=== PATIENT | female | born 1960 | race Caucasian/White ===

== ENCOUNTER → 2019-03-16 09:41 | Outpatient (CLI) | payer MEDICARE, MEDICAID, SELFPAY ==
--- NOTE | 2019-03-16 09:48 | XR_ITS ---
PROCEDURE: XR CHEST 2V Patient Age:58Y CLINICAL HISTORY: PNEUMONIA , COPD WITH EXACERBATION Smoker cough COMPARISON: CXR CHEST(2 VIEWS-NOT PORTABLE) from 04/27/2014 FINDINGS: today's chest film shows no significant change Since the previous April 2014 CXR. Prominent hyperexpansion with increased AP diameter of reflects extensive COPD and emphysematous changes as previously seen. Bleb formation at the apices again noted Linear scarring towards the left upper lung with slight incremental increased size of the bleb just above this at left apex. There is also some linear scarring at the right apex with bleb formation less evident here. Coarsened markings throughout mid and lower lung rivers bilaterally reflecting chronic interstitial changes. I see no definitive acute focal pneumonia. No definitive focal infiltrate or consolidation. No Mass or new nodules of significance. Stable calcified granuloma at the right upper lung 7 mm size again seen. Heart normal size The left brian slightly more generous than the right but I believe stable AP window upper normal prominence due to the left brian is well of these can be followed but if there should be any persistent or progressive respiratory symptoms low threshold for CT in this patient would be warranted. Also screening CT may be of benefit moving forward IMPRESSION: No acute findings. No focal pneumonia Prominent COPD and chronic changes/emphysematous changes again evident. No significant new findings. Bleb formation at both apices again noted, with slight increased size of the bleb/bulla at the left apex since previous 2013 CXR Dictated by: Irineo Fontanez MD 03/17/2019 16:50 Electronically signed by Irineo Fontanez MD in [place] 03/17/2019 16:50
== END ==
PROVIDERS: PCP Family Medicine; Visit Provider Nurse Practitioner
DX: J44.1 Chronic obstructive pulmonary disease with (acute) exacerbation; J18.9 Pneumonia, unspecified organism
CPT/HCPCS: 71046

== ENCOUNTER 2020-10-25 16:10 | Emergency (ER) | payer MEDICARE, OTHER, SELFPAY ==
[2020-10-25 16:30] VITALS: BP 131/84; PULSE 74; RESP 17; TEMP 37; O2SAT 92; BMI 16.6
--- NOTE | 2020-10-25 16:50 | HMH.EDUTC ---
[facility] [place] Clinical Impression: Bronchitis Sinusitis Qualifiers: Sinusitis location: unspecified location Chronicity: unspecified Qualified Code(s): J32.9 - Chronic sinusitis, unspecified Disposition: Home, Self-Care Condition on Discharge: Good Instructions: Sinusitis, Acute Bronchitis, DI for Sinusitis, Prednisone, Levofloxacin Additional Instructions: ? Start antibiotic today. Be sure to complete entire prescription even if feeling better ? Monitor temp. Tylenol every 4 hours as needed and / or ibuprofen every 6 hours as needed ( As long as your primary care physician has told you that it ok to take both. For fever/aches/pains ER if no less than 101 despite Tylenol or Motrin ? Humidifier/vaporizer or hot steamy shower ? Inhaler every 4-6 hours as needed like we discussed. If unsure how to use it, ask pharmacist to demonstrate how. Should help open airways and improve cough, wheezing, and shortness of breath ? Mucinex during the day for your cough and cough suppressant only at night. Be sure to drink lots of water. Insurance may not cover a prescriptions for mucinex. Might be cheaper to get 400mg tablets and take 2 tablet in the morning, mid-day and evening with lots of water. *Start steroid today. Helps with inflammation therefore, cough and wheezing. Follow directions on the package. Reviewed side effects. Patient reports taking them before. Follow up IMMEDIATELY for new or worsening of symptoms OR no noticeable improvement over the next 48-72 hours. 911 immediately for any life threatening symptoms such as chest pain or difficulty breathing Prescriptions: predniSONE [Deltasone 10mg tablet] 10 mg PO BID 5 Days #10 tab Transmission Status: Pending to [facility] levoFLOXacin [Levaquin 500mg tab] 500 mg PO DAILY 10 Days #10 tab Transmission Status: Pending to [facility] Referrals: Martine Bernal APRN [Primary Care Provider] - As needed Time of Disposition: 17:07 Medical Decision Making - Jose Alfredo Inquiry Pt receiving controlled substance: No Jose Alfredo was queried for this patient: No Vital Signs: 10/25/20 16:30 Temperature 98.6 F Temperature Source Oral Pulse Rate [Right Brachial] 74 Respiratory Rate 17 Blood Pressure [Right Arm] 131/84 Blood Pressure Mean [Right Arm] 99 Blood Pressure Source [Right Arm] Automatic Cuff Blood Pressure Position [Right Arm] Sitting 02 Sat by Pulse Oximetry 92 L Oxygen Delivery Method Room Air Medical Decision Narrative: Discussed chest xray and lab work and patient declined Patient denies any renal issues and has taken Levaquin and Prednisone multiple times in the past without complication or reactions [facility] [place] - General Stated complaint: cough,diff breathing Time Seen by Provider: 10/25/20 16:50 Mode of Arrival: Ambulatory Source of Information: Patient Limitations: No Limitations Description of Symptoms (Recalled from Triage Doc. by RN): PATIENT C/O COUGH, DRAINAGE, PAIN IN RIGHT UPPER BACK WITH BREATHING OR COUGHING X 1 WEEK HEENT Symptoms (Recalled from RN notes): No Resp Symptoms (Recalled from RN notes): Yes Skin Symptoms (Recalled from RN notes): No MS Symptoms (Recalled from RN notes): No Functional Status (Recalled from RN notes): WNL - History of Present Illness Provider Complaint: Patient states that she has been having sinus pain and pressure along with drainage for over a week States that she feels like it is trying to move into her chest States that she has pain at times in her right upper lung area with cough or deep breath like she has had with pleurisy States that she was worried and wanted to come in and get treated before it turned into pneumonia States that she is on O2 at home but didnt have portable tank and her mask makes her have anxiety States that - Related Data Previous Rx's Medication Instructions Recorded levoFLOXacin [Levaquin 500mg 500 mg PO DAILY 10 Days #10 tab 10/25/20 tab] predniSONE [Deltasone 10
[2020-10-25 17:00] VITALS: O2SAT 96
[2020-10-25 17:12] VITALS: BP 131/84; PULSE 74; RESP 17; TEMP 37; O2SAT 96
== END 2020-10-25 17:21 | disposition home or self-care (01) ==
PROVIDERS: Emergency Provider Nurse Practitioner; PCP Nurse Practitioner
DX: J20.9 Acute bronchitis, unspecified (principal); J32.9 Chronic sinusitis, unspecified; F17.210 Nicotine dependence, cigarettes, uncomplicated
CPT/HCPCS: G0463; 99202

== ENCOUNTER 2021-12-14 17:20 | Inpatient (IN) | payer MEDICARE, OTHER, SELFPAY ==
[2021-12-14] VITALS (7 sets, daily range): BP systolic 91–120; BP diastolic 48–67; PULSE 91–117; RESP 20–24; TEMP 36.5–38; O2SAT 92–94; BMI 16.0; BMI 14.3
--- NOTE | 2021-12-14 17:30 | PC.NURSE ---
PT SENT FROM [facility], O2 SAT 74% ON ROOM AIR. PT WEARS HOME O2 at 2 L/NC. PLACED ON 5L/NC. SATS INCREASING TO 88%
--- NOTE | 2021-12-14 17:31 | HMH.EDSOB ---
ED Disposition Clinical Impression: COPD exacerbation Pneumonia Qualifiers: Pneumonia type: due to unspecified organism Laterality: bilateral Lung location: lower lobe of lung Qualified Code(s): J18.9 - Pneumonia, unspecified organism Sepsis Qualifiers: Sepsis type: sepsis due to unspecified organism Sepsis acute organ dysfunction status: with acute organ dysfunction Severe sepsis acute organ dysfunction type: acute respiratory failure Acute respiratory failure type: with hypoxia Severe sepsis shock status: without septic shock Qualified Code(s): A41.9 - Sepsis, unspecified organism Disposition: Admitted As Inpatient Condition on Discharge: Serious - Critical Care Critical Care Time: No Attestation: On 12/14/21, the high probability of a clinically significant, sudden or life threatening deterioration of the following system(s) required my full and direct attention, intervention and personal management. The time I documented below is in addition to time spent performing reported procedures but includes the following listed in this critical care notation. Medical Decision Making - Jose Alfredo Inquiry Pt receiving controlled substance: No Vital Signs: 12/14/21 17:35 12/14/21 18:00 12/14/21 18:30 Temperature 100.4 F H Temperature Source Oral Pulse Rate 110 H 105 H Pulse Rate [Brachial] 117 H Respiratory Rate 24 24 24 Blood Pressure 110/63 117/59 L Blood Pressure [Left Arm] 120/58 L Blood Pressure Mean 78 78 Blood Pressure Mean [Left Arm] 78 Blood Pressure Source [Left Arm] Automatic Cuff Blood Pressure Position [Left Arm] Sitting 02 Sat by Pulse Oximetry 94 L 94 L 93 L Oxygen Delivery Method Nasal Cannula Oxygen Flow Rate (LPM) 5 - Lab Data Lab results reviewed: Yes: I reviewed the patient's lab results. Lab Results 12/14/21 17:35: WBC 36.4 H*, RBC 4.76, Hgb 13.9, Hct 45.3, MCV 95.3, MCH 29.1, MCHC 30.6 L, RDW 14.6, Plt Count 364, MPV 9.2, Neut % (Auto) 90.6 H, Lymph % (Auto) 3.8 L, [place] % (Auto) 3.7, Eos % (Auto) 0.3, Baso % (Auto) 1.6, Neut # (Auto) 32.9 H, Lymph # (Auto) 1.4, [place] # (Auto) 1.3 H, Eos # (Auto) 0.1, Baso # (Auto) 0.6 H 12/14/21 17:35: Sodium 133 L, Potassium 3.3 L, Chloride 95 L, Carbon Dioxide 33 H, Anion Gap 8.3, BUN 8, Creatinine 0.50 L, Estimated Creat Clear 76, Estimated GFR 126, Est GFR ( Amer) 153, Glucose 79, Calcium 8.7, Total Bilirubin 0.4, AST 23, ALT 19, Alkaline Phosphatase 119, NT-Pro-B Natriuret Pep 166 H, Total Protein 6.5, Albumin 3.5, Globulin 3.0, Albumin/Globulin Ratio 1.2 12/14/21 17:35: SARS-CoV-2 (PCR) Not detected, Influenza A Untype (PCR) Not detected, Influenza Type B (PCR) Not detected 12/14/21 17:35: Lactate 2.2 H Result diagrams: 12/14/21 17:35 12/14/21 17:35 Orders (Tests/Meds): ED MEDICATIONS Generic Name Dose Route Start Last Admin Trade Name Freq PRN Reason Stop Dose Admin Albuterol Sulfate puff 12/14/21 18:37 Albuterol-Hfa 90mcg/Puff Inhaler 8gm 01/13/22 18:36 NEEDED PRN Dyspnea Albuterol/Ipratropium 3 ml 12/14/21 18:45 Ipratropium/Albuterol 3 Ml Neb 01/13/22 18:44 DIRECTED ZAINA Fluticasone/Umeclidinium/Vilanterol 1 puff 12/14/21 18:45 Fluticasone/Umeclidin/Vilanter 100/62.5/25mcg Inhaler 01/13/22 18:44 DIRECTED ZAINA Ceftriaxone Sodium 1 gm/ 50 mls @ 100 mls/hr 12/14/21 18:15 12/14/21 18:13 Sodium Chloride IV 12/28/21 18:14 100 mls/hr Q24H ZAINA Administration Azithromycin 500 mg/ Sodium 250 mls @ 250 mls/hr 12/14/21 18:15 12/14/21 18:29 Chloride IV 12/28/21 18:14 250 mls/hr Q24H ZAINA Administration Non-Formulary Medication 40 mg 12/15/21 09:00 Omeprazole [Omeprazole 40mg Capsule] PO 01/14/22 08:59 DAILY ZAINA Sodium Chloride 10 ml 12/14/21 17:49 Sodium Chloride 0.9% 10ml Flush Syringe IV 01/13/22 17:48 NEEDED PRN Maintain IV Site Discontinued Medications Generic Name Dose Route Start Last Admin Trade Na
--- NOTE | 2021-12-14 17:39 | PC.NURSE ---
ED MD AT BEDSIDE
--- NOTE | 2021-12-14 17:40 | PC.NURSE ---
O2 SAT 93% ON 5L/NC
--- NOTE | 2021-12-14 17:41 | ECG_ITS ---
APPROVED REPORT Exam: Resting ECG HR:114 bpm ECG Measurements Heart Rate 114 AXES NH 114 P 78 QRSd 70 QRS 76 QT 319 T 8 QTc 387 Conclusion SINUS TACHYCARDIA WITH SHORT NH INTERVAL ST DEVIATION AND MODERATE T-WAVE ABNORMALITY, CONSIDER ANTEROLATERAL ISCHEMIA [-0.1+ mV T-WAVE IN V3-V6] ABNORMAL ECG UNCONFIRMED REPORT Electronically signed by : William Murphy MD 12/16/2021 17:45:14
--- NOTE | 2021-12-14 17:43 | XR_ITS ---
PROCEDURE INFORMATION: Exam: XR Chest Exam date and time: 12/14/21 05:47 PM Age: 61 years old Clinical indication: Dyspnea; Patient HX: PT states that she has copd, and that she has been SOB with congestion and a cough. PT states the symptoms have worsened since yesterday. TECHNIQUE: Imaging protocol: Radiologic exam of the chest. Views: 1 view. COMPARISON: CR XR CHEST 2V 03/16/19 09:50 AM FINDINGS: Lungs: Bilateral lower lobe interstitial infiltrates right greater than left are new since comparison 03/16/2019. Apical bullous change and scarring. Bilateral hilar retraction. Pleural spaces: Unremarkable. No pleural effusion. No pneumothorax. Heart/Mediastinum: Unremarkable. No cardiomegaly. Bones/joints: Unremarkable. IMPRESSION: 1. Bilateral lower lobe interstitial infiltrates right greater than left are new since comparison 03/16/2019. 2. Apical bullous change and scarring. Bilateral hilar retraction.
--- NOTE | 2021-12-14 17:47 | PC.NURSE ---
XR AT BEDSIDE
[2021-12-14 17:51] LABS: Coronavirus 19, PCR Not Detected (NotDetected); Influenza A, PCR Not Detected (NotDetected); Influenza B, PCR Not Detected (NotDetected)
[2021-12-14 17:54] LABS: Basophils # 0.6 K/mm3 (0-0.2); Basophils % 1.6 % (0.1-2.0); Eosinophils # 0.1 K/mm3 (0.0-0.4); Eosinophils % 0.3 % (0.1-12.0); Hematocrit 45.3 % (37.0-47.0); Hemoglobin 13.9 g/dL (12.2-16.2); Lymphocytes # 1.4 K/mm3 (0.7-4.5); Lymphocytes % 3.8 % (10-50); Mean Corpuscular HGB Conc 30.6 g/dL (31.8-35.4); Mean Corpuscular Hemoglobin 29.1 pg (27.0-31.2); Mean Corpuscular Volume 95.3 fl (81-99); Mean Platelet Volume 9.2 fl (7.4-10.4); Monocytes # 1.3 K/mm3 (0.1-1.0); Monocytes % 3.7 % (1.7-9.3); Neutrophils # 32.9 K/mm3 (1.8-7.8); Neutrophils % 90.6 % (37.0-80.0); Platelet Count 364 K/mm3 (142-424); Red Blood Count 4.76 M/mm3 (4.20-5.40); Red Cell Distribution Width 14.6 % (11.5-17.5); White Blood Count 36.4 K/mm3 (4.8-10.8)
[2021-12-14 18:01] LABS: Alanine Aminotransferase 19 U/L (12-78); Albumin Level 3.5 g/dl (3.5-5.0); Albumin/Globulin Ratio 1.2 (1.1-1.8); Alkaline Phosphatase 119 U/L (38-126); Anion Gap 8.3 mEq/L (5-15); Aspartate Amino Transferase 23 U/L (14-36); Bilirubin,Total 0.4 mg/dl (0.2-1.3); Blood Urea Nitrogen 8 mg/dl (7-17); Calcium 8.7 mg/dl (8.4-10.2); Carbon Dioxide 33 mmol/L (22.0-30.0); Chloride 95 mmol/L (98-107); Creatinine Clearance Estimated 76 mL/min (50-200); Estimated Glomerular Filt Rate 126 ml/min (>60); GFR (African American) 153 ML/MIN (>60); Glucose 79 mg/dl (74-100); Potassium 3.3 mmoL/L (3.5-5.1); Sodium 133 mmol/L (136-145); Total Protein,Serum 6.5 g/dl (6.3-8.2)
[2021-12-14 18:07] LABS: MANUAL DIFFERENTIAL MANUAL DIFFERENTIAL (MANUAL DIFF)
[2021-12-14 18:10] LABS: NT Pro Brain Natriuretic Pep. 166 pg/mL (0-125)
[2021-12-14 18:17] LABS: Lactic Acid 2.2 mmol/L (0.7-2.1)
--- NOTE | 2021-12-14 18:24 | PC.NURSE ---
PT OFFERED BLANKET, PT DECLINED
--- NOTE | 2021-12-14 18:27 | PC.NURSE ---
Addendum entered by Kaylee Pineda 12/14/21 18:29: for request to admit Original Note: Paged DR gama, on for DR rodriguez
--- NOTE | 2021-12-14 18:41 | PC.NURSE ---
PT ACCEPTED BY DR. WAGNER FOR ADMISSION
--- NOTE | 2021-12-14 18:41 | PC.NURSE ---
PARTS IDENTIFICATION TECHNICIAN NOTIFIED OF ADMISSION
--- NOTE | 2021-12-14 19:10 | PC.NURSE ---
Notified Dr. Wesley that pt meets criteria for severe sepsis with organ dysfunction. BP is currently 102/62. Asked MD if he would like to add fluid bolus or start IVF, he stated he'd like 500ml NS over an hr. Pt & her daughter updated on POC and admission.
--- NOTE | 2021-12-14 19:14 | PC.NURSE ---
Attempted to call report to 2nd wi, after transfer to nurse, no answer 2x.
--- NOTE | 2021-12-14 19:54 | PC.NURSE ---
pt states that she has numbness in the 1st 3 finger tips on the left hand. pt was repositioned and the feeling has started to return.
--- NOTE | 2021-12-14 20:09 | PC.NURSE ---
patient up to floor via wheelchair @ this time.
[2021-12-14 20:33] LABS: ABG Base Excess 1.6 mmol/L (-2.4-2.3); ABG HCO3 25.6 mmhg (22.0-26.0); ABG Oxygen Saturation 98 % (90-100); ABG PCO2 37.9 mmhg (35.0-45.0); ABG PH 7.45 mmol/L (7.35-7.45); ABG PO2 92.3 mmhg (80-100); ABG TCO2 26.8 mmhg (23-27); Allen's Test Y; Oxygen 4 %; Source Right Radial
[2021-12-14 21:38] LABS: Eosinophils % 2 % (0-3); Lymphocytes % 10 % (10-50); Monocytes % 5 % (2-9); Neutrophils % 83 % (42-76); Platelet Estimate Normal; Total Cells Counted 100
[2021-12-14 22:01] LABS: Reflex Lactic Add Lactic Reflex
[2021-12-14 22:44] LABS: Lactic Acid Follow Up (RFLX 1) 1.1 mmol/L (0.7-2.1)
[2021-12-15] VITALS (9 sets, daily range): BP systolic 94–135; BP diastolic 50–68; PULSE 85–105; RESP 17–19; TEMP 36.8–37.3; O2SAT 92–95
[2021-12-15 06:43] LABS: Basophils # 0.1 K/mm3 (0-0.2); Basophils % 0.4 % (0.1-2.0); Eosinophils # 0.2 K/mm3 (0.0-0.4); Eosinophils % 0.7 % (0.1-12.0); Hematocrit 34.6 % (37.0-47.0); Lactic Acid 1.2 mmol/L (0.7-2.1); Lymphocytes # 1.6 K/mm3 (0.7-4.5); Lymphocytes % 6.9 % (10-50); Mean Corpuscular HGB Conc 31.3 g/dL (31.8-35.4); Mean Corpuscular Hemoglobin 29.2 pg (27.0-31.2); Mean Corpuscular Volume 93.4 fl (81-99); Mean Platelet Volume 9.6 fl (7.4-10.4); Monocytes # 1.2 K/mm3 (0.1-1.0); Neutrophils # 20.5 K/mm3 (1.8-7.8); Neutrophils % 87.1 % (37.0-80.0); Platelet Count 296 K/mm3 (142-424); Red Blood Count 3.71 M/mm3 (4.20-5.40); White Blood Count 23.6 K/mm3 (4.8-10.8)
[2021-12-15 06:45] LABS: Anion Gap 4.3 mEq/L (5-15); Blood Urea Nitrogen 6 mg/dl (7-17); Calcium 7.5 mg/dl (8.4-10.2); Carbon Dioxide 30 mmol/L (22.0-30.0); Chloride 104 mmol/L (98-107); Creatinine Clearance Estimated 85 mL/min (50-200); Estimated Glomerular Filt Rate 163 ml/min (>60); GFR (African American) 198 ML/MIN (>60); Glucose 81 mg/dl (74-100); Potassium 3.3 mmoL/L (3.5-5.1); Sodium 135 mmol/L (136-145)
[2021-12-15 07:01] LABS: MANUAL DIFFERENTIAL MANUAL DIFFERENTIAL (MANUAL DIFF)
[2021-12-15 07:02] LABS: Hemoglobin 10.8 g/dL (12.2-16.2)
--- NOTE | 2021-12-15 07:06 | HMH.PHAVTE ---
[facility] Pharmacy VTE Monitoring - Patient Demographics Admission date: 12/14/21 Report Date: 12/15/21 Time: 07:06 Allergies/Adverse Reactions: Patient Allergies No Known Drug Allergies [NKDA] Allergy (Unknown, Verified 10/25/20 16:50) Height: 1.57 m Weight: 35.426 kg Patient Problems: Current Active Problems Pneumonia (Acute) Sepsis (Acute) COPD exacerbation (Acute) - VTE Risk Labs: VTE Related Lab Results Hgb 10.8 g/dL (12.2-16.2) L D 12/15/21 06:14 Hct 34.6 % (37.0-47.0) L 12/15/21 06:14 Plt Count 296 K/mm3 (142-424) 12/15/21 06:14 BUN 6 mg/dl (7-17) L 12/15/21 06:14 Creatinine 0.40 mg/dl (0.52-1.04) L 12/15/21 06:14 Estimated Creat Clear 85 mL/min (50-200) 12/15/21 06:14 VTE Score: 3 VTE Risk Level: Low Risk - Prophylaxis VTE Prophylaxis Ordered?: Yes Types of VTE Prophylaxis: TEDS Knee High Location of Applied Device: Bilateral Lower Extremeties
--- NOTE | 2021-12-15 07:08 | HMH.PHAINT ---
MEDICATION RECONCILIATION COMPLETED ON PATIENT USING EXTERNAL FILL HISTORY FROM PHARMACY. -KEI HOWARD, BIENVENIDOD
--- NOTE | 2021-12-15 07:26 | PC.NURSE ---
Pt a + o x4. Tolerating 4 l nc well with sats >90%. No complaints voiced to staff. Call light within reach.
[2021-12-15 07:39] LABS: Lymphocytes % 7 % (10-50); Monocytes % 2 % (2-9); Neutrophils % 91 % (42-76); Platelet Estimate Normal; RBC Morphology Normal; Total Cells Counted 100
--- NOTE | 2021-12-15 08:34 | HMH.HP ---
*Admission Date: 12/14/21 <Una Dhaliwal - 12/15/21 08:59> *Chief complaint: Vomiting and diarrhea <Una Dhaliwal - 12/15/21 08:59> *History of present illness: Ms. Vásquez is a 61-year-old female with a history of previous pneumonia, ulcers, COPD, GERD, depression with anxiety, restless leg syndrome who is followed in the office of [facility] in [place]. She presented to [facility] emergency room after experiencing nausea and vomiting and dry heaving for the previous 2 days. She states she was unable to eat anything although she retain some fluids. She states she finally took an Imodium yesterday after which she has had no further stools. She denies hematemesis, melena, and bloody stools. She has had some shortness of breath and wears oxygen at home as needed. She has had her usual cough which is sometimes productive. She denies having any fever. He does continue to smoke although she says not very much. Her kidneys continue to function. With evaluation in the emergency room CBC showed a white blood cell count of 36,400. Hemoglobin was 13.9 hematocrit 45.3. This morning white blood cell count has decreased to 23,600. ABGs showed a pH of 7.45 PCO2 37.9 PO2 of 92.3 and a bicarb of 25.6. Blood chemistry showed low potassium at 3.3 with a BUN of 8 creatinine 0.5. Lactate was elevated at 2.2 and with repeats after fluids is 1.2 now. Liver functions studies were not elevated. BNP was 166. COVID was not detected chest x-ray revealed Bilateral lower lobe interstitial infiltrates right greater than the left.On arrival to the ER temperature was 100.4. She received a DuoNeb treatment and was started on Rocephin and Zithromax. She also received omeprazole.O2 sats were found to be in the upper 70s in the emergency room and increased to 80s on 2 L. This a.m. patient feels like she is somewhat better. She had no further diarrhea and did not vomit during the night. She was able to eat a little breakfast and thus far has retained. He is walked to the bathroom with help without difficulty. She has been voiding QS. She states her breathing is fine and she denies chest pain. She has had minimal cough. She was able to sleep last night. <Una Dhaliwal 12/15/21 08:59> [facility] History Medical History: Reports:: Chronic Obstructive Pulmonary Disease (COPD), Depression, Gastroesophageal Reflux Disease(GERD), Ulcer Denies:: Diabetes Mellitus Type 1, Diabetes Mellitus Type 2 <DhaliwalUna 12/15/21 08:59> *Have you ever received a pneumonia vaccine?: Yes <MadhuriUna 12/15/21 08:59> *Have you received a flu vaccine this season?: No <Dhaliwal,Una 12/15/21 08:59> Other Surgeries: Yes: EGD, Tubal Ligation <MadhuriUna 12/15/21 08:59> Amputation: No <MadhuriUna 12/15/21 08:59> Fractures: No <Dhaliwal,Una 12/15/21 08:59> - *Social History Smoking Status: Current every day smoker <MadhuriUna 12/15/21 08:59> Tobacco Type: cigarettes <DhaliwalUna 12/15/21 08:59> # Packs/Day (cigarettes): 1 <DhaliwalUna 12/15/21 08:59> Alcohol Intake: current <Dhaliwal,Una 12/15/21 08:59> Alcohol Intake Frequency:: holidays/special occasions only <Dhaliwal,Una 12/15/21 08:59> *Occupational Status:: unemployed <MadhuriUna 12/15/21 08:59> Housing: house <Una Dhaliwal 12/15/21 08:59> *Travel in the last 8 weeks: None <MadhuriUna 12/15/21 08:59> Family Hx:: Cancer, Diabetes <MadhuriUna 12/15/21 08:59> Review of Systems - Constitutional Reports lack of energy, Denies fever(s) <Una Dhaliwal 12/15/21 08:59> - Eyes Denies change in vision <Una Dhaliwal 12/15/21 08:59> - ENT Denies ear pain, Denies sore throat <Una Dhaliwal 12/15/21 08:59> - *Cardiovascular Reports shortness of breath, Denies chest pain, Denies generalized swelling, Denies irregular heart rhythm, Denies leg swelling, Denies fast heart rate <Una Dhaliwal - 12/15/21 08:59> - *Respirator
--- NOTE | 2021-12-15 13:24 | PC.NURSE ---
STOOL SAMPLE SENT TO LAB
[2021-12-15 13:27] LABS: Adenovirus F 40/41, stool Not Detected (NotDetected); Astrovirus Not Detected (NotDetected); Campylobacter Not Detected (NotDetected); Clostridium Difficile A/B, PCR Not Detected (NotDetected); Cryptosporidium Not Detected (NotDetected); Cyclospora Cayetanesis Not Detected (NotDetected); Entamoeba histolytica Not Detected (NotDetected); Enteroaggregative E coli Not Detected (NotDetected); Enteropathogenic E coli Not Detected (NotDetected); Enterotoxigenic E coli Not Detected (NotDetected); Giardia lamblia Not Detected (NotDetected); Norovirus Not Detected (NotDetected); Plesimonas Shigalloides, PCR Not Detected (NotDetected); Rotavirus A Not Detected (NotDetected); Salmonella, PCR Not Detected (NotDetected); Sapovirus Not Detected (NotDetected); Shiga-like toxin E coli Not Detected (NotDetected); Shigella Enterovasive E coli Not Detected (NotDetected); Vibrio Cholerae Not Detected (NotDetected); Vibrio, PCR Not Detected (NotDetected); Yersinia Entercolitica, PCR Not Detected (NotDetected)
--- NOTE | 2021-12-15 16:05 | PC.NURSE ---
PT IS AOX4, ABLE TO MAKE NEEDS KNOWN TO STAFF, HAS AMBULATED TO RESTROOM INDEPENDENTLY THIS SHIFT. C/O HEADACHE THIS AM AND WAS TREATED WITH PRN TYLENOL WITH GOOD EFFECTIVENESS. NO OTHER COMPLAINTS.
[2021-12-16] VITALS (7 sets, daily range): BP systolic 100–108; BP diastolic 47–56; PULSE 91–105; RESP 16–19; TEMP 36.6–37; O2SAT 86–94; BMI 15.0
--- NOTE | 2021-12-16 04:00 | PC.NURSE ---
pt somewhat restless through the night related to cough; pt with intermittent cough and has requested prn inhalation this shift, lung sounds with inspiratory and expiratory wheezes throughout, humidification added to 02 at 4L pnc for complaints of dryness and irritation in nares and throat; 02 sats 91-92%; no edema, a+o x4; diarrhea panel negative; VSS; no acute distress noted this shift.
[2021-12-16 07:26] LABS: Basophils % 0.2 % (0.1-2.0); Eosinophils # 0.1 K/mm3 (0.0-0.4); Eosinophils % 0.7 % (0.1-12.0); Hematocrit 31.7 % (37.0-47.0); Hemoglobin 10.6 g/dL (12.2-16.2); Lymphocytes # 2.3 K/mm3 (0.7-4.5); Lymphocytes % 12.5 % (10-50); Mean Corpuscular HGB Conc 33.4 g/dL (31.8-35.4); Mean Corpuscular Hemoglobin 29.8 pg (27.0-31.2); Mean Corpuscular Volume 89.3 fl (81-99); Mean Platelet Volume 8.9 fl (7.4-10.4); Monocytes # 1.1 K/mm3 (0.1-1.0); Monocytes % 6.1 % (1.7-9.3); Neutrophils # 14.5 K/mm3 (1.8-7.8); Neutrophils % 80.5 % (37.0-80.0); Platelet Count 256 K/mm3 (142-424); Red Blood Count 3.55 M/mm3 (4.20-5.40); Red Cell Distribution Width 14.5 % (11.5-17.5)
[2021-12-16 07:28] LABS: MANUAL DIFFERENTIAL MANUAL DIFFERENTIAL (MANUAL DIFF)
[2021-12-16 07:46] LABS: Anion Gap 6.8 mEq/L (5-15); Blood Urea Nitrogen 3 mg/dl (7-17); Calcium 7.4 mg/dl (8.4-10.2); Carbon Dioxide 28 mmol/L (22.0-30.0); Chloride 102 mmol/L (98-107); Creatinine Clearance Estimated 88 mL/min (50-200); Estimated Glomerular Filt Rate 163 ml/min (>60); GFR (African American) 198 ML/MIN (>60); Sodium 134 mmol/L (136-145)
[2021-12-16 07:55] LABS: Lymphocytes % 14 % (10-50); Monocytes % 2 % (2-9); Neutrophils % 84 % (42-76); Total Cells Counted 100
[2021-12-16 07:56] LABS: Hypochromasia 1+; Platelet Estimate Normal
[2021-12-16 08:01] LABS: Potassium 2.8 mmoL/L (3.5-5.1)
[2021-12-16 08:02] LABS: Glucose 47 mg/dl (74-100)
--- NOTE | 2021-12-16 08:22 | PC.NURSE ---
0820-CRITICAL LAB VALUES REPORTED TO THIS RN K+ 2.8/GLUCOSE 47. NAME AND VERIFIED. DR WAGNER MADE AWARE DURING ROUNDS THIS MORNING.
--- NOTE | 2021-12-16 08:30 | HMH.ACPN2 ---
Internal Medicine - PN: Subj *Date: 12/16/21 *Time: 08:30 Interval history: Patient with no new complaints today, feels a little better, anxious to go home. Exam Vital signs and Labs for Last 24 Hours: Temp Pulse Resp BP Pulse Ox 98.2 F 96 H 16 108/56 L 93 L 12/16/21 04:00 12/16/21 06:20 12/16/21 04:00 12/16/21 04:00 12/16/21 06:20 Laboratory Results - last 24 hr 12/15/21 13:16: Stl Aeromonas (PCR) Not detected, Stl C. cayetanensis PCR Not detected, Stool Rotavirus (PCR) Not detected, Stl Adenov F 40/41 PCR Not detected, Stool Astrovirus (PCR) Not detected, Stool Campylobacter PCR Not detected, Stl C.difficile Tox PCR Not detected, Stool Cryptosporidium PCR Not detected, Stl E.coli Shiga Tox PCR Not detected, Stool E coli O157 PCR Not detected, Stl Enterotoxigenic E PCR Not detected, Stool EPEC (PCR) Not detected, Stool EAEC (PCR) Not detected, Stl E. histolytica PCR Not detected, Stool Giardia Lamblia PCR Not detected, Stool Salmonella PCR Not detected, Stool Sapovirus (PCR) Not detected, Stl P. shigelloides PCR Not detected, Stl Shigella/EIEC PCR Not detected, St Y.enterocolitica PCR Not detected, Stool Vibrio (PCR) Not detected, Stl Vibrio cholerae PCR Not detected, Stl Norovirus GI/GII PCR Not detected 12/16/21 07:04: WBC 18.0 H, RBC 3.55 L, Hgb 10.6 L, Hct 31.7 L, MCV 89.3, MCH 29.8, MCHC 33.4, RDW 14.5, Plt Count 256, MPV 8.9, Neut % (Auto) 80.5 H, Lymph % (Auto) 12.5, [place] % (Auto) 6.1, Eos % (Auto) 0.7, Baso % (Auto) 0.2, Neut # (Auto) 14.5 H, Lymph # (Auto) 2.3, [place] # (Auto) 1.1 H, Eos # (Auto) 0.1, Baso # (Auto) 0.0, Total Counted 100, Neutrophils % (Manual) 84 H, Lymphocytes % (Manual) 14, Monocytes % (Manual) 2, Platelet Estimate Normal, Hypochromasia 1+ 12/16/21 07:04: Sodium 134 L, Potassium 2.8 L*, Chloride 102, Carbon Dioxide 28, Anion Gap 6.8, BUN 3 L D, Creatinine 0.40 L, Estimated Creat Clear 88, Estimated GFR 163, Est GFR ( Amer) 198, Glucose 47 L, Calcium 7.4 L Vital Signs - 24 hr 12/15/21 11:50 12/15/21 12:00 12/15/21 15:56 Temperature 98.4 F 98.7 F Pulse Rate 88 Pulse Rate [Apical] Pulse Rate [Brachial] 86 94 H Respiratory Rate 17 18 Blood Pressure [Left Arm] 97/57 L 108/56 L 02 Sat by Pulse Oximetry 92 L 92 L 93 L 12/15/21 18:57 12/15/21 20:00 12/16/21 00:00 Temperature 98.8 F 98.2 F Pulse Rate 85 Pulse Rate [Apical] 105 H Pulse Rate [Brachial] 105 H 102 H Respiratory Rate 18 18 Blood Pressure [Left Arm] 135/68 106/49 L 02 Sat by Pulse Oximetry 93 L 95 92 L 12/16/21 04:00 12/16/21 06:20 Temperature 98.2 F Pulse Rate 96 H Pulse Rate [Apical] Pulse Rate [Brachial] 100 H Respiratory Rate 16 Blood Pressure [Left Arm] 108/56 L 02 Sat by Pulse Oximetry 91 L 93 L I & O for Last 24 hours: Intake & Output 12/13/21 12/14/21 12/15/21 12/16/21 23:59 23:59 23:59 23:59 Intake Total 2687 / 2687 650 / 650 Output Total 0 / 0 0 / 0 Balance 2687 / 2687 650 / 650 Weight 78 lb 1.6 oz 81 lb 9 oz Microbiology Reports for the Last 24 Hours: Microbiology 12/15/21 06:15 Sputum - Expectorated Sputum Gram Stain - Final - Constitutional no acute distress - *Routine HEENT Exam Head: Present: normocephalic Eye: Present: EOMI, PERRL ENT: Present: mucous membranes moist - *Routine Neck Exam Present: supple. Absent: lymphadenopathy - *Routine Respiratory Exam Present: crackles (few) - *Routine Cardiovascular Exam Present: RRR - *Routine Abdominal Exam Present: soft, normoactive bowel sounds. Absent: tenderness - *Routine Extremities Exam Absent: cyanosis, clubbing, edema - *Routine Skin Exam Present: warm. Absent: rash - *Routine Neurological Exam Present: alert, oriented X3 Assessment and Plan (1) COPD exacerbation Status: Acute Category: Medical Code(s): J44.1 - Chronic obstructive pulmonary disease with (acute) exacerbation (2) Sepsis Status: Acute Qualifiers: Sepsis type: sepsis due to unspec
--- NOTE | 2021-12-16 14:14 | PC.NURSE ---
pt is 86% on room air and may require portable oxygen upon d/c.
--- NOTE | 2021-12-16 14:22 | SW/DCPLANNER ---
Patient information/order has been faxed to [facility] for portable O2 tank.
--- NOTE | 2021-12-17 14:05 | CARE MANAGER ---
Left message for post-discharge phone interview. Awaiting return call.
--- NOTE | 2021-12-19 23:25 | HMH.DCSUM ---
General - General Admission date:: 12/14/21 Discharge date: 12/16/21 HPI HPI: Ms. Vásquez is a 61-year-old female with a history of previous pneumonia, ulcers, COPD, GERD, depression with anxiety, restless leg syndrome who is followed in the office of [facility] in [place]. She presented to [facility] emergency room after experiencing nausea and vomiting and dry heaving for the previous 2 days. She states she was unable to eat anything although she retain some fluids. She states she finally took an Imodium yesterday after which she has had no further stools. She denies hematemesis, melena, and bloody stools. She has had some shortness of breath and wears oxygen at home as needed. She has had her usual cough which is sometimes productive. She denies having any fever. He does continue to smoke although she says not very much. Her kidneys continue to function. With evaluation in the emergency room CBC showed a white blood cell count of 36,400. Hemoglobin was 13.9 hematocrit 45.3. This morning white blood cell count has decreased to 23,600. ABGs showed a pH of 7.45 PCO2 37.9 PO2 of 92.3 and a bicarb of 25.6. Blood chemistry showed low potassium at 3.3 with a BUN of 8 creatinine 0.5. Lactate was elevated at 2.2 and with repeats after fluids is 1.2 now. Liver functions studies were not elevated. BNP was 166. COVID was not detected chest x-ray revealed Bilateral lower lobe interstitial infiltrates right greater than the left.On arrival to the ER temperature was 100.4. She received a DuoNeb treatment and was started on Rocephin and Zithromax. She also received omeprazole.O2 sats were found to be in the upper 70s in the emergency room and increased to 80s on 2 L. This a.m. patient feels like she is somewhat better. She had no further diarrhea and did not vomit during the night. She was able to eat a little breakfast and thus far has retained. He is walked to the bathroom with help without difficulty. She has been voiding QS. She states her breathing is fine and she denies chest pain. She has had minimal cough. She was able to sleep last night. Hospital Course Hospital Course: The patient was started on pulmonary care along with Rocephin and Zithromax IV. She was also started on duo nebs. Her white blood cell count improved with antibiotics. She was started on p.o. potassium for hypokalemia. By 12-16-2021, she was feeling better and wanted to go home. Her glucose was low, therefore glucose was added to the IV fluids. Respiratory try to wean the patient's oxygen but her sats decreased. She was stable to be discharged home with continuous oxygen at 4 L/min. She will follow-up at [facility] primary care. Objective Vital signs: Temp Pulse Resp BP Pulse Ox 97.9 F 105 H 18 100/47 L 86 L 12/16/21 12:00 12/16/21 12:00 12/16/21 12:00 12/16/21 12:00 12/16/21 14:15 Narrative: - Constitutional no acute distress, thin <Una Dhaliwal 12/15/21 08:59> Comments: Sitting up after eating breakfast. <Una Dhaliwal 12/15/21 08:59> - *Routine HEENT Exam Head: Present: normocephalic, atraumatic <MadhuriUna 12/15/21 08:59> Eye: Present: PERRL. Absent: conjunctival icterus, scleral injection [facility] 12/15/21 08:59> ENT: Present: mucous membranes moist <Una Dhaliwal 12/15/21 08:59> - *Routine Neck Exam Present: supple. Absent: carotid bruit, lymphadenopathy, thyromegaly <Una Dhaliwal 12/15/21 08:59> - *Routine Respiratory Exam Present: diminished air movement (Posteriorly with scattered crackles) <[facility] 12/15/21 08:59> - *Routine Cardiovascular Exam Present: RRR <Tammy Dhaliwalhy 12/15/21 08:59> - *Routine Abdominal Exam Present: soft. Absent: normoactive bowel sounds (Hyperactive), tenderness, distended <Una Dhaliwal 12/15/21 08:59> - *Routine Rectal Exam Rectal:: deferred <Una Dhaliwal 12/15/21 0
== END 2021-12-16 15:29 | disposition home or self-care (01) | DRG 871 ==
LOC: UTC 17:27 → ER 17:28 → 2ND 18:54
PROVIDERS: Admitting Provider Family Medicine; Emergency Provider Emergency Medicine; PCP Family Medicine; Visit Provider Family Medicine
DX: A41.9 Sepsis, unspecified organism (principal); J18.9 Pneumonia, unspecified organism; J96.01 Acute respiratory failure with hypoxia; J44.1 Chronic obstructive pulmonary disease with (acute) exacerbation; Z99.81 Dependence on supplemental oxygen; E87.6 Hypokalemia; D64.9 Anemia, unspecified; K21.9 Gastro-esophageal reflux disease without esophagitis; F17.200 Nicotine dependence, unspecified, uncomplicated; F32.A Depression, unspecified; F41.9 Anxiety disorder, unspecified; E16.2 Hypoglycemia, unspecified; R65.20 Severe sepsis without septic shock
CPT/HCPCS: 36415; 71045; 80048; 80053; 82803; 83605; 83880; 85007; 85025; 87040; 87070; 87077; 87186; 87205; 87506; 93005; 94640; 94761; 99285; C9803; J0456; J0696; U0003; U0005

== ENCOUNTER → 2021-12-21 06:57 | Outpatient (CLI) | payer MEDICARE, OTHER, SELFPAY ==
[2021-12-20 18:13] LABS: Basophils # 0.1 K/mm3 (0-0.2); Basophils % 0.7 % (0.1-2.0); Eosinophils # 0.2 K/mm3 (0.0-0.4); Eosinophils % 1.4 % (0.1-12.0); Hematocrit 35.6 % (37.0-47.0); Hemoglobin 11.5 g/dL (12.2-16.2); Lymphocytes # 2.8 K/mm3 (0.7-4.5); Lymphocytes % 18.1 % (10-50); Mean Corpuscular HGB Conc 32.2 g/dL (31.8-35.4); Mean Corpuscular Hemoglobin 29.9 pg (27.0-31.2); Mean Corpuscular Volume 92.7 fl (81-99); Mean Platelet Volume 8.8 fl (7.4-10.4); Monocytes % 6.5 % (1.7-9.3); Neutrophils # 11.4 K/mm3 (1.8-7.8); Neutrophils % 73.3 % (37.0-80.0); Platelet Count 591 K/mm3 (142-424); Red Blood Count 3.84 M/mm3 (4.20-5.40); Red Cell Distribution Width 14.4 % (11.5-17.5); White Blood Count 15.5 K/mm3 (4.8-10.8)
[2021-12-20 18:15] LABS: MANUAL DIFFERENTIAL MANUAL DIFFERENTIAL (MANUAL DIFF)
[2021-12-20 18:24] LABS: Alanine Aminotransferase 12 U/L (12-78); Albumin Level 2.7 g/dl (3.5-5.0); Alkaline Phosphatase 111 U/L (38-126); Anion Gap 8.3 mEq/L (5-15); Aspartate Amino Transferase 21 U/L (14-36); Calcium 8.2 mg/dl (8.4-10.2); Carbon Dioxide 37 mmol/L (22.0-30.0); Chloride 94 mmol/L (98-107); Estimated Glomerular Filt Rate 228 ml/min (>60); GFR (African American) 276 ML/MIN (>60); Globulin 2.6 g/dL (1.3-3.2); Glucose 80 mg/dl (74-100); Potassium 3.3 mmoL/L (3.5-5.1); Sodium 136 mmol/L (136-145); Total Protein,Serum 5.3 g/dl (6.3-8.2)
[2021-12-20 18:37] LABS: Bilirubin,Total < 0.1 mg/dl (0.2-1.3); Blood Urea Nitrogen < 2 mg/dl (7-17)
[2021-12-20 19:36] LABS: Eosinophils % 2 % (0-3); Lymphocytes % 20 % (10-50); Monocytes % 10 % (2-9); Neutrophils % 68 % (42-76); Total Cells Counted 100
[2021-12-20 19:37] LABS: Platelet Estimate Moderate Increase; RBC Morphology Normal
== END ==
PROVIDERS: PCP Nurse Practitioner; Visit Provider Nurse Practitioner
DX: J32.9 Chronic sinusitis, unspecified (principal); J18.9 Pneumonia, unspecified organism
CPT/HCPCS: 80053; 85007; 85025

== ENCOUNTER → 2021-12-28 07:05 | Outpatient (CLI) | payer MEDICARE, OTHER, SELFPAY ==
[2021-12-27 18:38] LABS: Basophils # 0.1 K/mm3 (0-0.2); Basophils % 0.9 % (0.1-2.0); Eosinophils # 0.2 K/mm3 (0.0-0.4); Eosinophils % 1.8 % (0.1-12.0); Hematocrit 41.1 % (37.0-47.0); Lymphocytes # 1.8 K/mm3 (0.7-4.5); Lymphocytes % 20.7 % (10-50); Mean Corpuscular HGB Conc 31.6 g/dL (31.8-35.4); Mean Corpuscular Hemoglobin 29.8 pg (27.0-31.2); Mean Corpuscular Volume 94.4 fl (81-99); Monocytes # 0.8 K/mm3 (0.1-1.0); Monocytes % 8.6 % (1.7-9.3); Platelet Count 638 K/mm3 (142-424); Red Blood Count 4.35 M/mm3 (4.20-5.40); Red Cell Distribution Width 14.5 % (11.5-17.5); White Blood Count 8.8 K/mm3 (4.8-10.8)
[2021-12-27 19:00] LABS: Anion Gap 8.5 mEq/L (5-15); Blood Urea Nitrogen 6 mg/dl (7-17); Calcium 9.1 mg/dl (8.4-10.2); Carbon Dioxide 34 mmol/L (22.0-30.0); Chloride 97 mmol/L (98-107); Estimated Glomerular Filt Rate 163 ml/min (>60); GFR (African American) 198 ML/MIN (>60); Glucose 90 mg/dl (74-100); Potassium 4.5 mmoL/L (3.5-5.1); Sodium 135 mmol/L (136-145)
== END ==
PROVIDERS: PCP Nurse Practitioner; Visit Provider Nurse Practitioner
DX: E87.6 Hypokalemia (principal); J18.9 Pneumonia, unspecified organism
CPT/HCPCS: 80048; 85025

== ENCOUNTER → 2022-01-11 06:10 | Outpatient (CLI) | payer MEDICARE, OTHER, SELFPAY ==
[2022-01-10 19:05] LABS: Anion Gap 10.9 mEq/L (5-15); Blood Urea Nitrogen 4 mg/dl (7-17); Calcium 9.4 mg/dl (8.4-10.2); Carbon Dioxide 32 mmol/L (22.0-30.0); Chloride 100 mmol/L (98-107); Estimated Glomerular Filt Rate 163 ml/min (>60); GFR (African American) 198 ML/MIN (>60); Glucose 87 mg/dl (74-100); Potassium 4.9 mmoL/L (3.5-5.1); Sodium 138 mmol/L (136-145)
== END ==
PROVIDERS: PCP Nurse Practitioner; Visit Provider Nurse Practitioner
DX: E87.6 Hypokalemia (principal)
CPT/HCPCS: 80048

== ENCOUNTER → 2022-02-08 07:12 | Outpatient (CLI) | payer MEDICARE, OTHER, SELFPAY ==
[2022-02-08 18:44] LABS: Adenovirus,PCR Not Detected (NotDetected); Bordetella Pertussis Not Detected (NotDetected); Chlamydophila Pneumoniae, PCR Not Detected (NotDetected); Coronavirus 19, PCR Not Detected (NotDetected); Coronavirus 229E Not Detected (NotDetected); Coronavirus NL63 Not Detected (NotDetected); Coronavirus OC43 Not Detected (NotDetected); Coronovirus HKU1,PCR Not Detected (NotDetected); Human Metapneumovirus Not Detected (NotDetected); Influenza A, PCR Not Detected (NotDetected); Influenza AH1, 2009 Not Detected (NotDetected); Influenza AH1, PCR Not Detected (NotDetected); Influenza AH3,PCR Not Detected (NotDetected); Influenza B, PCR Not Detected (NotDetected); Mycoplasma Pneumoniae, PCR Not Detected (NotDetected); Parainfluenza 1, PCR Not Detected (NotDetected); Parainfluenza 2, PCR Not Detected (NotDetected); Parainfluenza 3, PCR Not Detected (NotDetected); Parainfluenza 4, PCR Not Detected (NotDetected); Respiratory Syncytial Virus Not Detected (NotDetected); Rhinovirus/Enterovirus Not Detected (NotDetected)
[2022-02-08 19:53] LABS: Basophils % 0.3 % (0.1-2.0); Eosinophils # 0.1 K/mm3 (0.0-0.4); Eosinophils % 0.6 % (0.1-12.0); Hematocrit 41.5 % (37.0-47.0); Hemoglobin 12.6 g/dL (12.2-16.2); Lymphocytes # 1.7 K/mm3 (0.7-4.5); Lymphocytes % 13.9 % (10-50); Mean Corpuscular HGB Conc 30.2 g/dL (31.8-35.4); Mean Corpuscular Hemoglobin 29.6 pg (27.0-31.2); Mean Platelet Volume 11.1 fl (7.4-10.4); Monocytes # 1.2 K/mm3 (0.1-1.0); Monocytes % 9.3 % (1.7-9.3); Neutrophils # 9.5 K/mm3 (1.8-7.8); Platelet Count 401 K/mm3 (142-424); Red Blood Count 4.24 M/mm3 (4.20-5.40); Red Cell Distribution Width 13.8 % (11.5-17.5); White Blood Count 12.5 K/mm3 (4.8-10.8)
== END ==
PROVIDERS: PCP Nurse Practitioner; Visit Provider Nurse Practitioner
DX: J06.9 Acute upper respiratory infection, unspecified; J44.1 Chronic obstructive pulmonary disease with (acute) exacerbation; Z20.822 Contact with and (suspected) exposure to COVID-19; R05.9 Cough, unspecified; R09.89 Other specified symptoms and signs involving the circulatory and respiratory systems
CPT/HCPCS: 85025; 87581; 87632; 87798; C9803; U0003; U0005

== ENCOUNTER → 2022-03-30 09:15 | Outpatient (CLI) | payer MEDICARE, OTHER, SELFPAY ==
[2022-03-30 20:34] LABS: Alanine Aminotransferase 13 U/L (12-78); Albumin Level 3.5 g/dl (3.5-5.0); Albumin/Globulin Ratio 1.4 (1.1-1.8); Alkaline Phosphatase 106 U/L (38-126); Anion Gap 13.4 mEq/L (5-15); Aspartate Amino Transferase 25 U/L (14-36); Blood Urea Nitrogen 7 mg/dl (7-17); Calcium 8.7 mg/dl (8.4-10.2); Carbon Dioxide 31 mmol/L (22.0-30.0); Chloride 100 mmol/L (98-107); Estimated Glomerular Filt Rate 163 ml/min (>60); GFR (African American) 198 ML/MIN (>60); Globulin 2.5 g/dL (1.3-3.2); Glucose 93 mg/dl (74-100); Potassium 4.4 mmoL/L (3.5-5.1); Sodium 140 mmol/L (136-145)
[2022-03-30 20:35] LABS: Bilirubin,Total 0.1 mg/dl (0.2-1.3)
[2022-03-30 20:40] LABS: Basophils # 0.1 K/mm3 (0-0.2); Basophils % 1.4 % (0.1-2.0); Eosinophils # 0.2 K/mm3 (0.0-0.4); Eosinophils % 2.7 % (0.1-12.0); Hemoglobin 13.9 g/dL (12.2-16.2); Lymphocytes # 2.6 K/mm3 (0.7-4.5); Lymphocytes % 39.7 % (10-50); Mean Corpuscular HGB Conc 31.5 g/dL (31.8-35.4); Mean Corpuscular Hemoglobin 29.9 pg (27.0-31.2); Mean Corpuscular Volume 95.1 fl (81-99); Mean Platelet Volume 11.9 fl (7.4-10.4); Monocytes # 0.6 K/mm3 (0.1-1.0); Monocytes % 8.6 % (1.7-9.3); Neutrophils # 3.1 K/mm3 (1.8-7.8); Neutrophils % 47.6 % (37.0-80.0); Platelet Count 272 K/mm3 (142-424); Red Blood Count 4.63 M/mm3 (4.20-5.40); Red Cell Distribution Width 15.6 % (11.5-17.5); White Blood Count 6.5 K/mm3 (4.8-10.8)
[2022-03-30 21:00] LABS: Thyroid Stimulating Hormone 2.42 uIU/mL (0.465-4.68)
== END ==
PROVIDERS: PCP Nurse Practitioner; Visit Provider Nurse Practitioner
DX: J01.00 Acute maxillary sinusitis, unspecified (principal); J44.1 Chronic obstructive pulmonary disease with (acute) exacerbation; J44.9 Chronic obstructive pulmonary disease, unspecified; K21.9 Gastro-esophageal reflux disease without esophagitis; D64.9 Anemia, unspecified
CPT/HCPCS: 80053; 84443; 85025

== ENCOUNTER → 2022-04-21 14:12 | Outpatient (CLI) | payer MEDICARE, OTHER, SELFPAY ==
--- NOTE | 2022-04-21 14:12 | US_ITS ---
FINAL REPORT TECHNIQUE: Sonographic images of the thyroid were obtained. CLINICAL HISTORY: thyroid nodule FINDINGS: THYROID ULTRASOUND The right thyroid gland measures 3.2 x 1.5 x 1.0 cm. The parenchyma shows normal echogenicity. No dominant mass is seen. Diffuse hypervascularity is noted. The left thyroid gland measures 3.0 x 1.4 x 1.0 cm. The parenchyma shows normal echogenicity. No dominant mass is seen. Diffuse hypervascularity is noted. IMPRESSION: No dominant thyroid mass identified. Diffuse hypervascularity. Reviewed, Interpreted and Dictated by Art Scott MD Transcribed by Rosa Dugan Authenticated and . [facility]
== END ==
PROVIDERS: PCP Nurse Practitioner; Visit Provider Nurse Practitioner
DX: E04.1 Nontoxic single thyroid nodule (principal)
CPT/HCPCS: 76536

== ENCOUNTER → 2022-05-31 13:45 | Outpatient (CLI) | payer MEDICARE, OTHER, SELFPAY ==
[2022-05-31 18:43] LABS: Adenovirus,PCR Not Detected (NotDetected); Bordetella Pertussis Not Detected (NotDetected); Chlamydophila Pneumoniae, PCR Not Detected (NotDetected); Coronavirus 19, PCR Not Detected (NotDetected); Coronavirus 229E Not Detected (NotDetected); Coronavirus NL63 Not Detected (NotDetected); Coronavirus OC43 Not Detected (NotDetected); Coronovirus HKU1,PCR Not Detected (NotDetected); Human Metapneumovirus Not Detected (NotDetected); Influenza A, PCR Not Detected (NotDetected); Influenza AH1, 2009 Not Detected (NotDetected); Influenza AH1, PCR Not Detected (NotDetected); Influenza AH3,PCR Not Detected (NotDetected); Influenza B, PCR Not Detected (NotDetected); Mycoplasma Pneumoniae, PCR Not Detected (NotDetected); Parainfluenza 1, PCR Not Detected (NotDetected); Parainfluenza 2, PCR Not Detected (NotDetected); Parainfluenza 3, PCR Not Detected (NotDetected); Parainfluenza 4, PCR Not Detected (NotDetected); Respiratory Syncytial Virus Not Detected (NotDetected); Rhinovirus/Enterovirus Not Detected (NotDetected)
[2022-05-31 19:25] LABS: Basophils # 0.1 K/mm3 (0-0.2); Basophils % 0.7 % (0.1-2.0); Eosinophils # 0.2 K/mm3 (0.0-0.4); Eosinophils % 1.9 % (0.1-12.0); Hemoglobin 14.7 g/dL (12.2-16.2); Lymphocytes # 2.7 K/mm3 (0.7-4.5); Lymphocytes % 27.5 % (10-50); Mean Corpuscular HGB Conc 30.6 g/dL (31.8-35.4); Mean Corpuscular Hemoglobin 29.4 pg (27.0-31.2); Mean Corpuscular Volume 95.9 fl (81-99); Monocytes # 0.6 K/mm3 (0.1-1.0); Monocytes % 6.5 % (1.7-9.3); Neutrophils # 6.1 K/mm3 (1.8-7.8); Neutrophils % 63.4 % (37.0-80.0); Platelet Count 336 K/mm3 (142-424); Red Cell Distribution Width 16.1 % (11.5-17.5); White Blood Count 9.7 K/mm3 (4.8-10.8)
== END ==
PROVIDERS: PCP Nurse Practitioner; Visit Provider Nurse Practitioner
DX: J06.9 Acute upper respiratory infection, unspecified (principal); J44.1 Chronic obstructive pulmonary disease with (acute) exacerbation; R05.9 Cough, unspecified
CPT/HCPCS: 85025; 87581; 87632; 87798; C9803; U0003; U0005

== ENCOUNTER → 2022-09-28 23:11 | Outpatient (CLI) | payer MEDICARE, SELFPAY ==
[2022-09-28 18:52] LABS: Basophils # 0.1 K/mm3 (0-0.2); Basophils % 0.7 % (0.1-2.0); Eosinophils # 0.5 K/mm3 (0.0-0.4); Eosinophils % 4.4 % (0.1-12.0); Hematocrit 47.5 % (37.0-47.0); Lymphocytes # 2.9 K/mm3 (0.7-4.5); Lymphocytes % 28.4 % (10-50); Mean Corpuscular HGB Conc 31.6 g/dL (31.8-35.4); Mean Corpuscular Hemoglobin 29.4 pg (27.0-31.2); Mean Corpuscular Volume 92.9 fl (81-99); Mean Platelet Volume 10.3 fl (7.4-10.4); Monocytes # 0.8 K/mm3 (0.1-1.0); Monocytes % 7.4 % (1.7-9.3); Neutrophils % 59.1 % (37.0-80.0); Platelet Count 299 K/mm3 (142-424); Red Blood Count 5.11 M/mm3 (4.20-5.40); Red Cell Distribution Width 13.5 % (11.5-17.5); White Blood Count 10.2 K/mm3 (4.8-10.8)
[2022-09-28 19:00] LABS: Alanine Aminotransferase 15 U/L (12-78); Albumin Level 4.1 g/dl (3.5-5.0); Albumin/Globulin Ratio 1.7 (1.1-1.8); Alkaline Phosphatase 98 U/L (38-126); Anion Gap 9.4 mEq/L (5-15); Aspartate Amino Transferase 25 U/L (14-36); Bilirubin,Total 0.5 mg/dl (0.2-1.3); Blood Urea Nitrogen 8 mg/dl (7-17); Calcium 8.8 mg/dl (8.4-10.2); Carbon Dioxide 34 mmol/L (22.0-30.0); Chloride 98 mmol/L (98-107); Estimated Glomerular Filt Rate 163 ml/min (>60); GFR (African American) 197 ML/MIN (>60); Globulin 2.4 g/dL (1.3-3.2); Glucose 67 mg/dl (74-100); Potassium 4.4 mmoL/L (3.5-5.1); Sodium 137 mmol/L (136-145); Total Protein,Serum 6.5 g/dl (6.3-8.2)
[2022-09-28 19:16] LABS: Free Thyroxine Index 3.4 ug/dL (5.93-13.13); T4 (Thyroxine) 9.4 ug/dl (5.53-11.0); Triiodothryronine (T3) Uptake 36 % (23.5-40.5)
[2022-09-28 19:32] LABS: Thyroid Stimulating Hormone 2.51 uIU/mL (0.465-4.68)
== END ==
PROVIDERS: PCP Nurse Practitioner; Visit Provider Nurse Practitioner
DX: E78.5 Hyperlipidemia, unspecified (principal); J44.9 Chronic obstructive pulmonary disease, unspecified; K21.9 Gastro-esophageal reflux disease without esophagitis; E04.1 Nontoxic single thyroid nodule; F41.8 Other specified anxiety disorders; G25.81 Restless legs syndrome
CPT/HCPCS: 80053; 84436; 84443; 84479; 85025

== ENCOUNTER → 2022-10-17 14:45 | Outpatient (CLI) | payer MEDICARE, OTHER, SELFPAY ==
--- NOTE | 2022-10-17 14:45 | US_ITS ---
FINAL REPORT CLINICAL HISTORY: thyroid nodule FINDINGS: THYROID ULTRASOUND Thyroid gland is normal size. The parenchyma shows normal echogenicity. No dominant mass is seen. IMPRESSION: Unremarkable thyroid evaluation Reviewed, Interpreted and Dictated by Opal Sanchez MD Transcribed by Daniel Muhammad Authenticated and [facility]
== END ==
PROVIDERS: PCP Nurse Practitioner; Visit Provider Nurse Practitioner
DX: E04.1 Nontoxic single thyroid nodule (principal)
CPT/HCPCS: 76536

== ENCOUNTER → 2022-10-20 23:10 | Outpatient (CLI) | payer MEDICARE, OTHER, SELFPAY | PROVIDERS: PCP Nurse Practitioner; Visit Provider Nurse Practitioner | DX: J06.9 Acute upper respiratory infection, unspecified (principal) | CPT/HCPCS: C9803; U0003; U0005 ==

== ENCOUNTER → 2022-12-05 23:23 | Outpatient (CLI) | payer MEDICARE, OTHER, SELFPAY | PROVIDERS: PCP Nurse Practitioner; Visit Provider Nurse Practitioner | DX: J06.9 Acute upper respiratory infection, unspecified (principal); R30.0 Dysuria; B95.2 Enterococcus as the cause of diseases classified elsewhere | CPT/HCPCS: 87086; 87088; 87186; 87635; C9803; U0003; U0005 ==

== ENCOUNTER → 2022-12-14 13:29 | Outpatient (CLI) | payer MEDICARE, OTHER, SELFPAY ==
[2022-12-14 19:15] LABS: Basophils % 0.4 % (0.1-2.0); Eosinophils # 0.4 K/mm3 (0.0-0.4); Eosinophils % 4.1 % (0.1-12.0); Lymphocytes # 2.8 K/mm3 (0.7-4.5); Mean Corpuscular HGB Conc 31.8 g/dL (31.8-35.4); Mean Corpuscular Hemoglobin 28.9 pg (27.0-31.2); Monocytes # 0.9 K/mm3 (0.1-1.0); Monocytes % 8.4 % (1.7-9.3); Neutrophils # 6.5 K/mm3 (1.8-7.8); Neutrophils % 61.1 % (37.0-80.0); Platelet Count 492 K/mm3 (142-424); Red Blood Count 4.84 M/mm3 (4.20-5.40); Red Cell Distribution Width 14.4 % (11.5-17.5); White Blood Count 10.7 K/mm3 (4.8-10.8)
== END ==
PROVIDERS: PCP Nurse Practitioner; Visit Provider Nurse Practitioner
DX: J32.9 Chronic sinusitis, unspecified (principal)
CPT/HCPCS: 85025

== ENCOUNTER → 2023-02-16 23:38 | Outpatient (CLI) | payer MEDICARE, OTHER, SELFPAY | PROVIDERS: PCP Nurse Practitioner; Visit Provider Nurse Practitioner | DX: J06.9 Acute upper respiratory infection, unspecified (principal) | CPT/HCPCS: 87635 ==

== ENCOUNTER → 2023-04-03 11:52 | Outpatient (CLI) | payer MEDICARE, OTHER, SELFPAY ==
[2023-04-03 18:36] LABS: Influenza A, PCR Not Detected (NotDetected); Influenza B, PCR Not Detected (NotDetected)
[2023-04-03 19:22] LABS: Coronavirus 19, PCR Detected (NotDetected)
== END ==
PROVIDERS: PCP Nurse Practitioner; Visit Provider Nurse Practitioner
DX: U07.1 COVID-19; R09.89 Other specified symptoms and signs involving the circulatory and respiratory systems; R05.1 Acute cough
CPT/HCPCS: 87636

== ENCOUNTER 2023-05-16 11:36 | Emergency (ER) | payer MEDICARE, OTHER, SELFPAY ==
[2023-05-16 11:38] VITALS: BP 164/93; PULSE 108; RESP 20; TEMP 36.6; O2SAT 94; BMI 16.0
--- NOTE | 2023-05-16 11:45 | PC.NURSE ---
pt resting in bed no needs at this time sister at bs
--- NOTE | 2023-05-16 11:47 | ECG_ITS ---
APPROVED REPORT Exam: Resting ECG HR:93 bpm ECG Measurements Heart Rate 93 AXES WI 143 P 83 QRSd 148 QRS 93 QT 325 T 99 QTc 376 Conclusion SINUS RHYTHM INTRAVENTRICULAR CONDUCTION DELAY [130+ ms QRS DURATION] Marked artifact significantly limits interpretation Electronically signed by : William Murphy MD 05/17/2023 13:23:49
--- NOTE | 2023-05-16 11:58 | XR_ITS ---
FINAL REPORT CLINICAL HISTORY: cough, SOA COMPARISON: 12/14/2021 FINDINGS: SINGLE-VIEW CHEST The heart size is normal. The mediastinum is normal. The lungs are hyperinflated consistent with COPD. There are bilateral opacities, likely representing scar. There is improved aeration in the right lung base. There is no pneumothorax. IMPRESSION: Improved aeration in the right lung base. Reviewed, Interpreted and Dictated by Markell Cates III, MD Transcribed by Una Castle Authenticated and [facility] [place]
[2023-05-16 12:00] VITALS: BP 154/84; PULSE 95; O2SAT 97
[2023-05-16 12:14] LABS: Coronavirus 19, PCR Not Detected (NotDetected); Influenza A, PCR Not Detected (NotDetected); Influenza B, PCR Not Detected (NotDetected)
[2023-05-16 12:23] LABS: Basophils % 0.3 % (0.1-2.0); Eosinophils % 0.1 % (0.1-12.0); Hematocrit 42.6 % (37.0-47.0); Hemoglobin 13.9 g/dL (12.2-16.2); Lymphocytes # 0.9 K/mm3 (0.7-4.5); Lymphocytes % 8.2 % (10-50); Mean Corpuscular HGB Conc 32.7 g/dL (31.8-35.4); Mean Corpuscular Hemoglobin 30.3 pg (27.0-31.2); Mean Corpuscular Volume 92.8 fl (81-99); Mean Platelet Volume 8.2 fl (7.4-10.4); Monocytes # 0.4 K/mm3 (0.1-1.0); Monocytes % 3.1 % (1.7-9.3); Neutrophils % 88.3 % (37.0-80.0); Platelet Count 430 K/mm3 (142-424); Red Blood Count 4.59 M/mm3 (4.20-5.40); Red Cell Distribution Width 13.9 % (11.5-17.5); White Blood Count 11.3 K/mm3 (4.8-10.8)
[2023-05-16 12:28] LABS: MANUAL DIFFERENTIAL MANUAL DIFFERENTIAL (MANUAL DIFF)
[2023-05-16 12:28] LABS: VBG Base Excess 0.1 mmol/L (-2.4-2.3); VBG HCO3 26.1 mmol/L (23-30); VBG Oxygen Saturation 54.2 % (50-70); VBG PH 7.32 mmol/L (7.31-7.41); VBG PO2 26.6 mmol/L (28-40); VBG Total CO2 27.7 mmol/L (23-27)
[2023-05-16 12:30] VITALS: BP 125/77; PULSE 83; O2SAT 100
[2023-05-16 12:31] LABS: VBG PCO2 51.8 mmol/L (35-51)
[2023-05-16 12:50] LABS: Alanine Aminotransferase 26 U/L (12-78); Alkaline Phosphatase 89 U/L (38-126); Aspartate Amino Transferase 32 U/L (14-36); Bilirubin,Total 0.2 mg/dl (0.2-1.3); Blood Urea Nitrogen 3 mg/dl (7-17); Calcium 8.7 mg/dl (8.4-10.2); Carbon Dioxide 32 mmol/L (22.0-30.0); Chloride 100 mmol/L (98-107); Creatinine Clearance Estimated 91 mL/min (50-200); Estimated Glomerular Filt Rate 163 ml/min (>60); GFR (African American) 197 ML/MIN (>60); Glucose 97 mg/dl (74-100)
[2023-05-16 12:51] LABS: Total Protein,Serum 7.3 g/dl (6.3-8.2)
[2023-05-16 13:00] VITALS: BP 122/66; PULSE 88; O2SAT 94
[2023-05-16 13:02] LABS: Eosinophils % 1 % (0-3); Lymphocytes % 2 % (10-50); Monocytes % 4 % (2-9); Neutrophils % 93 % (42-76); Platelet Estimate Normal; RBC Morphology Normal; Total Cells Counted 100
[2023-05-16 13:04] LABS: Albumin/Globulin Ratio 1.2 (1.1-1.8); Anion Gap 9.2 mEq/L (5-15); Globulin 3.3 g/dL (1.3-3.2); Potassium 4.2 mmoL/L (3.5-5.1); Sodium 137 mmol/L (136-145)
--- NOTE | 2023-05-16 13:15 | PC.NURSE ---
Pt ambulatory to bathroom. No other needs voiced. Call light within reach.
--- NOTE | 2023-05-16 13:26 | HMH.EDGENADL ---
Discharge Plan Disposition Patient Disposition: Home, Self-Care Condition: Good Prescriptions Prescriptions: New doxycycline hyclate 100 mg capsule 100 mg PO BID 10 Days Qty: 20 0RF prednisone 50 mg tablet 50 mg PO DAILY 5 Days Qty: 5 0RF No Action albuterol sulfate [ProAir HFA] 90 mcg/actuation HFA aerosol inhaler 2 inh inhalation QID PRN (Reason: shortness of breath or wheezing) Qty: 8.5 11RF fluticasone propionate 50 mcg/actuation spray,suspension 1 spray intranasal DAILY Qty: 16 11RF Rx Instructions: administer into each nostril Trelegy Ellipta 100-62.5-25 mcg blister with device 1 inh inhalation DAILY Qty: 1 5RF ipratropium-albuterol 0.5 mg-3 mg(2.5 mg base)/3 mL solution for nebulization 3 ml IH QIDP PRN (Reason: Shortness Of Breath) Qty: 180 5RF pantoprazole 40 mg tablet,delayed release (DR/EC) 40 mg PO DAILY Qty: 30 5RF pramipexole 0.25 mg tablet 0.25 mg PO HS Qty: 30 5RF quetiapine 50 mg tablet 50 mg PO HS PRN (Reason: sleep) Qty: 30 5RF Referrals Follow up/Referrals: Martine Bernal APRN [Primary Care Provider] - See instructions Activity Restrictions/Add. Instructions Additional Instructions/Restrictions: You were evaluated in the ED today. You were diagnosed with a COPD exacerbation. 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 Follow-up with your primary care provider over the next 3 days. Return to the emergency department for new or worsening symptoms. Clinical Impressions Clinical Impression: Acute exacerbation of chronic obstructive pulmonary disease Instructions Patient Instructions: DI for Chronic Obstructive Pulmonary Disease Discharge ED Provider: Rissa Palma General Adult HPI General Chief complaint: Shortness of Breath/Dyspnea Stated complaint: soa Time Seen by Provider: 05/16/23 11:43 Mode of Arrival: Wheelchair Source of Information: Patient Limitations: No Limitations Description of Symptoms (Recalled from ER Triage Doc. by RN): 62 yo F presents to ED with worsening shortness of air. pt does have hx of COPD. pt wears O2 at night, 2L. pt has increased her O2 delivery to 3L and is wearing it at all times. symptoms have been off and on for the past few days. History of Present Illness HPI narrative: This patient is a 62-year-old female with a history of COPD intermittently on 2 L nasal cannula at home, hypertension, hyperlipidemia, and chronic tobacco use presenting to the emergency department for evaluation with concern for wheezing and shortness of breath. She states that she feels like she has trouble breathing when she gets up and gets moving around, which tends her into a panic attack. She also has a worsening cough. She denies any fevers, chills, chest pain, abdominal pain, vomiting, changes in bowel movements, rashes, swelling, or other concerns. Related Data Previous Rx's Medication Instructions Recorded albuterol sulfate 90 mcg/actuation 2 inh inhalation QID PRN shortness 04/03/23 aerosol inhaler (ProAir HFA) of breath or wheezing #8.5 grams fluticasone fur. 100 mcg-umeclid 1 inh inhalation DAILY #1 ea 04/03/23 62.5 mcg-vilant 25 mcg inhalat.powder (Trelegy Ellipta) fluticasone propionate 50 1 spray intranasal DAILY #16 grams 04/03/23 mcg/actuation nasal spray,suspension ipratropium 0.5 mg-albuterol 3 mg 3 ml inhalation QIDP PRN Shortness 04/03/23 (2.5 mg base)/3 mL nebulization Of Breath #180 mL soln pantoprazole 40 mg tablet,delayed 40 mg PO DAILY #30 tabs 04/03/23 release pramipexole 0.25 mg tablet 0.25 mg PO HS #30 tabs 04/03/23 quetiapine 50 mg tablet 50 mg PO HS PRN sleep #30 tabs 04/03/23 doxycycline hyclate 100 mg capsule 100 mg PO BID 10 days #20 caps 05/16/23 prednisone 50 mg tablet 50 mg PO DAILY 5 days #5 tabs 05/16/23 Allergies Allergy/AdvReac Type Severity Reaction Status Date / Time No Known Drug Allergies Allergy Unknown Verified 04/17/23 14:35 [NKDA] [facility]
[2023-05-16 13:30] VITALS: BP 137/69; PULSE 89; O2SAT 94
--- NOTE | 2023-05-16 13:48 | PC.NURSE ---
Radha Arevalo rounded on pt. No needs voiced. Call light within reach.
--- NOTE | 2023-05-16 14:06 | PC.NURSE ---
Dr. Palma at BS to re-evaluate pt and update on POC
--- NOTE | 2023-05-16 14:23 | PC.NURSE ---
Dr. Palma at BS
[2023-05-16 14:29] VITALS: BP 136/71; PULSE 88; RESP 19; TEMP 36.7
== END 2023-05-16 14:29 | disposition home or self-care (01) ==
PROVIDERS: Emergency Provider Emergency Medicine; PCP Nurse Practitioner
DX: J44.1 Chronic obstructive pulmonary disease with (acute) exacerbation (principal); I10 Essential (primary) hypertension; E78.5 Hyperlipidemia, unspecified; F17.210 Nicotine dependence, cigarettes, uncomplicated
CPT/HCPCS: 71045; 80053; 82803; 85007; 85025; 87636; 93005; 96374; 99285

== ENCOUNTER 2023-05-28 10:27 | Emergency (ER) | payer MEDICARE, OTHER, SELFPAY ==
[2023-05-28] VITALS (7 sets, daily range): BP systolic 131–153; BP diastolic 61–88; PULSE 67–92; RESP 20–22; TEMP 36.6; O2SAT 90–98; BMI 19.1; BMI 16.8
--- NOTE | 2023-05-28 10:38 | XR_ITS ---
PROCEDURE INFORMATION: Exam: XR Chest Exam date and time: 05/28/2023 10:58 AM Age: 63 years old Clinical indication: Shortness of breath; Additional info: SOA, difficulty breathing TECHNIQUE: Imaging protocol: Radiologic exam of the chest. Views: 2 views. COMPARISON: CR XR CHEST PORTABLE 05/16/2023 12:01 PM FINDINGS: Lungs: Marked COPD with upper lobe emphysematous changes and left upper lobe scarring relatively stable. There is an irregular shaped nodular density right upper lobe more pronounced when compared to 2019 and inconclusive for scar. Faint focal opacities right mid lung zone developed from previous exam that probably infectious in nature. Stable granulomatous changes right upper lobe. Pleural spaces: Unremarkable. No pleural effusion. No pneumothorax. Heart/Mediastinum: Unremarkable. No cardiomegaly. Bones/joints: Unremarkable for age. IMPRESSION: 1. Pronounced COPD with upper lobe emphysematous changes and left upper lobe scarring, stable. 2. Nonspecific irregular right upper lobe nodular opacity progressed from 2019, nonspecific. Recommend a follow-up nonemergent CT chest for further assessment. 3. Interval development of patchy right mid lung ground-glass infiltrate likely infectious in nature.
--- NOTE | 2023-05-28 11:12 | PC.NURSE ---
Pt returned from RAD
--- NOTE | 2023-05-28 11:55 | ECG_ITS ---
APPROVED REPORT Exam: Resting ECG HR:73 bpm ECG Measurements Heart Rate 73 AXES AR 132 P 82 QRSd 82 QRS 83 QT 401 T 67 QTc 426 Conclusion SINUS RHYTHM NORMAL ECG UNCONFIRMED REPORT Electronically signed by : William Murphy MD 05/29/2023 14:45:47
[2023-05-28 11:56] LABS: Basophils # 0.1 K/mm3 (0-0.2); Basophils % 0.3 % (0.1-2.0); Eosinophils # 0.1 K/mm3 (0.0-0.4); Eosinophils % 0.3 % (0.1-12.0); Hematocrit 42.9 % (37.0-47.0); Hemoglobin 13.7 g/dL (12.2-16.2); Lymphocytes # 1.4 K/mm3 (0.7-4.5); Lymphocytes % 6.2 % (10-50); Mean Corpuscular HGB Conc 31.9 g/dL (31.8-35.4); Mean Corpuscular Hemoglobin 29.8 pg (27.0-31.2); Mean Corpuscular Volume 93.4 fl (81-99); Mean Platelet Volume 8.3 fl (7.4-10.4); Monocytes # 0.7 K/mm3 (0.1-1.0); Neutrophils # 21.2 K/mm3 (1.8-7.8); Neutrophils % 90.3 % (37.0-80.0); Platelet Count 396 K/mm3 (142-424); Red Blood Count 4.59 M/mm3 (4.20-5.40); Red Cell Distribution Width 14.1 % (11.5-17.5); White Blood Count 23.4 K/mm3 (4.8-10.8)
[2023-05-28 11:58] LABS: VBG Base Excess 8.2 mmol/L (-2.4-2.3); VBG HCO3 34.2 mmol/L (23-30); VBG Oxygen Saturation 42.7 % (50-70); VBG PH 7.32 mmol/L (7.31-7.41); VBG PO2 23.5 mmol/L (28-40); VBG Total CO2 36.3 mmol/L (23-27)
[2023-05-28 12:06] LABS: Alanine Aminotransferase 24 U/L (12-78); Albumin Level 3.9 g/dl (3.5-5.0); Albumin/Globulin Ratio 1.4 (1.1-1.8); Alkaline Phosphatase 60 U/L (38-126); Anion Gap 5.8 mEq/L (5-15); Aspartate Amino Transferase 26 U/L (14-36); Bilirubin,Total 0.3 mg/dl (0.2-1.3); Blood Urea Nitrogen 12 mg/dl (7-17); Calcium 8.7 mg/dl (8.4-10.2); Carbon Dioxide 36 mmol/L (22.0-30.0); Chloride 102 mmol/L (98-107); Creatinine Clearance Estimated 38 mL/min (50-200); Estimated Glomerular Filt Rate 162 ml/min (>60); GFR (African American) 196 ML/MIN (>60); Globulin 2.8 g/dL (1.3-3.2); Glucose 96 mg/dl (74-100); Potassium 3.8 mmoL/L (3.5-5.1); Sodium 140 mmol/L (136-145); Total Protein,Serum 6.7 g/dl (6.3-8.2)
--- NOTE | 2023-05-28 12:07 | HMH.EDGENADL ---
Discharge Plan Disposition Patient Disposition: Home, Self-Care Prescriptions Prescriptions: New prednisone 10 mg tablet 10 mg PO DIRECTED Qty: 17 0RF Rx Instructions: see taper instructions Take 20 mg (2 tablets) daily for 5 days THEN take 10 mg (1 tablet) daily for 5 days THEN take 10 mg (1 tablet) every other day for 2 doses. amoxicillin-pot clavulanate 875-125 mg tablet 1 tab PO BID Qty: 20 0RF azithromycin [Zithromax Z-Fransisco] 250 mg tablet See Rx Instructions .ROUTE .COMPLEX Qty: 6 0RF Rx Instructions: For 500 mg dose pack: take 500 mg once daily for 3 days No Action albuterol sulfate [ProAir HFA] 90 mcg/actuation HFA aerosol inhaler 2 inh inhalation QID PRN (Reason: shortness of breath or wheezing) Qty: 8.5 11RF fluticasone propionate 50 mcg/actuation spray,suspension 1 spray intranasal DAILY Qty: 16 11RF Rx Instructions: administer into each nostril Trelegy Ellipta 100-62.5-25 mcg blister with device 1 inh inhalation DAILY Qty: 1 5RF ipratropium-albuterol 0.5 mg-3 mg(2.5 mg base)/3 mL solution for nebulization 3 ml IH QIDP PRN (Reason: Shortness Of Breath) Qty: 180 5RF pantoprazole 40 mg tablet,delayed release (DR/EC) 40 mg PO DAILY Qty: 30 5RF pramipexole 0.25 mg tablet 0.25 mg PO HS Qty: 30 5RF quetiapine 50 mg tablet 50 mg PO HS PRN (Reason: sleep) Qty: 30 5RF prednisone 20 mg tablet 20 mg PO .COMPLEX Qty: 15 0RF Rx Instructions: 20 mg orally BID x 5 days then daily x 5 days hydroxyzine pamoate 25 mg capsule 25 - 50 mg PO TID PRN (Reason: anxiety or sleep) Qty: 60 0RF doxycycline hyclate 100 mg capsule 100 mg PO BID 10 Days Qty: 20 0RF Referrals Follow up/Referrals: Martine Bernal APRN [Primary Care Provider] - See instructions Activity Restrictions/Add. Instructions Additional Instructions/Restrictions: You were evaluated in the emergency department today and diagnosed with pneumonia. Complete the steroids that your primary care provider gave you. We are providing you with an extended taper. Please follow-up closely with them, as they may need to extend your taper based on your symptoms. 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 Return to the emergency department for new or worsening symptoms. Clinical Impressions Clinical Impression: COPD (chronic obstructive pulmonary disease), Pneumonia, Anxiety Instructions Patient Instructions: DI for Chronic Obstructive Pulmonary Disease Discharge ED Provider: Rissa Palma General Adult HPI General Chief complaint: Shortness of Breath/Dyspnea Stated complaint: difficulty breathing Time Seen by Provider: 05/28/23 11:12 Mode of Arrival: Wheelchair Source of Information: Patient Limitations: No Limitations Description of Symptoms (Recalled from ER Triage Doc. by RN): Patient reports incresed shortness of breath over the past two weeks. States that she has been having to wear her oxygen continuously instead of just at night. Patient reports seeing her PCP about this who told her that she had COPD exacerbation and put her on an antibiotic and steroids. States she completed that course and followed up with her PCP this past Monday and was prescribed steroids again. History of Present Illness HPI narrative: This patient is a 63-year-old female with a history of COPD with chronic respiratory failure on 2 L nasal cannula, depression and anxiety, hypertension, and hyperlipidemia presented to the emergency department for evaluation with concern for intermittent episodes where she feels a burning sensation across her chest as well as worsened cough and shortness of breath since 3 AM. She states that it sends her into panic attacks when this happens. On medical record review, I saw her 05/16/2023 and prescribed her with a course of prednisone as well as doxycycline for exacerbation of COPD. She sta
[2023-05-28 12:10] LABS: MANUAL DIFFERENTIAL MANUAL DIFFERENTIAL (MANUAL DIFF)
--- NOTE | 2023-05-28 12:11 | PC.NURSE ---
Pt covid/flu swab sent to lab
[2023-05-28 12:14] LABS: Coronavirus 19, PCR Not Detected (NotDetected); Influenza A, PCR Not Detected (NotDetected); Influenza B, PCR Not Detected (NotDetected)
[2023-05-28 12:18] LABS: NT Pro Brain Natriuretic Pep. 466 pg/mL (0-125)
[2023-05-28 12:19] LABS: Troponin I < 0.01 ng/ml (0.00-0.034)
--- NOTE | 2023-05-28 12:26 | PC.NURSE ---
LAB CALLED TO DRAW A 2 HR TROP
[2023-05-28 13:04] LABS: Eosinophils % 1 % (0-3); Lymphocytes % 8 % (10-50); Monocytes % 2 % (2-9); Neutrophils % 89 % (42-76); Platelet Estimate Normal; RBC Morphology Normal; Total Cells Counted 100
[2023-05-28 13:13] LABS: Troponin I < 0.01 ng/ml (0.00-0.034)
== END 2023-05-28 13:49 | disposition home or self-care (01) ==
LOC: UTC 10:33 → ER 10:55
PROVIDERS: Emergency Provider Emergency Medicine; PCP Nurse Practitioner
DX: J44.9 Chronic obstructive pulmonary disease, unspecified (principal); J18.9 Pneumonia, unspecified organism; J96.10 Chronic respiratory failure, unspecified whether with hypoxia or hypercapnia; E78.5 Hyperlipidemia, unspecified; F17.210 Nicotine dependence, cigarettes, uncomplicated
CPT/HCPCS: 36415; 71046; 80053; 82803; 83880; 84484; 85007; 85025; 87636; 93005; 99285

== ENCOUNTER 2023-06-19 23:23 | Outpatient (CLI) | payer MEDICARE, OTHER, SELFPAY ==
[2023-06-19 18:36] LABS: Basophils # 0.1 K/mm3 (0-0.2); Basophils % 0.8 % (0.1-2.0); Eosinophils # 0.3 K/mm3 (0.0-0.4); Eosinophils % 2.2 % (0.1-12.0); Hemoglobin 15.1 g/dL (12.2-16.2); Lymphocytes # 3.7 K/mm3 (0.7-4.5); Lymphocytes % 23.9 % (10-50); Mean Corpuscular Hemoglobin 29.8 pg (27.0-31.2); Mean Corpuscular Volume 93.2 fl (81-99); Mean Platelet Volume 9.1 fl (7.4-10.4); Monocytes # 1.1 K/mm3 (0.1-1.0); Monocytes % 7.2 % (1.7-9.3); Neutrophils # 10.2 K/mm3 (1.8-7.8); Platelet Count 373 K/mm3 (142-424); Red Blood Count 5.05 M/mm3 (4.20-5.40); Red Cell Distribution Width 13.9 % (11.5-17.5); White Blood Count 15.5 K/mm3 (4.8-10.8)
[2023-06-19 18:40] LABS: MANUAL DIFFERENTIAL MANUAL DIFFERENTIAL (MANUAL DIFF)
[2023-06-19 20:40] LABS: Eosinophils % 2 % (0-3); Lymphocytes % 30 % (10-50); Monocytes % 5 % (2-9); Neutrophils % 63 % (42-76); Platelet Estimate Normal; RBC Morphology Normal; Total Cells Counted 100
== END 2023-06-19 23:59 ==
PROVIDERS: PCP Nurse Practitioner; Visit Provider Nurse Practitioner
DX: J18.9 Pneumonia, unspecified organism (principal)
CPT/HCPCS: 85007; 85025

== ENCOUNTER 2023-06-26 18:58 | Outpatient (CLI) | payer MEDICARE, OTHER, SELFPAY ==
[2023-06-26 18:27] LABS: Basophils # 0.1 K/mm3 (0-0.2); Basophils % 0.6 % (0.1-2.0); Eosinophils # 0.2 K/mm3 (0.0-0.4); Eosinophils % 1.1 % (0.1-12.0); Hematocrit 43.6 % (37.0-47.0); Hemoglobin 14.3 g/dL (12.2-16.2); Lymphocytes # 2.5 K/mm3 (0.7-4.5); Lymphocytes % 14.4 % (10-50); Mean Corpuscular HGB Conc 32.8 g/dL (31.8-35.4); Mean Corpuscular Volume 94.5 fl (81-99); Mean Platelet Volume 9.3 fl (7.4-10.4); Monocytes # 1.2 K/mm3 (0.1-1.0); Monocytes % 6.8 % (1.7-9.3); Neutrophils # 13.5 K/mm3 (1.8-7.8); Platelet Count 375 K/mm3 (142-424); Red Blood Count 4.61 M/mm3 (4.20-5.40); Red Cell Distribution Width 13.6 % (11.5-17.5); White Blood Count 17.5 K/mm3 (4.8-10.8)
[2023-06-26 18:48] LABS: MANUAL DIFFERENTIAL MANUAL DIFFERENTIAL (MANUAL DIFF)
[2023-06-26 18:51] LABS: Anion Gap 9.8 mEq/L (5-15); Blood Urea Nitrogen 5 mg/dl (7-17); Carbon Dioxide 34 mmol/L (22.0-30.0); Chloride 96 mmol/L (98-107); Estimated Glomerular Filt Rate 125 ml/min (>60); GFR (African American) 152 ML/MIN (>60); Glucose 103 mg/dl (74-100); Potassium 3.8 mmoL/L (3.5-5.1); Sodium 136 mmol/L (136-145)
[2023-06-26 19:05] LABS: Eosinophils % 2 % (0-3); Lymphocytes % 22 % (10-50); Monocytes % 5 % (2-9); Neutrophils % 68 % (42-76); Platelet Estimate Normal; RBC Morphology Normal; Total Cells Counted 100
== END 2023-06-26 23:59 ==
PROVIDERS: PCP Nurse Practitioner; Visit Provider Nurse Practitioner
DX: J06.9 Acute upper respiratory infection, unspecified (principal); J18.9 Pneumonia, unspecified organism; J44.1 Chronic obstructive pulmonary disease with (acute) exacerbation
CPT/HCPCS: 80048; 85007; 85025

== ENCOUNTER 2023-06-29 12:58 | Observation (INO) | payer MEDICARE, OTHER, SELFPAY ==
[2023-06-29] VITALS (14 sets, daily range): BP systolic 121–149; BP diastolic 54–72; PULSE 63–96; RESP 20–22; TEMP 36.6–36.7; O2SAT 91–100; BMI 16.0
--- NOTE | 2023-06-29 12:48 | ECG_ITS ---
APPROVED REPORT Exam: Resting ECG HR:91 bpm ECG Measurements Heart Rate 91 AXES [place] 108 P 87 QRSd 78 QRS 89 QT 334 T 86 QTc 382 Conclusion SINUS RHYTHM WITH SHORT [place] INTERVAL BORDERLINE ECG UNCONFIRMED REPORT Electronically signed by : William Murphy MD 06/29/2023 21:23:33
--- NOTE | 2023-06-29 12:59 | HMH.EDGENADL ---
Discharge Plan Disposition Patient Disposition: Admitted Clinical Impressions Clinical Impression: COPD exacerbation Discharge ED Provider: Michele Shoemaker General Adult HPI General Chief complaint: Shortness of Breath/Dyspnea Stated complaint: COPD Time Seen by Provider: 06/29/23 12:59 Mode of Arrival: EMS Source of Information: Patient and EMS Limitations: No Limitations Description of Symptoms (Recalled from ER Triage Doc. by RN): Patient is brought to ED from [facility]. Patient reports SOA, increased O2 use from 2L to 3L. History of Present Illness HPI narrative: Patient describes approximately 1 week of dyspnea, cough productive of yellow sputum, in the setting of COPD. She was evaluated earlier this week on outpatient basis and prescribed course of steroids and antibiotics. Course of antibiotics has been completed. She is unsure which antibiotic it was. She presents today with worsening shortness of breath that started this morning. She denies any chest pain or pain elsewhere at this time. She denies any nausea or vomiting. Denies any fevers. Denies any sick contacts. States that she used breathing treatment earlier this morning. Has been compliant with other medications. Related Data Home Medications Medication Instructions Recorded Confirmed albuterol sulfate 90 mcg/actuation 2 inh inhalation QIDP PRN 06/29/23 06/29/23 aerosol inhaler (ProAir HFA) shortness of breath or wheezing escitalopram oxalate 5 mg tablet 5 mg PO DAILY Mood 06/29/23 06/29/23 fluticasone fur. 100 mcg-umeclid 1 inh inhalation DAILY Breathing 06/29/23 06/29/23 62.5 mcg-vilant 25 mcg Problems inhalat.powder (Trelegy Ellipta) fluticasone propionate 50 1 spray intranasal DAILY Allergy 06/29/23 06/29/23 mcg/actuation nasal Symptoms spray,suspension hydroxyzine pamoate 25 mg capsule 25 - 50 mg PO TIDP PRN anxiety or 06/29/23 06/29/23 sleep pantoprazole 40 mg tablet,delayed 40 mg PO DAILY Acid Reflux 06/29/23 06/29/23 release prednisone 20 mg tablet 20 mg PO DIRECTED 06/29/23 06/29/23 quetiapine 50 mg tablet 50 mg PO HSP PRN sleep 06/29/23 06/29/23 Previous Rx's Medication Instructions Recorded ipratropium 0.5 mg-albuterol 3 mg 3 ml inhalation QIDP PRN Shortness 04/03/23 (2.5 mg base)/3 mL nebulization Of Breath #180 mL soln pramipexole 0.25 mg tablet 0.25 mg PO HS #30 tabs 04/03/23 Allergies Allergy/AdvReac Type Severity Reaction Status Date / Time No Known Drug Allergies Allergy Unknown Verified 06/26/23 10:27 [NKDA] [facility] Disclaimer: The information contained in this section may have been updated after the patient was seen, as this information can be updated by other users. Medical History Acute URI Anxiety with depression Chronic obstructive pulmonary disease COPD (chronic obstructive pulmonary disease) Dependence on nocturnal oxygen therapy Gastroesophageal reflux disease GERD (gastroesophageal reflux disease) Hyperlipidemia Insomnia Pulmonary nodule Restless legs syndrome (RLS) Thyroid nodule Surgical History History of tubal ligation Family History Other Cancer Diabetes Social History Smoking Status: Current every day smoker tobacco type: cigarettes packs per day: 1 alcohol intake: current substance use type: denies use current occupational status: unemployed Travel in the last 8 weeks: None housing: house ROS Obtained: Yes Systems reviewed as appropriate & no additional complaints except as documented As per HPI Physical Exam General General appearance: alert and in no apparent distress Head Head exam: atraumatic and normocephalic Eye Eye exam: Present normal appearance Neck Neck exam: Present normal inspection Chest Chest inspection: Present normal inspection and symmetric chest wall rise Respiratory Respiratory exam: Present normal lung sounds bilaterally, wheezes, accessory muscle use and prolonged expiratory phase; Absent respiratory distress Cardiovascular Cardiovascular exam: Present regular rate and normal rhythm Abdominal Exam Abdominal exam: Present soft Neurological Exam Neurological exam: Present alert and oriented X3 Psychiatric Psychiatric exam: Present normal affect and normal mood Skin Skin exam: Present warm and dry Medical Decision Making Medical Records Medical records reviewed: Yes I reviewed the patient's medical records. Jose Alfredo Inquiry Pt receiving controlled substance: No Vital Signs: 06/29/23 12:50 06/29/23 13:00 06/29/23 13:31 Temperature 98.1 F Temperature Source Oral Pulse Rate 92 H 92 H Pulse Rate [Right Brachial] 63 Respiratory Rate 20 22 20 Blood Pressure 131/65 141/60 H Blood Pressure [Right Arm] 145/72 H Blood Pressure Mean 97 87 Blood Pressure Mean [Right Arm] 96 Blood Pressure Source Blood Pressure Source [Right Arm] Automatic Cuff Blood Pressure Position Blood Pressure Position [Right Arm] Supine 02 Sat by Pulse Oximetry 95 100 97 Oxygen Delivery Method Nasal Cannula Nasal Cannula Oxygen Flow Rate (LPM) 3 3 06/29/23 14:01 06/29/23 14:30 06/29/23 15:00 Temperature Temperature Source Pulse Rate 90 87 92 H Pulse Rate [Right Brachial] Respiratory Rate 20 20 20 Blood Pressure 126/54 L 135/63 126/61 Blood Pressure [Right Arm] Blood Pressure Mean 78 87 90 Blood Pressure Mean [Right Arm] Blood Pressure Source Blood Pressure Source [Right Arm] Blood Pressure Position Blood Pressure Position [Right Arm] 02 Sat by Pulse Oximetry 95 95 96 Oxygen Delivery Method Oxygen Flow Rate (LPM) 06/29/23 15:30 06/29/23 16:26 06/29/23 16:30 Temperature Temperature Source Pulse Rate 96 H 90 Pulse Rate [Right Brachial] Respiratory Rate Blood Pressure 121/60 123/57 L 134/67 Blood Pressure [Right Arm] Blood Pressure Mean 82 79 82 Blood Pressure Mean [Right Arm] Blood Pressure Source Blood Pressure Source [Right Arm] Blood Pressure Position Blood Pressure Position [Right Arm] 02 Sat by Pulse Oximetry 94 L 91 L Oxygen Delivery Method Oxygen Flow Rate (LPM) 06/29/23 17:00 Temperature 97.9 F Temperature Source Oral Pulse Rate 90 Pulse Rate [Right Brachial] Respiratory Rate 20 Blood Pressure 134/67 Blood Pressure [Right Arm] Blood Pressure Mean Blood Pressure Mean [Right Arm] Blood Pressure Source Automatic Cuff Blood Pressure Source [Right Arm] Blood Pressure Position Sitting Blood Pressure Position [Right Arm] 02 Sat by Pulse Oximetry Oxygen Delivery Method Nasal Cannula Oxygen Flow Rate (LPM) Lab Data Lab Results 06/29/23 12:45: WBC 20.2 H*, RBC 4.76, Hgb 14.3, Hct 44.0, MCV 92.5, MCH 30.1, MCHC 32.5, RDW 13.7, Plt Count 398, MPV 8.4, Neut % (Auto) 90.3 H, Lymph % (Auto) 7.0 L, [place] % (Auto) 2.3, Eos % (Auto) 0.1, Baso % (Auto) 0.4, Neut # (Auto) 18.3 H, Lymph # (Auto) 1.4, [place] # (Auto) 0.5, Eos # (Auto) 0.0, Baso # (Auto) 0.1, Total Counted 100, Neutrophils % (Manual) 87 H, Lymphocytes % (Manual) 13, Platelet Estimate Normal, RBC Morphology Normal, Sodium 135 L, Potassium 4.1, Chloride 97 L, Carbon Dioxide 32 H, Anion Gap 10.1, BUN 7, Creatinine 0.50 L, Estimated Creat Clear 36, Estimated GFR 125, Est GFR ( Amer) 152, Glucose 122 H, Calcium 8.5, Total Bilirubin 0.5, AST 28, ALT 24, Alkaline Phosphatase 80, Total Protein 7.0, Albumin 4.2, Globulin 2.8, Albumin/Globulin Ratio 1.5 06/29/23 13:26: SARS-CoV-2 (PCR) Not detected, Influenza A Untype (PCR) Not detected, Influenza Type B (PCR) Not detected 06/29/23 15:19: VBG pH 7.23 L, VBG pCO2 69.9 H, VBG pO2 39.2, VBG HCO3 28.8, VBG Total CO2 31.0 H, VBG O2 Saturation 69.8, VBG Base Excess 1.3 06/29/23 12:45 06/29/23 12:45 Orders (Tests/Meds): ED MEDICATIONS Generic Name Dose Route Start Last Admin Trade Name Freq PRN Reason Stop Dose Admin Ceftriaxone Sodium 1 gm/ 50 mls @ 100 mls/hr 06/29/23 16:00 06/29/23 15:57 Sodium Chloride IV 07/09/23 15:59 100 mls/hr Q24H ZAINA Administration Azithromycin 500 mg/ Sodium 250 mls @ 250 mls/hr 06/29/23 16:00 06/29/23 16:20 Chloride IV 07/09/23 15:59 250 mls/hr Q24H ZAINA Administration Discontinued Medications Generic Name Dose Route Start Last Admin Trade Name Freq PRN Reason Stop Dose Admin Albuterol/Ipratropium 3 ml 06/29/23 13:07 06/29/23 13:17 Ipratropium/Albuterol 3 Ml Neb 06/29/23 13:08 3 ml ONCE ONE Administration Albuterol/Ipratropium 3 ml 06/29/23 15:19 06/29/23 15:29 Ipratropium/Albuterol 3 Ml Neb 06/29/23 15:20 3 ml ONCE ONE Administration Magnesium Sulfate 2 gm in 50 mls @ 50 mls/hr 06/29/23 13:07 06/29/23 13:17 Magnesium Sulfate 2gm/50ml Premix IV 06/29/23 14:06 50 mls/hr ONCE ONE Administration Methylprednisolone Sodium Succinate 40 mg 06/29/23 13:07 06/29/23 13:17 Methylprednisolone Sod Succ 40mg Vial IV 06/29/23 13:08 40 mg ONCE ONE Administration ORDERS Category Date Time Status XR chest 2V Stat Exams 06/29/23 13:08 Completed CBC w/Auto Diff [Complete Blood Count Auto Diff] Stat Lab 06/29/23 12:45 Completed CMP [Comprehensive Metabolic Panel] Stat Lab 06/29/23 12:45 Completed Rapid PCR Covid and Flu A/B Stat Lab 06/29/23 13:26 Completed VBG [Venous Blood Gas] Stat RT 06/29/23 15:19 Completed Medical Decision Narrative: Patient with history and exam per above presenting for evaluation of shortness of breath in the setting of history of COPD Diagnoses considered include COPD exacerbation, pleural effusion, noncardiogenic edema, , pneumonia, CHF exacerbation, ACS, ED workup and treatment included: ED MEDICATIONS Generic Name Dose Route Start Last Admin Trade Name Freq PRN Reason Stop Dose Admin Ceftriaxone Sodium 1 gm/ 50 mls @ 100 mls/hr 06/29/23 16:00 06/29/23 15:57 Sodium Chloride IV 07/09/23 15:59 100 mls/hr Q24H ZAINA Administration Azithromycin 500 mg/ Sodium 250 mls @ 250 mls/hr 06/29/23 16:00 06/29/23 16:20 Chloride IV 07/09/23 15:59 250 mls/hr Q24H ZAINA Administration Discontinued Medications Generic Name Dose Route Start Last Admin Trade Name Freq PRN Reason Stop Dose Admin Albuterol/Ipratropium 3 ml 06/29/23 13:07 06/29/23 13:17 Ipratropium/Albuterol 3 Ml [facility] 06/29/23 13:08 3 ml ONCE ONE Administration Albuterol/Ipratropium 3 ml 06/29/23 15:19 06/29/23 15:29 Ipratropium/Albuterol 3 Ml [facility] 06/29/23 15:20 3 ml ONCE ONE Administration Magnesium Sulfate 2 gm in 50 mls @ 50 mls/hr 06/29/23 13:07 06/29/23 13:17 Magnesium Sulfate 2gm/50ml Premix IV 06/29/23 14:06 50 mls/hr ONCE ONE Administration Methylprednisolone Sodium Succinate 40 mg 06/29/23 13:07 06/29/23 13:17 Methylprednisolone Sod Succ 40mg Vial IV 06/29/23 13:08 40 mg ONCE ONE Administration ORDERS Category Date Time Status XR chest 2V Stat Exams 06/29/23 13:08 Completed CBC w/Auto Diff [Complete Blood Count Auto Diff] Stat Lab 06/29/23 12:45 Completed CMP [Comprehensive Metabolic Panel] Stat Lab 06/29/23 12:45 Completed Rapid PCR Covid and Flu A/B Stat Lab 06/29/23 13:26 Completed VBG [Venous Blood Gas] Stat RT 06/29/23 15:19 Completed Labs were independently interpreted by me, significant for leukocytosis, COVID not detected, respiratory acidosis Patient's EKG was independently visualized and interpreted by me significant for sinus rhythm, normal axis, no acute ST changes Imaging was independently visualized and interpreted by me, significant for right lower lobe opacity My clinical impression at this time is most consistent with COPD exacerbation Critical Care Critical Care Time Critical Care Time: No
--- NOTE | 2023-06-29 13:08 | XR_ITS ---
FINAL REPORT CLINICAL HISTORY: Shortness of breath, hx copd, concern for PNA COMPARISON: 05/28/2023 FINDINGS: Two views of the chest were obtained. The heart size and pulmonary vascularity are within normal limits. The mediastinum is normal. The lungs are hyperinflated consistent with COPD. There are areas of bilateral scarring. There is focal nodular opacity in the right lung base similar to the prior study which likely represents localized infiltrate versus soft tissue nodule. There is no pneumothorax. The bony thorax is intact. IMPRESSION: Focal nodular opacity right lung base, localized infiltrate versus soft tissue nodule. Recommend follow-up radiograph or chest CT. Reviewed, Interpreted and Dictated by Markell Cates III, MD Transcribed by Shanique Jaramillo Authenticated and . [facility]
[2023-06-29 13:17] LABS: Basophils # 0.1 K/mm3 (0-0.2); Basophils % 0.4 % (0.1-2.0); Eosinophils % 0.1 % (0.1-12.0); Hemoglobin 14.3 g/dL (12.2-16.2); Lymphocytes # 1.4 K/mm3 (0.7-4.5); Mean Corpuscular HGB Conc 32.5 g/dL (31.8-35.4); Mean Corpuscular Hemoglobin 30.1 pg (27.0-31.2); Mean Corpuscular Volume 92.5 fl (81-99); Mean Platelet Volume 8.4 fl (7.4-10.4); Monocytes # 0.5 K/mm3 (0.1-1.0); Monocytes % 2.3 % (1.7-9.3); Neutrophils # 18.3 K/mm3 (1.8-7.8); Neutrophils % 90.3 % (37.0-80.0); Platelet Count 398 K/mm3 (142-424); Red Blood Count 4.76 M/mm3 (4.20-5.40); Red Cell Distribution Width 13.7 % (11.5-17.5); White Blood Count 20.2 K/mm3 (4.8-10.8)
[2023-06-29] MEDS: MAGNESIUM SULFATE IN WATER 2 GM/50 ML PIGGYBACK IV (13:17)
[2023-06-29] MEDS: METHYLPREDNISOLONE SOD SUCC 40MG VIAL 40 MG IV ×2 (13:17→18:50)
[2023-06-29] MEDS: IPRATROPIUM/ALBUTEROL 3 ML NEB IH ×4 (13:17→21:35)
[2023-06-29 13:30] LABS: Coronavirus 19, PCR Not Detected (NotDetected); Influenza A, PCR Not Detected (NotDetected); Influenza B, PCR Not Detected (NotDetected)
[2023-06-29 13:31] LABS: Chloride 97 mmol/L (98-107); Potassium 4.1 mmoL/L (3.5-5.1); Sodium 135 mmol/L (136-145)
[2023-06-29 13:34] LABS: Alanine Aminotransferase 24 U/L (12-78); Albumin Level 4.2 g/dl (3.5-5.0); Albumin/Globulin Ratio 1.5 (1.1-1.8); Alkaline Phosphatase 80 U/L (38-126); Anion Gap 10.1 mEq/L (5-15); Aspartate Amino Transferase 28 U/L (14-36); Bilirubin,Total 0.5 mg/dl (0.2-1.3); Blood Urea Nitrogen 7 mg/dl (7-17); Carbon Dioxide 32 mmol/L (22.0-30.0); Creatinine Clearance Estimated 36 mL/min (50-200); Estimated Glomerular Filt Rate 125 ml/min (>60); GFR (African American) 152 ML/MIN (>60); Globulin 2.8 g/dL (1.3-3.2); MANUAL DIFFERENTIAL MANUAL DIFFERENTIAL (MANUAL DIFF)
[2023-06-29 13:35] LABS: Calcium 8.5 mg/dl (8.4-10.2); Glucose 122 mg/dl (74-100)
[2023-06-29 14:50] LABS: Lymphocytes % 13 % (10-50); Neutrophils % 87 % (42-76); Platelet Estimate Normal; RBC Morphology Normal; Total Cells Counted 100
--- NOTE | 2023-06-29 15:16 | PC.NURSE ---
DR PARMAR AT BEDSIDE TO UPDATE PT
[2023-06-29 15:27] LABS: VBG Base Excess 1.3 mmol/L (-2.4-2.3); VBG HCO3 28.8 mmol/L (23-30); VBG Oxygen Saturation 69.8 % (50-70); VBG PH 7.23 mmol/L (7.31-7.41); VBG PO2 39.2 mmol/L (28-40)
--- NOTE | 2023-06-29 15:28 | PC.NURSE ---
VBG RESULTS RECEIVED FROM LAURY IN LAB, REPORTED TO TO DR PARMAR. NO NEW ORDERS
[2023-06-29 15:29] LABS: VBG PCO2 69.9 mmol/L (35-51)
[2023-06-29] MEDS: CEFTRIAXONE 1 GM 1 GM in 0.9 % SODIUM CHLORIDE 50 ML IV (15:57)
--- NOTE | 2023-06-29 16:02 | PC.NURSE ---
GEAR TECHNICIAN NOTIFIED OF ADMISSION
--- NOTE | 2023-06-29 16:08 | PC.NURSE ---
CLARIFIED WITH DR WAGNER, PT IS TO BE ADMITTED TO [facility]
--- NOTE | 2023-06-29 16:18 | HMH.PHAINT1 ---
Pharmacy Intervention Comments: MEDICATION RECONCILIATION COMPLETED ON PATIENT USING EXTERNAL FILL HISTORY FROM PHARMACY. -KEI HOWARD, BIENVENIDOD
[2023-06-29] MEDS: AZITHROMYCIN 500 MG in 0.9 % SODIUM CHLORIDE 250 ML 250 MG IV (16:20)
--- NOTE | 2023-06-29 16:36 | PC.NURSE ---
per no blood cultures was needed during triage or time spent in ED.
--- NOTE | 2023-06-29 16:38 | PC.NURSE ---
Report given to WES Santacruz on second floor.
[2023-06-29] MEDS: HEPARIN SODIUM 5,000 UNIT/ML VIAL 5000 UNIT SQ (17:41)
--- NOTE | 2023-06-29 18:03 | EXP.HP ---
History of Present Illness *Admission Date: 06/29/23 *Reason for visit:: SOB *History of present illness: Patient is a 63-year-old female with past medical history of COPD who presents to the hospital due to shortness of breath. According to the patient she has been feeling short of breath, having cough productive of phlegm, yellowish color. Patient also had wheezing at home,. She denies sick contacts at home. She used her home breathing treatments without much improvement so she decided to come to the hospital, denied chest pain nausea vomiting diarrhea constipation dysuria fevers chills. [facility] Disclaimer: The information contained in this section may have been updated after the patient was seen, as this information can be updated by other users. Medical History Acute URI Anxiety with depression Chronic obstructive pulmonary disease COPD (chronic obstructive pulmonary disease) Dependence on nocturnal oxygen therapy Gastroesophageal reflux disease GERD (gastroesophageal reflux disease) Hyperlipidemia Insomnia Pulmonary nodule Restless legs syndrome (RLS) Thyroid nodule Surgical History History of tubal ligation Family History Other Cancer Diabetes Social History (Updated 06/29/23 @ 17:29 by Kayley Carl RN) Smoking Status: Current every day smoker tobacco type: cigarettes packs per day: 1 alcohol intake: current substance use type: denies use current occupational status: unemployed Travel in the last 8 weeks: None housing: house Review of Systems Review of Systems Review of systems (narrative): as per HPI Meds Home Medications and Allergies Home Medications Medication Instructions Recorded Confirmed Type ipratropium 0.5 mg-albuterol 3 mg 3 ml inhalation QIDP PRN Shortness 04/03/23 06/29/23 Rx (2.5 mg base)/3 mL nebulization Of Breath #180 mL soln pramipexole 0.25 mg tablet 0.25 mg PO HS #30 tabs 04/03/23 06/29/23 Rx albuterol sulfate 90 mcg/actuation 2 inh inhalation QIDP PRN 06/29/23 06/29/23 History aerosol inhaler (ProAir HFA) shortness of breath or wheezing escitalopram oxalate 5 mg tablet 5 mg PO DAILY Mood 06/29/23 06/29/23 History fluticasone fur. 100 mcg-umeclid 1 inh inhalation DAILY Breathing 06/29/23 06/29/23 History 62.5 mcg-vilant 25 mcg Problems inhalat.powder (Trelegy Ellipta) fluticasone propionate 50 1 spray intranasal DAILY Allergy 06/29/23 06/29/23 History mcg/actuation nasal Symptoms spray,suspension hydroxyzine pamoate 25 mg capsule 25 - 50 mg PO TIDP PRN anxiety or 06/29/23 06/29/23 History sleep pantoprazole 40 mg tablet,delayed 40 mg PO DAILY Acid Reflux 06/29/23 06/29/23 History release prednisone 20 mg tablet 20 mg PO DIRECTED 06/29/23 06/29/23 History quetiapine 50 mg tablet 50 mg PO HSP PRN sleep 06/29/23 06/29/23 History New Prescriptions to Start Prescriptions: Allergies Allergy/AdvReac Type Severity Reaction Status Date / Time No Known Drug Allergies Allergy Unknown Verified 06/26/23 10:27 [NKDA] Exam Data for Last 24 hours Vital signs and Labs for Last 24 Hours: Temp Pulse Resp BP Pulse Ox O2 Del Method O2 Flow Rate 97.9 F 90 20 134/67 91 L Nasal Cannula 3 06/29/23 17:00 06/29/23 17:00 06/29/23 17:00 06/29/23 17:00 06/29/23 16:30 06/29/23 17:00 06/29/23 13:00 Laboratory Results - last 24 hr 06/29/23 12:45: WBC 20.2 H*, RBC 4.76, Hgb 14.3, Hct 44.0, MCV 92.5, MCH 30.1, MCHC 32.5, RDW 13.7, Plt Count 398, MPV 8.4, Neut % (Auto) 90.3 H, Lymph % (Auto) 7.0 L, [place] % (Auto) 2.3, Eos % (Auto) 0.1, Baso % (Auto) 0.4, Neut # (Auto) 18.3 H, Lymph # (Auto) 1.4, [place] # (Auto) 0.5, Eos # (Auto) 0.0, Baso # (Auto) 0.1, Total Counted 100, Neutrophils % (Manual) 87 H, Lymphocytes % (Manual) 13, Platelet Estimate Normal, RBC Morphology Normal, Sodium 135 L, Potassium 4.1, Chloride 97 L, Carbon Dioxide 32 H, Anion Gap 10.1, BUN 7, Creatinine 0.50 L, Estimated Creat Clear 36, Estimated GFR 125, Est GFR ( Amer) 152, Glucose 122 H, Calcium 8.5, Total Bilirubin 0.5, AST 28, ALT 24, Alkaline Phosphatase 80, Total Protein 7.0, Albumin 4.2, Globulin 2.8, Albumin/Globulin Ratio 1.5 06/29/23 13:26: SARS-CoV-2 (PCR) Not detected, Influenza A Untype (PCR) Not detected, Influenza Type B (PCR) Not detected 06/29/23 15:19: VBG pH 7.23 L, VBG pCO2 69.9 H, VBG pO2 39.2, VBG HCO3 28.8, VBG Total CO2 31.0 H, VBG O2 Saturation 69.8, VBG Base Excess 1.3 I & O for Last 24 hours: Intake & Output 06/26/23 06/27/23 06/28/23 06/29/23 23:59 23:59 23:59 23:59 Weight 38.555 kg Constitutional Constitutional: no acute distress *Routine HEENT Exam Head: Present normocephalic Eye: Present EOMI and PERRL ENT: Present mucous membranes moist *Routine Neck Exam Neck: Present supple; Absent lymphadenopathy *Routine Respiratory Exam Respiratory: Present distant breath sounds and diminished air movement *Routine Cardiovascular Exam Cardiovascular: Present RRR *Routine Abdominal Exam Abdominal: Present soft and normoactive bowel sounds; Absent tenderness *Routine Rectal Exam Rectal:: deferred *Routine Genitalia Exam Genitalia:: deferred *Routine Extremities Exam Extremities: Absent cyanosis, clubbing or edema *Routine Skin Exam Skin: Present warm; Absent rash *Routine Neurological Exam Neurological: Present alert and oriented X3 Assessment and Plan *Assessment and plan (1) COPD exacerbation: Status: Acute Category: Medical Code(s): J44.1 - Chronic obstructive pulmonary disease with (acute) exacerbation (2) Pulmonary nodule: Status: Acute Category: Medical Code(s): R91.1 - Solitary pulmonary nodule (3) Pneumonia: Status: Acute Category: Medical Code(s): J18.9 - Pneumonia, unspecified organism (4) Anxiety: Status: Acute Category: Medical Code(s): F41.9 - Anxiety disorder, unspecified (5) Acute exacerbation of chronic obstructive pulmonary disease: Status: Acute Category: Medical Code(s): J44.1 - Chronic obstructive pulmonary disease with (acute) exacerbation Plan Patient is a 63-year-old female with past medical history of COPD who presents to the hospital due to shortness of breath. According to the patient she has been feeling short of breath, having cough productive of phlegm, yellowish color. Patient also had wheezing at home,. She denies sick contacts at home. She used her home breathing treatments without much improvement so she decided to come to the hospital, denied chest pain nausea vomiting diarrhea constipation dysuria fevers chills. Assessment Acute hypoxic respiratory failure satting less than 90% on room air likely secondary to COPD exacerbation Respiratory acidosis HTN HLD Plan Start DuoNebs every 4 hours scheduled IV Solu-Medrol IV Levaquin Resume home Protonix Consult pulmonary pulmonary nodule discussed with pt, alirio OP f/u
[2023-06-29] MEDS: LEVOFLOXACIN/D5W 500 MG/100 ML PIGGYBACK 100 MG IV (18:50)
[2023-06-29] MEDS: FLUTICASONE PROP 50MCG NASAL SPRAY 16GM 1 SPRAY NS (18:50)
[2023-06-29] MEDS: CITALOPRAM 10MG TABLET 10 MG PO (18:50)
[2023-06-30] VITALS (9 sets, daily range): BP systolic 124–150; BP diastolic 60–74; PULSE 78–98; RESP 18–22; TEMP 36.6–36.9; O2SAT 90–98; BMI 16.5
[2023-06-30] MEDS: HEPARIN SODIUM 5,000 UNIT/ML VIAL 5000 UNIT SQ ×3 (01:43→18:24)
[2023-06-30] MEDS: METHYLPREDNISOLONE SOD SUCC 40MG VIAL 40 MG IV ×3 (01:43→18:24)
[2023-06-30] MEDS: IPRATROPIUM/ALBUTEROL 3 ML NEB IH ×4 (01:47→17:34)
--- NOTE | 2023-06-30 04:55 | PC.NURSE ---
Patient has had a great shift. Has been able to rest through the shift off an on. Patient did state that she felt a lot better than she did yesterday. She remains on 4LNC, patient becomes SOB with activity. has been up to the bedside multiple times. Patient has not complained of anything all shift
[2023-06-30 07:40] LABS: Anion Gap 9.7 mEq/L (5-15); Basophils % 0.3 % (0.1-2.0); Blood Urea Nitrogen 8 mg/dl (7-17); Calcium 9.2 mg/dl (8.4-10.2); Carbon Dioxide 33 mmol/L (22.0-30.0); Chloride 98 mmol/L (98-107); Creatinine Clearance Estimated 37 mL/min (50-200); Estimated Glomerular Filt Rate 102 ml/min (>60); GFR (African American) 123 ML/MIN (>60); Glucose 106 mg/dl (74-100); Hematocrit 42.8 % (37.0-47.0); Hemoglobin 13.9 g/dL (12.2-16.2); Lymphocytes # 1.8 K/mm3 (0.7-4.5); Lymphocytes % 11.1 % (10-50); Mean Corpuscular HGB Conc 32.4 g/dL (31.8-35.4); Mean Corpuscular Hemoglobin 30.2 pg (27.0-31.2); Mean Corpuscular Volume 93.2 fl (81-99); Mean Platelet Volume 8.2 fl (7.4-10.4); Monocytes # 0.7 K/mm3 (0.1-1.0); Monocytes % 4.2 % (1.7-9.3); Neutrophils # 13.4 K/mm3 (1.8-7.8); Neutrophils % 84.5 % (37.0-80.0); Platelet Count 373 K/mm3 (142-424); Potassium 4.7 mmoL/L (3.5-5.1); Red Blood Count 4.59 M/mm3 (4.20-5.40); Red Cell Distribution Width 13.6 % (11.5-17.5); Sodium 136 mmol/L (136-145); White Blood Count 15.9 K/mm3 (4.8-10.8)
[2023-06-30 07:47] LABS: MANUAL DIFFERENTIAL MANUAL DIFFERENTIAL (MANUAL DIFF)
[2023-06-30 08:37] LABS: Lymphocytes % 11 % (10-50); Monocytes % 3 % (2-9); Neutrophils % 86 % (42-76); Platelet Estimate Normal; RBC Morphology Normal; Total Cells Counted 100
[2023-06-30] MEDS: CITALOPRAM 10MG TABLET 10 MG PO (10:36)
[2023-06-30] MEDS: PANTOPRAZOLE 40MG TABLET 40 MG PO (10:36)
[2023-06-30] MEDS: FLUTICASONE PROP 50MCG NASAL SPRAY 16GM 1 SPRAY NS (10:37)
--- NOTE | 2023-06-30 13:13 | EXP.PN ---
Subjective *Date: 06/30/23 *Time: 13:13 Interval history: patient was seen and evaluated at the bedside. No reported acute events overnight, denies chest pain, nausea, vomiting, abdominal pain. SOB is still there but got better, wheezing also improving Exam Data for Last 24 hours Vital signs and Labs for Last 24 Hours: Temp Pulse Resp BP Pulse Ox O2 Del Method O2 Flow Rate 98.5 F 89 22 140/68 90 L Nasal Cannula 2 06/30/23 08:00 06/30/23 10:26 06/30/23 08:00 06/30/23 08:00 06/30/23 08:00 06/30/23 11:00 06/30/23 11:00 Laboratory Results - last 24 hr 06/29/23 12:45: WBC 20.2 H*, RBC 4.76, Hgb 14.3, Hct 44.0, MCV 92.5, MCH 30.1, MCHC 32.5, RDW 13.7, Plt Count 398, MPV 8.4, Neut % (Auto) 90.3 H, Lymph % (Auto) 7.0 L, [place] % (Auto) 2.3, Eos % (Auto) 0.1, Baso % (Auto) 0.4, Neut # (Auto) 18.3 H, Lymph # (Auto) 1.4, [place] # (Auto) 0.5, Eos # (Auto) 0.0, Baso # (Auto) 0.1, Total Counted 100, Neutrophils % (Manual) 87 H, Lymphocytes % (Manual) 13, Platelet Estimate Normal, RBC Morphology Normal, Sodium 135 L, Potassium 4.1, Chloride 97 L, Carbon Dioxide 32 H, Anion Gap 10.1, BUN 7, Creatinine 0.50 L, Estimated Creat Clear 36, Estimated GFR 125, Est GFR ( Amer) 152, Glucose 122 H, Calcium 8.5, Total Bilirubin 0.5, AST 28, ALT 24, Alkaline Phosphatase 80, Total Protein 7.0, Albumin 4.2, Globulin 2.8, Albumin/Globulin Ratio 1.5 06/29/23 13:26: SARS-CoV-2 (PCR) Not detected, Influenza A Untype (PCR) Not detected, Influenza Type B (PCR) Not detected 06/29/23 15:19: VBG pH 7.23 L, VBG pCO2 69.9 H, VBG pO2 39.2, VBG HCO3 28.8, VBG Total CO2 31.0 H, VBG O2 Saturation 69.8, VBG Base Excess 1.3 06/30/23 06:47: WBC 15.9 H, RBC 4.59, Hgb 13.9, Hct 42.8, MCV 93.2, MCH 30.2, MCHC 32.4, RDW 13.6, Plt Count 373, MPV 8.2, Neut % (Auto) 84.5 H, Lymph % (Auto) 11.1, [place] % (Auto) 4.2, Eos % (Auto) 0.0 L, Baso % (Auto) 0.3, Neut # (Auto) 13.4 H, Lymph # (Auto) 1.8, [place] # (Auto) 0.7, Eos # (Auto) 0.0, Baso # (Auto) 0.0, Total Counted 100, Neutrophils % (Manual) 86 H, Lymphocytes % (Manual) 11, Monocytes % (Manual) 3, Platelet Estimate Normal, RBC Morphology Normal, Sodium 136, Potassium 4.7, Chloride 98, Carbon Dioxide 33 H, Anion Gap 9.7, BUN 8, Creatinine 0.60, Estimated Creat Clear 37, Estimated GFR 102, Est GFR ( Amer) 123, Glucose 106 H, Calcium 9.2 I & O for Last 24 hours: Intake & Output 06/27/23 06/28/23 06/29/23 06/30/23 23:59 23:59 23:59 23:59 Intake Total 120 / 220 270 / 270 Output Total 0 / 0 0 / 0 Balance 120 / 220 270 / 270 Weight 38.555 kg 39.689 kg Constitutional Constitutional: no acute distress *Routine HEENT Exam Head: Present normocephalic Eye: Present EOMI and PERRL ENT: Present mucous membranes moist *Routine Neck Exam Neck: Present supple; Absent lymphadenopathy *Routine Respiratory Exam Respiratory: Present wheezes and distant breath sounds *Routine Cardiovascular Exam Cardiovascular: Present RRR *Routine Abdominal Exam Abdominal: Present soft and normoactive bowel sounds; Absent tenderness *Routine Extremities Exam Extremities: Absent cyanosis, clubbing or edema *Routine Skin Exam Skin: Present warm; Absent rash *Routine Neurological Exam Neurological: Present alert and oriented X3 Assessment and Plan *Assessment and plan (1) COPD exacerbation: Status: Acute Category: Medical Code(s): J44.1 - Chronic obstructive pulmonary disease with (acute) exacerbation (2) Pulmonary nodule: Status: Acute Category: Medical Code(s): R91.1 - Solitary pulmonary nodule (3) Pneumonia: Status: Acute Category: Medical Code(s): J18.9 - Pneumonia, unspecified organism (4) Anxiety: Status: Acute Category: Medical Code(s): F41.9 - Anxiety disorder, unspecified (5) Acute exacerbation of chronic obstructive pulmonary disease: Status: Acute Category: Medical Code(s): J44.1 - Chronic obstructive pulmonary disease with (acute) exacerbation Plan Patient is a 63-year-old female with past medical history of COPD who presents to the hospital due to shortness of breath. According to the patient she has been feeling short of breath, having cough productive of phlegm, yellowish color. Patient also had wheezing at home,. She denies sick contacts at home. She used her home breathing treatments without much improvement so she decided to come to the hospital, denied chest pain nausea vomiting diarrhea constipation dysuria fevers chills. Assessment Acute hypoxic respiratory failure satting less than 90% on room air likely secondary to COPD exacerbation Respiratory acidosis HTN HLD Plan contiinue DuoNebs every 4 hours scheduled continue IV Solu-Medrol IV Levaquin Resume home Protonix Consult pulmonary pulmonary nodule discussed with pt, alirio OP f/u dc 1-2 days
[2023-06-30] MEDS: ACETAMINOPHEN 325MG TAB 650 MG PO (14:44)
--- NOTE | 2023-06-30 17:07 | PC.NURSE ---
pt has been AxO x4 all shift. she transitioned from 4LNC to 2LNC. pt has been satting in low 90s all shift. pt c/o sob with moderate activity. pt has been up to bedside multiple times throughout shift. pt c/o of a headache previously in shift and was given tylenol per AUG. pt has had no other complaints this shift.
[2023-06-30] MEDS: LEVOFLOXACIN/D5W 500 MG/100 ML PIGGYBACK 100 MG IV (21:03)
[2023-06-30] MEDS: PRAMIPEXOLE 0.25MG TAB 0.25 MG PO (21:03)
[2023-06-30] MEDS: QUETIAPINE 100MG TABLET 50 MG PO (21:05)
[2023-07-01] MEDS: IPRATROPIUM/ALBUTEROL 3 ML NEB IH ×3 (01:40→10:15)
[2023-07-01 01:47] VITALS: PULSE 83; PULSE 90
[2023-07-01] MEDS: METHYLPREDNISOLONE SOD SUCC 40MG VIAL 40 MG IV ×2 (02:14→09:10)
[2023-07-01] MEDS: HEPARIN SODIUM 5,000 UNIT/ML VIAL 5000 UNIT SQ ×2 (02:14→09:10)
[2023-07-01 02:15] LABS: Appearance,Urine CLEAR (Clear); Bilirubin,Urine Negative (Negative); Blood, Urine 1+ (Negative); Color,Urine YELLOW (Yellow); Glucose,Urine (UA) Negative (Negative); Ketones,Urine Negative (Negative); Leukocyte Esterase,Urine Negative (Negative); Microscopic, Urine URINE MICROSCOPIC (MICROSCOPIC); Nitrate,Urine Negative (Negative); Protein,Urine Negative (Negative); Specific Gravity, Urine 1.025 (1.005-1.030); Urobilinogen,Urine 0.2 EU/dl (0.2)
[2023-07-01 02:34] LABS: Bacteria,Urine Trace /lpf; Mucus,Urine Trace /lpf
[2023-07-01 04:00] VITALS: BP 115/62; PULSE 84; RESP 20; TEMP 36.6; O2SAT 93; BMI 17.1
[2023-07-01 06:00] VITALS: PULSE 81; PULSE 89; O2SAT 90
[2023-07-01 07:06] LABS: Basophils % 0.1 % (0.1-2.0); Hemoglobin 13.7 g/dL (12.2-16.2); Lymphocytes # 1.4 K/mm3 (0.7-4.5); Lymphocytes % 5.9 % (10-50); Mean Corpuscular HGB Conc 32.6 g/dL (31.8-35.4); Monocytes # 0.8 K/mm3 (0.1-1.0); Monocytes % 3.4 % (1.7-9.3); Neutrophils # 21.6 K/mm3 (1.8-7.8); Neutrophils % 90.5 % (37.0-80.0); Platelet Count 336 K/mm3 (142-424); Red Blood Count 4.57 M/mm3 (4.20-5.40); Red Cell Distribution Width 13.6 % (11.5-17.5); White Blood Count 23.8 K/mm3 (4.8-10.8)
[2023-07-01 07:12] LABS: Anion Gap 10.8 mEq/L (5-15); Blood Urea Nitrogen 12 mg/dl (7-17); Calcium 9.1 mg/dl (8.4-10.2); Carbon Dioxide 33 mmol/L (22.0-30.0); Chloride 96 mmol/L (98-107); Creatinine Clearance Estimated 38 mL/min (50-200); Estimated Glomerular Filt Rate 85 ml/min (>60); GFR (African American) 103 ML/MIN (>60); Glucose 107 mg/dl (74-100); Potassium 4.8 mmoL/L (3.5-5.1); Sodium 135 mmol/L (136-145)
[2023-07-01 07:16] LABS: MANUAL DIFFERENTIAL MANUAL DIFFERENTIAL (MANUAL DIFF)
[2023-07-01 07:21] VITALS: BP 127/61; PULSE 83; RESP 19; TEMP 36.8; O2SAT 94
[2023-07-01 07:46] LABS: Lymphocytes % 3 % (10-50); Monocytes % 1 % (2-9); Neutrophils % 96 % (42-76); Platelet Estimate Normal; RBC Morphology Normal; Total Cells Counted 100
[2023-07-01] MEDS: FLUTICASONE PROP 50MCG NASAL SPRAY 16GM 1 SPRAY NS (08:17)
[2023-07-01] MEDS: PANTOPRAZOLE 40MG TABLET 40 MG PO (08:17)
[2023-07-01] MEDS: CITALOPRAM 10MG TABLET 10 MG PO (08:17)
--- NOTE | 2023-07-01 10:07 | EXP.DC.SUM ---
General Admission date:: 06/29/23 Discharge date: 07/01/23 HPI HPI HPI: Patient is a 63-year-old female with past medical history of COPD who presents to the hospital due to shortness of breath. According to the patient she has been feeling short of breath, having cough productive of phlegm, yellowish color. Patient also had wheezing at home,. She denies sick contacts at home. She used her home breathing treatments without much improvement so she decided to come to the hospital, denied chest pain nausea vomiting diarrhea constipation dysuria fevers chills. Hospital Course Hospital Course Hospital Course: Patient is a 63-year-old female with past medical history of COPD who presents to the hospital due to shortness of breath. According to the patient she has been feeling short of breath, having cough productive of phlegm, yellowish color. Patient also had wheezing at home,. She denies sick contacts at home. She used her home breathing treatments without much improvement so she decided to come to the hospital, denied chest pain nausea vomiting diarrhea constipation dysuria fevers chills. Assessment Acute hypoxic respiratory failure satting less than 90% on room air likely secondary to COPD exacerbation Respiratory acidosis HTN HLD DC on PO levaquin and PO prednisone, patient has home nebulizer and will f/u with PCP as well Exam Data for Last 24 hours Vital signs and Labs for Last 24 Hours: Temp Pulse Resp BP Pulse Ox O2 Del Method O2 Flow Rate 98.3 F 83 19 127/61 94 L Nasal Cannula 2 07/01/23 07:21 07/01/23 07:21 07/01/23 07:21 07/01/23 07:21 07/01/23 07:21 07/01/23 08:24 07/01/23 08:00 Laboratory Results - last 24 hr 06/30/23 21:19: Urine Color Yellow, Urine Appearance Clear, Urine pH 7.0, Ur Specific [place] 1.025, Urine Protein Negative, Urine Glucose (UA) Negative, Urine Ketones Negative, Urine Blood 1+, Urine Nitrate Negative, Urine Bilirubin Negative, Urine Urobilinogen 0.2, Ur Leukocyte Esterase Negative, Urine RBC 5-10, Urine WBC None, Ur Squamous Epith Cells 3-5, Urine Bacteria Trace, Urine Mucus Trace 07/01/23 06:36: WBC 23.8 H* D, RBC 4.57, Hgb 13.7, Hct 42.0, MCV 92.0, MCH 30.0, MCHC 32.6, RDW 13.6, Plt Count 336, MPV 8.0, Neut % (Auto) 90.5 H, Lymph % (Auto) 5.9 L, [place] % (Auto) 3.4, Eos % (Auto) 0.0 L, Baso % (Auto) 0.1, Neut # (Auto) 21.6 H, Lymph # (Auto) 1.4, [place] # (Auto) 0.8, Eos # (Auto) 0.0, Baso # (Auto) 0.0, Total Counted 100, Neutrophils % (Manual) 96 H, Lymphocytes % (Manual) 3 L, Monocytes % (Manual) 1 L, Platelet Estimate Normal, RBC Morphology Normal, Sodium 135 L, Potassium 4.8, Chloride 96 L, Carbon Dioxide 33 H, Anion Gap 10.8, BUN 12 D, Creatinine 0.70, Estimated Creat Clear 38, Estimated GFR 85, Est GFR ( Amer) 103, Glucose 107 H, Calcium 9.1 I & O for Last 24 hours: Intake & Output 06/28/23 06/29/23 06/30/23 07/01/23 23:59 23:59 23:59 23:59 Intake Total 120 / 220 900 / 1000 340 / 340 Output Total 0 / 0 125 / 125 0 / 0 Balance 120 / 220 775 / 875 340 / 340 Weight 38.555 kg 39.6 kg 41.186 kg Constitutional Constitutional: no acute distress *Routine HEENT Exam Head: Present normocephalic Eye: Present EOMI and PERRL ENT: Present mucous membranes moist *Routine Neck Exam Neck: Present supple; Absent lymphadenopathy *Routine Respiratory Exam Respiratory: Present CTA bilaterally *Routine Cardiovascular Exam Cardiovascular: Present RRR *Routine Abdominal Exam Abdominal: Present soft and normoactive bowel sounds; Absent tenderness *Routine Extremities Exam Extremities: Absent cyanosis, clubbing or edema *Routine Skin Exam Skin: Present warm; Absent rash *Routine Neurological Exam Neurological: Present alert and oriented X3 Results Data Completed and Pending Labs on day of discharge: Labs from last 24 hours 07/01/23 06/30/23 06:36 21:19 WBC 23.8 H* D RBC 4.57 Hgb 13.7 Hct 42.0 MCV 92.0 MCH 30.0 MCHC 32.6 RDW 13.6 Plt Count 336 MPV 8.0 Neut % (Auto) 90.5 H Lymph % (Auto) 5.9 L [place] % (Auto) 3.4 Eos % (Auto) 0.0 L Baso % (Auto) 0.1 Neut # (Auto) 21.6 H Lymph # (Auto) 1.4 [place] # (Auto) 0.8 Eos # (Auto) 0.0 Baso # (Auto) 0.0 Total Counted 100 Neutrophils % (Manual) 96 H Lymphocytes % (Manual) 3 L Monocytes % (Manual) 1 L Platelet Estimate Normal RBC Morphology Normal Sodium 135 L Potassium 4.8 Chloride 96 L Carbon Dioxide 33 H Anion Gap 10.8 BUN 12 D Creatinine 0.70 Estimated Creat Clear 38 Estimated GFR 85 Est GFR ( Amer) 103 Glucose 107 H Calcium 9.1 Urine Color Yellow Urine Appearance Clear Urine pH 7.0 Ur Specific [place] 1.025 Urine Protein Negative Urine Glucose (UA) Negative Urine Ketones Negative Urine Blood 1+ Urine Nitrate Negative Urine Bilirubin Negative Urine Urobilinogen 0.2 Ur Leukocyte Esterase Negative Urine RBC 5-10 Urine WBC None Ur Squamous Epith Cells 3-5 Urine Bacteria Trace Urine Mucus Trace DS: Diagnosis Discharge Diagnosis (1) COPD exacerbation: Status: Acute Code(s): J44.1 - Chronic obstructive pulmonary disease with (acute) exacerbation (2) Pulmonary nodule: Status: Acute Code(s): R91.1 - Solitary pulmonary nodule (3) Pneumonia: Status: Acute Code(s): J18.9 - Pneumonia, unspecified organism (4) Anxiety: Status: Acute Code(s): F41.9 - Anxiety disorder, unspecified Meds Home Medications and Allergies Home Medications Medication Instructions Recorded Confirmed Type ipratropium 0.5 mg-albuterol 3 mg 3 ml inhalation QIDP PRN Shortness 04/03/23 06/29/23 Rx (2.5 mg base)/3 mL nebulization Of Breath #180 mL soln pramipexole 0.25 mg tablet 0.25 mg PO HS #30 tabs 04/03/23 06/29/23 Rx albuterol sulfate 90 mcg/actuation 2 inh inhalation QIDP PRN 06/29/23 06/29/23 History aerosol inhaler (ProAir HFA) shortness of breath or wheezing escitalopram oxalate 5 mg tablet 5 mg PO DAILY Mood 06/29/23 06/29/23 History fluticasone fur. 100 mcg-umeclid 1 inh inhalation DAILY Breathing 06/29/23 06/29/23 History 62.5 mcg-vilant 25 mcg Problems inhalat.powder (Trelegy Ellipta) fluticasone propionate 50 1 spray intranasal DAILY Allergy 06/29/23 06/29/23 History mcg/actuation nasal Symptoms spray,suspension hydroxyzine pamoate 25 mg capsule 25 - 50 mg PO TIDP PRN anxiety or 06/29/23 06/29/23 History sleep pantoprazole 40 mg tablet,delayed 40 mg PO DAILY Acid Reflux 06/29/23 06/29/23 History release prednisone 20 mg tablet 20 mg PO DIRECTED 06/29/23 06/29/23 History quetiapine 50 mg tablet 50 mg PO HSP PRN sleep 06/29/23 06/29/23 History levofloxacin 250 mg tablet 250 mg PO Q24H 7 days #7 tabs 07/01/23 Rx prednisone 50 mg tablet 50 mg PO DAILY 5 days #5 tabs 07/01/23 Rx New Prescriptions to Start Prescriptions: levofloxacin Ian,Irfan prednisone Ian,Irfan Allergies Allergy/AdvReac Type Severity Reaction Status Date / Time No Known Drug Allergies Allergy Unknown Verified 06/26/23 10:27 [NKDA] Discharge Plan Disposition Patient Disposition: Home, Self-Care Condition: Good Follow up Plan Follow up with: Martine Bernal APRN [Primary Care Provider] - 07/06/23 9:00 am Prescriptions/Medication Reconciliation: New levofloxacin 250 mg tablet 250 mg PO Q24H 7 Days Qty: 7 0RF prednisone 50 mg tablet 50 mg PO DAILY 5 Days Qty: 5 0RF Continued ipratropium-albuterol 0.5 mg-3 mg(2.5 mg base)/3 mL solution for nebulization 3 ml IH QIDP PRN (Reason: Shortness Of Breath) Qty: 180 5RF pramipexole 0.25 mg tablet 0.25 mg PO HS Qty: 30 5RF prednisone 20 mg tablet 20 mg PO DIRECTED Rx Instructions: 20 mg orally BID x 5 days then daily x 5 days pantoprazole 40 mg tablet,delayed release (DR/EC) 40 mg PO DAILY albuterol sulfate [ProAir HFA] 90 mcg/actuation HFA aerosol inhaler 2 inh inhalation QIDP PRN (Reason: shortness of breath or wheezing) fluticasone propionate 50 mcg/actuation spray,suspension 1 spray intranasal DAILY Rx Instructions: administer into each nostril hydroxyzine pamoate 25 mg capsule 25 - 50 mg PO TIDP PRN (Reason: anxiety or sleep) escitalopram oxalate 5 mg tablet 5 mg PO DAILY quetiapine 50 mg tablet 50 mg PO HSP PRN (Reason: sleep) Trelegy Ellipta 100-62.5-25 mcg blister with device 1 inh inhalation DAILY Problem Reconciliation Problems Reviewed?: Yes Patient Discharge Instructions ACTIVITY: Ambulate as tolerated DIET: advance to your usual diet Patient Instructions: DI for Chronic Obstructive Pulmonary Disease Providers Primary Care Provider: Martine Bernal Admaureliano Provider: Zheng Sosa Attending Provider: Zheng Sosa
[2023-07-01 10:16] VITALS: PULSE 83; PULSE 89; O2SAT 93
--- NOTE | 2023-07-03 15:04 | CARE MANAGER ---
Called and spoke with patient regarding recent discharge. Patient states that she has started new medication prescribed at discharge and is aware of scheduled f/u appt. Patient voiced no concerns at time of call.
== END 2023-07-01 10:51 | disposition home or self-care (01) ==
LOC: ER 13:20 → 2ND 16:14
PROVIDERS: Emergency Medicine; Nurse Practitioner Family; Admitting Provider Internal Medicine; Emergency Provider Emergency Medicine; PCP Nurse Practitioner; Visit Provider Internal Medicine
DX: J44.1 Chronic obstructive pulmonary disease with (acute) exacerbation (principal); R91.1 Solitary pulmonary nodule; J18.9 Pneumonia, unspecified organism; F41.9 Anxiety disorder, unspecified; E78.5 Hyperlipidemia, unspecified; F41.8 Other specified anxiety disorders; I10 Essential (primary) hypertension; E87.29 Other acidosis; J44.0 Chronic obstructive pulmonary disease with (acute) lower respiratory infection
CPT/HCPCS: 36415; 71046; 80048; 80053; 81001; 82803; 85007; 85025; 87636; 93005; 94640; 94760; 99285; G0378; J0456; J0696; J1956; J3475

== ENCOUNTER 2023-07-17 21:53 | Outpatient (CLI) | payer MEDICARE, SELFPAY ==
[2023-07-17 19:44] LABS: Basophils # 0.1 K/mm3 (0-0.2); Basophils % 0.6 % (0.1-2.0); Eosinophils # 0.2 K/mm3 (0.0-0.4); Eosinophils % 1.3 % (0.1-12.0); Hematocrit 41.7 % (37.0-47.0); Hemoglobin 13.2 g/dL (12.2-16.2); Lymphocytes # 2.3 K/mm3 (0.7-4.5); Lymphocytes % 19.6 % (10-50); Mean Corpuscular HGB Conc 31.6 g/dL (31.8-35.4); Mean Corpuscular Hemoglobin 29.7 pg (27.0-31.2); Mean Corpuscular Volume 94.1 fl (81-99); Mean Platelet Volume 9.5 fl (7.4-10.4); Monocytes # 0.8 K/mm3 (0.1-1.0); Monocytes % 6.6 % (1.7-9.3); Neutrophils # 8.4 K/mm3 (1.8-7.8); Neutrophils % 71.9 % (37.0-80.0); Platelet Count 307 K/mm3 (142-424); Red Blood Count 4.43 M/mm3 (4.20-5.40); Red Cell Distribution Width 13.2 % (11.5-17.5); White Blood Count 11.7 K/mm3 (4.8-10.8)
[2023-07-17 19:57] LABS: Chloride 98 mmol/L (98-107); Sodium 136 mmol/L (136-145)
[2023-07-17 19:59] LABS: Alanine Aminotransferase 14 U/L (12-78); Aspartate Amino Transferase 19 U/L (14-36); Blood Urea Nitrogen 7 mg/dl (7-17); Estimated Glomerular Filt Rate 162 ml/min (>60); GFR (African American) 196 ML/MIN (>60)
[2023-07-17 20:00] LABS: Albumin Level 3.5 g/dl (3.5-5.0); Albumin/Globulin Ratio 1.5 (1.1-1.8); Alkaline Phosphatase 87 U/L (38-126); Bilirubin,Total 0.6 mg/dl (0.2-1.3); Calcium 8.6 mg/dl (8.4-10.2); Carbon Dioxide 36 mmol/L (22.0-30.0); Globulin 2.3 g/dL (1.3-3.2); Glucose 103 mg/dl (74-100); Total Protein,Serum 5.8 g/dl (6.3-8.2)
== END 2023-07-17 23:59 ==
LOC: LAB.DROPOF 21:54
PROVIDERS: PCP Nurse Practitioner; Visit Provider Nurse Practitioner
DX: J18.9 Pneumonia, unspecified organism (principal); E83.42 Hypomagnesemia
CPT/HCPCS: 80053; 83735; 85025

== ENCOUNTER 2023-07-23 11:26 | Inpatient (IN) | payer MEDICARE, OTHER, SELFPAY ==
[2023-07-23] VITALS (15 sets, daily range): BP systolic 105–131; BP diastolic 59–73; PULSE 86–97; RESP 18–27; TEMP 36.4–37; O2SAT 87–98; BMI 16.0; BMI 16.5
--- NOTE | 2023-07-23 11:38 | PC.NURSE ---
DR COHEN AT BEDSIDE
--- NOTE | 2023-07-23 11:57 | ECG_ITS ---
APPROVED REPORT Exam: Resting ECG HR:86 bpm ECG Measurements Heart Rate 86 AXES KS 118 P 15 QRSd 68 QRS 78 QT 284 T 61 QTc 328 Conclusion SINUS RHYTHM WITH SHORT KS INTERVAL SEPTAL MYOCARDIAL INFARCTION , PROBABLY OLD [40+ ms Q WAVE IN V1/V2] ABNORMAL ECG UNCONFIRMED REPORT Electronically signed by : William Murphy MD 07/24/2023 17:58:16
--- NOTE | 2023-07-23 12:05 | XR_ITS ---
PROCEDURE INFORMATION: Exam: XR Chest Exam date and time: 07/23/2023 12:10 PM Age: 63 years old Clinical indication: Dyspnea TECHNIQUE: Imaging protocol: Radiologic exam of the chest. Views: 1 view. COMPARISON: CR XR CHEST 2V 06/29/2023 1:54 PM FINDINGS: Lungs: Severely emphysematous lungs, with areas of scarring in the upper lung rivers. No consolidation. Pleural spaces: Unremarkable. No pleural effusion. No pneumothorax. Heart/Mediastinum: Unremarkable. No cardiomegaly. Vasculature: Atherosclerosis. Bones/joints: Unremarkable. IMPRESSION: 1. Severely emphysematous lungs, with areas of scarring in the upper lung rivers. 2. Atherosclerosis.
--- NOTE | 2023-07-23 12:07 | ED_ITS ---
Discharge Plan Disposition Patient Disposition: Admitted Prescriptions Prescriptions: No Action ipratropium-albuterol 0.5 mg-3 mg(2.5 mg base)/3 mL solution for nebulization 3 ml IH QIDP PRN (Reason: Shortness Of Breath) Qty: 180 5RF pramipexole 0.25 mg tablet 0.25 mg PO HS Qty: 30 5RF buspirone 10 mg tablet 10 mg PO BID Qty: 60 2RF sulfamethoxazole-trimethoprim [Bactrim DS] 800-160 mg tablet 1 tab PO BID Qty: 20 0RF pantoprazole 40 mg tablet,delayed release (DR/EC) 40 mg PO DAILY albuterol sulfate [ProAir HFA] 90 mcg/actuation HFA aerosol inhaler 2 inh inhalation QIDP PRN (Reason: shortness of breath or wheezing) fluticasone propionate 50 mcg/actuation spray,suspension 1 spray intranasal DAILY Rx Instructions: administer into each nostril hydroxyzine pamoate 25 mg capsule 25 - 50 mg PO TIDP PRN (Reason: anxiety or sleep) escitalopram oxalate 5 mg tablet 5 mg PO DAILY quetiapine 50 mg tablet 50 mg PO HSP PRN (Reason: sleep) Trelegy Ellipta 100-62.5-25 mcg blister with device 1 inh inhalation DAILY Referrals Follow up/Referrals: Martine Bernal APRN [Primary Care Provider] - See instructions Clinical Impressions Clinical Impression: Acute exacerbation of chronic obstructive pulmonary disease, Acute hypercapnic respiratory failure, Hypoxia Discharge ED Provider: Hetal Baker General Adult HPI General Chief complaint: Weakness Stated complaint: SOA, Problems with COPD Time Seen by Provider: 07/23/23 11:37 Mode of Arrival: Wheelchair Source of Information: Patient and Relative Limitations: No Limitations Description of Symptoms (Recalled from ER Triage Doc. by RN): PT C/O WEAKNESS, INCREASED SHORTNESS OF BREATH. REPORTS NO BM X 3 DAYS. REPORTS N/V. PT WEARS 2L/NC. PT REPORTS FEELING ANXIOUS History of Present Illness HPI narrative: Patient is a 63-year-old female with a history of COPD who presents today with worsening symptoms. She has been chronically ill since she got COVID at the end of last year has had admissions with antibiotics and no significant improvement most recently was in the hospital recently here just a few weeks ago. States she has had worsening shortness of breath increased utilization of her breathing treatments at home family who is with her states that she had increased work of breathing. She also states she has had some anxiety associated with difficulty breathing. No fevers or chills. She continues to smoke. Related Data Home Medications Medication Instructions Recorded Confirmed albuterol sulfate 90 mcg/actuation 2 inh inhalation QIDP PRN 06/29/23 07/17/23 aerosol inhaler (ProAir HFA) shortness of breath or wheezing escitalopram oxalate 5 mg tablet 5 mg PO DAILY Mood 06/29/23 07/17/23 fluticasone fur. 100 mcg-umeclid 1 inh inhalation DAILY Breathing 06/29/23 07/17/23 62.5 mcg-vilant 25 mcg Problems inhalat.powder (Trelegy Ellipta) fluticasone propionate 50 1 spray intranasal DAILY Allergy 06/29/23 07/17/23 mcg/actuation nasal Symptoms spray,suspension hydroxyzine pamoate 25 mg capsule 25 - 50 mg PO TIDP PRN anxiety or 06/29/23 07/17/23 sleep pantoprazole 40 mg tablet,delayed 40 mg PO DAILY Acid Reflux 06/29/23 07/17/23 release quetiapine 50 mg tablet 50 mg PO HSP PRN sleep 06/29/23 07/17/23 Previous Rx's Medication Instructions Recorded ipratropium 0.5 mg-albuterol 3 mg 3 ml inhalation QIDP PRN Shortness 04/03/23 (2.5 mg base)/3 mL nebulization Of Breath #180 mL soln pramipexole 0.25 mg tablet 0.25 mg PO HS #30 tabs 04/03/23 buspirone 10 mg tablet 10 mg PO BID #60 tabs 07/10/23 sulfamethoxazole 800 1 tab PO BID #20 tabs 07/18/23 mg-trimethoprim 160 mg tablet (Bactrim DS) Allergies Allergy/AdvReac Type Severity Reaction Status Date / Time No Known Drug Allergies Allergy Unknown Verified 07/17/23 08:19 [NKDA] [facility] Disclaimer: The information contained in this section may have been updated after the patient was seen, as this information can be updated by other users. Medical History (Updated 07/23/23 @ 13:02 by Hetal Baker MD) Acute exacerbation of chronic obstructive pulmonary disease Acute URI Anxiety Anxiety with depression Chronic obstructive pulmonary disease Contact dermatitis COPD (chronic obstructive pulmonary disease) COPD exacerbation COPD exacerbation Dependence on nocturnal oxygen therapy Gastroesophageal reflux disease GERD (gastroesophageal reflux disease) History of peptic ulcer Hyperlipidemia Hypomagnesemia Insomnia Pneumonia Pulmonary nodule Restless legs syndrome (RLS) Thyroid nodule Tobacco use disorder Surgical History History of tubal ligation Family History Other Cancer Diabetes Social History Smoking Status: Current every day smoker tobacco type: cigarettes packs per day: 1 alcohol intake: current substance use type: denies use current occupational status: unemployed Travel in the last 8 weeks: None housing: house ROS Obtained: Yes All systems reviewed & no additional complaints except as documented Physical Exam General General appearance: cachectic Respiratory Respiratory exam: Present other (Hyperexpanded lungs, diffuse expiratory wheezing speaking in fragmented sentences oxygen saturations in the mid 90s on 4 L mild accessory muscle use mild distress) Cardiovascular Cardiovascular exam: Present regular rate Neurological Exam Neurological exam: Present alert Medical Decision Making Jose Alfredo Inquiry Pt receiving controlled substance: No Vital Signs: 07/23/23 11:27 Temperature 98.6 F Temperature Source Oral Pulse Rate [Radial] 87 Respiratory Rate 22 Blood Pressure [Left Arm] 127/68 Blood Pressure Mean [Left Arm] 87 Blood Pressure Source [Left Arm] Automatic Cuff Blood Pressure Position [Left Arm] Sitting 02 Sat by Pulse Oximetry 87 L Oxygen Delivery Method Nasal Cannula Oxygen Flow Rate (LPM) 4 Lab Data Lab results reviewed: Yes I reviewed the patient's lab results. Lab Results 07/23/23 11:37: WBC 11.2 H, RBC 4.24, Hgb 13.3, Hct 37.6, MCV 88.8, MCH 31.4 H, MCHC 35.4, RDW 13.3, Plt Count 388, MPV 8.4, Neut % (Auto) 74.7, Lymph % (Auto) 18.0, [place] % (Auto) 6.1, Eos % (Auto) 1.0, Baso % (Auto) 0.4, Neut # (Auto) 8.4 H, Lymph # (Auto) 2.0, [place] # (Auto) 0.7, Eos # (Auto) 0.1, Baso # (Auto) 0.0, Sodium 134 L, Potassium 4.4, Chloride 98, Carbon Dioxide 33 H, Anion Gap 7.4, BUN 8, Creatinine 0.80, Estimated Creat Clear 36, Estimated GFR 73, Est GFR ( Amer) 88, Glucose 83, Calcium 8.9, Total Bilirubin 0.3, AST 30, ALT 21, Alkaline Phosphatase 121, Troponin I < 0.01, NT-Pro-B Natriuret Pep 161 H, Total Protein 7.1, Albumin 4.1, Globulin 3.0, Albumin/Globulin Ratio 1.4 07/23/23 12:06: VBG pH 7.24 L, VBG pCO2 60.4 H, VBG pO2 26.6 L, VBG HCO3 25.5, VBG Total CO2 27.3 H, VBG O2 Saturation 45.1 L, VBG Base Excess -1.9 07/23/23 11:37 07/23/23 11:37 Orders (Tests/Meds): ED MEDICATIONS Generic Name Dose Route Start Last Admin Trade Name Freq PRN Reason Stop Dose Admin Magnesium Sulfate 2 gm in 50 mls @ 50 mls/hr 07/23/23 12:05 07/23/23 12:13 Magnesium Sulfate 2gm/50ml Premix IV 07/23/23 13:04 50 mls/hr ONCE ONE Administration Discontinued Medications Generic Name Dose Route Start Last Admin Trade Name Freq PRN Reason Stop Dose Admin Albuterol/Ipratropium 3 ml 07/23/23 12:05 07/23/23 12:14 Ipratropium/Albuterol 3 Ml Neb IH 07/23/23 12:06 3 ml ONCE ONE Administration Methylprednisolone Sodium Succinate 125 mg 07/23/23 12:05 07/23/23 12:14 Methylprednisolone Sod Succ 125mg Vial IV 07/23/23 12:06 125 mg ONCE ONE Administration ORDERS Category Date Time Status CXR --portable [XR chest portable] Stat Exams 07/23/23 12:05 Completed BNP [Brain Natriuretic Peptide] Stat Lab 07/23/23 11:37 Completed CBC w/Auto Diff [Complete Blood Count Auto Diff] Stat Lab 07/23/23 11:37 Completed CMP [Comprehensive Metabolic Panel] Stat Lab 07/23/23 11:37 Completed Rapid PCR Covid and Flu A/B Stat Lab 07/23/23 12:20 Received Trop I [Troponin I] Stat Lab 07/23/23 11:37 Completed Troponin I Q3H Lab 07/23/23 15:15 Ordered Troponin I Q3H Lab 07/23/23 18:15 Ordered Blood Culture Stat Micro 07/23/23 12:35 Received ABG [Arterial Blood Gas] Stat RT 07/23/23 12:57 Ordered Venous Blood Gas Stat RT 07/23/23 12:06 Completed ECG Data Tracing #1: I reviewed this ECG and interpreted as documented below: Rate of 86 there is what appears to be normal sinus rhythm but the baseline is poor there is normal axis no ST elevations or depressions no obvious conduction abnormalities Medical Decision Narrative: 63-year-old female present today with mild to moderate respiratory distress and what appears to be a COPD exacerbation that is worsened again. She appears to be end-stage with her cachexia and her hyperexpanded lungs. I have advised her again to stop smoking. Will treat her symptomatically with nebs steroids magnesium. Will hold off on further antibiotics as she has been on multiple antibiotic regimens recently and this is unlikely to be bacterial at the moment. However chest x-ray will be performed to rule out any type of consolidation or decompensated heart failure etc. Will reassess after her initial workup is complete. I anticipate that she will likely need to be admitted given her presentation. Chest x-ray performed which I first interpreted shows hyperexpanded lungs severe emphysematous changes but no acute cardiopulmonary emergency specifically no evidence of any focal consolidation. Blood gas shows acute hypercapnic respiratory failure. Patient initiated on BiPAP. I discussed the case with Dr. Coyne who recommended that we get an ABG to titrate her Pa CO2. ABG was placed patient was admitted for further evaluation and treatment. She is feeling somewhat better but still mild respiratory distress. Critical Care Critical Care Time Critical Care Time: Yes Attestation: On 07/23/23, the high probability of a clinically significant, sudden or life threatening deterioration of the following system(s) required my full and direct attention, intervention and personal management. The time I documented below is in addition to time spent performing reported procedures but includes the following listed in this critical care notation. Total Time Total Critical Care Time: 35
[2023-07-23] MEDS: MAGNESIUM SULFATE IN WATER 2 GM/50 ML PIGGYBACK IV (12:13)
[2023-07-23] MEDS: IPRATROPIUM/ALBUTEROL 3 ML NEB IH ×4 (12:14→21:51)
[2023-07-23] MEDS: METHYLPREDNISOLONE SOD SUCC 125MG VIAL 125 MG IV (12:14)
[2023-07-23 12:16] LABS: Basophils % 0.4 % (0.1-2.0); Chloride 98 mmol/L (98-107); Eosinophils # 0.1 K/mm3 (0.0-0.4); Hematocrit 37.6 % (37.0-47.0); Hemoglobin 13.3 g/dL (12.2-16.2); Mean Corpuscular HGB Conc 35.4 g/dL (31.8-35.4); Mean Corpuscular Hemoglobin 31.4 pg (27.0-31.2); Mean Corpuscular Volume 88.8 fl (81-99); Mean Platelet Volume 8.4 fl (7.4-10.4); Monocytes # 0.7 K/mm3 (0.1-1.0); Monocytes % 6.1 % (1.7-9.3); Neutrophils # 8.4 K/mm3 (1.8-7.8); Neutrophils % 74.7 % (37.0-80.0); Platelet Count 388 K/mm3 (142-424); Red Blood Count 4.24 M/mm3 (4.20-5.40); Red Cell Distribution Width 13.3 % (11.5-17.5); White Blood Count 11.2 K/mm3 (4.8-10.8)
[2023-07-23 12:17] LABS: Potassium 4.4 mmoL/L (3.5-5.1); Sodium 134 mmol/L (136-145)
[2023-07-23 12:19] LABS: Alanine Aminotransferase 21 U/L (12-78); Aspartate Amino Transferase 30 U/L (14-36); Blood Urea Nitrogen 8 mg/dl (7-17); Creatinine Clearance Estimated 36 mL/min (50-200); Estimated Glomerular Filt Rate 73 ml/min (>60); GFR (African American) 88 ML/MIN (>60)
[2023-07-23 12:20] LABS: Albumin Level 4.1 g/dl (3.5-5.0); Albumin/Globulin Ratio 1.4 (1.1-1.8); Alkaline Phosphatase 121 U/L (38-126); Anion Gap 7.4 mEq/L (5-15); Bilirubin,Total 0.3 mg/dl (0.2-1.3); Calcium 8.9 mg/dl (8.4-10.2); Carbon Dioxide 33 mmol/L (22.0-30.0); Glucose 83 mg/dl (74-100); Total Protein,Serum 7.1 g/dl (6.3-8.2)
[2023-07-23 12:24] LABS: Coronavirus 19, PCR Not Detected (NotDetected); Influenza A, PCR Not Detected (NotDetected); Influenza B, PCR Not Detected (NotDetected)
[2023-07-23 12:30] LABS: NT Pro Brain Natriuretic Pep. 161 pg/mL (0-125)
[2023-07-23 12:33] LABS: Troponin I < 0.01 ng/ml (0.00-0.034)
[2023-07-23 12:48] LABS: VBG Base Excess -1.9 mmol/L (-2.4-2.3); VBG HCO3 25.5 mmol/L (23-30); VBG Oxygen Saturation 45.1 % (50-70); VBG PH 7.24 mmol/L (7.31-7.41); VBG PO2 26.6 mmol/L (28-40); VBG Total CO2 27.3 mmol/L (23-27)
[2023-07-23 12:51] LABS: VBG PCO2 60.4 mmol/L (35-51)
--- NOTE | 2023-07-23 13:05 | PC.NURSE ---
DR COHEN SPEAKING WITH DR HAWKINS FOR ADMISSION
--- NOTE | 2023-07-23 13:07 | P.HP_ITS ---
History of Present Illness *Admission Date: 07/23/23 *Reason for visit:: dyspnea *History of present illness: 63-year-old female with severe COPD. Presented to the ER because of complaint weakness, increased shortness of breath, and fatigue over the past 2 to 3 days. Normally wears 2 L nasal cannula but has been feeling more anxious and short of breath. On arrival to the ER, found to be hypoxemic necessitating higher level of oxygen than baseline. Reports worsening respiratory status and shortness of breath since having COVID at the end of last year. Workup in the ER found COPD exacerbation and hypoxia. Marginal elevation white cell count. Given respiratory distress, medicine consulted for admission and further management. On evaluation, patient denies any fever, chills. Reports cough spends productive. Continues to smoke at least half pack a day. Has been using her breathing treatments more frequently over the past few days. Was recently admitted last month for exacerbation with antibiotics. Denies chest pain. Family at bedside. [facility] Disclaimer: The information contained in this section may have been updated after the patient was seen, as this information can be updated by other users. Medical History Acute exacerbation of chronic obstructive pulmonary disease Acute URI Anxiety Anxiety with depression Chronic obstructive pulmonary disease Contact dermatitis COPD (chronic obstructive pulmonary disease) COPD exacerbation COPD exacerbation Dependence on nocturnal oxygen therapy Gastroesophageal reflux disease GERD (gastroesophageal reflux disease) History of peptic ulcer Hyperlipidemia Hypomagnesemia Insomnia Pneumonia Pulmonary nodule Restless legs syndrome (RLS) Thyroid nodule Tobacco use disorder Surgical History History of tubal ligation Family History Diabetes Cancer Social History Smoking Status: Current every day smoker tobacco type: cigarettes packs per day: 1 alcohol intake: current substance use type: denies use current occupational status: unemployed Travel in the last 8 weeks: None housing: house Review of Systems Review of Systems Review of systems (narrative): 14 point review of systems performed, pertinent positives and negatives as per [facility] Meds Home Medications and Allergies Home Medications Medication Instructions Recorded Confirmed Type ipratropium 0.5 mg-albuterol 3 mg 3 ml inhalation QIDP PRN Shortness 04/03/23 07/23/23 Rx (2.5 mg base)/3 mL nebulization Of Breath #180 mL soln pramipexole 0.25 mg tablet 0.25 mg PO HS #30 tabs 04/03/23 07/23/23 Rx albuterol sulfate 90 mcg/actuation 2 inh inhalation QIDP PRN 06/29/23 07/23/23 History aerosol inhaler (ProAir HFA) shortness of breath or wheezing escitalopram oxalate 5 mg tablet 5 mg PO DAILY Mood 06/29/23 07/23/23 History fluticasone fur. 100 mcg-umeclid 1 inh inhalation DAILY Breathing 06/29/23 07/23/23 History 62.5 mcg-vilant 25 mcg Problems inhalat.powder (Trelegy Ellipta) fluticasone propionate 50 1 spray intranasal DAILY Allergy 06/29/23 07/23/23 History mcg/actuation nasal Symptoms spray,suspension hydroxyzine pamoate 25 mg capsule 25 - 50 mg PO TIDP PRN anxiety or 06/29/23 07/23/23 History sleep pantoprazole 40 mg tablet,delayed 40 mg PO DAILY Acid Reflux 06/29/23 07/23/23 History release quetiapine 50 mg tablet 50 mg PO HSP PRN sleep 06/29/23 07/23/23 History buspirone 10 mg tablet 10 mg PO BID #60 tabs 07/10/23 07/23/23 Rx New Prescriptions to Start Prescriptions: Allergies Allergy/AdvReac Type Severity Reaction Status Date / Time No Known Drug Allergies Allergy Unknown Verified 07/17/23 08:19 [NKDA] Exam Data for Last 24 hours Vital signs and Labs for Last 24 Hours: Temp Pulse Resp BP Pulse Ox O2 Del Method O2 Flow Rate 98.6 F 87 22 127/68 87 L Nasal Cannula 4 07/23/23 11:27 07/23/23 11:27 07/23/23 11:27 07/23/23 11:27 07/23/23 11:27 07/23/23 11:27 07/23/23 11:27 Laboratory Results - last 24 hr 07/23/23 11:37: WBC 11.2 H, RBC 4.24, Hgb 13.3, Hct 37.6, MCV 88.8, MCH 31.4 H, MCHC 35.4, RDW 13.3, Plt Count 388, MPV 8.4, Neut % (Auto) 74.7, Lymph % (Auto) 18.0, [place] % (Auto) 6.1, Eos % (Auto) 1.0, Baso % (Auto) 0.4, Neut # (Auto) 8.4 H, Lymph # (Auto) 2.0, [place] # (Auto) 0.7, Eos # (Auto) 0.1, Baso # (Auto) 0.0, Sodium 134 L, Potassium 4.4, Chloride 98, Carbon Dioxide 33 H, Anion Gap 7.4, BUN 8, Creatinine 0.80, Estimated Creat Clear 36, Estimated GFR 73, Est GFR ( Amer) 88, Glucose 83, Calcium 8.9, Total Bilirubin 0.3, AST 30, ALT 21, Alkaline Phosphatase 121, Troponin I < 0.01, NT-Pro-B Natriuret Pep 161 H, Total Protein 7.1, Albumin 4.1, Globulin 3.0, Albumin/Globulin Ratio 1.4 07/23/23 12:06: VBG pH 7.24 L, VBG pCO2 60.4 H, VBG pO2 26.6 L, VBG HCO3 25.5, VBG Total CO2 27.3 H, VBG O2 Saturation 45.1 L, VBG Base Excess -1.9 I & O for Last 24 hours: Intake & Output 07/20/23 07/21/23 07/22/23 07/23/23 23:59 23:59 23:59 23:59 Weight 38.555 kg Constitutional Constitutional: mild distress, cachectic and chronically ill appearing *Routine HEENT Exam Head: Present normocephalic Eye: Present EOMI and PERRL ENT: Present mucous membranes moist *Routine Neck Exam Neck: Present supple; Absent lymphadenopathy Routine Chest/Breast/Axilla Exam Comments: Barrel chested *Routine Respiratory Exam Respiratory: Present accessory muscle use, rhonchi, wheezes, distant breath sounds and diminished air movement; Absent crackles *Routine Cardiovascular Exam Cardiovascular: Present tachycardia *Routine Abdominal Exam Abdominal: Present soft and normoactive bowel sounds; Absent tenderness *Routine Rectal Exam Rectal:: deferred *Routine Genitalia Exam Genitalia:: deferred *Routine Extremities Exam Extremities: Absent cyanosis, clubbing or edema *Routine Skin Exam Skin: Present warm; Absent rash *Routine Neurological Exam Neurological: Present alert, oriented X3 and moving all extremities; Absent altered mental status Routine Psychiatric Exam Psychiatric: Present normal affect Assessment and Plan *Assessment and plan (1) Acute on chronic hypoxic respiratory failure: Status: Acute Category: Medical Code(s): J96.21 - Acute and chronic respiratory failure with hypoxia (2) Acute exacerbation of chronic obstructive pulmonary disease: Status: Acute Category: Medical Code(s): J44.1 - Chronic obstructive pulmonary disease with (acute) exacerbation (3) Pulmonary nodule: Status: Inactive Category: Medical Code(s): R91.1 - Solitary pulmonary nodule (4) Anxiety: Status: Inactive Category: Medical Code(s): F41.9 - Anxiety disorder, unspecified (5) Cachexia: Status: Acute Category: Medical Code(s): R64 - Cachexia Plan Patient is a 63-year-old female with past medical history of COPD who presents to the hospital due to shortness of breath. According to the patient she has been feeling short of breath for 3 days with increased productive cough. Not responding to inhalers. Workup in the ER concerning for COPD exacerbation. Discussed case with ER physician, request admission for further management. Problems addressed as follows: - Acute hypoxic respiratory failure with COPD exacerbation Continue supplemental oxygen, goal sats greater than 90%. Currently on 4 L nasal cannula oxygen. Pulmonology consulted, appreciate their recommendations. They will see patient tomorrow morning. Initiate DuoNebs every 4 hours scheduled, budesonide twice daily. IV methylprednisolone 60 mg twice daily Azithromycin 500 mg daily x 5 days Continue Trelegy inhaler daily Tobacco use disorder: Nicotine 21 mg daily patch. Counseled on benefits of cessation. Anxiety: Continue Seroquel 50 mg nightly, Lexapro 5 mg daily, BuSpar 10 mg twice daily. Full Code Heparin 5000 units every 8hrs Regular diet
--- NOTE | 2023-07-23 13:10 | PC.NURSE ---
[facility]ARN[facility] UNIT OPERATOR NOTIFIED OF ADMISSION
[2023-07-23 13:22] LABS: ABG Base Excess 4.6 mmol/L (-2.4-2.3); ABG HCO3 29.8 mmhg (22.0-26.0); ABG Oxygen Saturation 91 % (90-100); ABG PH 7.37 mmol/L (7.35-7.45); ABG PO2 58.7 mmhg (80-100); ABG TCO2 31.4 mmhg (23-27)
[2023-07-23 13:23] LABS: Allen's Test Acceptable; Oxygen 3 LNC %; Source Right Radial
[2023-07-23 13:25] LABS: ABG PCO2 52.2 mmhg (35.0-45.0)
--- NOTE | 2023-07-23 13:32 | PC.NURSE ---
RESPIRATORY AT BEDSIDE WITH BI-PAP
[2023-07-23] MEDS: METHYLPREDNISOLONE SOD SUCC 125MG VIAL 60 MG IV (13:37)
[2023-07-23] MEDS: HEPARIN SODIUM 5,000 UNIT/ML VIAL 5000 UNIT SQ ×2 (13:37→20:03)
--- NOTE | 2023-07-23 14:05 | PC.NURSE ---
PT RESTING, FAMILY AT BEDSIDE. NO NEEDS VOICED. CALL LIGHT WITHIN REACH
[2023-07-23] MEDS: LORazepam 2MG/ML VIAL 0.5 MG IV (14:31)
--- NOTE | 2023-07-23 15:00 | PC.NURSE ---
Rounded on patient no needs at this time.
--- NOTE | 2023-07-23 15:53 | PC.NURSE ---
FAMILY AT BEDSIDE, PT AND FAMILY UPDATED ON POC
--- NOTE | 2023-07-23 16:04 | PC.NURSE ---
PT TOLERATING BI-PAP. FAMILY AT BEDSIDE. NO NEEDS AT THIS TIME. CALL LIGHT WITHIN REACH
--- NOTE | 2023-07-23 16:19 | PC.NURSE ---
report called to [facility]
--- NOTE | 2023-07-23 16:29 | PC.NURSE ---
Dr. Coyne at BS
--- NOTE | 2023-07-23 16:37 | PC.NURSE ---
arrived by stretcher from ED
[2023-07-23 16:40] LABS: Troponin I < 0.01 ng/ml (0.00-0.034)
[2023-07-23] MEDS: BUDESONIDE 0.5MG/2ML NEB 0.5 MG IH (18:15)
[2023-07-23] MEDS: AZITHROMYCIN 500 MG in 0.9 % SODIUM CHLORIDE 250 ML 250 MG IV (19:36)
[2023-07-23 19:45] LABS: Troponin I < 0.01 ng/ml (0.00-0.034)
[2023-07-23] MEDS: ACETAMINOPHEN 325MG TAB 650 MG PO (20:03)
[2023-07-23] MEDS: BUSPIRONE HCL 10 MG TABLET PO (20:03)
[2023-07-24] VITALS (15 sets, daily range): BP systolic 101–133; BP diastolic 57–75; PULSE 65–98; RESP 18–24; TEMP 36.3–37; O2SAT 89–99; BMI 16.5
[2023-07-24] MEDS: METHYLPREDNISOLONE SOD SUCC 125MG VIAL 60 MG IV ×2 (00:56→12:38)
[2023-07-24] MEDS: IPRATROPIUM/ALBUTEROL 3 ML NEB IH ×6 (02:06→21:07)
[2023-07-24] MEDS: HEPARIN SODIUM 5,000 UNIT/ML VIAL 5000 UNIT SQ ×3 (05:08→21:44)
[2023-07-24] MEDS: BUDESONIDE 0.5MG/2ML NEB 0.5 MG IH ×2 (06:11→18:11)
[2023-07-24 07:15] LABS: Hematocrit 35.7 % (37.0-47.0); Lymphocytes # 0.9 K/mm3 (0.7-4.5); Lymphocytes % 15.9 % (10-50); Mean Corpuscular HGB Conc 33.2 g/dL (31.8-35.4); Mean Corpuscular Hemoglobin 29.2 pg (27.0-31.2); Mean Corpuscular Volume 87.7 fl (81-99); Mean Platelet Volume 8.1 fl (7.4-10.4); Monocytes # 0.2 K/mm3 (0.1-1.0); Monocytes % 2.9 % (1.7-9.3); Neutrophils # 4.4 K/mm3 (1.8-7.8); Neutrophils % 81.2 % (37.0-80.0); Platelet Count 395 K/mm3 (142-424); Red Blood Count 4.07 M/mm3 (4.20-5.40); Red Cell Distribution Width 13.3 % (11.5-17.5); White Blood Count 5.4 K/mm3 (4.8-10.8)
--- NOTE | 2023-07-24 07:50 | HMH.PHAINT1 ---
Pharmacy Intervention Comments: Reviewed all medications using external fill history.
[2023-07-24 08:28] LABS: Chloride 99 mmol/L (98-107); Sodium 132 mmol/L (136-145)
[2023-07-24 08:29] LABS: Potassium 4.7 mmoL/L (3.5-5.1)
[2023-07-24 08:31] LABS: Alanine Aminotransferase 21 U/L (12-78); Albumin Level 3.4 g/dl (3.5-5.0); Albumin/Globulin Ratio 1.2 (1.1-1.8); Alkaline Phosphatase 99 U/L (38-126); Anion Gap 6.7 mEq/L (5-15); Aspartate Amino Transferase 28 U/L (14-36); Blood Urea Nitrogen 7 mg/dl (7-17); Calcium 8.5 mg/dl (8.4-10.2); Carbon Dioxide 31 mmol/L (22.0-30.0); Creatinine Clearance Estimated 37 mL/min (50-200); Estimated Glomerular Filt Rate 102 ml/min (>60); GFR (African American) 123 ML/MIN (>60); Globulin 2.8 g/dL (1.3-3.2); Glucose 128 mg/dl (74-100); Total Protein,Serum 6.2 g/dl (6.3-8.2)
[2023-07-24 08:32] LABS: Bilirubin,Total 0.1 mg/dl (0.2-1.3); Magnesium 2.3 mg/dl (1.6-2.3)
[2023-07-24] MEDS: CITALOPRAM 10MG TABLET 10 MG PO (08:53)
[2023-07-24] MEDS: FLUTICASONE/UMECLIDIN/VILANTER 100/62.5/25MCG INHALER 1 PUFF IH (08:53)
[2023-07-24] MEDS: BUSPIRONE HCL 10 MG TABLET PO ×2 (08:53→21:43)
[2023-07-24] MEDS: PANTOPRAZOLE 40MG TABLET 40 MG PO (08:53)
--- NOTE | 2023-07-24 10:01 | P.CONS_ITS ---
History of Present Illness History of present illness: Ms. Vásquez is a 63-year-old female greater than 30 PPD, carries a diagnosis COPD, chronic hypoxic respiratory failure on 2 L oxygen supplementation using Trelegy along with DuoNebs on as-needed basis, pecduncan oakley presented to the hospital with worsening respiratory's distress along with cough and worsening productive phlegm and increasing oxygen requirements PFSH [facility] Disclaimer: The information contained in this section may have been updated after the patient was seen, as this information can be updated by other users. Medical History Acute exacerbation of chronic obstructive pulmonary disease Acute URI Anxiety Anxiety with depression Chronic obstructive pulmonary disease Contact dermatitis COPD (chronic obstructive pulmonary disease) COPD exacerbation COPD exacerbation Dependence on nocturnal oxygen therapy Gastroesophageal reflux disease GERD (gastroesophageal reflux disease) History of peptic ulcer Hyperlipidemia Hypomagnesemia Insomnia Pneumonia Pulmonary nodule Restless legs syndrome (RLS) Thyroid nodule Tobacco use disorder Surgical History History of tubal ligation Family History Diabetes Cancer Social History Smoking Status: Current every day smoker tobacco type: cigarettes packs per day: 1 alcohol intake: current substance use type: denies use current occupational status: unemployed Travel in the last 8 weeks: None housing: house Review of Systems Constitutional Constitutional: Reports fatigue Eyes Eyes: Denies eye discharge, Denies dry eyes, Denies irritation and Denies itchy eyes ENT Ears, Nose, Mouth, and Throat: Denies epistaxis, Denies facial pain, Denies lip swelling and Denies throat swelling *Cardiovascular Cardiovascular: Reports dyspnea and Reports dyspnea on exertion *Respiratory Respiratory: Reports chest congestion, Reports cough, Reports dyspnea, Reports dyspnea on exertion, Reports excessive phlegm production and Reports wheezing *Gastrointestinal Gastrointestinal: Denies abdominal pain, Denies belching and Denies cramping *Musculoskeletal Musculoskeletal: Reports back pain, Reports myalgias and Reports other (No small joint swelling or Pain) Psychiatric Psychiatric: Denies homicidal ideation and Denies suicidal ideation Endocrine Endocrine: Reports fatigue and Denies heat intolerance Hematologic/Lymphatic Hematologic/Lymphatic: Denies easy bleeding and Denies lymphadenopathy Allergic/Immunologic Allergic/Immunologic: Denies itchy eyes, Denies lip swelling, Denies throat swelling and Reports wheezing Pulmonology Exam Inpatient Vital signs and Labs for Last 24 Hours: Temp Pulse Resp BP Pulse Ox O2 Del Method O2 Flow Rate 97.4 F L 89 24 132/71 91 L Nasal Cannula 6 07/24/23 08:00 07/24/23 09:17 07/24/23 08:00 07/24/23 08:00 07/24/23 08:00 07/24/23 09:10 07/24/23 09:10 FiO2 50 07/23/23 17:12 Laboratory Results - last 24 hr 07/23/23 11:37: WBC 11.2 H, RBC 4.24, Hgb 13.3, Hct 37.6, MCV 88.8, MCH 31.4 H, MCHC 35.4, RDW 13.3, Plt Count 388, MPV 8.4, Neut % (Auto) 74.7, Lymph % (Auto) 18.0, [place] % (Auto) 6.1, Eos % (Auto) 1.0, Baso % (Auto) 0.4, Neut # (Auto) 8.4 H, Lymph # (Auto) 2.0, [place] # (Auto) 0.7, Eos # (Auto) 0.1, Baso # (Auto) 0.0, Sodium 134 L, Potassium 4.4, Chloride 98, Carbon Dioxide 33 H, Anion Gap 7.4, BUN 8, Creatinine 0.80, Estimated Creat Clear 36, Estimated GFR 73, Est GFR ( Amer) 88, Glucose 83, Calcium 8.9, Total Bilirubin 0.3, AST 30, ALT 21, Alkaline Phosphatase 121, Troponin I < 0.01, NT-Pro-B Natriuret Pep 161 H, Total Protein 7.1, Albumin 4.1, Globulin 3.0, Albumin/Globulin Ratio 1.4 07/23/23 12:06: VBG pH 7.24 L, VBG pCO2 60.4 H, VBG pO2 26.6 L, VBG HCO3 25.5, VBG Total CO2 27.3 H, VBG O2 Saturation 45.1 L, VBG Base Excess -1.9 07/23/23 12:20: SARS-CoV-2 (PCR) Not detected, Influenza A Untype (PCR) Not d etected, Influenza Type B (PCR) Not detected 07/23/23 12:57: Specimen Source Right radial, O2 % 3 lnc, ABG pH 7.37, ABG pCO2 52.2 H, ABG pO2 58.7 L, ABG HCO3 29.8 H, ABG Total CO2 31.4 H, ABG O2 Saturation 91, ABG Base Excess 4.6 H, Pipe Test Acceptable 07/23/23 15:55: Troponin I < 0.01 07/23/23 18:57: Troponin I < 0.01 07/24/23 06:38: WBC 5.4 D, RBC 4.07 L, Hgb 12.0 L, Hct 35.7 L, MCV 87.7, MCH 29.2, MCHC 33.2, RDW 13.3, Plt Count 395, MPV 8.1, Neut % (Auto) 81.2 H, Lymph % (Auto) 15.9, [place] % (Auto) 2.9, Eos % (Auto) 0.0 L, Baso % (Auto) 0.0 L, Neut # (Auto) 4.4, Lymph # (Auto) 0.9, [place] # (Auto) 0.2, Eos # (Auto) 0.0, Baso # (Auto) 0.0, Sodium 132 L, Potassium 4.7, Chloride 99, Carbon Dioxide 31 H, Anion Gap 6.7, BUN 7, Creatinine 0.60 D, Estimated Creat Clear 37, Estimated GFR 102, Est GFR ( Amer) 123 D, Glucose 128 H D, Calcium 8.5, Magnesium 2.3, Total Bilirubin 0.1 L, AST 28, ALT 21, Alkaline Phosphatase 99, Total Protein 6.2 L, Albumin 3.4 L D, Globulin 2.8, Albumin/Globulin Ratio 1.2 I & O for Labs for Last 24 Hours: Intake & Output 07/21/23 07/22/23 07/23/23 07/24/23 23:59 23:59 23:59 23:59 Intake Total 405 / 405 Output Total 0 / 0 Balance 405 / 405 Weight 87 lb 4 oz 87 lb 4.002 oz Constitutional: Present moderate distress Head: Present normocephalic and atraumatic ENT: Present normal exam, normal oropharynx and mucous membranes moist Neck: Present normal inspection and full ROM Respiratory: Present respiratory distress, wheezes, diminished air movement and able to speak in complete sentences Comment:: Pectus carinatum noted Cardiac: Present S1/S2, Tachycardia and radial pulses present GI: Present soft and distention; Absent tenderness or guarding Rectal (female): Present deferred (female): Present deferred Skin: Present intact; Absent cyanosis or jaundice Neuro: Present alert, awake and oriented x 3 Extremities: Present normal inspection; Absent clubbing or cyanosis Psychiatric: Present normal affect and cooperative Meds Home Medications and Allergies Home Medications Medication Instructions Recorded Confirmed Type ipratropium 0.5 mg-albuterol 3 mg 3 ml inhalation QIDP PRN Shortness 04/03/23 07/23/23 Rx (2.5 mg base)/3 mL nebulization Of Breath #180 mL soln pramipexole 0.25 mg tablet 0.25 mg PO HS #30 tabs 04/03/23 07/23/23 Rx albuterol sulfate 90 mcg/actuation 2 inh inhalation QIDP PRN 06/29/23 07/23/23 History aerosol inhaler (ProAir HFA) shortness of breath or wheezing escitalopram oxalate 5 mg tablet 5 mg PO DAILY Mood 06/29/23 07/23/23 History fluticasone fur. 100 mcg-umeclid 1 inh inhalation DAILY Breathing 06/29/23 07/23/23 History 62.5 mcg-vilant 25 mcg Problems inhalat.powder (Trelegy Ellipta) fluticasone propionate 50 1 spray intranasal DAILY Allergy 06/29/23 07/23/23 History mcg/actuation nasal Symptoms spray,suspension hydroxyzine pamoate 25 mg capsule 25 - 50 mg PO TIDP PRN anxiety or 06/29/23 07/23/23 History sleep pantoprazole 40 mg tablet,delayed 40 mg PO DAILY Acid Reflux 06/29/23 07/23/23 History release quetiapine 50 mg tablet 50 mg PO HSP PRN sleep 06/29/23 07/23/23 History buspirone 10 mg tablet 10 mg PO BID #60 tabs 07/10/23 07/23/23 Rx New Prescriptions to Start Prescriptions: Allergies Allergy/AdvReac Type Severity Reaction Status Date / Time No Known Drug Allergies Allergy Unknown Verified 07/17/23 08:19 [NKDA] Results Laboratory Findings 07/24/23 06:38 07/24/23 06:38 ABG ABG pH 7.37 mmol/L (7.35-7.45) 07/23/23 12:57 ABG pCO2 52.2 mmhg (35.0-45.0) H 07/23/23 12:57 ABG pO2 58.7 mmhg (80-100) L 07/23/23 12:57 ABG O2 Saturation 91 % (90-100) 07/23/23 12:57 Abnormal lab findings: Abnormal Labs 07/23/23 07/23/23 07/23/23 11:37 12:06 12:57 WBC 11.2 H RBC Hgb Hct MCH 31.4 H Neut % (Auto) Eos % (Auto) Baso % (Auto) Neut # (Auto) 8.4 H ABG pCO2 52.2 H ABG pO2 58.7 L ABG HCO3 29.8 H ABG Total CO2 31.4 H ABG Base Excess 4.6 H VBG pH 7.24 L VBG pCO2 60.4 H VBG pO2 26.6 L VBG Total CO2 27.3 H VBG O2 Saturation 45.1 L Sodium 134 L Carbon Dioxide 33 H Glucose Total Bilirubin NT-Pro-B Natriuret Pep 161 H Total Protein Albumin 07/24/23 06:38 WBC RBC 4.07 L Hgb 12.0 L Hct 35.7 L MCH Neut % (Auto) 81.2 H Eos % (Auto) 0.0 L Baso % (Auto) 0.0 L Neut # (Auto) ABG pCO2 ABG pO2 ABG HCO3 ABG Total CO2 ABG Base Excess VBG pH VBG pCO2 VBG pO2 VBG Total CO2 VBG O2 Saturation Sodium 132 L Carbon Dioxide 31 H Glucose 128 H D Total Bilirubin 0.1 L NT-Pro-B Natriuret Pep Total Protein 6.2 L Albumin 3.4 L D Assessment and Plan *Assessment and plan (1) Acute on chronic hypoxic respiratory failure: Status: Acute Category: Medical Code(s): J96.21 - Acute and chronic respiratory failure with hypoxia (2) Acute exacerbation of chronic obstructive pulmonary disease: Status: Acute Category: Medical Code(s): J44.1 - Chronic obstructive pulmonary disease with (acute) exacerbation Plan Ms. Vásquez is a 63-year-old female greater than 30 PPD, carries a diagnosis COPD, chronic hypoxic respiratory failure on 2 L oxygen supplementation using Tr elegy along with DuoNebs on as-needed basis, pectus carinatuum presented to the hospital with worsening respiratory's distress along with cough and worsening productive phlegm and increasing oxygen requirements Leukocytosis upon admission, improving. ABG upon admission showed mild hypercarbia with normal pH. Renal function within normal limits. Noted to have hypoxia. Patient was recently seen in the hospital on 06/29/2023 for COPD exacerbation,, discharged home on levofloxacin 250mg daily along with prednisone 50 mg daily x 5 days. Chest x-ray upon admission bilateral hyperinflated lungs. No dense consolidation or airspace disease noted. Right upper lobe likely calcified nodule along with biapical scarring noted. Patient for this admission was initiate methylprednisolone 60 every 12 along with Azithromycin. Also Received DuoNebs Every 4 Hours Scheduled. On examination mild expiratory wheezing noted. Saturating 94% on 4 L nasal cannula, weaned to 3 L. Plan: Change antibiotics to levofloxacin to complete a total of 5-day course. Follow- up with sputum culture results DuoNebs every 4 hours along with Pulmicort every 12 scheduled Continue oxygen supplementation to maintain O2 saturation goal of 90 to 95% Given involving pulmonary in this patient care. Will continue to follow.
[2023-07-24] MEDS: LEVOFLOXACIN/D5W 750 MG/150 ML 750 MG/150 ML PIGGYBACK 100 MG IV (12:39)
--- NOTE | 2023-07-24 14:50 | P.PN_ITS ---
Subjective *Date: 07/24/23 *Time: 14:50 Interval history: Patient appears more comfortable this morning but has higher oxygen requirement. On 6 L when I evaluated her this morning. Tolerating p.o. intake. Afebrile. No nausea or vomiting. Still feels tightness when she breathes but generally feeling better. Medical Exam Vital signs and Labs for Last 24 Hours: Vital Signs Temp Pulse Pulse Resp BP BP Pulse Ox 07/24/23 13:15 07/24/23 12:00 98.6 F 93 H 19 133/67 93 L 07/24/23 11:00 07/24/23 08:00 97.4 F L 80 24 132/71 91 L 07/24/23 07:45 07/24/23 09:10 07/24/23 09:17 89 07/24/23 09:17 92 H 07/24/23 08:00 97.4 F L 80 24 132/71 91 L 07/24/23 06:12 83 07/24/23 06:12 86 07/24/23 06:12 93 L 07/24/23 04:00 98.4 F 90 18 101/57 L 99 07/24/23 01:00 80 07/24/23 02:08 90 07/24/23 00:00 97.7 F 88 20 121/64 96 07/23/23 23:13 91 L 07/23/23 23:00 07/23/23 20:00 98.5 F 97 H 18 119/60 91 L 07/23/23 21:51 92 H 07/24/23 06:27 07/24/23 05:00 07/24/23 02:58 07/24/23 01:00 07/23/23 21:00 07/23/23 19:50 07/23/23 19:50 95 H 07/23/23 16:00 97.6 F 96 H 25 H 115/73 96 07/23/23 19:42 07/23/23 17:12 07/23/23 17:00 07/23/23 16:35 98.6 F 95 H 24 115/73 07/23/23 15:00 90 20 108/61 L 95 O2 Del Method O2 Flow Rate FiO2 07/24/23 13:15 Nasal Cannula 3 07/24/23 12:00 Nasal Cannula 3 07/24/23 11:00 Nasal Cannula 3 07/24/23 08:00 Nasal Cannula 6 07/24/23 07:45 Nasal Cannula 5 07/24/23 09:10 Nasal Cannula 6 07/24/23 09:17 07/24/23 09:17 07/24/23 08:00 Nasal Cannula 6 07/24/23 06:12 07/24/23 06:12 07/24/23 06:12 Nasal Cannula 6 07/24/23 04:00 Nasal Cannula 6 07/24/23 01:00 07/24/23 02:08 07/24/23 00:00 Nasal Cannula 6 07/23/23 23:13 Nasal Cannula 6 07/23/23 23:00 Nasal Cannula 6 07/23/23 20:00 Nasal Cannula 6 07/23/23 21:51 07/24/23 06:27 Nasal Cannula 6 07/24/23 05:00 Nasal Cannula 6 07/24/23 02:58 Nasal Cannula 6 07/24/23 01:00 Room Air 07/23/23 21:00 Nasal Cannula 6 07/23/23 19:50 Nasal Cannula 6 07/23/23 19:50 07/23/23 16:00 Nasal Cannula 07/23/23 19:42 Nasal Cannula 6 07/23/23 17:12 Venturi Mask 15 50 07/23/23 17:00 Venturi Mask 07/23/23 16:35 BiPAP 07/23/23 15:00 BiPAP Intake and Output 07/23/23 07/24/23 07/24/23 23:59 07:59 15:59 Intake Total 405 / 405 540 / 540 Output Total 0 / 0 0 / 0 Balance 405 / 405 540 / 540 Intake: Intake, Oral Amount 120 / 120 540 / 540 Intake, Other Amount 35 / 35 Intake, Total IV Amount 250 / 250 Azithromycin 500 mg In 0.9 % 250 / 250 Sodium Chloride 250 ml @ 250 mls/hr IV Q24H [facility] Rx#:[id number] Output: Output, Urine Amount 0 / 0 0 / 0 Other: Number of Voids 0 Number of Unmeasured Voids 1 Number of Bowel Movements 1 Weight 39.576 kg 39.576 kg Patient Weight 07/24/23 23:59 Weight 39.576 kg Laboratory Results - last 24 hr 07/23/23 15:55: Troponin I < 0.01 07/23/23 18:57: Troponin I < 0.01 07/24/23 06:38: WBC 5.4 D, RBC 4.07 L, Hgb 12.0 L, Hct 35.7 L, MCV 87.7, MCH 29.2, MCHC 33.2, RDW 13.3, Plt Count 395, MPV 8.1, Neut % (Auto) 81.2 H, Lymph % (Auto) 15.9, [place] % (Auto) 2.9, Eos % (Auto) 0.0 L, Baso % (Auto) 0.0 L, Neut # (Auto) 4.4, Lymph # (Auto) 0.9, [place] # (Auto) 0.2, Eos # (Auto) 0.0, Baso # (Auto) 0.0, Sodium 132 L, Potassium 4.7, Chloride 99, Carbon Dioxide 31 H, Anion Gap 6.7, BUN 7, Creatinine 0.60 D, Estimated Creat Clear 37, Estimated GFR 102, Est GFR ( Amer) 123 D, Glucose 128 H D, Calcium 8.5, Magnesium 2.3, Total Bilirubin 0.1 L, AST 28, ALT 21, Alkaline Phosphatase 99, Total Protein 6.2 L, Albumin 3.4 L D, Globulin 2.8, Albumin/Globulin Ratio 1.2 I & O for Labs for Last 24 Hours: Intake & Output 07/21/23 07/22/23 07/23/23 07/24/23 23:59 23:59 23:59 23:59 Intake Total 405 / 405 540 / 540 Output Total 0 / 0 0 / 0 Balance 405 / 405 540 / 540 Weight 39.576 kg 39.576 kg Constitutional: Present no acute distress, cachectic, chronically ill appearing and cooperative Head: Present atraumatic and normocephalic ENT: Present normal exam Neck: Present normal inspection Respiratory: Present prolonged expiratory phase, wheezes and diminished air movement; Absent rhonchi or crackles Comment:: Barrel chested Cardiac: Present Reg Rate and Rhythm GI: Present soft and normal bowel sounds; Absent distention or tenderness Extremities: Present normal inspection and full ROM Skin: Present intact; Absent erythema Neuro: Present Grossly Intact, alert, awake, oriented x 3 and moves all extremities Assessment and Plan *Assessment and plan (1) Acute on chronic hypoxic respiratory failure: Status: Acute Category: Medical Code(s): J96.21 - Acute and chronic respiratory failure with hypoxia (2) Acute exacerbation of chronic obstructive pulmonary disease: Status: Acute Category: Medical Code(s): J44.1 - Chronic obstructive pulmonary disease with (acute) exacerbation (3) Pulmonary nodule: Status: Inactive Category: Medical Code(s): R91.1 - Solitary pulmonary nodule (4) Anxiety: Status: Inactive Category: Medical Code(s): F41.9 - Anxiety disorder, unspecified (5) Cachexia: Status: Acute Category: Medical Code(s): R64 - Cachexia Plan Patient is a 63-year-old female with past medical history of COPD who presents to the hospital due to shortness of breath. According to the patient she has been feeling short of breath for 3 days with increased productive cough. Not responding to inhalers. Workup in the ER concerning for COPD exacerbation. Discussed case with ER physician, request admission for further management. Clinically looking somewhat better this morning but still having increased oxygen requirement. Continues to require inpatient management. Problems addressed as follows: - Acute hypoxic respiratory failure with COPD exacerbation Continue supplemental oxygen, goal sats greater than 90%. On 6 L during rounds when I saw her this morning, when pulmonology saw her, she was on 4 and weaned to 3 with sats above goal. Awaiting sputum cultures. DuoNebs every 4 hours scheduled, budesonide twice daily. IV methylprednisolone 60 mg twice daily Discussed case with pulmonology, recommend transitioning to levofloxacin for 5 days. Continues to require inpatient management. Consistent with severe COPD exacerbation Continue Trelegy inhaler daily Tobacco use disorder: Nicotine 21 mg daily patch. Counseled on benefits of cessation. Anxiety: Continue Seroquel 50 mg nightly, Lexapro 5 mg daily, BuSpar 10 mg twice daily. Full Code Heparin 5000 units every 8hrs Regular diet
[2023-07-24] MEDS: hydrOXYzine pamoate 25MG CAPSULE 50 MG PO (15:06)
[2023-07-24] MEDS: NICOTINE 21MG/24HR PATCH 21 MG TD (17:14)
--- NOTE | 2023-07-24 17:33 | PC.NURSE ---
A&OX4. PT HAS TOLERATED 3L NC WELL THUS FAR. RESPIRATIONS REGULAR AND UNLABORED. LUNG SOUNDS DIMINISHED THROUGHOUT. OCCASIONAL PRODUCTIVE COUGH NOTED. SPUTUM SENT TO LAB. NO EDEMA NOTED. +1 PULSES NOTED THROUGHOUT. HAND IAP DISPLAYS ANALYST EQUAL. PT HAS REMAINED ON TELE THROUGHOUT SHIFT. PT HAS DENIED ANY PAIN THUS FAR. PT DID REPORT ANXIETY ONCE THIS SHIFT AND MEDS WERE GIVEN PER AUG. ON REASSESSMENT, PT WAS BETTER. PT REQUESTED NICOTINE PATCH THIS AFTERNOON. STATES SHE HAS BEEN TRYING TO QUIT AND WAS GETTING A LITTLE JITTERY. ACTIVE BOWEL SOUNDS HEARD IN ALL 4 QUADRANTS. SOFT AND NONTENDER. NO BM THUS FAR. BED IN LOWEST POSITION. CALL LIGHT WITHIN REACH. VSS. PT HAS HAD FAMILY MEMBERS VISIT EARLIER IN THE SHIFT. PT DID RECEIVE A BATH TODAY. PT ALSO RECEIVED LEVOFLOXACIN ONCE THIS SHIFT AND TOLERATED WELL.
[2023-07-24] MEDS: PROMETHAZINE HCL 25MG/ML 1ML VIAL 12.5 MG IV (19:45)
[2023-07-24] MEDS: SODIUM CHLORIDE 0.9% 25ML BAG 25 ML IV (19:45)
[2023-07-24] MEDS: QUETIAPINE 100MG TABLET 50 MG PO (21:43)
[2023-07-24] MEDS: PRAMIPEXOLE 0.25MG TAB 0.25 MG PO (21:44)
[2023-07-25] VITALS (8 sets, daily range): BP systolic 101–120; BP diastolic 57–60; PULSE 77–98; RESP 16–22; TEMP 36.6–36.8; O2SAT 3–95; BMI 16.0
[2023-07-25] MEDS: IPRATROPIUM/ALBUTEROL 3 ML NEB IH ×3 (01:52→09:58)
[2023-07-25] MEDS: METHYLPREDNISOLONE SOD SUCC 125MG VIAL 60 MG IV (02:01)
--- NOTE | 2023-07-25 05:02 | PC.NURSE ---
Patient VS WNL using 3L NC O2. Pt has wheezing throughout lung bases which improves with treatments, continues on 3L NC & has a non-productive this shift. No s/s of acute distress noted. Patient had 1 dose of Promethazine for c/o nausea; medications effective. Patient currently resting in bed with eyes closed.
--- NOTE | 2023-07-25 05:10 | PC.NURSE ---
Patient VS WNL curently on 3L NS; Has had periods of wheezing through out lung rivers; continues with non-productive. FSBS 153 covered with 2 units of Humalog; Patient shows not s/s of acute distress this shift, resting with eyes closed.
[2023-07-25] MEDS: HEPARIN SODIUM 5,000 UNIT/ML VIAL 5000 UNIT SQ (05:28)
[2023-07-25] MEDS: BUDESONIDE 0.5MG/2ML NEB 0.5 MG IH (06:18)
[2023-07-25 06:49] LABS: Basophils % 0.1 % (0.1-2.0); Eosinophils % 0.1 % (0.1-12.0); Hematocrit 32.5 % (37.0-47.0); Lymphocytes # 0.9 K/mm3 (0.7-4.5); Lymphocytes % 8.7 % (10-50); Mean Corpuscular Hemoglobin 29.4 pg (27.0-31.2); Mean Corpuscular Volume 86.5 fl (81-99); Mean Platelet Volume 8.4 fl (7.4-10.4); Monocytes # 0.4 K/mm3 (0.1-1.0); Monocytes % 3.9 % (1.7-9.3); Neutrophils # 8.9 K/mm3 (1.8-7.8); Neutrophils % 87.2 % (37.0-80.0); Platelet Count 381 K/mm3 (142-424); Red Blood Count 3.76 M/mm3 (4.20-5.40); Red Cell Distribution Width 13.3 % (11.5-17.5); White Blood Count 10.3 K/mm3 (4.8-10.8)
[2023-07-25 06:52] LABS: Chloride 96 mmol/L (98-107); Sodium 127 mmol/L (136-145)
[2023-07-25 06:53] LABS: Potassium 4.5 mmoL/L (3.5-5.1)
[2023-07-25 06:55] LABS: Anion Gap 4.5 mEq/L (5-15); Blood Urea Nitrogen 6 mg/dl (7-17); Calcium 8.4 mg/dl (8.4-10.2); Carbon Dioxide 31 mmol/L (22.0-30.0); Creatinine Clearance Estimated 36 mL/min (50-200); Estimated Glomerular Filt Rate 85 ml/min (>60); GFR (African American) 103 ML/MIN (>60); Glucose 90 mg/dl (74-100); MANUAL DIFFERENTIAL MANUAL DIFFERENTIAL (MANUAL DIFF)
[2023-07-25 06:56] LABS: Magnesium 1.9 mg/dl (1.6-2.3)
[2023-07-25] MEDS: PANTOPRAZOLE 40MG TABLET 40 MG PO (08:08)
[2023-07-25] MEDS: hydrOXYzine pamoate 25MG CAPSULE 50 MG PO (08:08)
[2023-07-25] MEDS: CITALOPRAM 10MG TABLET 10 MG PO (08:08)
[2023-07-25] MEDS: BUSPIRONE HCL 10 MG TABLET PO (08:08)
[2023-07-25 09:35] LABS: Lymphocytes % 2 % (10-50); Monocytes % 2 % (2-9); Neutrophils % 96 % (42-76); Total Cells Counted 100
[2023-07-25 09:36] LABS: Platelet Estimate Normal; RBC Morphology Normal
--- NOTE | 2023-07-25 09:56 | P.PN_ITS ---
Subjective *Date: 07/25/23 *Time: 11:23 Interval history: No acute respiratory events overnight. Patient denies any new respiratory complaints. Pulmonology Exam Inpatient Vital signs and Labs for Last 24 Hours: Temp Pulse Resp BP Pulse Ox O2 Del Method O2 Flow Rate 97.9 F 98 H 16 114/60 3 L Nasal Cannula 3 07/25/23 08:00 07/25/23 08:00 07/25/23 08:00 07/25/23 08:00 07/25/23 09:11 07/25/23 09:12 07/25/23 09:12 FiO2 50 07/23/23 17:12 Laboratory Results - last 24 hr 07/25/23 06:09: WBC 10.3 D, RBC 3.76 L, Hgb 11.0 L, Hct 32.5 L, MCV 86.5, MCH 29.4, MCHC 34.0, RDW 13.3, Plt Count 381, MPV 8.4, Neut % (Auto) 87.2 H, Lymph % (Auto) 8.7 L, [place] % (Auto) 3.9, Eos % (Auto) 0.1, Baso % (Auto) 0.1, Neut # (Auto) 8.9 H, Lymph # (Auto) 0.9, [place] # (Auto) 0.4, Eos # (Auto) 0.0, Baso # (Auto) 0.0, Total Counted 100, Neutrophils % (Manual) 96 H, Lymphocytes % (Manual) 2 L, Monocytes % (Manual) 2, Platelet Estimate Normal, RBC Morphology Normal, Sodium 127 L, Potassium 4.5, Chloride 96 L, Carbon Dioxide 31 H, Anion Gap 4.5 L, BUN 6 L, Creatinine 0.70, Estimated Creat Clear 36, Estimated GFR 85, Est GFR ( Amer) 103, Glucose 90 D, Calcium 8.4, Magnesium 1.9 D I & O for Labs for Last 24 Hours: Intake & Output 07/22/23 07/23/23 07/24/23 07/25/23 23:59 23:59 23:59 23:59 Intake Total 405 / 405 1000 / 1000 600 / 600 Output Total 0 / 0 450 / 450 150 / 150 Balance 405 / 405 550 / 550 450 / 450 Weight 87 lb 4 oz 87 lb 4.002 oz 85 lb 3.2 oz Constitutional: Present moderate distress Head: Present normocephalic and atraumatic ENT: Present normal exam, normal oropharynx and mucous membranes moist Neck: Present normal inspection and full ROM Respiratory: Present respiratory distress and able to speak in complete sentenc es; Absent wheezes Comment:: Pectus carinatum noted Cardiac: Present S1/S2, Tachycardia and radial pulses present GI: Present soft and distention; Absent tenderness or guarding Rectal (female): Present deferred (female): Present deferred Skin: Present intact; Absent cyanosis or jaundice Neuro: Present alert, awake and oriented x 3 Extremities: Present normal inspection; Absent clubbing or cyanosis Psychiatric: Present normal affect and cooperative Assessment and Plan *Assessment and plan (1) Acute on chronic hypoxic respiratory failure: Status: Acute Category: Medical Code(s): J96.21 - Acute and chronic respiratory failure with hypoxia (2) Acute exacerbation of chronic obstructive pulmonary disease: Status: Acute Category: Medical Code(s): J44.1 - Chronic obstructive pulmonary disease with (acute) exacerbation Plan Ms. Vásquez is a 63-year-old female greater than 30 PPD, carries a diagnosis COPD, chronic hypoxic respiratory failure on 2 L oxygen supplementation using Trelegy along with DuoNebs on as-needed basis, pectus carinatuum presented to the hospital with worsening respiratory's distress along with cough and worsening productive phlegm and increasing oxygen requirements Leukocytosis upon admission, improving. ABG upon admission showed mild hypercarbia with normal pH. Renal function within normal limits. Noted to have hypoxia. Patient was recently seen in the hospital on 06/29/2023 for COPD exacerbation,, discharged home on levofloxacin 250mg daily along with prednisone 50 mg daily x 5 days. Chest x-ray upon admission bilateral hyperinflated lungs. No dense consolidation or airspace disease noted. Right upper lobe likely calcified nodule along with biapical scarring noted. Patient for this admission was initiate methylprednisolone 60 every 12 along with Azithromycin. Also Received DuoNebs Every 4 Hours Scheduled. On initial examination mild expiratory wheezing noted. Saturating 94% on 4 L nasal cannula, weaned to 3 L. Interval update: No acute respiratory events overnight. Continue to receive levofloxacin and methylprednisolone 60 every 12 hours. No significant wheezing appreciated on auscultation Plan: -Continue oxygen supplementation to maintain O2 saturation goal of 90 to 95%. 3 L saturating 93%. Home baseline 2 L nasal cannula oxygen supplementation. Change antibiotics to levofloxacin to complete a total of 5-day course. Follow- up with sputum culture results Patient can be discharged on home inhaler which includes daily along with DuoNebs every 6 hours on as-needed basis Wean steroids to prednisone 40 mg daily to complete total of 5-day course from initiation. Given involving pulmonary in this patient care. Will follow the patient in pulmonary manage previous schedule on August 02, 2023
--- NOTE | 2023-07-25 11:37 | EXP.DC.SUM ---
General Admission date:: 07/23/23 Discharge date: 07/25/23 HPI HPI HPI: 63-year-old female with severe COPD. Presented to the ER because of complaint weakness, increased shortness of breath, and fatigue over the past 2 to 3 days. Normally wears 2 L nasal cannula but has been feeling more anxious and short of breath. On arrival to the ER, found to be hypoxemic necessitating higher level of oxygen than baseline. Reports worsening respiratory status and shortness of breath since having COVID at the end of last year. Workup in the ER found COPD exacerbation and hypoxia. Marginal elevation white cell count. Given respiratory distress, medicine consulted for admission and further management. On evaluation, patient denies any fever, chills. Reports cough spends productive. Continues to smoke at least half pack a day. Has been using her breathing treatments more frequently over the past few days. Was recently admitted last month for exacerbation with antibiotics. Denies chest pain. Family at bedside. Hospital Course Hospital Course Hospital Course: Patient is a 63-year-old female with past medical history of COPD who presents to the hospital due to shortness of breath. According to the patient she has been feeling short of breath for 3 days with increased productive cough. Not responding to inhalers. Workup in the ER concerning for COPD exacerbation. Discussed case with ER physician, request admission for further management. Showed good improvement during admission and response to treatment. Clinically improved and stable for discharge home. Pulmonology assisted with care. Problems addressed as follows: - Acute hypoxic respiratory failure with COPD exacerbation Pulmonology consulted, appreciate their recommendations. Patient initiated on supplemental oxygen. Initially on 6 L for goal sats greater 90%, weaned to 3 L by morning of discharge. Pulmonology recommends continuing steroids and Levaquin for 5 days total. Treated with DuoNebs, budesonide, Methylpred during admission. Will have close follow-up with pulmonology in the coming weeks for further evaluation and management. Continue Trelegy inhaler. Has oxygen at home. Stable for discharge. Tobacco use disorder: Nicotine 21 mg daily patch. Counseled on benefits of cessation. Anxiety: Continue Seroquel 50 mg nightly, Lexapro 5 mg daily, BuSpar 10 mg twice daily. Exam Data for Last 24 hours Vital signs and Labs for Last 24 Hours: Temp Pulse Resp BP Pulse Ox O2 Del Method O2 Flow Rate 98.3 F 78 17 120/60 92 L Nasal Cannula 3 07/25/23 11:14 07/25/23 11:14 07/25/23 11:14 07/25/23 11:14 07/25/23 11:14 07/25/23 11:14 07/25/23 11:14 FiO2 50 07/23/23 17:12 Laboratory Results - last 24 hr 07/25/23 06:09: WBC 10.3 D, RBC 3.76 L, Hgb 11.0 L, Hct 32.5 L, MCV 86.5, MCH 29.4, MCHC 34.0, RDW 13.3, Plt Count 381, MPV 8.4, Neut % (Auto) 87.2 H, Lymph % (Auto) 8.7 L, [place] % (Auto) 3.9, Eos % (Auto) 0.1, Baso % (Auto) 0.1, Neut # (Auto) 8.9 H, Lymph # (Auto) 0.9, [place] # (Auto) 0.4, Eos # (Auto) 0.0, Baso # (Auto) 0.0, Total Counted 100, Neutrophils % (Manual) 96 H, Lymphocytes % (Manual) 2 L, Monocytes % (Manual) 2, Platelet Estimate Normal, RBC Morphology Normal, Sodium 127 L, Potassium 4.5, Chloride 96 L, Carbon Dioxide 31 H, Anion Gap 4.5 L, BUN 6 L, Creatinine 0.70, Estimated Creat Clear 36, Estimated GFR 85, Est GFR ( Amer) 103, Glucose 90 D, Calcium 8.4, Magnesium 1.9 D I & O for Last 24 hours: Intake & Output 07/22/23 07/23/23 07/24/23 07/25/23 23:59 23:59 23:59 23:59 Intake Total 405 / 405 1000 / 1000 600 / 600 Output Total 0 / 0 450 / 450 150 / 150 Balance 405 / 405 550 / 550 450 / 450 Weight 39.576 kg 39.576 kg 38.646 kg Constitutional Constitutional: no acute distress, cachectic, chronically ill appearing and cooperative *Routine HEENT Exam Head: Present normocephalic Eye: Present EOMI and PERRL ENT: Present mucous membranes moist *Routine Neck Exam Neck: Present supple; Absent lymphadenopathy Routine Chest/Breast/Axilla Exam Breast: Absent tenderness Comments: barrel shaped *Routine Respiratory Exam Respiratory: Present prolonged expiratory phase, wheezes, crackles, distant breath sounds and diminished air movement; Absent rhonchi *Routine Cardiovascular Exam Cardiovascular: Present RRR *Routine Abdominal Exam Abdominal: Present soft and normoactive bowel sounds; Absent tenderness *Routine Rectal Exam Patient deferred: visual exam *Routine Exam Patient deferred: external exam *Routine Extremities Exam Extremities: Absent cyanosis, clubbing or edema *Routine Skin Exam Skin: Present warm; Absent rash *Routine Neurological Exam Neurological: Present alert, oriented X3 and moving all extremities; Absent altered mental status Results Data Completed and Pending Labs on day of discharge: Labs from last 24 hours 07/25/23 06:09 WBC 10.3 D RBC 3.76 L Hgb 11.0 L Hct 32.5 L MCV 86.5 MCH 29.4 MCHC 34.0 RDW 13.3 Plt Count 381 MPV 8.4 Neut % (Auto) 87.2 H Lymph % (Auto) 8.7 L [place] % (Auto) 3.9 Eos % (Auto) 0.1 Baso % (Auto) 0.1 Neut # (Auto) 8.9 H Lymph # (Auto) 0.9 [place] # (Auto) 0.4 Eos # (Auto) 0.0 Baso # (Auto) 0.0 Total Counted 100 Neutrophils % (Manual) 96 H Lymphocytes % (Manual) 2 L Monocytes % (Manual) 2 Platelet Estimate Normal RBC Morphology Normal Sodium 127 L Potassium 4.5 Chloride 96 L Carbon Dioxide 31 H Anion Gap 4.5 L BUN 6 L Creatinine 0.70 Estimated Creat Clear 36 Estimated GFR 85 Est GFR ( Amer) 103 Glucose 90 D Calcium 8.4 Magnesium 1.9 D DS: Diagnosis Discharge Diagnosis (1) Acute on chronic hypoxic respiratory failure: Status: Acute Code(s): J96.21 - Acute and chronic respiratory failure with hypoxia (2) Acute exacerbation of chronic obstructive pulmonary disease: Status: Acute Code(s): J44.1 - Chronic obstructive pulmonary disease with (acute) exacerbation Meds Home Medications and Allergies Home Medications Medication Instructions Recorded Confirmed Type ipratropium 0.5 mg-albuterol 3 mg 3 ml inhalation QIDP PRN Shortness 04/03/23 07/23/23 Rx (2.5 mg base)/3 mL nebulization Of Breath #180 mL soln pramipexole 0.25 mg tablet 0.25 mg PO HS #30 tabs 04/03/23 07/23/23 Rx albuterol sulfate 90 mcg/actuation 2 inh inhalation QIDP PRN 06/29/23 07/23/23 History aerosol inhaler (ProAir HFA) shortness of breath or wheezing escitalopram oxalate 5 mg tablet 5 mg PO DAILY Mood 06/29/23 07/23/23 History fluticasone fur. 100 mcg-umeclid 1 inh inhalation DAILY Breathing 06/29/23 07/23/23 History 62.5 mcg-vilant 25 mcg Problems inhalat.powder (Trelegy Ellipta) fluticasone propionate 50 1 spray intranasal DAILY Allergy 06/29/23 07/23/23 History mcg/actuation nasal Symptoms spray,suspension hydroxyzine pamoate 25 mg capsule 25 - 50 mg PO TIDP PRN anxiety or 06/29/23 07/23/23 History sleep pantoprazole 40 mg tablet,delayed 40 mg PO DAILY Acid Reflux 06/29/23 07/23/23 History release quetiapine 50 mg tablet 50 mg PO HSP PRN sleep 06/29/23 07/23/23 History buspirone 10 mg tablet 10 mg PO BID #60 tabs 07/10/23 07/23/23 Rx levofloxacin 750 mg tablet 750 mg PO DAILY 3 days #3 tabs 07/25/23 Rx nicotine 21 mg/24 hr daily 21 mg transdermal DAILYP PRN 07/25/23 Rx transdermal patch Nicotine Cravings 28 days #28 ea prednisone 20 mg tablet 40 mg PO DAILY 2 days #4 tabs 07/25/23 Rx New Prescriptions to Start Prescriptions: Ion Swain nicotine Ion Coyne prednisone Ion Coyne Allergies Allergy/AdvReac Type Severity Reaction Status Date / Time No Known Drug Allergies Allergy Unknown Verified 07/17/23 08:19 [NKDA] Discharge Plan Disposition Patient Disposition: Home, Self-Care Condition: Good Discharge Order Discharge Orders: Discharge Order (Routine); Ordered 07/25/23 Ordered By: Ion Coyne Follow up Plan Follow up with: Martine Bernal APRN [Primary Care Provider] - 07/27/23 10:00 am Silvio Flood MD [Physician] - 08/04/23 10:00 am Prescriptions/Medication Reconciliation: New nicotine 21 mg/24 hr Patch 24 Hour 21 mg transdermal DAILYP PRN (Reason: Nicotine Cravings) 28 Days Qty: 28 0RF levofloxacin 750 mg tablet 750 mg PO DAILY 3 Days Qty: 3 0RF prednisone 20 mg tablet 40 mg PO DAILY 2 Days Qty: 4 0RF Continued ipratropium-albuterol 0.5 mg-3 mg(2.5 mg base)/3 mL solution for nebulization 3 ml IH QIDP PRN (Reason: Shortness Of Breath) Qty: 180 5RF pramipexole 0.25 mg tablet 0.25 mg PO HS Qty: 30 5RF buspirone 10 mg tablet 10 mg PO BID Qty: 60 2RF pantoprazole 40 mg tablet,delayed release (DR/EC) 40 mg PO DAILY albuterol sulfate [ProAir HFA] 90 mcg/actuation HFA aerosol inhaler 2 inh inhalation QIDP PRN (Reason: shortness of breath or wheezing) fluticasone propionate 50 mcg/actuation spray,suspension 1 spray intranasal DAILY Rx Instructions: administer into each nostril hydroxyzine pamoate 25 mg capsule 25 - 50 mg PO TIDP PRN (Reason: anxiety or sleep) escitalopram oxalate 5 mg tablet 5 mg PO DAILY quetiapine 50 mg tablet 50 mg PO HSP PRN (Reason: sleep) Trelegy Ellipta 100-62.5-25 mcg blister with device 1 inh inhalation DAILY Problem Reconciliation Problems Reviewed?: Yes Patient Discharge Instructions ACTIVITY: Continue current activity DIET: continue same diet Patient Instructions: DI for Chronic Obstructive Pulmonary Disease, DI for Respiratory Failure Providers Primary Care Provider: Martine Bernal Admit Provider: Ion Coyne Attending Provider: Ion Coyne
--- NOTE | 2023-07-27 15:31 | CARE MANAGER ---
CM called and spoke with patient regarding recent discharge. Patient aware of scheduled f/u appts, and has started new medication. No concerns voiced at time of call.
== END 2023-07-25 12:52 | disposition home or self-care (01) | DRG 189 ==
LOC: ER 13:02 → 2ND 14:37
PROVIDERS: Admitting Provider Internal Medicine Adolescent Medicine; Emergency Provider Student in an Organized Health Care Education/Training Program; PCP Nurse Practitioner; Visit Provider Internal Medicine Adolescent Medicine
DX: J96.21 Acute and chronic respiratory failure with hypoxia (principal); J44.1 Chronic obstructive pulmonary disease with (acute) exacerbation; R91.1 Solitary pulmonary nodule; F41.9 Anxiety disorder, unspecified; E78.5 Hyperlipidemia, unspecified; F32.A Depression, unspecified; F17.200 Nicotine dependence, unspecified, uncomplicated
CPT/HCPCS: 36415; 71045; 80048; 80053; 82803; 83735; 83880; 84484; 85007; 85025; 87040; 87070; 87205; 87636; 93005; 94640; 94760; 94761; 99291; J0456; J1956; J3475

== ENCOUNTER 2023-07-31 19:44 | Outpatient (CLI) | payer MEDICARE, OTHER, SELFPAY ==
[2023-07-31 18:55] LABS: Basophils # 0.1 K/mm3 (0-0.2); Basophils % 0.5 % (0.1-2.0); Eosinophils # 0.2 K/mm3 (0.0-0.4); Eosinophils % 1.2 % (0.1-12.0); Hematocrit 35.6 % (37.0-47.0); Hemoglobin 11.7 g/dL (12.2-16.2); Lymphocytes # 2.1 K/mm3 (0.7-4.5); Lymphocytes % 14.1 % (10-50); Mean Corpuscular HGB Conc 32.8 g/dL (31.8-35.4); Mean Corpuscular Hemoglobin 29.3 pg (27.0-31.2); Mean Corpuscular Volume 89.3 fl (81-99); Mean Platelet Volume 9.2 fl (7.4-10.4); Monocytes # 1.1 K/mm3 (0.1-1.0); Monocytes % 7.2 % (1.7-9.3); Neutrophils # 11.7 K/mm3 (1.8-7.8); Platelet Count 424 K/mm3 (142-424); Red Blood Count 3.99 M/mm3 (4.20-5.40); Red Cell Distribution Width 13.4 % (11.5-17.5); White Blood Count 15.1 K/mm3 (4.8-10.8)
[2023-07-31 19:02] LABS: Alanine Aminotransferase 15 U/L (12-78); Albumin Level 3.3 g/dl (3.5-5.0); Albumin/Globulin Ratio 1.5 (1.1-1.8); Alkaline Phosphatase 64 U/L (38-126); Anion Gap 1.5 mEq/L (5-15); Aspartate Amino Transferase 21 U/L (14-36); Bilirubin,Total 0.2 mg/dl (0.2-1.3); Blood Urea Nitrogen 7 mg/dl (7-17); Calcium 8.8 mg/dl (8.4-10.2); Carbon Dioxide 38 mmol/L (22.0-30.0); Chloride 99 mmol/L (98-107); Estimated Glomerular Filt Rate 162 ml/min (>60); GFR (African American) 196 ML/MIN (>60); Globulin 2.2 g/dL (1.3-3.2); Glucose 96 mg/dl (74-100); Potassium 3.5 mmoL/L (3.5-5.1); Sodium 135 mmol/L (136-145); Total Protein,Serum 5.5 g/dl (6.3-8.2)
[2023-07-31 19:05] LABS: MANUAL DIFFERENTIAL MANUAL DIFFERENTIAL (MANUAL DIFF)
[2023-07-31 20:54] LABS: Lymphocytes % 19 % (10-50); Monocytes % 4 % (2-9); Neutrophils % 77 % (42-76); Platelet Estimate Normal; RBC Morphology Normal; Total Cells Counted 100
== END 2023-07-31 23:59 ==
PROVIDERS: PCP Nurse Practitioner; Visit Provider Nurse Practitioner
DX: J44.1 Chronic obstructive pulmonary disease with (acute) exacerbation (principal)
CPT/HCPCS: 80053; 85007; 85025

== ENCOUNTER 2023-09-18 23:01 | Outpatient (CLI) | payer MEDICARE, OTHER, SELFPAY ==
[2023-09-18 18:44] LABS: Albumin Level 3.8 g/dl (3.5-5.0); Albumin/Globulin Ratio 1.5 (1.1-1.8); Anion Gap 6.2 mEq/L (5-15); Bilirubin,Total 0.3 mg/dl (0.2-1.3); Blood Urea Nitrogen 8 mg/dl (7-17); Calcium 9.1 mg/dl (8.4-10.2); Carbon Dioxide 37 mmol/L (22.0-30.0); Chloride 102 mmol/L (98-107); Estimated Glomerular Filt Rate 125 ml/min (>60); GFR (African American) 152 ML/MIN (>60); Globulin 2.5 g/dL (1.3-3.2); Glucose 75 mg/dl (74-100); Potassium 4.2 mmoL/L (3.5-5.1); Sodium 141 mmol/L (136-145); Total Protein,Serum 6.3 g/dl (6.3-8.2)
[2023-09-18 18:45] LABS: Alanine Aminotransferase 14 U/L (12-78); Alkaline Phosphatase 86 U/L (38-126); Aspartate Amino Transferase 45 U/L (14-36)
[2023-09-18 19:15] LABS: Thyroid Stimulating Hormone 1.89 uIU/mL (0.465-4.68)
[2023-09-18 19:34] LABS: Vitamin B12 493 pg/mL (239-931)
[2023-09-27] MEDS: IPRATROPIUM/ALBUTEROL 3 ML NEB IH (15:03)
== END 2023-09-18 23:59 ==
LOC: LAB.DROPOF 23:02
PROVIDERS: PCP Nurse Practitioner; Visit Provider Nurse Practitioner
DX: J44.9 Chronic obstructive pulmonary disease, unspecified (principal); F41.9 Anxiety disorder, unspecified; Z68.1 Body mass index [BMI] 19.9 or less, adult; F17.210 Nicotine dependence, cigarettes, uncomplicated
CPT/HCPCS: 80053; 82607; 84443

== ENCOUNTER 2023-09-27 12:49 | Outpatient (CLI) | payer MEDICARE, OTHER, SELFPAY ==
--- NOTE | 2023-09-27 14:20 | CT_ITS ---
FINAL REPORT TECHNIQUE: Axial CT images of the chest were obtained without contrast. Low-dose protocol was utilized. This study was performed with techniques to keep radiation doses as low as reasonably achievable (ALARA). Individualized dose reduction techniques using automated exposure control or adjustment of mA and/or kV according to the patient's size were employed. CLINICAL HISTORY: lung cancer screening prior smoker smoked 2 ppd x 30 years copd family hx of lung cancer COMPARISON: None FINDINGS: CT CHEST WITHOUT, LOW DOSE SCREENING CT Di Vol: 2.90 mGy DLP: 96.38 mGy*cm There are few small scattered right paratracheal and subcarinal lymph nodes. The heart size is normal. There is no pericardial effusion. There is pleural and parenchymal scarring in the upper lobes. There are advanced changes of centrilobular emphysema. The lung windows show no suspicious mass or nodule. Calcified granuloma is noted in the right upper lobe. Limited images of the upper abdomen demonstrate no acute findings. IMPRESSION: LR Category 1S: 12 month follow-up low-dose chest CT is recommended. Modifier S: Emphysema and scarring. Reviewed, Interpreted and Dictated by Art Scott MD Transcribed by Shanique Jaramillo Authenticated and [facility]
== END 2023-09-27 23:59 | disposition home or self-care (01) ==
LOC: RAD 12:49
PROVIDERS: PCP Nurse Practitioner; Visit Provider Internal Medicine Pulmonary Disease
DX: R06.09 Other forms of dyspnea (principal); F17.210 Nicotine dependence, cigarettes, uncomplicated; Z12.2 Encounter for screening for malignant neoplasm of respiratory organs
CPT/HCPCS: 71271; 94060; 94618; 94726; 94729

== ENCOUNTER 2023-10-02 18:00 | Outpatient (CLI) | payer MEDICARE, OTHER, SELFPAY ==
[2023-10-02 17:52] LABS: Adenovirus,PCR Not Detected (NotDetected); Coronavirus 19, PCR Not Detected (NotDetected); Coronavirus 229E Not Detected (NotDetected); Coronavirus NL63 Not Detected (NotDetected); Coronavirus OC43 Not Detected (NotDetected); Coronovirus HKU1,PCR Not Detected (NotDetected); Human Metapneumovirus Not Detected (NotDetected); Influenza A, PCR Not Detected (NotDetected); Influenza AH1, 2009 Not Detected (NotDetected); Influenza AH1, PCR Not Detected (NotDetected); Influenza AH3,PCR Not Detected (NotDetected); Influenza B, PCR Not Detected (NotDetected); Parainfluenza 1, PCR Not Detected (NotDetected); Parainfluenza 2, PCR Not Detected (NotDetected); Parainfluenza 3, PCR Not Detected (NotDetected); Parainfluenza 4, PCR Not Detected (NotDetected); Respiratory Syncytial Virus Not Detected (NotDetected); Rhinovirus/Enterovirus Not Detected (NotDetected)
== END 2023-10-02 23:59 | disposition home or self-care (01) ==
LOC: LAB.DROPOF 10-03 10:08
PROVIDERS: PCP Nurse Practitioner; Visit Provider Nurse Practitioner
DX: J44.9 Chronic obstructive pulmonary disease, unspecified (principal); J06.9 Acute upper respiratory infection, unspecified; R09.89 Other specified symptoms and signs involving the circulatory and respiratory systems; J34.89 Other specified disorders of nose and nasal sinuses; R06.00 Dyspnea, unspecified
CPT/HCPCS: 87632; 87635

== ENCOUNTER 2023-10-03 15:27 | Outpatient (CLI) | payer MEDICARE, OTHER, SELFPAY ==
[2023-10-10 17:18] LABS: Alpha-1-Antitrypsin 220 mg/dL (101-187)
== END 2023-10-03 23:59 | disposition home or self-care (01) ==
LOC: LAB 15:28
PROVIDERS: PCP Nurse Practitioner; Visit Provider Internal Medicine Pulmonary Disease
DX: J44.9 Chronic obstructive pulmonary disease, unspecified (principal); Z87.891 Personal history of nicotine dependence
CPT/HCPCS: 36415; 82103; 82104

== ENCOUNTER 2023-10-04 12:28 | Emergency (ER) | payer MEDICARE, OTHER, SELFPAY ==
[2023-10-04] VITALS (8 sets, daily range): BP systolic 97–145; BP diastolic 60–111; PULSE 85–91; RESP 18–22; TEMP 36.7–37; O2SAT 88–95; BMI 17.7
--- NOTE | 2023-10-04 12:32 | ECG_ITS ---
APPROVED REPORT Exam: Resting ECG HR:88 bpm ECG Measurements Heart Rate 88 AXES NC 137 P 72 QRSd 78 QRS 84 QT 366 T 82 QTc 412 Conclusion SINUS RHYTHM Nondiagnostic EKG Electronically signed by : NICHOLAS THORPE, 10/05/2023 19:42:05
--- NOTE | 2023-10-04 12:36 | XR_ITS ---
FINAL REPORT CLINICAL HISTORY: soa, hx copd COMPARISON: 07/23/2023 FINDINGS: A single portable view of the chest was obtained. The heart size and pulmonary vascularity are within normal limits. The lungs are hyperinflated, as seen on the prior examination consistent with the patient's clinical diagnosis of COPD. There is biapical pleural and parenchymal scarring noted, stable. The mediastinum is within normal limits. No acute pulmonary abnormality is identified. Chronic changes are noted in the lung rivers bilaterally, unchanged since the prior exam. The bony thorax is intact. IMPRESSION: Hyperinflation consistent with the patient's clinical diagnosis of chronic obstructive pulmonary disease. Biapical pleural and parenchymal scarring, stable, as well as chronic changes in the lung rivers bilaterally. Reviewed, Interpreted and Dictated by Art Scott MD Transcribed by Alyssa Lechuga Authenticated and [facility]
[2023-10-04] MEDS: IPRATROPIUM/ALBUTEROL 3 ML NEB IH (12:44)
[2023-10-04 12:54] LABS: Basophils # 0.1 K/mm3 (0-0.2); Basophils % 0.4 % (0.1-2.0); Eosinophils % 0.3 % (0.1-12.0); Hematocrit 40.2 % (37.0-47.0); Hemoglobin 12.9 g/dL (12.2-16.2); Lymphocytes % 23.7 % (10-50); Mean Corpuscular HGB Conc 32.2 g/dL (31.8-35.4); Mean Corpuscular Hemoglobin 28.7 pg (27.0-31.2); Mean Corpuscular Volume 89.4 fl (81-99); Mean Platelet Volume 9.2 fl (7.4-10.4); Monocytes # 0.9 K/mm3 (0.1-1.0); Monocytes % 6.9 % (1.7-9.3); Neutrophils # 8.8 K/mm3 (1.8-7.8); Neutrophils % 68.6 % (37.0-80.0); Platelet Count 202 K/mm3 (142-424); White Blood Count 12.8 K/mm3 (4.8-10.8)
[2023-10-04 13:01] LABS: Chloride 95 mmol/L (98-107); Potassium 3.6 mmoL/L (3.5-5.1); Sodium 131 mmol/L (136-145)
[2023-10-04 13:04] LABS: Alanine Aminotransferase 21 U/L (12-78); Albumin Level 3.6 g/dl (3.5-5.0); Albumin/Globulin Ratio 1.4 (1.1-1.8); Alkaline Phosphatase 99 U/L (38-126); Anion Gap 3.6 mEq/L (5-15); Aspartate Amino Transferase 44 U/L (14-36); Bilirubin,Total 0.4 mg/dl (0.2-1.3); Blood Urea Nitrogen 7 mg/dl (7-17); Calcium 8.5 mg/dl (8.4-10.2); Carbon Dioxide 36 mmol/L (22.0-30.0); Creatinine Clearance Estimated 38 mL/min (50-200); Estimated Glomerular Filt Rate 125 ml/min (>60); GFR (African American) 152 ML/MIN (>60); Globulin 2.6 g/dL (1.3-3.2); Glucose 88 mg/dl (74-100); Total Protein,Serum 6.2 g/dl (6.3-8.2)
[2023-10-04] MEDS: PIPERACILLIN/TAZO 4.5 GM in 0.9 % SODIUM CHLORIDE 100 ML IV (13:23)
--- NOTE | 2023-10-04 15:15 | PC.NURSE ---
PT RESTING IN BED NO NEEDS AT THIS TIME,CALL LIGHT IN REACH
--- NOTE | 2023-10-04 15:51 | PC.NURSE ---
ELIDA AT BEDSIDE WITH HOME O2
--- NOTE | 2023-10-05 16:33 | HMH.EDGENADL ---
Discharge Plan Disposition Patient Disposition: Home, Self-Care Condition: Good Prescriptions Prescriptions: No Action montelukast 10 mg tablet 10 mg PO DAILY Qty: 30 11RF quetiapine 50 mg tablet 50 mg PO HSP PRN (Reason: sleep) Qty: 90 1RF pramipexole 0.25 mg tablet 0.25 mg PO HS Qty: 30 5RF pantoprazole 40 mg tablet,delayed release (DR/EC) 40 mg PO DAILY Qty: 90 1RF hydroxyzine pamoate 25 mg capsule 25 - 50 mg PO TIDP PRN (Reason: anxiety or sleep) Qty: 60 5RF Trelegy Ellipta 100-62.5-25 mcg blister with device 1 inh inhalation DAILY Qty: 60 5RF escitalopram oxalate 5 mg tablet 5 mg PO DAILY Qty: 90 1RF buspirone 10 mg tablet 10 mg PO BID Qty: 60 5RF albuterol sulfate [ProAir HFA] 90 mcg/actuation HFA aerosol inhaler 2 inh inhalation QIDP PRN (Reason: shortness of breath or wheezing) Qty: 8.5 5RF ipratropium-albuterol 0.5 mg-3 mg(2.5 mg base)/3 mL solution for nebulization 3 ml IH QIDP PRN (Reason: Shortness Of Breath) Qty: 180 5RF fluticasone propionate [Flonase Allergy Relief] 50 mcg/actuation spray,suspension 2 spray intranasal DAILY 90 Days Qty: 16 2RF Rx Instructions: administer into each nostril azelastine 137 mcg (0.1 %) aerosol,spray 2 spray intranasal HS 90 Days Qty: 30 2RF Rx Instructions: administer into each nostril doxycycline hyclate 100 mg tablet 100 mg PO BID Qty: 20 0RF prednisone 20 mg tablet 20 mg PO .COMPLEX Qty: 30 0RF Rx Instructions: 20 mg orally TID x 5 days, then BID x 5 days, then daily x 5 days promethazine-DM 6.25-15 mg/5 mL syrup 5 ml PO Q4-6H PRN (Reason: cough) Qty: 240 0RF Referrals Follow up/Referrals: Martine Bernal APRN [Primary Care Provider] - See instructions Activity Restrictions/Add. Instructions Additional Instructions/Restrictions: As we discussed, given that you are back to your baseline oxygen requirement and have improved work of breathing, it is reasonable for you to be discharged from the hospital at this time based off the information we have available to us at this time. Please take the antibiotics and steroids, starting tomorrow, that your other doctor prescribed and use your breathing treatments as needed. Please return with any new or worsening symptoms Clinical Impressions Clinical Impression: Acute exacerbation of chronic obstructive pulmonary disease Discharge ED Provider: Francis Hutton Adult HPI General Chief complaint: Shortness of Breath/Dyspnea Stated complaint: SOA Time Seen by Provider: 10/04/23 12:33 Mode of Arrival: EMS Source of Information: Patient and EMS Limitations: No Limitations Description of Symptoms (Recalled from ER Triage Doc. by RN): pt presents to ED with [place] c/o increased SOA. per report pt wears 3LNC at baseline for COPD. When EMS arrived pt was on 4LNC with a sat of 79%. pt was placed on nonrebreather by EMS and sats increased to 90's. pt c/o cough and congestion. pt states she saw her PCP on Monday and was given antibiotics. History of Present Illness HPI narrative: This patient presents for evaluation of shortness of breath. Patient has longstanding history of COPD, with 3 L nasal cannula baseline supplemental oxygen requirement. She, in conjunction with history obtained by family at bedside, reports several days of shortness of breath, worsening today, which prompted call to EMS, previous therapies included nebulizer, Solu-Medrol. She had seen her primary care physician earlier this week and was prescribed steroids, antibiotics, however this was discontinued without any initiation of these medications as she saw her brake reliner the next day and was instructed not to initiate these therapies given reassuring CT chest. At this time patient denies any chest pain, headache, nausea, vomiting, palpitations, abdominal pain, syncope, presyncope, fevers, chills, leg pain, leg swelling Please note that above description of symptoms, in this electronic medical record under categorization of recalled from ER triage doctor by RN are reflective of an initial nursing assessment, however, is not reflective of my full history and physical exam that was personally taken and clarified. Consequentially, this preceding description of symptoms, which may include the patient's categorized chief complaint in the EMR, do not reflect my personal clinical impression, and the ultimate description of history of present illness and patient stated complaints should be deferred to this section of the note. Unless stated otherwise or congruent with this section of the note, additional signs, symptoms, or incongruence should be interpreted as inaccurate with my clinical impression. Related Data Previous Rx's Medication Instructions Recorded albuterol sulfate 90 mcg/actuation 2 inh inhalation QIDP PRN 09/18/23 aerosol inhaler (ProAir HFA) shortness of breath or wheezing #8.5 grams buspirone 10 mg tablet 10 mg PO BID #60 tabs 09/18/23 escitalopram oxalate 5 mg tablet 5 mg PO DAILY Mood #90 tabs 09/18/23 fluticasone fur. 100 mcg-umeclid 1 inh inhalation DAILY Breathing 09/18/23 62.5 mcg-vilant 25 mcg Problems #60 ea inhalat.powder (Trelegy Ellipta) hydroxyzine pamoate 25 mg capsule 25 - 50 mg (1 - 2 x 25 mg) PO TIDP 09/18/23 PRN anxiety or sleep #60 caps ipratropium 0.5 mg-albuterol 3 mg 3 ml inhalation QIDP PRN Shortness 09/18/23 (2.5 mg base)/3 mL nebulization Of Breath #180 mL soln montelukast 10 mg tablet 10 mg PO DAILY #30 tabs 09/18/23 pantoprazole 40 mg tablet,delayed 40 mg PO DAILY Acid Reflux #90 tabs 09/18/23 release pramipexole 0.25 mg tablet 0.25 mg PO HS #30 tabs 09/18/23 quetiapine 50 mg tablet 50 mg PO HSP PRN sleep #90 tabs 09/18/23 doxycycline hyclate 100 mg tablet 100 mg PO BID #20 tabs 10/02/23 prednisone 20 mg tablet 20 mg PO .COMPLEX #30 tabs 10/02/23 promethazine-DM 6.25 mg-15 mg/5 mL 5 ml PO Q4-6H PRN cough #240 mL 10/02/23 oral syrup azelastine 137 mcg (0.1 %) nasal 2 spray intranasal HS 90 days #30 10/03/23 spray aerosol mL fluticasone propionate 50 2 spray intranasal DAILY 90 days 10/03/23 mcg/actuation nasal #16 grams spray,suspension (Flonase Allergy Relief) Allergies Allergy/AdvReac Type Severity Reaction Status Date / Time No Known Drug Allergies Allergy Unknown Verified 10/03/23 14:31 [NKDA] [facility] Disclaimer: The information contained in this section may have been updated after the patient was seen, as this information can be updated by other users. Medical History Allergic rhinitis Anxiety COPD (chronic obstructive pulmonary disease) Chronic respiratory failure with hypoxia Encounter for screening for malignant neoplasm of lung History of smoking 30 or more pack years Pulmonary emphysema Dyspnea Hypomagnesemia COPD exacerbation Pulmonary nodule Pneumonia Acute exacerbation of chronic obstructive pulmonary disease Acute URI Contact dermatitis Thyroid nodule GERD (gastroesophageal reflux disease) Hyperlipidemia Gastroesophageal reflux disease Dependence on nocturnal oxygen therapy Insomnia Restless legs syndrome (RLS) Anxiety with depression Chronic obstructive pulmonary disease History of peptic ulcer Tobacco use disorder COPD exacerbation Surgical History History of tubal ligation Family History Other Cancer Diabetes Social History (Updated 10/03/23 @ 14:31 by Kierra Harris) Smoking Status: Former smoker smoking status stop date: 07/13/23 alcohol intake: current alcohol intake frequency: holidays/special occasions only substance use type: denies use current occupational status: unemployed Travel in the last 8 weeks: None housing: house ROS Obtained: Yes other As per HPI Physical Exam General General appearance: alert Head Head exam: atraumatic and normocephalic Eye Eye exam: Present normal appearance Neck Neck exam: Present normal inspection Chest Chest inspection: Present normal inspection and symmetric chest wall rise Respiratory Respiratory exam: Present wheezes, accessory muscle use and prolonged expiratory phase Cardiovascular Cardiovascular exam: Present regular rate and normal rhythm Abdominal Exam Abdominal exam: Present soft Neurological Exam Neurological exam: Present alert and oriented X3 Psychiatric Psychiatric exam: Present normal affect and normal mood Skin Skin exam: Present warm and dry Medical Decision Making Medical Records Medical records reviewed: Yes I reviewed the patient's medical records. Jose Alfredo Inquiry Pt receiving controlled substance: No Vital Signs: 10/04/23 12:29 10/04/23 12:30 10/04/23 13:00 Temperature 98.6 F Temperature Source Oral Pulse Rate 86 86 Pulse Rate [Right Radial] 91 H Respiratory Rate 22 Blood Pressure 108/60 L 119/64 Blood Pressure [Right Arm] 108/60 L Blood Pressure Mean [Right Arm] 76 Blood Pressure Source Blood Pressure Source [Right Arm] Automatic Cuff Blood Pressure Position Blood Pressure Position [Right Arm] Sitting 02 Sat by Pulse Oximetry 91 L 92 L 92 L Oxygen Delivery Method Nasal Cannula Room Air Room Air Oxygen Flow Rate (LPM) 3 10/04/23 13:30 10/04/23 14:01 10/04/23 14:30 Temperature Temperature Source Pulse Rate 88 88 88 Pulse Rate [Right Radial] Respiratory Rate Blood Pressure 112/64 145/111 H 97/61 L Blood Pressure [Right Arm] Blood Pressure Mean [Right Arm] Blood Pressure Source Blood Pressure Source [Right Arm] Blood Pressure Position Blood Pressure Position [Right Arm] 02 Sat by Pulse Oximetry 94 L 88 L 92 L Oxygen Delivery Method Room Air Room Air Oxygen Flow Rate (LPM) 10/04/23 15:30 10/04/23 15:36 Temperature 98.0 F Temperature Source Oral Pulse Rate 85 86 Pulse Rate [Right Radial] Respiratory Rate 18 Blood Pressure 115/65 115/65 Blood Pressure [Right Arm] Blood Pressure Mean [Right Arm] Blood Pressure Source Automatic Cuff Blood Pressure Source [Right Arm] Blood Pressure Position Sitting Blood Pressure Position [Right Arm] 02 Sat by Pulse Oximetry 94 L Oxygen Delivery Method Nasal Cannula Nasal Cannula Oxygen Flow Rate (LPM) 3 3 Lab Data Lab Results 10/04/23 12:31: WBC 12.8 H, RBC 4.50, Hgb 12.9, Hct 40.2, MCV 89.4, MCH 28.7, MCHC 32.2, RDW 15.0, Plt Count 202, MPV 9.2, Neut % (Auto) 68.6, Lymph % (Auto) 23.7, [place] % (Auto) 6.9, Eos % (Auto) 0.3, Baso % (Auto) 0.4, Neut # (Auto) 8.8 H, Lymph # (Auto) 3.0, [place] # (Auto) 0.9, Eos # (Auto) 0.0, Baso # (Auto) 0.1, Sodium 131 L, Potassium 3.6, Chloride 95 L, Carbon Dioxide 36 H, Anion Gap 3.6 L, BUN 7, Creatinine 0.50 L, Estimated Creat Clear 38, Estimated GFR 125, Est GFR ( Amer) 152, Glucose 88, Calcium 8.5, Total Bilirubin 0.4, AST 44 H, ALT 21, Alkaline Phosphatase 99, Total Protein 6.2 L, Albumin 3.6, Globulin 2.6, Albumin/Globulin Ratio 1.4 10/04/23 12:31 10/04/23 12:31 Orders (Tests/Meds): ED MEDICATIONS Discontinued Medications Generic Name Dose Route Start Last Admin Trade Name Freq PRN Reason Stop Dose Admin Albuterol/Ipratropium 3 ml 10/04/23 12:43 10/04/23 12:44 Ipratropium/Albuterol 3 Ml [facility] 10/04/23 12:44 3 ml ONCE ONE Administration Piperacillin Sod/Tazobactam 100 mls @ 200 mls/hr 10/04/23 12:58 10/04/23 13:23 Sod 4.5 gm/ Sodium Chloride IV 10/04/23 13:27 200 mls/hr ONCE STA Administration ORDERS Category Date Time Status XR chest portable Stat Exams 10/04/23 12:36 Completed CBC w/Auto Diff [Complete Blood Count Auto Diff] Stat Lab 10/04/23 12:31 Completed CMP [Comprehensive Metabolic Panel] Stat Lab 10/04/23 12:31 Completed Medical Decision Narrative: Patient with history and exam per above presenting for evaluation of shortness of breath Diagnoses considered include COPD exacerbation, pneumonia, no altered mentation to suggest occult hypercarbia, history of present illness and exam without features suggestive of ACS, PE, dissection, to warrant further testing for these pathologies.. ED workup and treatment included: ED MEDICATIONS Discontinued Medications Generic Name Dose Route Start Last Admin Trade Name Freq PRN Reason Stop Dose Admin Albuterol/Ipratropium 3 ml 10/04/23 12:43 10/04/23 12:44 Ipratropium/Albuterol 3 Ml [facility] 10/04/23 12:44 3 ml ONCE ONE Administration Piperacillin Sod/Tazobactam 100 mls @ 200 mls/hr 10/04/23 12:58 10/04/23 13:23 Sod 4.5 gm/ Sodium Chloride IV 10/04/23 13:27 200 mls/hr ONCE STA Administration ORDERS Category Date Time Status XR chest portable Stat Exams 10/04/23 12:36 Completed CBC w/Auto Diff [Complete Blood Count Auto Diff] Stat Lab 10/04/23 12:31 Completed CMP [Comprehensive Metabolic Panel] Stat Lab 10/04/23 12:31 Completed Labs were independently interpreted by me, significant for leukocytosis to 12 Imaging was independently visualized and interpreted by me, significant for no consolidative process. Please refer to radiology report for full details. My clinical impression at this time is most consistent with COPD exacerbation. Upon repeat evaluation patient has marked improvement of work of breathing. She is satting in the mid to high 90s on her home supplemental oxygen requirement of 3 L. Family at bedside at this time. I discussed with her my clinical impression. I also discussed the results of her workup thus far. I engaged in a shared decision making conversation with her as well as family at bedside. She reports to me that she feels back to baseline at this time and after discussion of risks and benefits of hospitalization versus discharge is requesting to be discharged at this time. Family at bedside feels comfortable with this plan as well and expresses no concerns. She will initiate the antibiotics and steroid course that she already has been prescribed and has on hand at home. She was instructed to return with any new or worsening symptoms. Critical Care Critical Care Time Critical Care Time: No
== END 2023-10-04 16:00 | disposition home or self-care (01) ==
PROVIDERS: Emergency Provider Emergency Medicine; PCP Nurse Practitioner
DX: J44.1 Chronic obstructive pulmonary disease with (acute) exacerbation (principal); E87.1 Hypo-osmolality and hyponatremia; R06.02 Shortness of breath; K21.9 Gastro-esophageal reflux disease without esophagitis; E78.5 Hyperlipidemia, unspecified; Z99.81 Dependence on supplemental oxygen; Z87.891 Personal history of nicotine dependence
CPT/HCPCS: 71045; 80053; 85025; 93005; 96365; 99284; J2543

== ENCOUNTER 2023-11-20 13:10 | Outpatient (CLI) | payer MEDICARE, OTHER, SELFPAY ==
--- NOTE | 2023-11-20 13:32 | XR_ITS ---
FINAL REPORT CLINICAL HISTORY: right low back pain with right-sided sciatica COMPARISON: None FINDINGS: 3 views of the lumbar spine were obtained. There is no evidence of fracture. There is no malalignment. Mild degenerative change is noted. There are vascular calcifications. IMPRESSION: Mild degenerative changes without acute bony abnormality. Reviewed, Interpreted and Dictated by Markell Cates III, MD Transcribed by Shanique Jaramillo Authenticated and [facility]
--- NOTE | 2023-11-20 13:32 | XR_ITS ---
FINAL REPORT CLINICAL HISTORY: right low back pain with right-sided sciatica COMPARISON: None FINDINGS: RIGHT HIP Two views of the right hip with an AP view of the pelvis demonstrate no acute fracture or dislocation. There is mild degenerative change. The visualized bony structures are well aligned. No soft tissue abnormality is seen. IMPRESSION: Mild degenerative change without acute bony abnormality. Reviewed, Interpreted and Dictated by Markell Cates III, MD Transcribed by Shanique Jaramillo Authenticated and [facility]
--- NOTE | 2023-11-20 13:32 | XR_ITS ---
FINAL REPORT CLINICAL HISTORY: COPD, SOB OE COMPARISON: 10/04/2023 FINDINGS: Two views of the chest were obtained. The heart size and pulmonary vascularity are within normal limits. The mediastinum is normal. The lungs are hyperinflated consistent with COPD. There is a focal left upper lobe opacity which may be related to atelectasis or pneumonia, mass felt less likely. There is no pneumothorax. The bony thorax is intact. IMPRESSION: Focal left upper lobe opacity may be related to atelectasis or pneumonia. Mass felt less likely. Recommend short-term follow-up radiograph or possibly chest CT. Reviewed, Interpreted and Dictated by Markell Cates III, MD Transcribed by Shanique Jaramillo Authenticated and [facility]
[2023-11-20 14:33] LABS: Basophils # 0.1 K/mm3 (0-0.2); Basophils % 0.3 % (0.1-2.0); Eosinophils # 0.1 K/mm3 (0.0-0.4); Eosinophils % 0.2 % (0.1-12.0); Hematocrit 30.9 % (37.0-47.0); Hemoglobin 9.7 g/dL (12.2-16.2); Lymphocytes # 2.4 K/mm3 (0.7-4.5); Mean Corpuscular HGB Conc 31.5 g/dL (31.8-35.4); Mean Corpuscular Hemoglobin 26.9 pg (27.0-31.2); Mean Corpuscular Volume 85.3 fl (81-99); Mean Platelet Volume 8.5 fl (7.4-10.4); Monocytes # 2.4 K/mm3 (0.1-1.0); Neutrophils # 29.5 K/mm3 (1.8-7.8); Neutrophils % 85.4 % (37.0-80.0); Platelet Count 790 K/mm3 (142-424); Red Blood Count 3.62 M/mm3 (4.20-5.40); Red Cell Distribution Width 15.5 % (11.5-17.5); White Blood Count 34.5 K/mm3 (4.8-10.8)
[2023-11-20 14:56] LABS: MANUAL DIFFERENTIAL MANUAL DIFFERENTIAL (MANUAL DIFF)
[2023-11-20 15:16] LABS: Alanine Aminotransferase 11 U/L (12-78); Albumin Level 2.8 g/dl (3.5-5.0); Albumin/Globulin Ratio 0.9 (1.1-1.8); Alkaline Phosphatase 231 U/L (38-126); Anion Gap 9.6 mEq/L (5-15); Aspartate Amino Transferase 23 U/L (14-36); Bilirubin,Total 0.6 mg/dl (0.2-1.3); Blood Urea Nitrogen 8 mg/dl (7-17); Calcium 8.3 mg/dl (8.4-10.2); Carbon Dioxide 39 mmol/L (22.0-30.0); Chloride 86 mmol/L (98-107); Estimated Glomerular Filt Rate 125 ml/min (>60); GFR (African American) 152 ML/MIN (>60); Globulin 3.2 g/dL (1.3-3.2); Glucose 77 mg/dl (74-100); Potassium 3.6 mmoL/L (3.5-5.1); Sodium 131 mmol/L (136-145)
[2023-11-20 15:22] LABS: Lymphocytes % 10 % (10-50); Monocytes % 2 % (2-9); Neutrophils % 88 % (42-76); Total Cells Counted 100
[2023-11-20 15:23] LABS: Hypochromasia 1+; Platelet Estimate Marked Increase; Poikilocytosis 1+; Target Cells 1+
== END 2023-11-20 23:59 | disposition home or self-care (01) ==
LOC: LAB 13:11
PROVIDERS: PCP Nurse Practitioner; Visit Provider Nurse Practitioner
DX: R11.0 Nausea (principal); M54.41 Lumbago with sciatica, right side; R06.02 Shortness of breath
CPT/HCPCS: 71046; 72100; 73502; 80053; 85007; 85025

== ENCOUNTER 2023-11-20 17:37 | Observation (INO) | payer MEDICARE, OTHER, SELFPAY ==
[2023-11-20] VITALS (9 sets, daily range): BP systolic 95–104; BP diastolic 51–65; PULSE 88–106; RESP 18–22; TEMP 36.7–37.6; O2SAT 90–96; BMI 15.0; BMI 16.0
--- NOTE | 2023-11-20 18:24 | ED_ITS ---
<Statement entered by Michele Shoemaker MD - 11/20/23 22:09> I was consulted by the FRANKY, and we discussed the complexity of the problems being addressed. I approved the treatment and management plan for this patient's care in the emergency department, thus performing a substantive portion of the medical decision making. Aggressive volume resuscitation was deferred given the patient appeared euvolemic on my exam. Patient treated for pneumonia with ceftriaxone, azithromycin, steroids, DuoNebs and admitted to hospital medicine. Michele Shoemaker MD Discharge Plan Disposition Patient Disposition: Admitted Condition: Serious Clinical Impressions Clinical Impression: Community acquired pneumonia Qualifiers: Laterality: left Sepsis Qualifiers: Sepsis type: sepsis due to unspecified organism Sepsis acute organ dysfunction status: without acute organ dysfunction Qualified Code(s): A41.9 - Sepsis, unspecified organism Discharge ED Provider: Michele Shoemaker General Adult HPI General Chief complaint: Recheck/Abnormal Lab/Rx Stated complaint: sent by PCP irregular chest xray Time Seen by Provider: 11/20/23 18:19 History of Present Illness HPI narrative: Patient is presents at the behest of her PCP for abnormal lab results. Patient saw her PCP for nausea and had laboratory work and chest x-ray done. The results were abnormal so she was sent for evaluation. Patient has reported 2 days of nausea but no chest pain shortness of breath fever chills hemoptysis hematochezia melena vomiting diarrhea. Patient does have COPD is on chronic O2 24 hours a day. She has not been recently on steroids. Review of the outside lab work shows a white count of greater than 35,000 with a neutrophilic shift and a chest x-ray suggestive of left-sided pneumonia Related Data Previous Rx's Medication Instructions Recorded albuterol sulfate 90 mcg/actuation 2 inh inhalation QIDP PRN 09/18/23 aerosol inhaler (ProAir HFA) shortness of breath or wheezing #8.5 grams buspirone 10 mg tablet 10 mg PO BID #60 tabs 09/18/23 escitalopram oxalate 5 mg tablet 5 mg PO DAILY Mood #90 tabs 09/18/23 hydroxyzine pamoate 25 mg capsule 25 - 50 mg (1 - 2 x 25 mg) PO TIDP 09/18/23 PRN anxiety or sleep #60 caps pantoprazole 40 mg tablet,delayed 40 mg PO DAILY Acid Reflux #90 tabs 09/18/23 release quetiapine 50 mg tablet 50 mg PO HSP PRN sleep #90 tabs 09/18/23 cyclobenzaprine 10 mg tablet 10 mg PO TID PRN muscle spasm #30 10/31/23 tabs pramipexole 0.25 mg tablet See Rx Instructions .Route 11/01/23 .COMPLEX #30 tabs ondansetron HCl 4 mg tablet 4 mg PO Q8H PRN nausea and 11/20/23 vomiting #20 tabs Allergies Allergy/AdvReac Type Severity Reaction Status Date / Time No Known Drug Allergies Allergy Unknown Verified 11/20/23 11:25 [NKDA] [facility] Disclaimer: The information contained in this section may have been updated after the patient was seen, as this information can be updated by other users. Medical History Nausea & vomiting Lumbar paraspinal muscle spasm Acute right-sided low back pain with right-sided sciatica Allergic rhinitis Anxiety COPD (chronic obstructive pulmonary disease) Chronic respiratory failure with hypoxia Encounter for screening for malignant neoplasm of lung History of smoking 30 or more pack years Pulmonary emphysema Dyspnea Hypomagnesemia COPD exacerbation Pulmonary nodule Pneumonia Acute exacerbation of chronic obstructive pulmonary disease Acute URI Contact dermatitis Thyroid nodule GERD (gastroesophageal reflux disease) Hyperlipidemia Gastroesophageal reflux disease Dependence on nocturnal oxygen therapy Insomnia Restless legs syndrome (RLS) Anxiety with depression Chronic obstructive pulmonary disease History of peptic ulcer Tobacco use disorder COPD exacerbation Surgical History History of tubal ligation Family History Other Cancer Diabetes Social History (Updated 11/20/23 @ 21:10 by Bri Marques RN) Smoking Status: Former smoker smoking status stop date: 07/13/23 alcohol intake: never substance use type: denies use current occupational status: unemployed, retired and disabled Travel in the last 8 weeks: None housing: house ROS Obtained: Yes Systems reviewed as appropriate & no additional complaints except as documented Physical Exam General General appearance: alert and in no apparent distress Chest Chest inspection: Present normal inspection and symmetric chest wall rise; Absent tenderness Respiratory Respiratory exam: Present wheezes (Patient has late faint end expiratory wheezes in all 4 rivers); Absent respiratory distress or accessory muscle use Cardiovascular Cardiovascular exam: Present regular rate, normal rhythm and normal heart sounds Extremities Exam Extremities exam: Present normal inspection and full ROM Neurological Exam Neurological exam: Present alert, oriented X3 and CN II-XII intact Skin Skin exam: Present warm, dry and normal color Medical Decision Making Medical Records Medical records reviewed: Yes I reviewed the patient's medical records. Jose Alfredo Inquiry Pt receiving controlled substance: No Vital Signs: 11/20/23 17:55 11/20/23 18:29 11/20/23 19:29 Temperature 99.7 F H 98.3 F 98.3 F Temperature Source Oral Oral Oral Pulse Rate 89 Pulse Rate [Left Radial] 106 H 92 H Respiratory Rate 21 18 20 Blood Pressure 104/65 L Blood Pressure [Right Arm] 96/51 L 95/52 L Blood Pressure Mean [Right Arm] 66 66 Blood Pressure Source [Right Arm] Automatic Cuff Blood Pressure Position [Right Arm] Sitting 02 Sat by Pulse Oximetry 93 L 92 L 96 Oxygen Delivery Method Nasal Cannula Nasal Cannula Nasal Cannula Oxygen Flow Rate (LPM) 3 3 3 11/20/23 20:20 11/20/23 20:20 11/20/23 20:33 Temperature 98.3 F Temperature Source Oral Pulse Rate 88 91 H 96 H Pulse Rate [Left Radial] Respiratory Rate 18 Blood Pressure 102/65 L Blood Pressure [Right Arm] Blood Pressure Mean [Right Arm] Blood Pressure Source [Right Arm] Blood Pressure Position [Right Arm] 02 Sat by Pulse Oximetry Oxygen Delivery Method Nasal Cannula Oxygen Flow Rate (LPM) 3 Lab Data Lab results reviewed: Yes I reviewed the patient's lab results. Lab Results 11/20/23 18:50: Retic Count (auto) 1.7, PT 12.5, INR 1.17 H, Magnesium 1.6, Procalcitonin 4.79 H Orders (Tests/Meds): ED MEDICATIONS Generic Name Dose Route Start Last Admin Trade Name Freq PRN Reason Stop Dose Admin Acetaminophen 650 mg 11/20/23 20:18 Acetaminophen 325mg Tab PO 12/20/23 20:17 Q4HP PRN Fever or Mild Pain (1-3) Enoxaparin Sodium 40 mg 11/21/23 09:00 Enoxaparin 40mg/0.4ml Syringe SQ 12/21/23 08:59 DAILY ZAINA Fluticasone/Umeclidinium/Vilanterol 1 puff 11/21/23 09:00 Fluticasone/Umeclidin/Vilanter 200/62.5/25mcg Inhaler 12/21/23 08:59 DAILY [facility] Ceftriaxone Sodium 1 gm/ 50 mls @ 100 mls/hr 11/20/23 18:30 11/20/23 19:27 Sodium Chloride IV 11/30/23 18:29 100 mls/hr Q24H ZAINA Administration Azithromycin 500 mg/ Sodium 250 mls @ 250 mls/hr 11/20/23 20:15 11/20/23 20:20 Chloride IV 11/30/23 20:14 250 mls/hr Q24H ZAINA Administration Sodium Chloride 1,000 mls @ 75 mls/hr 11/20/23 20:30 Sod Chlor 0.9% 1000ml Bag IV 12/20/23 20:29 .[id number] ZAINA Ondansetron HCl 4 mg 11/20/23 20:18 Ondansetron 4mg/2ml Vial IV 12/20/23 20:17 Q8HP PRN Nausea Prednisone 40 mg 11/21/23 09:00 Prednisone 20mg Tab PO 12/21/23 08:59 DAILY [facility] Sodium Chloride 3 ml 11/20/23 20:18 Sodium Chloride 3% 15ml [facility] 12/20/23 20:17 ONCE PRN INDUCE SPUTUM COLLECTION Discontinued Medications Generic Name Dose Route Start Last Admin Trade Name Freq PRN Reason Stop Dose Admin Albuterol/Ipratropium 3 ml 11/20/23 20:04 11/20/23 20:20 Ipratropium/Albuterol 3 Ml Neb 11/20/23 20:05 3 ml ONCE ONE Administration Iopamidol 75 ml 11/20/23 19:00 11/20/23 19:03 Iopamidol-370 (76%);100ml Bottle IV 11/20/23 19:01 75 ml ONCE ONE Administration Methylprednisolone Sodium Succinate 125 mg 11/20/23 20:04 11/20/23 20:20 Methylprednisolone Sod Succ 125mg Vial IV 11/20/23 20:05 125 mg ONCE ONE Administration Sodium Chloride 10 ml 11/20/23 19:00 11/20/23 19:03 Sodium Chloride 0.9% 10ml Syr (Rad Only) IV 11/20/23 19:01 10 ml ONCE ONE Administration Sodium Chloride 50 ml 11/20/23 19:00 11/20/23 19:03 0.9 % Sodium Chloride 50 Ml Vial IV 11/20/23 19:01 50 ml ONCE ONE Administration ORDERS Category Date Time Status CT angio chest PE protocol Stat Cat Scan 11/20/23 18:25 Completed INR [Prothrombin Time INR] Stat Lab 11/20/23 18:50 Completed Magnesium Stat Lab 11/20/23 18:50 Completed Peripheral Smear Review Routine Lab 11/20/23 18:50 Results Procalcitonin Stat Lab 11/20/23 18:50 Completed Reticulocyte % (Auto) Stat Lab 11/20/23 18:50 Results Blood Culture Stat Micro 11/20/23 18:50 Received Medical Decision Narrative: In summary patient is a 63-year-old female who presents to the emergency department for evaluation of leukocytosis and abnormal chest x-ray. Patient is hemodynamically stable upon arrival, afebrile. Physical exam is remarkable for significant cachexia as she has a BMI of 16 and a barrel chest. Patient has faint end expiratory wheezes but no respiratory distress. Breath sounds are otherwise equal in all 4 rivers. Differential diagnosis includes blood dyscrasia versus sepsis versus postobstructive pneumonia versus malignant neoplastic neoplasia [facility]. Initial workup will be conducted with hematologic labs CT scan PE protocol blood cultures procalcitonin peripheral smear and reticulocyte count. Initial interventions include crystalloid bolus blood cultures. Initial workup reviewed by me shows that she has an elevated procalcitonin of 4 and my informal interpretation of her CT scan PE protocol does not show any thrombus but does show a left lower lobe pneumonia and no definitive mass or obstruction. Given these findings I had an interactive discussion with hospital medicine about patient management and she will be admitted for further evaluation and care. Critical Care Critical Care Time Critical Care Time: No
--- NOTE | 2023-11-20 18:25 | CT_ITS ---
PROCEDURE INFORMATION: Exam: CTA Chest With Contrast Exam date and time: 11/20/2023 6:59 PM Age: 63 years old Clinical indication: Shortness of breath; Additional info: Leukocytosis possible lung mass TECHNIQUE: Imaging protocol: Computed tomographic angiography of the chest with contrast. Exam focused on the arteries. 3D rendering (Not supervised by radiologist): MIP and/or 3D reconstructed images were created by the technologist. Radiation optimization: All CT scans at this facility use at least one of these dose optimization techniques: automated exposure control; mA and/or kV adjustment per patient size (includes targeted exams where dose is matched to clinical indication); or iterative reconstruction. Contrast material: ISO 370; Contrast volume: 70 ml; Contrast route: INTRAVENOUS (IV); COMPARISON: CT LUNG SCREENING 09/27/2023 2:22 PM FINDINGS: Pulmonary arteries: Normal. No pulmonary emboli. Aorta: Moderate thoracic aortic atherosclerotic disease without aneurysm or dissection. Lungs: Severe emphysema. Consolidation with central fluid density in the superior left lower lobe and posterior left upper lobe. Bilateral bronchial wall thickening. Right lower lobe mucous plugging.Unchanged bilateral upper lobe scarring. Unchanged right upper lobe calcified granuloma. Pleural spaces: Unremarkable. No pneumothorax. No pleural effusion. Heart: Unremarkable. No cardiomegaly. No pericardial effusion. Lymph nodes: Calcified right hilar lymph node. Mild mediastinal adenopathy. Bones/joints: Unchanged chronic T8 wedge deformity. Osteopenia. Soft tissues: Unremarkable. IMPRESSION: 1. No evidence of a pulmonary embolism. 2. Severe emphysema. 3. Superior left lower lobe consolidation extending into the posterior left upper lobe with extensive central fluid appears consistent with pneumonia. Bilateral bronchial wall thickening with right lower lobe mucous plugging. 4. Mild mediastinal adenopathy is presumably reactive. Recommend attention on follow-up after resolution of the acute findings. 5. Prior granulomatous disease.
[2023-11-20] MEDS: 0.9 % SODIUM CHLORIDE 50 ML VIAL IV (19:03)
[2023-11-20] MEDS: SODIUM CHLORIDE 0.9% 10ML SYR (RAD ONLY) 10 ML IV (19:03)
[2023-11-20] MEDS: IOPAMIDOL-370 (76%);100ML BOTTLE 75 ML IV (19:03)
[2023-11-20 19:12] LABS: Reticulocyte % (Auto) 1.7 % (0.9-3.2)
[2023-11-20 19:24] LABS: Magnesium 1.6 mg/dl (1.6-2.3)
[2023-11-20 19:25] LABS: INR 1.17 (0.9-1.1); Prothrombin Time 12.5 seconds (10.1-12.5)
[2023-11-20] MEDS: CEFTRIAXONE SODIUM 1 GM in 0.9 % SODIUM CHLORIDE 50 ML IV (19:27)
[2023-11-20 19:53] LABS: Procalcitonin 4.79 ng/mL (0.0-2.0)
--- NOTE | 2023-11-20 20:09 | PC.NURSE ---
PA on phone with hospitalist
--- NOTE | 2023-11-20 20:15 | PC.NURSE ---
notified housekeeper/custodian/laundry worker of admission
[2023-11-20] MEDS: METHYLPREDNISOLONE SOD SUCC 125MG VIAL 125 MG IV (20:20)
[2023-11-20] MEDS: IPRATROPIUM/ALBUTEROL 3 ML NEB IH ×2 (20:20→23:28)
[2023-11-20] MEDS: AZITHROMYCIN 500 MG in 0.9 % SODIUM CHLORIDE 250 ML 250 MG IV (20:20)
--- NOTE | 2023-11-20 20:32 | PC.NURSE ---
Report given to WES Gregory
--- NOTE | 2023-11-20 21:35 | PC.NURSE ---
RESP CARE NOTE: Pt sputum sent down to lab at 1710
--- NOTE | 2023-11-20 21:59 | P.HP_ITS ---
History of Present Illness *Admission Date: 11/20/23 *Reason for visit:: Abnormal labs *History of present illness: This is a 63-year-old female with a past medical history of COPD, chronic respiratory failure on 3 L nasal cannula, anxiety, pulmonary emphysema who presents to the emergency department today with complaints of abnormal labs. She reports having recent pain in her leg and lower back for which she saw her primary care doctor. They decided to draw labs and have some imaging done. Today she was notified by her doctor that her white blood cell count was elevated and to seek treatment in the emergency department. She states that she been on her chronic 3 L with no increase in oxygen requirement. States that she is always short of breath but no more short of breath today than her normal. States that she felt somewhat bad 2 weeks ago and thought she just had a sinus infection but did not feel bad enough to seek treatment. She states she had some mild nausea and unable to tolerate p.o. denies fever, endorses chronic cough with mild productive sputum. She has seen Dr. Melendrez in the past but does not typically see him routinely. She had low-dose CT scan in September for cancer screening with no evidence of any suspicious lung nodules. States that she has been compliant with her home Trelegy. Emergency department workup notable for leukocytosis with a white blood cell count of 35, procalcitonin of 4.79. CT imaging notable for severe emphysema, superior left lower lobe consolidation extending into the posterior left upper lobe with extensive central fluid consistent with pneumonia, bilateral bronchial wall thickening with right lower lobe mucous plugging and mild mediastinal adenopathy. Given patient's elevated Pro-Xu, elevated white count, she was treated broadly with azithromycin and Rocephin for pneumonia and admitted to the hospital service for further evaluation management. [facility] Disclaimer: The information contained in this section may have been updated after the patient was seen, as this information can be updated by other users. Medical History (Updated 11/20/23 @ 22:27 by AVERY Marie) Acute on chronic hypoxic respiratory failure Nausea & vomiting Lumbar paraspinal muscle spasm Acute right-sided low back pain with right-sided sciatica Allergic rhinitis Anxiety COPD (chronic obstructive pulmonary disease) Chronic respiratory failure with hypoxia Encounter for screening for malignant neoplasm of lung History of smoking 30 or more pack years Pulmonary emphysema Dyspnea Hypomagnesemia COPD exacerbation Pulmonary nodule Pneumonia Acute exacerbation of chronic obstructive pulmonary disease Acute URI Contact dermatitis Thyroid nodule GERD (gastroesophageal reflux disease) Hyperlipidemia Gastroesophageal reflux disease Dependence on nocturnal oxygen therapy Insomnia Restless legs syndrome (RLS) Anxiety with depression Chronic obstructive pulmonary disease History of peptic ulcer Tobacco use disorder COPD exacerbation Surgical History History of tubal ligation Family History Other Cancer Diabetes Social History (Updated 11/20/23 @ 21:10 by Bri Marques RN) Smoking Status: Former smoker smoking status stop date: 07/13/23 alcohol intake: never substance use type: denies use current occupational status: unemployed, retired and disabled Travel in the last 8 weeks: None housing: house Review of Systems Review of Systems Review of systems (narrative): All negative except for HPI Meds Home Medications and Allergies Home Medications Medication Instructions Recorded Confirmed Type albuterol sulfate 90 mcg/actuation 2 inh inhalation QIDP PRN 09/18/23 11/20/23 Rx aerosol inhaler (ProAir HFA) shortness of breath or wheezing #8.5 grams buspirone 10 mg tablet 10 mg PO BID #60 tabs 09/18/23 11/20/23 Rx escitalopram oxalate 5 mg tablet 5 mg PO DAILY Mood #90 tabs 09/18/23 11/20/23 Rx hydroxyzine pamoate 25 mg capsule 25 - 50 mg (1 - 2 x 25 mg) PO TIDP 09/18/23 11/20/23 Rx PRN anxiety or sleep #60 caps pantoprazole 40 mg tablet,delayed 40 mg PO DAILY Acid Reflux #90 tabs 09/18/23 11/20/23 Rx release quetiapine 50 mg tablet 50 mg PO HSP PRN sleep #90 tabs 09/18/23 11/20/23 Rx cyclobenzaprine 10 mg tablet 10 mg PO TID PRN muscle spasm #30 10/31/23 11/20/23 Rx tabs pramipexole 0.25 mg tablet See Rx Instructions .Route 11/01/23 11/20/23 Rx .COMPLEX #30 tabs ondansetron HCl 4 mg tablet 4 mg PO Q8H PRN nausea and 11/20/23 11/20/23 Rx vomiting #20 tabs New Prescriptions to Start Prescriptions: Allergies Allergy/AdvReac Type Severity Reaction Status Date / Time No Known Drug Allergies Allergy Unknown Verified 11/20/23 11:25 [NKDA] Exam Data for Last 24 hours Vital signs and Labs for Last 24 Hours: Temp Pulse Resp BP Pulse Ox O2 Del Method O2 Flow Rate 98.1 F 88 22 102/57 L 90 L Nasal Cannula 3 11/20/23 20:57 11/20/23 20:57 11/20/23 20:57 11/20/23 20:57 11/20/23 21:45 11/20/23 21:45 11/20/23 21:45 Laboratory Results - last 24 hr 11/20/23 18:50: Retic Count (auto) 1.7, PT 12.5, INR 1.17 H, Magnesium 1.6, Procalcitonin 4.79 H I & O for Last 24 hours: Intake & Output 11/17/23 11/18/23 11/19/23 11/20/23 23:59 23:59 23:59 23:59 Weight 38.555 kg Constitutional Constitutional: no acute distress *Routine HEENT Exam Head: Present normocephalic and atraumatic Eye: Present EOMI ENT: Present mucous membranes moist *Routine Neck Exam Neck: Present supple; Absent lymphadenopathy *Routine Respiratory Exam Respiratory: Present decreased breath sounds, wheezes, crackles and normal respiratory effort *Routine Cardiovascular Exam Cardiovascular: Present RRR *Routine Abdominal Exam Abdominal: Present soft and normoactive bowel sounds; Absent tenderness *Routine Rectal Exam Rectal:: deferred *Routine Genitalia Exam Genitalia:: deferred *Routine Extremities Exam Extremities: Absent cyanosis, clubbing or edema *Routine Skin Exam Skin: Present warm; Absent rash *Routine Neurological Exam Neurological: Present alert and oriented X3 Assessment and Plan *Assessment and plan (1) Sepsis: Status: Acute Qualifiers: Sepsis acute organ dysfunction status: without acute organ dysfunction Sepsis type: sepsis due to unspecified organism Qualified Code(s): A41.9 - Sepsis, unspecified organism Category: Medical Code(s): A41.9 - Sepsis, unspecified organism (2) Community acquired pneumonia: Status: Acute Qualifiers: Laterality: left Lung location: lower lobe of lung Qualified Code(s): J18.9 - Pneumonia, unspecified organism Category: Medical Code(s): J18.9 - Pneumonia, unspecified organism (3) Acute and chronic respiratory failure with hypoxia: Status: Acute Category: Medical Code(s): J96.21 - Acute and chronic respiratory failure with hypoxia (4) COPD exacerbation: Status: Acute Category: Medical Code(s): J44.1 - Chronic obstructive pulmonary disease with (acute) exacerbation Plan This is a 63-year-old female with a past medical history of chronic respiratory failure on 3 L nasal cannula, COPD who presents to the emergency department for abnormal white count on PCP labs. She was found to have a leukocytosis with a white blood cell count of 35. CT imaging notable for left upper and left lower lobe pneumonia with mucous plugging of the right lung. Severe emphysema noted. On my exam she is resting comfortably on her 3 L nasal cannula. No respiratory distress noted. Mild wheezing noted Admit to medicine #Acute on chronic respiratory failure with hypoxia #COPD exacerbation #Sepsis # Community-acquired pneumonia Pulmonology consulted, appreciate recommendations Meets Sepsis criteria for leukocytosis, tachypnea, tachycardia, pneumonia source of infection Received 30 mL/kg normal saline in the emergency department Continue azithromycin and Rocephin Procalcitonin elevated Sputum culture pending MRSA culture pending Legionella culture pending Currently oxygenating well on home 3 L nasal cannula Continue bronchodilators and corticosteroids Respiratory pathogen panel pending Pulmonary toilet #Anxiety Continue home medications DVT PPx Lovenox Full code
--- NOTE | 2023-11-20 22:03 | ECG_ITS ---
APPROVED REPORT Exam: Resting ECG HR:89 bpm ECG Measurements Heart Rate 89 AXES NH 138 P 77 QRSd 83 QRS 82 QT 244 T 81 QTc 290 Conclusion SINUS RHYTHM NONSPECIFIC T-WAVE ABNORMALITY BORDERLINE ECG UNCONFIRMED REPORT Electronically signed by : William Murphy MD 11/22/2023 15:03:54
[2023-11-20 22:20] LABS: Adenovirus,PCR Not Detected (NotDetected); Bordetella Pertussis Not Detected (NotDetected); Chlamydophila Pneumoniae, PCR Not Detected (NotDetected); Coronavirus 19, PCR Not Detected (NotDetected); Coronavirus 229E Not Detected (NotDetected); Coronavirus NL63 Not Detected (NotDetected); Coronavirus OC43 Not Detected (NotDetected); Coronovirus HKU1,PCR Not Detected (NotDetected); Human Metapneumovirus Not Detected (NotDetected); Influenza A, PCR Not Detected (NotDetected); Influenza AH1, 2009 Not Detected (NotDetected); Influenza AH1, PCR Not Detected (NotDetected); Influenza AH3,PCR Not Detected (NotDetected); Influenza B, PCR Not Detected (NotDetected); Mycoplasma Pneumoniae, PCR Not Detected (NotDetected); Parainfluenza 1, PCR Not Detected (NotDetected); Parainfluenza 2, PCR Not Detected (NotDetected); Parainfluenza 3, PCR Not Detected (NotDetected); Parainfluenza 4, PCR Not Detected (NotDetected); Respiratory Syncytial Virus Not Detected (NotDetected); Rhinovirus/Enterovirus Not Detected (NotDetected)
[2023-11-20] MEDS: 0.9 % SODIUM CHLORIDE 1000ML 1,000 ML 75 ML IV (22:39)
[2023-11-20] MEDS: BUSPIRONE HCL 10 MG TABLET PO (22:39)
[2023-11-21] VITALS (10 sets, daily range): BP systolic 101–118; BP diastolic 51–68; PULSE 78–95; RESP 16–22; TEMP 36.4–36.9; O2SAT 90–98; BMI 16.1
--- NOTE | 2023-11-21 00:29 | EXP.SEPSISRE ---
[facility] Tissue Perfusion Eval Sepsis Re-Evaluation Performed: Yes Date Performed: 11/20/23 Time Performed: 23:45
--- NOTE | 2023-11-21 03:51 | PC.NURSE ---
Pt is alert and oriented x4 and currently tolerating 3L of O2 well and sating in the low to mid 90s at this time. Pt denies pain and has a slight productive cough, lungs sounds are diminished throughout. There have been no other acute changes to note this shift
[2023-11-21] MEDS: IPRATROPIUM/ALBUTEROL 3 ML NEB IH ×3 (06:20→17:23)
[2023-11-21 06:56] LABS: Basophils % 0.1 % (0.1-2.0); Eosinophils % 0.2 % (0.1-12.0); Mean Corpuscular HGB Conc 30.8 g/dL (31.8-35.4); Red Cell Distribution Width 15.5 % (11.5-17.5)
[2023-11-21 06:59] LABS: Chloride 95 mmol/L (98-107); Potassium 3.4 mmoL/L (3.5-5.1); Sodium 133 mmol/L (136-145)
[2023-11-21 07:02] LABS: Blood Urea Nitrogen 7 mg/dl (7-17); Carbon Dioxide 35 mmol/L (22.0-30.0); Creatinine Clearance Estimated 36 mL/min (50-200); Estimated Glomerular Filt Rate 162 ml/min (>60); GFR (African American) 196 ML/MIN (>60)
[2023-11-21 07:03] LABS: Anion Gap 6.4 mEq/L (5-15); Calcium 8.1 mg/dl (8.4-10.2); Glucose 124 mg/dl (74-100)
[2023-11-21 07:12] LABS: Hematocrit 28.4 % (37.0-47.0); Lymphocytes # 0.8 K/mm3 (0.7-4.5); Lymphocytes % 4.1 % (10-50); Mean Corpuscular Hemoglobin 26.5 pg (27.0-31.2); Mean Corpuscular Volume 86.1 fl (81-99); Mean Platelet Volume 9.2 fl (7.4-10.4); Monocytes # 0.4 K/mm3 (0.1-1.0); Monocytes % 2.3 % (1.7-9.3); Neutrophils # 17.5 K/mm3 (1.8-7.8); Neutrophils % 93.3 % (37.0-80.0); Platelet Count 732 K/mm3 (142-424); White Blood Count 18.8 K/mm3 (4.8-10.8)
[2023-11-21 07:23] LABS: Hemoglobin 8.8 g/dL (12.2-16.2)
[2023-11-21 07:25] LABS: MANUAL DIFFERENTIAL MANUAL DIFFERENTIAL (MANUAL DIFF)
--- NOTE | 2023-11-21 08:13 | [facility].PHAINT1 ---
Pharmacy Intervention Comments: MEDICATION RECONCILIATION COMPLETED ON PATIENT USING EXTERNAL FILL HISTORY FROM PHARMACY AND PATIENT'S OWN BOTTLES. -KEI HOAWRD, BIENVENIDOD
[2023-11-21] MEDS: ENOXAPARIN 40MG/0.4ML SYRINGE 40 MG SQ (08:51)
[2023-11-21] MEDS: predniSONE 20MG TAB 40 MG PO (08:51)
[2023-11-21] MEDS: BUSPIRONE 10 MG PO (08:53)
--- NOTE | 2023-11-21 09:39 | EXP.PULM.CON ---
History of Present Illness History of present illness: Ms. Vásquez is a 63-year-old female greater than [id number]-alxs smoking history, pulmonary emphysema very severe COPD with FEV1 at 100% predicted, chronic hypoxic respiratory failure baseline 3 L nasal cannula oxygen supplementation presented to the ER as patient told to report to the ER for abnormal labs including severe leukocytosis. [facility] Disclaimer: The information contained in this section may have been updated after the patient was seen, as this information can be updated by other users. Medical History (Updated 11/20/23 @ 22:27 by AVERY Marie) Acute on chronic hypoxic respiratory failure Nausea & vomiting Lumbar paraspinal muscle spasm Acute right-sided low back pain with right-sided sciatica Allergic rhinitis Anxiety COPD (chronic obstructive pulmonary disease) Chronic respiratory failure with hypoxia Encounter for screening for malignant neoplasm of lung History of smoking 30 or more pack years Pulmonary emphysema Dyspnea Hypomagnesemia COPD exacerbation Pulmonary nodule Pneumonia Acute exacerbation of chronic obstructive pulmonary disease Acute URI Contact dermatitis Thyroid nodule GERD (gastroesophageal reflux disease) Hyperlipidemia Gastroesophageal reflux disease Dependence on nocturnal oxygen therapy Insomnia Restless legs syndrome (RLS) Anxiety with depression Chronic obstructive pulmonary disease History of peptic ulcer Tobacco use disorder COPD exacerbation Surgical History History of tubal ligation Family History Other Cancer Diabetes Social History (Updated 11/20/23 @ 21:10 by Bri Marques RN) Smoking Status: Former smoker smoking status stop date: 07/13/23 alcohol intake: never substance use type: denies use current occupational status: unemployed, retired and disabled Travel in the last 8 weeks: None housing: house Review of Systems Constitutional Constitutional: Reports anorexia, Reports body ache(s) and Reports fatigue Eyes Eyes: Denies eye discharge, Denies dry eyes, Denies irritation and Denies itchy eyes ENT Ears, Nose, Mouth, and Throat: Denies epistaxis, Denies facial pain, Denies lip swelling and Denies throat swelling *Cardiovascular Cardiovascular: Reports dyspnea and Reports dyspnea on exertion *Respiratory Respiratory: Reports chest congestion, Reports cough, Reports dyspnea, Reports dyspnea on exertion, Reports excessive phlegm production, Denies hemoptysis, Denies pain on inspiration, Denies pain with cough and Denies wheezing *Gastrointestinal Gastrointestinal: Denies abdominal pain, Denies belching and Denies cramping *Musculoskeletal Musculoskeletal: Reports back pain, Reports myalgias and Reports other (No small joint swelling or Pain) Psychiatric Psychiatric: Denies homicidal ideation and Denies suicidal ideation Endocrine Endocrine: Reports fatigue and Denies heat intolerance Hematologic/Lymphatic Hematologic/Lymphatic: Denies easy bleeding and Denies lymphadenopathy Allergic/Immunologic Allergic/Immunologic: Denies itchy eyes, Denies lip swelling, Denies throat swelling and Denies wheezing Pulmonology Exam Inpatient Vital signs and Labs for Last 24 Hours: Temp Pulse Resp BP Pulse Ox O2 Del Method O2 Flow Rate 98.4 F 92 H 18 101/54 L 93 L Nasal Cannula 3 11/21/23 08:00 11/21/23 08:00 11/21/23 08:00 11/21/23 08:00 11/21/23 08:00 11/21/23 09:00 11/21/23 09:00 Laboratory Results - last 24 hr 11/20/23 18:50: Retic Count (auto) 1.7, PT 12.5, INR 1.17 H, Magnesium 1.6, Procalcitonin 4.79 H 11/20/23 21:36: Chlamy pneumoniae PCR Not detected, Adenovirus (PCR) Not detected, B. pertussis DNA (PCR) Not detected, Coronavirus OC43 (PCR) Not detected, Coronavirus HKU1 (PCR) Not detected, Coronavirus 229E (PCR) Not detected, SARS-CoV-2 (PCR) Not detected, Coronavirus NL63 (PCR) Not detected, Human Metapneumovir PCR Not detected, Influenza A (H1) PCR Not detected, Influ A (H1N1/09) PCR Not detected, Influenza A (H3) PCR Not detected, Influenza Type A (PCR) Not detected, Influenza Type B (PCR) Not detected, M. pneumoniae (PCR) Not detected, Parainfluenza 1 (PCR) Not detected, Parainfluenza 2 (PCR) Not detected, Parainfluenza 3 (PCR) Not detected, Parainfluenza 4 (PCR) Not detected, RSV (PCR) Not detected, Entero/Rhino (PCR) Not detected 11/21/23 05:58: WBC 18.8 H D, RBC 3.30 L, Hgb 8.8 L, Hct 28.4 L, MCV 86.1, MCH 26.5 L, MCHC 30.8 L, RDW 15.5, Plt Count 732 H, MPV 9.2, Neut % (Auto) 93.3 H, Lymph % (Auto) 4.1 L, [place] % (Auto) 2.3, Eos % (Auto) 0.2, Baso % (Auto) 0.1, Neut # (Auto) 17.5 H, Lymph # (Auto) 0.8, [place] # (Auto) 0.4, Eos # (Auto) 0.0, Baso # (Auto) 0.0, Sodium 133 L, Potassium 3.4 L, Chloride 95 L, Carbon Dioxide 35 H, Anion Gap 6.4, BUN 7, Creatinine 0.40 L, Estimated Creat Clear 36, Estimated GFR 162, Est GFR ( Amer) 196 D, Glucose 124 H D, Calcium 8.1 L I & O for Labs for Last 24 Hours: Intake & Output 11/18/23 11/19/23 11/20/23 11/21/23 23:59 23:59 23:59 23:59 Intake Total 1714 / 1714 Output Total 0 / 0 350 / 350 Balance 0 / 240 1364 / 1364 Weight 85 lb 85 lb 9 oz Constitutional: Present moderate distress Head: Present normocephalic and atraumatic ENT: Present normal exam, normal oropharynx and mucous membranes moist Neck: Present normal inspection and full ROM Respiratory: Present respiratory distress and able to speak in complete sentences; Absent wheezes or crackles Cardiac: Present S1/S2, Tachycardia and radial pulses present GI: Present soft and distention; Absent tenderness or guarding Rectal (female): Present deferred (female): Present deferred Skin: Present intact; Absent cyanosis or jaundice Neuro: Present alert, awake and oriented x 3 Extremities: Present normal inspection; Absent clubbing or cyanosis Psychiatric: Present normal affect and cooperative Meds Home Medications and Allergies Home Medications Medication Instructions Recorded Confirmed Type albuterol sulfate 90 mcg/actuation 2 inh inhalation QIDP PRN 09/18/23 11/21/23 Rx aerosol inhaler (ProAir HFA) shortness of breath or wheezing #8.5 grams buspirone 10 mg tablet 10 mg PO BID #60 tabs 09/18/23 11/21/23 Rx hydroxyzine pamoate 25 mg capsule 25 - 50 mg (1 - 2 x 25 mg) PO TIDP 09/18/23 11/21/23 Rx PRN anxiety or sleep #60 caps quetiapine 50 mg tablet 50 mg PO HSP PRN sleep #90 tabs 09/18/23 11/21/23 Rx cyclobenzaprine 10 mg tablet 10 mg PO TID PRN muscle spasm #30 10/31/23 11/21/23 Rx tabs azelastine 137 mcg (0.1 %) nasal 2 spray intranasal HS 11/21/23 11/21/23 History spray aerosol escitalopram oxalate 5 mg tablet 5 mg PO DAILY 11/21/23 11/21/23 History fluticasone propionate 50 2 spray intranasal DAILY 11/21/23 11/21/23 History mcg/actuation nasal spray,suspension ipratropium 0.5 mg-albuterol 3 mg 3 ml inhalation QIDP PRN Shortness 11/21/23 11/21/23 History (2.5 mg base)/3 mL nebulization Of Breath soln ondansetron HCl 4 mg tablet 4 mg PO Q8HP PRN nausea and 11/21/23 11/21/23 History vomiting pantoprazole 40 mg tablet,delayed 40 mg PO DAILY 11/21/23 11/21/23 History release pramipexole 0.25 mg tablet 0.25 mg PO HS 11/21/23 11/21/23 History New Prescriptions to Start Prescriptions: Allergies Allergy/AdvReac Type Severity Reaction Status Date / Time No Known Drug Allergies Allergy Unknown Verified 11/20/23 11:25 [NKDA] Results Laboratory Findings 11/21/23 05:58 11/21/23 05:58 PT/INR, D-dimer PT 12.5 seconds (10.1-12.5) 11/20/23 18:50 INR 1.17 (0.9-1.1) H 11/20/23 18:50 Abnormal lab findings: Abnormal Labs 11/20/23 11/21/23 18:50 05:58 WBC 18.8 H D RBC 3.30 L Hgb 8.8 L Hct 28.4 L MCH 26.5 L MCHC 30.8 L Plt Count 732 H Neut % (Auto) 93.3 H Lymph % (Auto) 4.1 L Neut # (Auto) 17.5 H INR 1.17 H Sodium 133 L Potassium 3.4 L Chloride 95 L Carbon Dioxide 35 H Creatinine 0.40 L Glucose 124 H D Calcium 8.1 L Procalcitonin 4.79 H Assessment and Plan *Assessment and plan (1) Sepsis: Status: Acute Qualifiers: Sepsis acute organ dysfunction status: without acute organ dysfunction Sepsis type: sepsis due to unspecified organism Qualified Code(s): A41.9 - Sepsis, unspecified organism Category: Medical Code(s): A41.9 - Sepsis, unspecified organism (2) Community acquired pneumonia: Status: Acute Qualifiers: Laterality: left Lung location: lower lobe of lung Qualified Code(s): J18.9 - Pneumonia, unspecified organism Category: Medical Code(s): J18.9 - Pneumonia, unspecified organism (3) Acute and chronic respiratory failure with hypoxia: Status: Acute Category: Medical Code(s): J96.21 - Acute and chronic respiratory failure with hypoxia Plan Ms. Vásquez is a 63-year-old female greater than 48-[id number]-[id number] smoking history, pulmonary emphysema very severe COPD with FEV1 at 100% predicted, chronic hypoxic respiratory failure baseline 3 L nasal cannula oxygen supplementation presented to the ER as patient told to report to the ER for abnormal labs including severe leukocytosis. CTA upon admission no evidence of pulmonary embolism. Noted no dense consolidative changes in the left upper and lower lobe. Noted, will be from reactive patient recent low-dose CT did not show other suspicious nodules or lymphadenopathy. The previously noted left upper lobe what appears to be a cavitary lesion appeared to be stable. Upon admission afebrile. Significant neutrophilic predominant leukocytosis with white count of 34.5, improving to 18.8. Procalcitonin elevated. Comprehensive respiratory viral PCR panel negative. Patient denies any worsening SOB. Admits cough and worsening productive phlegm. Moderate respiratory distress. Desaturations noted with minimal exertion. Plan: Continue Trelegy inhaler along with DuoNebs every 6 hours on as-needed basis Change antibiotics to levofloxacin pending repeat sputum culture results Continue oxygen supplementation to maintain O2 saturation goal of 90% above, currently on 3 to 4 L at rest to maintain saturation above 90% and above # Thank you for involving pulmonary in this patient care. Will continue to follow.
--- NOTE | 2023-11-21 10:03 | PC.NURSE ---
RESPIRATORY CARE NOTE: SPUTUM SPECIMEN SENT TO LAB @ 1006
[2023-11-21] MEDS: FLUTICASONE/UMECLIDIN/VILANTER 200/62.5/25MCG INHALER 1 PUFF IH (10:11)
[2023-11-21] MEDS: LEVOFLOXACIN/D5W 750 MG/150 ML 750 MG/150 ML PIGGYBACK 100 MG IV (10:22)
[2023-11-21] MEDS: 0.9 % SODIUM CHLORIDE 1000ML 1,000 ML 75 ML IV ×3 (10:24→23:15)
--- OUTSIDE RECORDS SUMMARY | 2023-11-21 11:29 | XMS_ITS ---
Author Name Jamie Jacobsen Address [address] [place] [id number] Organization Unknown Address [address] [place] [id number] ALLERGIES AND ADVERSE REACTIONS No information ASSESSMENT No information CHIEF COMPLAINT No information MEDICATIONS No information OBJECTIVE DATA No information PHYSICAL EXAMINATION No information TREATMENT PLAN Planned Care Start Date Provider Encounter for Check-up [phone] [place] PROBLEMS No information RESULTS No information REVIEW OF SYSTEMS No information SUBJECTIVE DATA No information VITAL SIGNS No information
[2023-11-21 13:17] LABS: Lymphocytes % 1 % (10-50); Monocytes % 2 % (2-9); Neutrophils % 97 % (42-76); Total Cells Counted 100
[2023-11-21 13:19] LABS: Hypochromasia 2+
[2023-11-21 13:24] LABS: Platelet Estimate Moderate Increase
--- NOTE | 2023-11-21 15:59 | EXP.PN ---
Subjective *Date: 11/21/23 *Time: 15:59 Interval history: seen at bedside, feels better, denied Chest pain, SOB Exam Data for Last 24 hours Vital signs and Labs for Last 24 Hours: Temp Pulse Resp BP Pulse Ox O2 Del Method O2 Flow Rate 98.2 F 95 H 18 118/63 98 Nasal Cannula 3 11/21/23 11:56 11/21/23 11:56 11/21/23 11:56 11/21/23 11:56 11/21/23 11:56 11/21/23 15:00 11/21/23 15:00 Laboratory Results - last 24 hr 11/20/23 18:50: Retic Count (auto) 1.7, PT 12.5, INR 1.17 H, Magnesium 1.6, Procalcitonin 4.79 H 11/20/23 21:36: Chlamy pneumoniae PCR Not detected, Adenovirus (PCR) Not detected, B. pertussis DNA (PCR) Not detected, Coronavirus OC43 (PCR) Not detected, Coronavirus HKU1 (PCR) Not detected, Coronavirus 229E (PCR) Not detected, SARS-CoV-2 (PCR) Not detected, Coronavirus NL63 (PCR) Not detected, Human Metapneumovir PCR Not detected, Influenza A (H1) PCR Not detected, Influ A (H1N1/09) PCR Not detected, Influenza A (H3) PCR Not detected, Influenza Type A (PCR) Not detected, Influenza Type B (PCR) Not detected, M. pneumoniae (PCR) Not detected, Parainfluenza 1 (PCR) Not detected, Parainfluenza 2 (PCR) Not detected, Parainfluenza 3 (PCR) Not detected, Parainfluenza 4 (PCR) Not detected, RSV (PCR) Not detected, Entero/Rhino (PCR) Not detected 11/21/23 05:58: WBC 18.8 H D, RBC 3.30 L, Hgb 8.8 L, Hct 28.4 L, MCV 86.1, MCH 26.5 L, MCHC 30.8 L, RDW 15.5, Plt Count 732 H, MPV 9.2, Neut % (Auto) 93.3 H, Lymph % (Auto) 4.1 L, [place] % (Auto) 2.3, Eos % (Auto) 0.2, Baso % (Auto) 0.1, Neut # (Auto) 17.5 H, Lymph # (Auto) 0.8, [place] # (Auto) 0.4, Eos # (Auto) 0.0, Baso # (Auto) 0.0, Total Counted 100, Neutrophils % (Manual) 97 H, Lymphocytes % (Manual) 1 L, Monocytes % (Manual) 2, Platelet Estimate Moderate increase, Hypochromasia 2+, Sodium 133 L, Potassium 3.4 L, Chloride 95 L, Carbon Dioxide 35 H, Anion Gap 6.4, BUN 7, Creatinine 0.40 L, Estimated Creat Clear 36, Estimated GFR 162, Est GFR ( Amer) 196 D, Glucose 124 H D, Calcium 8.1 L I & O for Last 24 hours: Intake & Output 11/18/23 11/19/23 11/20/23 11/21/23 23:59 23:59 23:59 23:59 Intake Total 2214 / 2214 Output Total 0 / 0 350 / 350 Balance 0 / 240 1864 / 1864 Weight 38.555 kg 38.81 kg Microbiology Reports for the Last 24 Hours: Microbiology 11/21/23 10:03 Sputum - Expectorated Sputum Gram Stain - Final Constitutional Constitutional: no acute distress *Routine HEENT Exam Head: Present normocephalic Eye: Present EOMI and PERRL ENT: Present mucous membranes moist *Routine Neck Exam Neck: Present supple; Absent lymphadenopathy *Routine Respiratory Exam Respiratory: Present decreased breath sounds *Routine Cardiovascular Exam Cardiovascular: Present RRR *Routine Abdominal Exam Abdominal: Present soft and normoactive bowel sounds; Absent tenderness *Routine Extremities Exam Extremities: Absent cyanosis, clubbing or edema *Routine Skin Exam Skin: Present warm; Absent rash *Routine Neurological Exam Neurological: Present alert and oriented X3 Assessment and Plan *Assessment and plan (1) Sepsis: Status: Acute Qualifiers: Sepsis acute organ dysfunction status: without acute organ dysfunction Sepsis type: sepsis due to unspecified organism Qualified Code(s): A41.9 - Sepsis, unspecified organism Category: Medical Code(s): A41.9 - Sepsis, unspecified organism (2) Community acquired pneumonia: Status: Acute Qualifiers: Laterality: left Lung location: lower lobe of lung Qualified Code(s): J18.9 - Pneumonia, unspecified organism Category: Medical Code(s): J18.9 - Pneumonia, unspecified organism (3) Acute and chronic respiratory failure with hypoxia: Status: Acute Category: Medical Code(s): J96.21 - Acute and chronic respiratory failure with hypoxia (4) COPD exacerbation: Status: Acute Category: Medical Code(s): J44.1 - Chronic obstructive pulmonary disease with (acute) exacerbation Plan This is a 63-year-old female with a past medical history of chronic respiratory failure on 3 L nasal cannula, COPD who presents to the emergency department for abnormal white count on PCP labs. She was found to have a leukocytosis with a white blood cell count of 35. CT imaging notable for left upper and left lower lobe pneumonia with mucous plugging of the right lung. Severe emphysema noted. On my exam she is resting comfortably on her 3 L nasal cannula. No respiratory distress noted. Mild wheezing noted Admit to medicine #Acute on chronic respiratory failure with hypoxia #COPD exacerbation #Sepsis # Community-acquired pneumonia Pulmonology consulted, plan for inhalation therapy with trelogy and levofloxacin Procalcitonin elevated Sputum culture pending MRSA culture pending Legionella culture pending Currently oxygenating well on home 3 L nasal cannula Continue bronchodilators and corticosteroids Respiratory pathogen panel pending Pulmonary toilet #Anxiety Continue home medications DVT PPx Lovenox Full code joe Zamudio 1-2 days, consult PT/OT
--- NOTE | 2023-11-21 16:56 | PC.NURSE ---
pt has overall had a goo day. MD started new antibiotics today and educated pt on importance of staying in the hospital. pt has had no complaints today. pt remains on 3LNC. pt is now inpatient, therefore home meds are locked in pt drawer and not in use. no new orders at this time.
[2023-11-21] MEDS: BUSPIRONE HCL 10 MG TABLET PO (20:24)
[2023-11-22] VITALS: BP 100/53; PULSE 74; RESP 20; TEMP 36.4; O2SAT 96
[2023-11-22 04:00] VITALS: BP 112/57; PULSE 81; RESP 18; TEMP 36.5; O2SAT 98; BMI 18.8
--- NOTE | 2023-11-22 04:43 | PC.NURSE ---
patient has had a quiet night. 02 at 3lnc, sats stable 96-97%. No resp distress. Has chest deformaty (?pigeon chest?). faint wheezws and possibly pleural rub noted. productive cough, thin clear sputum. Denies pain, soa, or discomfort.
[2023-11-22] MEDS: FLUTICASONE/UMECLIDIN/VILANTER 200/62.5/25MCG INHALER 1 PUFF IH (06:20)
[2023-11-22 06:30] VITALS: O2SAT 92
[2023-11-22 07:57] VITALS: BP 119/71; PULSE 81; RESP 14; TEMP 36.4; O2SAT 99
[2023-11-22] MEDS: ENOXAPARIN 40MG/0.4ML SYRINGE 40 MG SQ (08:10)
[2023-11-22] MEDS: BUSPIRONE HCL 10 MG TABLET PO (08:10)
--- NOTE | 2023-11-22 09:48 | EXP.PULM.PN ---
Subjective *Date: 11/22/23 *Time: 11:04 Interval history: No acute respiratory vents overnight. Patient admits continued improvement in her respiratory symptoms. Pulmonology Exam Inpatient Vital signs and Labs for Last 24 Hours: Temp Pulse Resp BP Pulse Ox O2 Del Method O2 Flow Rate 97.5 F L 81 14 119/71 99 Nasal Cannula 3 11/22/23 07:57 11/22/23 07:57 11/22/23 07:57 11/22/23 07:57 11/22/23 07:57 11/22/23 07:57 11/22/23 07:57 Laboratory Results - last 24 hr 11/21/23 05:58: Total Counted 100, Neutrophils % (Manual) 97 H, Lymphocytes % (Manual) 1 L, Monocytes % (Manual) 2, Platelet Estimate Moderate increase, Hypochromasia 2+ Temp Pulse Resp BP Pulse Ox O2 Del Method O2 Flow Rate 98.4 F 92 H 18 101/54 L 93 L Nasal Cannula 3 11/21/23 08:00 11/21/23 08:00 11/21/23 08:00 11/21/23 08:00 11/21/23 08:00 11/21/23 09:00 11/21/23 09:00 Laboratory Results - last 24 hr 11/20/23 18:50: Retic Count (auto) 1.7, PT 12.5, INR 1.17 H, Magnesium 1.6, Procalcitonin 4.79 H 11/20/23 21:36: Chlamy pneumoniae PCR Not detected, Adenovirus (PCR) Not detected, B. pertussis DNA (PCR) Not detected, Coronavirus OC43 (PCR) Not detected, Coronavirus HKU1 (PCR) Not detected, Coronavirus 229E (PCR) Not detected, SARS-CoV-2 (PCR) Not detected, Coronavirus NL63 (PCR) Not detected, Human Metapneumovir PCR Not detected, Influenza A (H1) PCR Not detected, Influ A (H1N1/09) PCR Not detected, Influenza A (H3) PCR Not detected, Influenza Type A (PCR) Not detected, Influenza Type B (PCR) Not detected, M. pneumoniae (PCR) Not detected, Parainfluenza 1 (PCR) Not detected, Parainfluenza 2 (PCR) Not detected, Parainfluenza 3 (PCR) Not detected, Parainfluenza 4 (PCR) Not detected, RSV (PCR) Not detected, Entero/Rhino (PCR) Not detected 11/21/23 05:58: WBC 18.8 H D, RBC 3.30 L, Hgb 8.8 L, Hct 28.4 L, MCV 86.1, MCH 26.5 L, MCHC 30.8 L, RDW 15.5, Plt Count 732 H, MPV 9.2, Neut % (Auto) 93.3 H, Lymph % (Auto) 4.1 L, [place] % (Auto) 2.3, Eos % (Auto) 0.2, Baso % (Auto) 0.1, Neut # (Auto) 17.5 H, Lymph # (Auto) 0.8, [place] # (Auto) 0.4, Eos # (Auto) 0.0, Baso # (Auto) 0.0, Sodium 133 L, Potassium 3.4 L, Chloride 95 L, Carbon Dioxide 35 H, Anion Gap 6.4, BUN 7, Creatinine 0.40 L, Estimated Creat Clear 36, Estimated GFR 162, Est GFR ( Amer) 196 D, Glucose 124 H D, Calcium 8.1 L I & O for Labs for Last 24 Hours: Intake & Output 11/19/23 11/20/23 11/21/23 11/22/23 23:59 23:59 23:59 23:59 Intake Total 3215 / 3852 1438 / 1438 Output Total 0 / 0 450 / 450 800 / 800 Balance 0 / 240 2765 / 3402 638 / 638 Weight 85 lb 85 lb 9 oz 99 lb 11.2 oz Intake & Output 11/18/23 11/19/23 11/20/23 11/21/23 23:59 23:59 23:59 23:59 Intake Total 1714 / 1714 Output Total 0 / 0 350 / 350 Balance 0 / 240 1364 / 1364 Weight 85 lb 85 lb 9 oz Microbiology Reports for the Last 24 Hours: Microbiology 11/21/23 10:03 Sputum - Expectorated Sputum Gram Stain - Final 11/21/23 10:03 Sputum - Expectorated Sputum Sputum Culture - Preliminary Gram Negative Rods 11/20/23 18:50 Blood Blood Culture - Preliminary NO GROWTH AFTER 24 HOURS 11/20/23 18:40 Blood Blood Culture - Preliminary NO GROWTH AFTER 24 HOURS Constitutional: Present moderate distress Head: Present normocephalic and atraumatic ENT: Present normal exam, normal oropharynx and mucous membranes moist Neck: Present normal inspection and full ROM Respiratory: Present respiratory distress, wheezes and able to speak in complete sentences; Absent crackles Cardiac: Present S1/S2, Tachycardia and radial pulses present GI: Present soft and distention; Absent tenderness or guarding Rectal (female): Present deferred (female): Present deferred Skin: Present intact; Absent cyanosis or jaundice Neuro: Present alert, awake and oriented x 3 Extremities: Present normal inspection; Absent clubbing or cyanosis Psychiatric: Present normal affect and cooperative Assessment and Plan *Assessment and plan (1) Sepsis: Status: Acute Qualifiers: Sepsis acute organ dysfunction status: without acute organ dysfunction Sepsis type: sepsis due to unspecified organism Qualified Code(s): A41.9 - Sepsis, unspecified organism Category: Medical Code(s): A41.9 - Sepsis, unspecified organism (2) Community acquired pneumonia: Status: Acute Qualifiers: Laterality: left Lung location: lower lobe of lung Qualified Code(s): J18.9 - Pneumonia, unspecified organism Category: Medical Code(s): J18.9 - Pneumonia, unspecified organism (3) Acute and chronic respiratory failure with hypoxia: Status: Acute Category: Medical Code(s): J96.21 - Acute and chronic respiratory failure with hypoxia Plan Ms. Vásquez is a 63-year-old female greater than 17-vczy-phku smoking history, pulmonary emphysema very severe COPD with FEV1 at 100% predicted, chronic hypoxic respiratory failure baseline 3 L nasal cannula oxygen supplementation presented to the ER as patient told to report to the ER for abnormal labs including severe leukocytosis. CTA upon admission no evidence of pulmonary embolism. Noted no dense consolidative changes in the left upper and lower lobe. Noted, will be from reactive patient recent low-dose CT did not show other suspicious nodules or lymphadenopathy. The previously noted left upper lobe what appears to be a cavitary lesion appeared to be stable. Upon admission afebrile. Significant neutrophilic predominant leukocytosis with white count of 34.5, improving to 18.8. Procalcitonin elevated. Comprehensive respiratory viral PCR panel negative. On admission patient denies any worsening SOB. Admits cough and worsening productive phlegm. Moderate respiratory distress. Desaturations noted with minimal exertion. Interval update: No acute respiratory vents overnight. Improving oxygen requirements. Continue to receive levofloxacin, prelim Gram stain showing gram-negative rods. Slight worsening wheezing compared to yesterday. Plan: Continue Trelegy inhaler along with DuoNebs every 6 hours on as-needed basis Change antibiotics to levofloxacin x 7 days pending final sputum culture results Continue oxygen supplementation to maintain O2 saturation goal of 90% above, currently on 3 to 4 L at rest to maintain saturation above 90% and above # Thank you for involving pulmonary in this patient care. Follow in pulmonary clinic in 2 weeks with a chest x-ray PA lateral prior to clinic visit.
[2023-11-22 09:58] VITALS: BMI 18.8
--- NOTE | 2023-11-22 11:38 | EXP.DC.SUM ---
General Admission date:: 11/20/23 Discharge date: 11/22/23 HPI HPI HPI: This is a 63-year-old female with a past medical history of COPD, chronic respiratory failure on 3 L nasal cannula, anxiety, pulmonary emphysema who presents to the emergency department today with complaints of abnormal labs. She reports having recent pain in her leg and lower back for which she saw her primary care doctor. They decided to draw labs and have some imaging done. Today she was notified by her doctor that her white blood cell count was elevated and to seek treatment in the emergency department. She states that she been on her chronic 3 L with no increase in oxygen requirement. States that she is always short of breath but no more short of breath today than her normal. States that she felt somewhat bad 2 weeks ago and thought she just had a sinus infection but did not feel bad enough to seek treatment. She states she had some mild nausea and unable to tolerate p.o. denies fever, endorses chronic cough with mild productive sputum. She has seen Dr. Melendrez in the past but does not typically see him routinely. She had low-dose CT scan in September for cancer screening with no evidence of any suspicious lung nodules. States that she has been compliant with her home Trelegy. Emergency department workup notable for leukocytosis with a white blood cell count of 35, procalcitonin of 4.79. CT imaging notable for severe emphysema, superior left lower lobe consolidation extending into the posterior left upper lobe with extensive central fluid consistent with pneumonia, bilateral bronchial wall thickening with right lower lobe mucous plugging and mild mediastinal adenopathy. Given patient's elevated Pro-Xu, elevated white count, she was treated broadly with azithromycin and Rocephin for pneumonia and admitted to the hospital service for further evaluation management. Hospital Course Hospital Course Hospital Course: This is a 63-year-old female with a past medical history of chronic respiratory failure on 3 L nasal cannula, COPD who presents to the emergency department for abnormal white count on PCP labs. She was found to have a leukocytosis with a white blood cell count of 35. CT imaging notable for left upper and left lower lobe pneumonia with mucous plugging of the right lung. Severe emphysema noted. On my exam she is resting comfortably on her 3 L nasal cannula. No respiratory distress noted. Mild wheezing noted #Acute on chronic respiratory failure with hypoxia - improved #COPD exacerbation - improved #Sepsis - improved # Community-acquired pneumonia - improved patient was admitted for SOB likely due to COPDE as well as PNA - patient was started on breathing treatments, patient came down home o2 needs on 4L NC, patient was also started on oral levfloxacin, patient was cleared for discahrge per pulmonary service. Patient will be discharged in stable condition On the date of discharge, the patient reported feeling stable. The patient was found not to be in any acute distress, and no new abnormalities on physical examination. Further, the patient expressed appropriate understanding of, and agreement with, the discharge recommendations, medications, and plan. Time spent 37 mins Exam Data for Last 24 hours Vital signs and Labs for Last 24 Hours: Temp Pulse Resp BP Pulse Ox O2 Del Method O2 Flow Rate 97.5 F L 81 14 119/71 99 Nasal Cannula 3 11/22/23 07:57 11/22/23 07:57 11/22/23 07:57 11/22/23 07:57 11/22/23 07:57 11/22/23 11:00 11/22/23 09:00 Laboratory Results - last 24 hr 11/21/23 05:58: Total Counted 100, Neutrophils % (Manual) 97 H, Lymphocytes % (Manual) 1 L, Monocytes % (Manual) 2, Platelet Estimate Moderate increase, Hypochromasia 2+ I & O for Last 24 hours: Intake & Output 11/19/23 11/20/23 11/21/23 11/22/23 23:59 23:59 23:59 23:59 Intake Total 3215 / 3852 1438 / 1438 Output Total 0 / 0 450 / 450 800 / 800 Balance 0 / 240 2765 / 3402 638 / 638 Weight 38.555 kg 38.81 kg 45.2 kg Microbiology Reports for the Last 24 Hours: Microbiology 11/21/23 10:03 Sputum - Expectorated Sputum Gram Stain - Final 11/21/23 10:03 Sputum - Expectorated Sputum Sputum Culture - Preliminary Gram Negative Rods 11/20/23 18:50 Blood Blood Culture - Preliminary NO GROWTH AFTER 24 HOURS 11/20/23 18:40 Blood Blood Culture - Preliminary NO GROWTH AFTER 24 HOURS Constitutional Constitutional: no acute distress *Routine HEENT Exam Head: Present normocephalic Eye: Present EOMI and PERRL ENT: Present mucous membranes moist *Routine Neck Exam Neck: Present supple; Absent lymphadenopathy *Routine Respiratory Exam Respiratory: Present decreased breath sounds *Routine Cardiovascular Exam Cardiovascular: Present RRR *Routine Abdominal Exam Abdominal: Present soft and normoactive bowel sounds; Absent tenderness *Routine Extremities Exam Extremities: Absent cyanosis, clubbing or edema *Routine Skin Exam Skin: Present warm; Absent rash *Routine Neurological Exam Neurological: Present alert and oriented X3 Results Data Completed and Pending Labs on day of discharge: Labs from last 24 hours 11/21/23 05:58 Total Counted 100 Neutrophils % (Manual) 97 H Lymphocytes % (Manual) 1 L Monocytes % (Manual) 2 Platelet Estimate Moderate increase Hypochromasia 2+ Preliminary micro results at discharge 11/21/23 10:03 Sputum Culture - Preliminary Sputum - Expectorated Sputum Gram Negative Rods 11/20/23 18:50 Blood Culture - Preliminary Blood NO GROWTH AFTER 24 HOURS 11/20/23 18:40 Blood Culture - Preliminary Blood NO GROWTH AFTER 24 HOURS DS: Diagnosis Discharge Diagnosis (1) Sepsis: Status: Acute Code(s): A41.9 - Sepsis, unspecified organism Qualifiers: Sepsis acute organ dysfunction status: without acute organ dysfunction Sepsis type: sepsis due to unspecified organism Qualified Code(s): A41.9 - Sepsis, unspecified organism (2) Community acquired pneumonia: Status: Acute Code(s): J18.9 - Pneumonia, unspecified organism Qualifiers: Laterality: left Lung location: lower lobe of lung Qualified Code(s): J18.9 - Pneumonia, unspecified organism (3) Acute and chronic respiratory failure with hypoxia: Status: Acute Code(s): J96.21 - Acute and chronic respiratory failure with hypoxia Meds Home Medications and Allergies Home Medications Medication Instructions Recorded Confirmed Type albuterol sulfate 90 mcg/actuation 2 inh inhalation QIDP PRN 09/18/23 11/21/23 Rx aerosol inhaler (ProAir HFA) shortness of breath or wheezing #8.5 grams buspirone 10 mg tablet 10 mg PO BID #60 tabs 09/18/23 11/21/23 Rx hydroxyzine pamoate 25 mg capsule 25 - 50 mg (1 - 2 x 25 mg) PO TIDP 09/18/23 11/21/23 Rx PRN anxiety or sleep #60 caps quetiapine 50 mg tablet 50 mg PO HSP PRN sleep #90 tabs 09/18/23 11/21/23 Rx cyclobenzaprine 10 mg tablet 10 mg PO TID PRN muscle spasm #30 10/31/23 11/21/23 Rx tabs azelastine 137 mcg (0.1 %) nasal 2 spray intranasal HS 11/21/23 11/21/23 History spray aerosol escitalopram oxalate 5 mg tablet 5 mg PO DAILY 11/21/23 11/21/23 History fluticasone propionate 50 2 spray intranasal DAILY 11/21/23 11/21/23 History mcg/actuation nasal spray,suspension ipratropium 0.5 mg-albuterol 3 mg 3 ml inhalation QIDP PRN Shortness 11/21/23 11/21/23 History (2.5 mg base)/3 mL nebulization Of Breath soln ondansetron HCl 4 mg tablet 4 mg PO Q8HP PRN nausea and 11/21/23 11/21/23 History vomiting pantoprazole 40 mg tablet,delayed 40 mg PO DAILY 11/21/23 11/21/23 History release pramipexole 0.25 mg tablet 0.25 mg PO HS 11/21/23 11/21/23 History levofloxacin 750 mg tablet 750 mg PO DAILY 7 days #7 tabs 11/22/23 Rx prednisone 20 mg tablet 40 mg (2 x 20 mg) PO DAILY 5 days 11/22/23 Rx #10 tabs New Prescriptions to Start Prescriptions: Zheng Vizcarra prednisone Zheng Sosa Allergies Allergy/AdvReac Type Severity Reaction Status Date / Time No Known Drug Allergies Allergy Unknown Verified 11/20/23 11:25 [NKDA] Discharge Plan Disposition Patient Disposition: Home Health Service Condition: Fair Discharge Order Discharge Orders: Discharge Order (Routine); Ordered 11/22/23 Ordered By: Zheng Sosa Follow up Plan Follow up with: Martine Bernal APRN [Primary Care Provider] - 11/29/23 10:00 am Silvio Flood MD [Physician] - 12/13/23 10:45 am Prescriptions/Medication Reconciliation: New prednisone 20 mg Tablet 40 mg PO DAILY 5 Days Qty: 10 0RF levofloxacin 750 mg tablet 750 mg PO DAILY 7 Days Qty: 7 0RF Continued quetiapine 50 mg tablet 50 mg PO HSP PRN (Reason: sleep) Qty: 90 1RF hydroxyzine pamoate 25 mg capsule 25 - 50 mg PO TIDP PRN (Reason: anxiety or sleep) Qty: 60 5RF buspirone 10 mg tablet 10 mg PO BID Qty: 60 5RF albuterol sulfate [ProAir HFA] 90 mcg/actuation HFA aerosol inhaler 2 inh inhalation QIDP PRN (Reason: shortness of breath or wheezing) Qty: 8.5 5RF cyclobenzaprine 10 mg tablet 10 mg PO TID PRN (Reason: muscle spasm) Qty: 30 0RF ipratropium-albuterol 0.5 mg-3 mg(2.5 mg base)/3 mL solution for nebulization 3 ml INHALATION QIDP PRN (Reason: Shortness Of Breath) Patient Comments: INHALE THE CONTENTS OF 1 VIAL VIA NEBULIZER 4 TIMES DAILY NEEDED FOR SHORTNESS OF BREATH. azelastine 137 mcg (0.1 %) aerosol,spray 2 spray INTRANASAL HS Patient Comments: USE 2 SPRAYS IN EACH NOSTRIL NIGHTLY AT BEDTIME. fluticasone propionate 50 mcg/actuation spray,suspension 2 spray INTRANASAL DAILY Patient Comments: USE 2 SPRAYS IN EACH NOSTRIL ONCE DAILY. ondansetron HCl 4 mg tablet 4 mg PO Q8HP PRN (Reason: nausea and vomiting) pantoprazole 40 mg tablet,delayed release (DR/EC) 40 mg PO DAILY pramipexole 0.25 mg tablet 0.25 mg PO HS escitalopram oxalate 5 mg tablet 5 mg PO DAILY Other Ambulatory Orders: XR chest 2V (Routine) Timeframe: 2 Weeks Facility: [facility] - Location: Radiology Ordered By: Silvio Flood Problem Reconciliation Problems Reviewed?: Yes Patient Discharge Instructions ACTIVITY: Ambulate as tolerated DIET: continue same diet Patient Instructions: DI for Pneumonia -- Adult Providers Primary Care Provider: Martine Bernal Admit Provider: Ion Coyne Attending Provider: Ion Coyne
[2023-11-22 19:00] LABS: Peripheral Smear Review Scanned Result
--- NOTE | 2023-11-24 14:32 | CARE MANAGER ---
Attempted to call patient regarding discharge on 11/22/2023, but had to leave a VM. She was back in our ED on 11/22 for a fall with injury to arm.
[2023-11-25 10:44] LABS: MRSA DNA PCR Negative
== END 2023-11-22 12:52 | disposition home or self-care (01) ==
LOC: ER 20:13 → 2ND 11-21 05:53
PROVIDERS: Nurse Practitioner Acute Care; Physician Assistant; Admitting Provider Internal Medicine Adolescent Medicine; Emergency Provider Emergency Medicine; PCP Nurse Practitioner; Visit Provider Internal Medicine Adolescent Medicine
DX: J18.9 Pneumonia, unspecified organism (principal); J96.21 Acute and chronic respiratory failure with hypoxia; J44.1 Chronic obstructive pulmonary disease with (acute) exacerbation; Z99.81 Dependence on supplemental oxygen; Z79.899 Other long term (current) drug therapy; Z87.891 Personal history of nicotine dependence; M54.41 Lumbago with sciatica, right side; R06.02 Shortness of breath; R11.0 Nausea
CPT/HCPCS: 36415; 71046; 71275; 72100; 73502; 80048; 80053; 83735; 84145; 85007; 85025; 85044; 85610; 87040; 87070; 87077; 87186; 87205; 87278; 87581; 87632; 87635; 87641; 87798; 93005; 94640; 94667; 94760; 94761; 99285; G0378; J0456; J0696; J1650; J1956; J2919; J7030; J7620; Q9967

== ENCOUNTER 2023-11-23 09:01 | Emergency (ER) | payer MEDICARE, OTHER, SELFPAY ==
[2023-11-23 09:02] VITALS: BP 121/69; PULSE 104; RESP 18; TEMP 36.7; O2SAT 95; BMI 16.0
--- NOTE | 2023-11-23 09:13 | XR_ITS ---
FINAL REPORT CLINICAL HISTORY: fall, injury FINDINGS: Left elbow Three views were obtained. There is no acute fracture or dislocation. The lateral view is rotated, can not evaluate for a joint effusion. The joint spaces appear normal. No soft tissue abnormality is identified. IMPRESSION: No acute process. Reviewed, Interpreted and Dictated by Markell Cates III, MD Transcribed by Una Castle Authenticated and [facility]
--- NOTE | 2023-11-23 09:13 | XR_ITS ---
FINAL REPORT CLINICAL HISTORY: fall, injury FINDINGS: Left shoulder Three views were obtained. There is a comminuted fracture of the proximal humeral metaphysis. There is mild lateral angulation of the distal fracture fragment. Mild degenerative changes are present. IMPRESSION: Fracture as above. Reviewed, Interpreted and Dictated by Markell Cates III, MD Transcribed by Una Castle Authenticated and [facility]
--- NOTE | 2023-11-23 09:13 | XR_ITS ---
FINAL REPORT CLINICAL HISTORY: fall, injury FINDINGS: Left wrist Three views were obtained. There is a comminuted fracture of the distal radius including fracture line which extends to the radiocarpal joint with mild impaction. There is chronic calcification distal to the ulnar styloid process. Soft tissue swelling is seen. IMPRESSION: Fracture as above. Reviewed, Interpreted and Dictated by Markell Cates III, MD Transcribed by Una Castle Authenticated and [facility]
--- NOTE | 2023-11-23 09:13 | XR_ITS ---
FINAL REPORT CLINICAL HISTORY: fall, injury FINDINGS: Left humerus Two views were obtained. There is a comminuted fracture of the proximal humeral metaphysis. There is mild lateral angulation of the distal fracture fragment. Mild degenerative changes are present. IMPRESSION: Fracture as above. Reviewed, Interpreted and Dictated by Markell Cates III, MD Transcribed by Una Castle Authenticated and [facility]
--- NOTE | 2023-11-23 09:13 | XR_ITS ---
FINAL REPORT CLINICAL HISTORY: fall, injury FINDINGS: Left forearm Two views were obtained. There is a fracture of the distal radial metaphysis with mild impaction. No acute soft tissue abnormality is identified. IMPRESSION: Fracture as above. Reviewed, Interpreted and Dictated by Markell Cates III, MD Transcribed by Una Castle Authenticated and [facility]
[2023-11-23 09:30] VITALS: BP 112/63; PULSE 96; O2SAT 98
--- NOTE | 2023-11-23 09:32 | HMH.EDGENADL ---
Discharge Plan Disposition Patient Disposition: Home, Self-Care Prescriptions Prescriptions: New hydrocodone-acetaminophen 5-325 mg tablet 1 tab PO Q6H PRN (Reason: pain) 3 Days Qty: 12 0RF No Action quetiapine 50 mg tablet 50 mg PO HSP PRN (Reason: sleep) Qty: 90 1RF hydroxyzine pamoate 25 mg capsule 25 - 50 mg PO TIDP PRN (Reason: anxiety or sleep) Qty: 60 5RF buspirone 10 mg tablet 10 mg PO BID Qty: 60 5RF albuterol sulfate [ProAir HFA] 90 mcg/actuation HFA aerosol inhaler 2 inh inhalation QIDP PRN (Reason: shortness of breath or wheezing) Qty: 8.5 5RF cyclobenzaprine 10 mg tablet 10 mg PO TID PRN (Reason: muscle spasm) Qty: 30 0RF ipratropium-albuterol 0.5 mg-3 mg(2.5 mg base)/3 mL solution for nebulization 3 ml INHALATION QIDP PRN (Reason: Shortness Of Breath) Patient Comments: INHALE THE CONTENTS OF 1 VIAL VIA NEBULIZER 4 TIMES DAILY NEEDED FOR SHORTNESS OF BREATH. azelastine 137 mcg (0.1 %) aerosol,spray 2 spray INTRANASAL HS Patient Comments: USE 2 SPRAYS IN EACH NOSTRIL NIGHTLY AT BEDTIME. fluticasone propionate 50 mcg/actuation spray,suspension 2 spray INTRANASAL DAILY Patient Comments: USE 2 SPRAYS IN EACH NOSTRIL ONCE DAILY. ondansetron HCl 4 mg tablet 4 mg PO Q8HP PRN (Reason: nausea and vomiting) pantoprazole 40 mg tablet,delayed release (DR/EC) 40 mg PO DAILY pramipexole 0.25 mg tablet 0.25 mg PO HS escitalopram oxalate 5 mg tablet 5 mg PO DAILY prednisone 20 mg Tablet 40 mg PO DAILY 5 Days Qty: 10 0RF levofloxacin 750 mg tablet 750 mg PO DAILY 7 Days Qty: 7 0RF Referrals Follow up/Referrals: Martine Bernal APRN [Primary Care Provider] - See instructions Noel Azar DO [Staff Physician] - See instructions Activity Restrictions/Add. Instructions Additional Instructions/Restrictions: You have a comminuted distal radius fracture and a proximal humeral neck fracture please follow-up with Dr. Azar within 1 to 2 weeks. Clinical Impressions Clinical Impression: Left upper arm injury, Closed fracture of neck of left humerus, Fracture of left wrist Discharge ED Provider: Hetal Baker General Adult HPI General Chief complaint: Fall Stated complaint: AO 2:30 left arm pain Time Seen by Provider: 11/23/23 09:08 Mode of Arrival: Wheelchair Source of Information: Patient and Relative Limitations: No Limitations Description of Symptoms (Recalled from ER Triage Doc. by RN): c/o left arm pain and bruising after falling yesterday. Pt states that someone was pushing her oxygen tank and was going to fast for her and she tripped and fell, denies hitting her head, did hit her pelvic area but denies any pain at this time. Relative concerned for bilateral ankle swelling, pt states that this swelling happens sometimes. History of Present Illness HPI narrative: Patient is a 63-year-old female presented today with left upper extremity injury. She has been admitted multiple times in the hospital recently for COPD exacerbations most recently including pneumonia. She was discharged yesterday. She states that she was on her way home and was walking behind somebody pulling her oxygen tank and she had a mechanical fall falling directly onto her left arm. Someone went and got her an arm sling which she is currently wearing but she has had significant ecchymosis and pain throughout her left upper extremity which prompted her visit today. She denies any head or neck injuries or pain elsewhere. Related Data Home Medications Medication Instructions Recorded Confirmed azelastine 137 mcg (0.1 %) nasal 2 spray intranasal HS 11/21/23 11/21/23 spray aerosol escitalopram oxalate 5 mg tablet 5 mg PO DAILY 11/21/23 11/21/23 fluticasone propionate 50 2 spray intranasal DAILY 11/21/23 11/21/23 mcg/actuation nasal spray,suspension ipratropium 0.5 mg-albuterol 3 mg 3 ml inhalation QIDP PRN Shortness 11/21/23 11/21/23 (2.5 mg base)/3 mL nebulization Of Breath soln ondansetron HCl 4 mg tablet 4 mg PO Q8HP PRN nausea and 11/21/23 11/21/23 vomiting pantoprazole 40 mg tablet,delayed 40 mg PO DAILY 11/21/23 11/21/23 release pramipexole 0.25 mg tablet 0.25 mg PO HS 11/21/23 11/21/23 Previous Rx's Medication Instructions Recorded albuterol sulfate 90 mcg/actuation 2 inh inhalation QIDP PRN 09/18/23 aerosol inhaler (ProAir HFA) shortness of breath or wheezing #8.5 grams buspirone 10 mg tablet 10 mg PO BID #60 tabs 09/18/23 hydroxyzine pamoate 25 mg capsule 25 - 50 mg (1 - 2 x 25 mg) PO TIDP 09/18/23 PRN anxiety or sleep #60 caps quetiapine 50 mg tablet 50 mg PO HSP PRN sleep #90 tabs 09/18/23 cyclobenzaprine 10 mg tablet 10 mg PO TID PRN muscle spasm #30 10/31/23 tabs levofloxacin 750 mg tablet 750 mg PO DAILY 7 days #7 tabs 11/22/23 prednisone 20 mg tablet 40 mg (2 x 20 mg) PO DAILY 5 days 11/22/23 #10 tabs hydrocodone 5 mg-acetaminophen 325 1 tab PO Q6H PRN pain 3 days #12 11/23/23 mg tablet tabs Allergies Allergy/AdvReac Type Severity Reaction Status Date / Time No Known Drug Allergies Allergy Unknown Verified 11/20/23 11:25 [NKDA] [facility] Disclaimer: The information contained in this section may have been updated after the patient was seen, as this information can be updated by other users. Medical History (Updated 11/23/23 @ 11:31 by Hetal Baker MD) Acute on chronic hypoxic respiratory failure Nausea & vomiting Lumbar paraspinal muscle spasm Acute right-sided low back pain with right-sided sciatica Allergic rhinitis Anxiety COPD (chronic obstructive pulmonary disease) Chronic respiratory failure with hypoxia Encounter for screening for malignant neoplasm of lung History of smoking 30 or more pack years Pulmonary emphysema Dyspnea Hypomagnesemia COPD exacerbation Pulmonary nodule Pneumonia Acute exacerbation of chronic obstructive pulmonary disease Acute URI Contact dermatitis Thyroid nodule GERD (gastroesophageal reflux disease) Hyperlipidemia Gastroesophageal reflux disease Dependence on nocturnal oxygen therapy Insomnia Restless legs syndrome (RLS) Anxiety with depression Chronic obstructive pulmonary disease History of peptic ulcer Tobacco use disorder COPD exacerbation Surgical History History of tubal ligation Family History Other Cancer Diabetes Social History (Updated 11/20/23 @ 21:10 by Bri Marques RN) Smoking Status: Former smoker smoking status stop date: 07/13/23 alcohol intake: never substance use type: denies use current occupational status: unemployed, retired and disabled Travel in the last 8 weeks: None housing: house ROS Obtained: Yes All systems reviewed & no additional complaints except as documented Physical Exam General General appearance: alert and in no apparent distress Respiratory Respiratory exam: Present normal lung sounds bilaterally Cardiovascular Cardiovascular exam: Present regular rate Extremities Exam Extremities exam: Present other (Patient has normal range of motion and neurovascular intact but has ecchymosis extending from the medial aspect of her left upper extremity all the way down to the dorsal aspect of the left wrist with tenderness throughout) Neurological Exam Neurological exam: Present alert and oriented X3 Medical Decision Making Jose Alfredo Inquiry Pt receiving controlled substance: No Vital Signs: 11/23/23 09:02 11/23/23 09:30 11/23/23 10:00 Temperature 98.0 F Temperature Source Oral Pulse Rate 96 H 104 H Pulse Rate [Left Radial] 104 H Respiratory Rate 18 Blood Pressure 112/63 103/57 L Blood Pressure [Right Arm] 121/69 Blood Pressure Mean 79 69 Blood Pressure Mean [Right Arm] 86 Blood Pressure Source [Right Arm] Automatic Cuff Blood Pressure Position [Right Arm] Sitting 02 Sat by Pulse Oximetry 95 98 96 Oxygen Delivery Method Room Air 11/23/23 10:30 11/23/23 11:00 Temperature Temperature Source Pulse Rate 98 H 99 H Pulse Rate [Left Radial] Respiratory Rate Blood Pressure 107/55 L 120/55 L Blood Pressure [Right Arm] Blood Pressure Mean 72 Blood Pressure Mean [Right Arm] Blood Pressure Source [Right Arm] Blood Pressure Position [Right Arm] 02 Sat by Pulse Oximetry 99 94 L Oxygen Delivery Method Orders (Tests/Meds): ORDERS Category Date Time Status Forearm XR left 2 views [XR forearm LT 2V] Stat Exams 11/23/23 09:13 Completed Humerus XR left [XR humerus LT] Stat Exams 11/23/23 09:13 Completed Shoulder XR left minimum 2 views [XR shoulder LT min 2V Exams 11/23/23 09:13 Completed ] Stat Wrist XR left minimum 3 views [XR wrist LT min 3V] Stat Exams 11/23/23 09:13 Completed XR elbow LT 2V Stat Exams 06/13/24 09:13 Completed Medical Decision Narrative: Patient with above history and physical who presented with a mechanical fall with left upper extremity injury. She is diffusely tender and has ecchymosis. She is not on anticoagulants she is neurovascularly intact. Differentials include soft tissue injuries sprains fractures and dislocations plain films are pending will reassess. X-rays performed which I first interpreted which shows a comminuted distal radius fracture she was placed in a sugar-tong splint. Also she had a proximal humeral neck fracture she was placed in a Black splint with a sling she will follow-up with Dr. Azar pain medicine prescribed she was discharged in stable condition. Critical Care Critical Care Time Critical Care Time: No
[2023-11-23 10:00] VITALS: BP 103/57; PULSE 104; O2SAT 96
[2023-11-23 10:30] VITALS: BP 107/55; PULSE 98; O2SAT 99
[2023-11-23 11:00] VITALS: BP 120/55; PULSE 99; O2SAT 94
[2023-11-23 11:59] VITALS: BP 120/55; PULSE 99; RESP 16; TEMP 36.7; O2SAT 94
== END 2023-11-23 12:00 | disposition home or self-care (01) ==
PROVIDERS: Emergency Provider Student in an Organized Health Care Education/Training Program; PCP Nurse Practitioner
DX: S42.352A Displaced comminuted fracture of shaft of humerus, left arm, initial encounter for closed fracture (principal); S52.352A Displaced comminuted fracture of shaft of radius, left arm, initial encounter for closed fracture; M79.602 Pain in left arm; W18.30XA Fall on same level, unspecified, initial encounter
CPT/HCPCS: 29125; 73030; 73060; 73070; 73090; 73110; 99284

== ENCOUNTER 2023-12-04 12:22 | Outpatient (CLI) | payer MEDICARE, OTHER, SELFPAY ==
[2023-12-04 18:00] LABS: Basophils # 0.1 K/mm3 (0-0.2); Basophils % 0.7 % (0.1-2.0); Eosinophils # 0.3 K/mm3 (0.0-0.4); Eosinophils % 1.7 % (0.1-12.0); Hemoglobin 9.6 g/dL (12.2-16.2); Lymphocytes # 1.7 K/mm3 (0.7-4.5); Lymphocytes % 11.2 % (10-50); Mean Corpuscular HGB Conc 29.9 g/dL (31.8-35.4); Mean Corpuscular Hemoglobin 27.9 pg (27.0-31.2); Mean Corpuscular Volume 93.2 fl (81-99); Mean Platelet Volume 9.3 fl (7.4-10.4); Monocytes # 0.9 K/mm3 (0.1-1.0); Monocytes % 5.9 % (1.7-9.3); Neutrophils # 12.5 K/mm3 (1.8-7.8); Neutrophils % 80.6 % (37.0-80.0); Platelet Count 547 K/mm3 (142-424); Red Blood Count 3.43 M/mm3 (4.20-5.40); Red Cell Distribution Width 19.1 % (11.5-17.5); White Blood Count 15.5 K/mm3 (4.8-10.8)
[2023-12-04 18:02] LABS: MANUAL DIFFERENTIAL MANUAL DIFFERENTIAL (MANUAL DIFF)
[2023-12-04 19:06] LABS: Eosinophils % 1 % (0-3); Lymphocytes % 13 % (10-50); Monocytes % 4 % (2-9); Neutrophils % 81 % (42-76); Total Cells Counted 100
[2023-12-04 19:07] LABS: Hypochromasia 2+; Platelet Estimate Slight Increase; Target Cells 1+
[2023-12-04 19:28] LABS: Chloride 94 mmol/L (98-107); Potassium 4.8 mmoL/L (3.5-5.1); Sodium 134 mmol/L (136-145)
[2023-12-04 19:31] LABS: Alanine Aminotransferase 9 U/L (12-78); Albumin Level 3.1 g/dl (3.5-5.0); Albumin/Globulin Ratio 1.1 (1.1-1.8); Alkaline Phosphatase 126 U/L (38-126); Anion Gap 6.8 mEq/L (5-15); Aspartate Amino Transferase 31 U/L (14-36); Bilirubin,Total 0.3 mg/dl (0.2-1.3); Blood Urea Nitrogen 8 mg/dl (7-17); Calcium 8.9 mg/dl (8.4-10.2); Carbon Dioxide 38 mmol/L (22.0-30.0); Estimated Glomerular Filt Rate 226 ml/min (>60); GFR (African American) 274 ML/MIN (>60); Globulin 2.7 g/dL (1.3-3.2); Glucose 78 mg/dl (74-100); Total Protein,Serum 5.8 g/dl (6.3-8.2)
== END 2023-12-04 23:59 | disposition home or self-care (01) ==
LOC: LAB.DROPOF 12-05 09:25
PROVIDERS: PCP Nurse Practitioner; Visit Provider Nurse Practitioner
DX: J44.1 Chronic obstructive pulmonary disease with (acute) exacerbation (principal); J18.9 Pneumonia, unspecified organism; A41.9 Sepsis, unspecified organism; Z87.891 Personal history of nicotine dependence
CPT/HCPCS: 80053; 85007; 85025; 85027

== ENCOUNTER 2023-12-11 09:57 | Outpatient (CLI) | payer MEDICARE, OTHER, SELFPAY ==
--- NOTE | 2023-12-11 10:01 | XR_ITS ---
FINAL REPORT CLINICAL HISTORY: Pneumonia..pt has fx lt humerus and unable to hold her arm up COMPARISON: 11/20/2023 FINDINGS: Two views of the chest were obtained. The heart size and pulmonary vascularity are within normal limits. The mediastinum is normal. The lungs are hyperinflated consistent with COPD. There are persistent partially improved left upper lung opacities consistent with partially improved pneumonia. There is scarring in the lung apices. There is no pneumothorax. A nondisplaced fracture of the proximal left humeral metaphysis is noted. IMPRESSION: Partially improved left upper lobe lung opacities, likely improved pneumonia. Recommend additional follow-up radiograph. Proximal humeral fracture. Reviewed, Interpreted and Dictated by Markell Cates III, MD Transcribed by Shanique Jaramillo Authenticated and [facility]
== END 2023-12-11 23:59 | disposition home or self-care (01) ==
LOC: RAD 09:58
PROVIDERS: PCP Nurse Practitioner; Visit Provider Internal Medicine Pulmonary Disease
DX: J18.9 Pneumonia, unspecified organism (principal); Z87.891 Personal history of nicotine dependence
CPT/HCPCS: 71046

== ENCOUNTER 2023-12-19 09:51 | Outpatient (CLI) | payer MEDICARE, OTHER, SELFPAY ==
--- NOTE | 2023-12-19 09:55 | XR_ITS ---
FINAL REPORT CLINICAL HISTORY: LT Wrist Pain COMPARISON: 11/23/2023 FINDINGS: LEFT WRIST Three views were obtained. Again noted is an impacted fracture of the distal radius. There is slightly increased impaction compared to prior study. There is a probable nondisplaced fracture of the distal ulna. Osteopenia is noted. There is mild degenerative change. There is a chronic calcification distal to the ulnar styloid process. Soft tissue swelling is noted. IMPRESSION: Increased impaction of the distal radius fracture. Probable nondisplaced fracture distal ulna. Soft tissue swelling. Reviewed, Interpreted and Dictated by Markell Cates III, MD Transcribed by Shanique Jaramillo Authenticated and [facility]
== END 2023-12-19 23:59 | disposition home or self-care (01) ==
LOC: RAD 09:52
PROVIDERS: PCP Nurse Practitioner; Visit Provider Physician Assistant Surgical
DX: S62.102A Fracture of unspecified carpal bone, left wrist, initial encounter for closed fracture (principal); M25.532 Pain in left wrist
CPT/HCPCS: 73110

== ENCOUNTER 2023-12-25 10:29 | Outpatient (CLI) | payer MEDICARE, OTHER, SELFPAY ==
[2023-12-25 18:26] LABS: Adenovirus,PCR Not Detected (NotDetected); Bordetella Pertussis Not Detected (NotDetected); Chlamydophila Pneumoniae, PCR Not Detected (NotDetected); Coronavirus 19, PCR Not Detected (NotDetected); Coronavirus 229E Not Detected (NotDetected); Coronavirus NL63 Not Detected (NotDetected); Coronavirus OC43 Not Detected (NotDetected); Coronovirus HKU1,PCR Not Detected (NotDetected); Human Metapneumovirus Not Detected (NotDetected); Influenza A, PCR Not Detected (NotDetected); Influenza AH1, 2009 Not Detected (NotDetected); Influenza AH1, PCR Not Detected (NotDetected); Influenza AH3,PCR Not Detected (NotDetected); Influenza B, PCR Not Detected (NotDetected); Mycoplasma Pneumoniae, PCR Not Detected (NotDetected); Parainfluenza 1, PCR Not Detected (NotDetected); Parainfluenza 2, PCR Not Detected (NotDetected); Parainfluenza 3, PCR Not Detected (NotDetected); Parainfluenza 4, PCR Not Detected (NotDetected); Respiratory Syncytial Virus Not Detected (NotDetected); Rhinovirus/Enterovirus Not Detected (NotDetected)
[2023-12-25 18:46] LABS: Basophils # 0.1 K/mm3 (0-0.2); Basophils % 0.4 % (0.1-2.0); Eosinophils # 0.2 K/mm3 (0.0-0.4); Eosinophils % 1.2 % (0.1-12.0); Hematocrit 36.7 % (37.0-47.0); Lymphocytes # 3.1 K/mm3 (0.7-4.5); Lymphocytes % 22.3 % (10-50); Mean Corpuscular HGB Conc 29.9 g/dL (31.8-35.4); Mean Corpuscular Hemoglobin 28.3 pg (27.0-31.2); Mean Corpuscular Volume 94.7 fl (81-99); Mean Platelet Volume 9.2 fl (7.4-10.4); Monocytes # 1.1 K/mm3 (0.1-1.0); Monocytes % 7.9 % (1.7-9.3); Neutrophils # 9.4 K/mm3 (1.8-7.8); Neutrophils % 68.2 % (37.0-80.0); Platelet Count 394 K/mm3 (142-424); Red Blood Count 3.87 M/mm3 (4.20-5.40); White Blood Count 13.8 K/mm3 (4.8-10.8)
== END 2023-12-25 23:59 | disposition home or self-care (01) ==
LOC: LAB.DROPOF 12-26 10:30
PROVIDERS: PCP Nurse Practitioner; Visit Provider Nurse Practitioner
DX: J06.9 Acute upper respiratory infection, unspecified (principal)
CPT/HCPCS: 85025; 87581; 87632; 87635; 87798

== ENCOUNTER 2024-01-09 10:16 | Outpatient (CLI) | payer MEDICARE, OTHER, SELFPAY ==
--- NOTE | 2024-01-09 10:20 | XR_ITS ---
FINAL REPORT CLINICAL HISTORY: Left shoulder pain, fall COMPARISON: 11/23/2023 FINDINGS: LEFT SHOULDER 3 views of the left shoulder were obtained. There is a fracture of the surgical neck of the left proximal humerus with increased displacement and increased varus angularity, with displacement of the distal fragment one bone shaft. The humeral head is rotated. Soft tissues are unremarkable. IMPRESSION: Fracture of the surgical neck of the left proximal humerus, with increased displacement and angularity as described. This has significantly worsened since the prior film of November 22. Reviewed, Interpreted and Dictated by Art Scott MD Transcribed by Alyssa Lechuga Authenticated and [facility]
--- NOTE | 2024-01-09 10:20 | XR_ITS ---
FINAL REPORT CLINICAL HISTORY: Left wrist pain from fall COMPARISON: 12/19/2023 FINDINGS: LEFT WRIST Three views demonstrate a comminuted fracture of the distal radius, with continued healing of the fracture line since the prior exam of December 18. Fracture line does however remain visible. The visualized joint spaces are normally aligned. The soft tissues are unremarkable. IMPRESSION: Comminuted fracture of the distal radius, with increased healing of the fracture line since the prior exam. Reviewed, Interpreted and Dictated by Art Scott MD Transcribed by Alyssa Lechuga Authenticated and [facility]
== END 2024-01-09 23:59 | disposition home or self-care (01) ==
LOC: RAD 10:17
PROVIDERS: PCP Nurse Practitioner; Visit Provider Physician Assistant Surgical
DX: M25.532 Pain in left wrist (principal); M25.512 Pain in left shoulder
CPT/HCPCS: 73030; 73110

== ENCOUNTER 2024-01-23 08:43 | Outpatient (CLI) | payer MEDICARE, OTHER, SELFPAY ==
--- NOTE | 2024-01-23 08:50 | XR_ITS ---
FINAL REPORT CLINICAL HISTORY: lt shoulder pain COMPARISON: 01/09/2024 FINDINGS: LEFT SHOULDER Three views demonstrate different orientation of the shoulder compared to the prior study. There is a persistent subacute fracture of the surgical neck of the humerus with medial rotation of the humeral head fracture fragment. Increased callus formation is noted at the fracture site. There is mild degenerative change. No soft tissue abnormality is seen. IMPRESSION: Humerus fracture as above. Reviewed, Interpreted and Dictated by Markell Cates III, MD Transcribed by Shanique Jaramillo Authenticated and [facility]
--- NOTE | 2024-01-23 08:50 | XR_ITS ---
FINAL REPORT CLINICAL HISTORY: lt wrist pain COMPARISON: 01/09/2024 FINDINGS: LEFT WRIST Three views were obtained. Again noted is a comminuted fracture of the distal radius with some impaction. There has been interval healing of the fracture with increased sclerosis. Calcification adjacent to the ulnar styloid process is likely chronic fracture. There is mild degenerative change. The soft tissues are unremarkable. IMPRESSION: Distal radius fracture with interval healing. Reviewed, Interpreted and Dictated by Markell Cates III, MD Transcribed by Shanique Jaramillo Authenticated and [facility]
== END 2024-01-23 23:59 | disposition home or self-care (01) ==
PROVIDERS: PCP Nurse Practitioner; Visit Provider Physician Assistant Surgical
DX: M25.512 Pain in left shoulder (principal); M25.532 Pain in left wrist; S62.102A Fracture of unspecified carpal bone, left wrist, initial encounter for closed fracture; S42.212A Unspecified displaced fracture of surgical neck of left humerus, initial encounter for closed fracture
CPT/HCPCS: 73030; 73110

== ENCOUNTER 2024-02-15 09:45 | Outpatient (CLI) | payer MEDICARE, OTHER, SELFPAY | END 2024-02-15 23:59 | disposition home or self-care (01) | LOC: LAB.DROPOF 02-19 09:46 | PROVIDERS: PCP Internal Medicine Pulmonary Disease; Visit Provider Internal Medicine Pulmonary Disease | DX: J44.9 Chronic obstructive pulmonary disease, unspecified (principal); Z99.81 Dependence on supplemental oxygen; R06.02 Shortness of breath; Z12.2 Encounter for screening for malignant neoplasm of respiratory organs | CPT/HCPCS: 87070; 87077; 87186; 87205 ==

== ENCOUNTER 2024-02-15 14:36 | Outpatient (CLI) | payer MEDICARE, OTHER, SELFPAY ==
--- NOTE | 2024-02-15 14:41 | CT_ITS ---
FINAL REPORT TECHNIQUE: Axial CT images were performed from the lung apices through the upper abdomen. Coronal and sagittal reformats were submitted. This study was performed with techniques to keep radiation doses as low as reasonably achievable (ALARA). Individualized dose reduction techniques using automated exposure control or adjustment of mA and/or kV according to the patient's size were employed. CLINICAL HISTORY: 3-month follow-up COMPARISON: 11/20/2023 FINDINGS: There is no axillary adenopathy. There is no hilar or mediastinal mass or adenopathy. Heart size is normal. There is no pericardial or pleural effusion. Severe changes of emphysema are once again noted, as well as bilateral scarring. There is persistent but significantly improved consolidation in the superior segment of the left lower lobe, that may represent an organizing pneumonia or scar. Diffuse bronchial wall thickening is identified. There is improved mucous plugging in the right lower lobe when compared to the prior CT. A calcified granuloma is present in the right upper lobe. No evidence of a pneumothorax is seen. IMPRESSION: Severe changes of emphysema and bilateral scarring remain present. Persistent but significantly improved consolidation in the superior segment of the left lower lobe, possibly an organizing pneumonia or scar. Improved mucous plugging in the right lower lobe when compared to the prior CT. Reviewed, Interpreted and Dictated by Markell Cates III, MD Transcribed by Alyssa Lechuga Authenticated and [facility]
== END 2024-02-15 23:59 | disposition home or self-care (01) ==
PROVIDERS: PCP Nurse Practitioner; Visit Provider Internal Medicine Pulmonary Disease
DX: R91.8 Other nonspecific abnormal finding of lung field (principal); J44.9 Chronic obstructive pulmonary disease, unspecified; Z99.81 Dependence on supplemental oxygen; R06.02 Shortness of breath; Z12.2 Encounter for screening for malignant neoplasm of respiratory organs; Z87.891 Personal history of nicotine dependence
CPT/HCPCS: 71250; 87070; 87077; 87186; 87205

== ENCOUNTER 2024-03-04 09:58 | Outpatient (CLI) | payer MEDICARE, OTHER, SELFPAY ==
--- NOTE | 2024-03-04 10:05 | XR_ITS ---
FINAL REPORT CLINICAL HISTORY: PNM COMPARISON: 12/11/2023 FINDINGS: There are increased markings in the bilateral upper lobes compatible with scarring. Severe emphysema is identified. There is no definite pneumonia. There is no evidence of effusion or other pleural disease. The mediastinum has a normal appearance. The cardiac silhouette is unremarkable. IMPRESSION: Chronic changes without active pneumonia. Reviewed, Interpreted and Dictated by Opal Sanchez MD Transcribed by Shwetha Dawn Authenticated and [facility]
== END 2024-03-04 23:59 | disposition home or self-care (01) ==
LOC: RAD 10:00
PROVIDERS: PCP Nurse Practitioner; Visit Provider Internal Medicine Pulmonary Disease
DX: R06.02 Shortness of breath (principal); J44.9 Chronic obstructive pulmonary disease, unspecified; J43.9 Emphysema, unspecified; R06.09 Other forms of dyspnea; Z87.891 Personal history of nicotine dependence; Z12.2 Encounter for screening for malignant neoplasm of respiratory organs; R91.8 Other nonspecific abnormal finding of lung field
CPT/HCPCS: 71046

== ENCOUNTER 2024-03-13 11:07 | Outpatient (CLI) | payer MEDICARE, OTHER, SELFPAY ==
--- NOTE | 2024-03-13 11:13 | XR_ITS ---
FINAL REPORT TECHNIQUE: Chest PA & Lateral CLINICAL HISTORY: nausea, significant weight loss, cachexia pneumonia COMPARISON: 03/04/2024 FINDINGS: 2 views of the chest were performed. The heart size is normal. The mediastinum is within normal limits. The lungs are markedly hyperinflated. There is linear opacity in both upper lobes consistent with scarring. There is a density in the posterior medial left upper lobe which may represent an underlying mass. There are no pleural effusions. There is no pneumothorax. The bony thorax appears intact. IMPRESSION: Left upper lobe density, may represent an underlying mass. Recommend infused chest CT to better evaluate. Reviewed, Interpreted and Dictated by Art Scott MD Transcribed by Shwetha Dawn Authenticated and [facility]
[2024-03-13 12:34] LABS: Basophils # 0.1 K/mm3 (0-0.2); Basophils % 0.5 % (0.1-2.0); Eosinophils # 0.1 K/mm3 (0.0-0.4); Eosinophils % 0.8 % (0.1-12.0); Hematocrit 44.6 % (37.0-47.0); Hemoglobin 13.3 g/dL (12.2-16.2); Lymphocytes # 2.1 K/mm3 (0.7-4.5); Lymphocytes % 16.4 % (10-50); Mean Corpuscular HGB Conc 29.8 g/dL (31.8-35.4); Mean Corpuscular Hemoglobin 27.8 pg (27.0-31.2); Mean Corpuscular Volume 93.5 fl (81-99); Monocytes # 0.7 K/mm3 (0.1-1.0); Monocytes % 5.8 % (1.7-9.3); Neutrophils # 9.8 K/mm3 (1.8-7.8); Neutrophils % 76.5 % (37.0-80.0); Platelet Count 296 K/mm3 (142-424); Red Blood Count 4.77 M/mm3 (4.20-5.40); Red Cell Distribution Width 16.8 % (11.5-17.5); White Blood Count 12.8 K/mm3 (4.8-10.8)
[2024-03-13 13:11] LABS: Chloride 80 mmol/L (98-107); Potassium 4.3 mmoL/L (3.5-5.1); Sodium 129 mmol/L (136-145)
[2024-03-13 13:14] LABS: Alanine Aminotransferase 15 U/L (12-78); Alkaline Phosphatase 138 U/L (38-126); Aspartate Amino Transferase 31 U/L (14-36); Bilirubin,Total 0.6 mg/dl (0.2-1.3); Blood Urea Nitrogen 18 mg/dl (7-17); Calcium 8.5 mg/dl (8.4-10.2); Estimated Glomerular Filt Rate 162 ml/min (>60); GFR (African American) 196 ML/MIN (>60); Globulin 2.9 g/dL (1.3-3.2); Glucose 92 mg/dl (74-100); Total Protein,Serum 5.9 g/dl (6.3-8.2)
[2024-03-13 13:24] LABS: Anion Gap 7.3 mEq/L (5-15); Carbon Dioxide 46 mmol/L (22.0-30.0)
== END 2024-03-13 23:59 | disposition home or self-care (01) ==
LOC: LAB 11:09
PROVIDERS: PCP Nurse Practitioner; Visit Provider Nurse Practitioner
DX: R11.0 Nausea (principal); R64 Cachexia; R93.89 Abnormal findings on diagnostic imaging of other specified body structures; R06.89 Other abnormalities of breathing
CPT/HCPCS: 36415; 71046; 80053; 85025

== ENCOUNTER 2024-03-30 09:22 | Observation (INO) | payer MEDICARE, OTHER, SELFPAY ==
[2024-03-30] VITALS (14 sets, daily range): BP systolic 97–123; BP diastolic 53–67; PULSE 84–98; RESP 16–26; TEMP 36.6–36.9; O2SAT 90–97; BMI 15.6; BMI 13.7
--- NOTE | 2024-03-30 09:31 | XR_ITS ---
PROCEDURE INFORMATION: Exam: XR Chest Exam date and time: 03/30/2024 about ways tonight:43 AM Age: 63 years old Clinical indication: Dyspnea TECHNIQUE: Imaging protocol: Radiologic exam of the chest. Views: 1 view. COMPARISON: CR XR CHEST 2V 03/13/2024 11:25 AM FINDINGS: Lungs: Opacity superimposed over scar in the left upper lobe may represent pneumonia.. Pleural spaces: Small left pleural effusion. Heart/Mediastinum: Unremarkable. No cardiomegaly. Bones/joints: Stable appearance of a healing left humeral head and neck fracture IMPRESSION: 1. Small left pleural effusion. 2. Opacity superimposed over scar in the left upper lobe may represent pneumonia..
--- NOTE | 2024-03-30 09:37 | ECG_ITS ---
APPROVED REPORT Exam: Resting ECG HR:91 bpm ECG Measurements Heart Rate 91 AXES AZ 123 P 82 QRSd 77 QRS 86 QT 323 T 27 QTc 372 Conclusion SINUS RHYTHM SEPTAL MYOCARDIAL INFARCTION , PROBABLY OLD [40+ ms Q WAVE IN V1/V2] MODERATE T-WAVE ABNORMALITY, CONSIDER INFERIOR ISCHEMIA [-0.1+ mV T-WAVE IN II/aVF] ABNORMAL ECG UNCONFIRMED REPORT Electronically signed by : Ion Baker, 03/30/2024 15:04:32
--- NOTE | 2024-03-30 09:44 | PC.NURSE ---
XR at bedside at this time
[2024-03-30 09:47] LABS: Coronavirus 19, PCR Not Detected (NotDetected); Influenza A, PCR Not Detected (NotDetected); Influenza B, PCR Not Detected (NotDetected)
--- NOTE | 2024-03-30 09:49 | ED_ITS ---
Discharge Plan Disposition Patient Disposition: Admitted Chief Complaint: Shortness of Breath/Dyspnea Prescriptions Prescriptions: No Action hydroxyzine pamoate 25 mg capsule 25 - 50 mg PO TIDP PRN (Reason: anxiety or sleep) Qty: 60 5RF albuterol sulfate [ProAir HFA] 90 mcg/actuation HFA aerosol inhaler 2 inh inhalation QIDP PRN (Reason: shortness of breath or wheezing) Qty: 8.5 5RF ipratropium-albuterol 0.5 mg-3 mg(2.5 mg base)/3 mL solution for nebulization 3 ml INHALATION QIDP PRN (Reason: Shortness Of Breath) Qty: 360 11RF buspirone 10 mg tablet 15 mg PO BID Qty: 90 5RF Trelegy Ellipta 100-62.5-25 mcg blister with device 1 inh inhalation Patient Comments: INHALE 1 PUFF INTO THE LUNGS ONCE DAILY FOR BREATHING PROBLEMS. cyclobenzaprine 10 mg tablet 10 mg PO TID PRN (Reason: muscle spasm) Qty: 30 1RF quetiapine 50 mg tablet 50 mg PO HSP PRN (Reason: sleep) Qty: 90 1RF escitalopram oxalate 10 mg tablet See Rx Instructions .ROUTE .COMPLEX Qty: 30 2RF Dose Instruction: TAKE 1 TABLET BY MOUTH ONCE DAILY Rx Instructions: TAKE 1 TABLET BY MOUTH ONCE DAILY azithromycin 250 mg tablet See Rx Instructions PO .COMPLEX Qty: 6 0RF Rx Instructions: For 250 mg dose pack: take 500 mg today (day 1), then 250 mg for 4 days (days 2-5) PO cefdinir 300 mg capsule 300 mg PO BID Qty: 20 0RF ondansetron HCl 4 mg tablet 4 mg PO Q8HP PRN (Reason: nausea and vomiting) Qty: 30 0RF azelastine 137 mcg (0.1 %) aerosol,spray 2 spray INTRANASAL HS Patient Comments: USE 2 SPRAYS IN EACH NOSTRIL NIGHTLY AT BEDTIME. fluticasone propionate 50 mcg/actuation spray,suspension 2 spray INTRANASAL DAILY Patient Comments: USE 2 SPRAYS IN EACH NOSTRIL ONCE DAILY. pantoprazole 40 mg tablet,delayed release (DR/EC) 40 mg PO DAILY pramipexole 0.25 mg tablet 0.25 mg PO HS Referrals Follow up/Referrals: Provider,Referral, MD [Referring] - See instructions Clinical Impressions Clinical Impression: End stage COPD, Acute exacerbation of chronic obstructive pulmonary disease, Encephalopathy acute, Need for comfort care Print Language Print Language: Egyptian Discharge ED Provider: Hetal Baker General Adult HPI General Chief complaint: Shortness of Breath/Dyspnea Stated complaint: SOA Time Seen by Provider: 03/30/24 09:23 Mode of Arrival: EMS Source of Information: Patient, Relative and EMS Limitations: No Limitations Description of Symptoms (Recalled from ER Triage Doc. by RN): per ems they were called for low 02 reading by patient sister, upon their arrival patient was 50% and cannula was around patient neck. pt has copd and is very cachexic looking upon triage History of Present Illness HPI narrative: Patient is a 63-year-old brought in by EMS for hypoxic respiratory failure and shortness of breath. Patient states that her caregiver is her sister who is not yet here. Patient is in respiratory distress and history is limited from her she speaks in single word sentences. According to EMS patient was short of breath and her sister found her pulse ox was in the 50s and called EMS. When EMS got to her her nasal cannula was off and once they put her back on the patient had significant improvement in her symptoms. The patient does state that she has been short of breath and has had increasing wheezing over the last several days. From historical standpoint she has a history of pseudomonal pneumonia. No other significant past medical history from history or chart review standpoint. Related Data Home Medications ?Medication ?Instructions ?Recorded ?Confirmed azelastine 137 mcg (0.1 %) nasal 2 spray intranasal HS 11/21/23 03/13/24 spray fluticasone propionate 50 2 spray intranasal DAILY 11/21/23 03/13/24 mcg/actuation nasal spray,suspension pantoprazole 40 mg tablet,delayed 40 mg PO DAILY 11/21/23 03/13/24 release pramipexole 0.25 mg tablet 0.25 mg PO HS 11/21/23 03/13/24 fluticasone fur. 100 mcg-umeclid 1 inh inhalation 12/13/23 03/13/24 62.5 mcg-vilant 25 mcg inhalat.powder (Trelegy Ellipta) Previous Rx's ?Medication ?Instructions ?Recorded albuterol sulfate 90 mcg/actuation 2 inh inhalation QIDP PRN 09/18/23 aerosol inhaler (ProAir HFA) shortness of breath or wheezing #8.5 grams hydroxyzine pamoate 25 mg capsule 25 - 50 mg (1 - 2 x 25 mg) PO TIDP 09/18/23 PRN anxiety or sleep #60 caps buspirone 10 mg tablet 15 mg (1.5 x 10 mg) PO BID #90 tabs 11/29/23 ipratropium 0.5 mg-albuterol 3 mg 3 ml inhalation QIDP PRN Shortness 11/29/23 (2.5 mg base)/3 mL nebulization Of Breath #360 mL soln cyclobenzaprine 10 mg tablet 10 mg PO TID PRN muscle spasm #30 12/25/23 tabs quetiapine 50 mg tablet 50 mg PO HSP PRN sleep #90 tabs 02/05/24 escitalopram oxalate 10 mg tablet See Rx Instructions .Route 03/05/24 .COMPLEX #30 tabs azithromycin 250 mg tablet See Rx Instructions PO .COMPLEX #6 03/13/24 tabs cefdinir 300 mg capsule 300 mg PO BID #20 caps 03/13/24 ondansetron HCl 4 mg tablet 4 mg PO Q8HP PRN nausea and 03/14/24 vomiting #30 tabs Allergies Allergy/AdvReac Type Severity Reaction Status Date / Time No Known Drug Allergies Allergy Unknown Verified 03/13/24 09:25 [NKDA] [facility] Disclaimer: The information contained in this section may have been updated after the patient was seen, as this information can be updated by other users. Medical History (Updated 03/30/24 @ 12:19 by Hetal Baker MD) Hypercapnia Abnormal CXR Weight loss of more than 10% body weight Pneumonia due to Pseudomonas Oxygen dependent Acute on chronic hypoxic respiratory failure Nausea & vomiting Lumbar paraspinal muscle spasm Acute right-sided low back pain with right-sided sciatica Allergic rhinitis Anxiety COPD (chronic obstructive pulmonary disease) Chronic respiratory failure with hypoxia Encounter for screening for malignant neoplasm of lung History of smoking 30 or more pack years Pulmonary emphysema Dyspnea Hypomagnesemia COPD exacerbation Pulmonary nodule Pneumonia Acute exacerbation of chronic obstructive pulmonary disease Acute URI Contact dermatitis Thyroid nodule GERD (gastroesophageal reflux disease) Hyperlipidemia Gastroesophageal reflux disease Dependence on nocturnal oxygen therapy Insomnia Restless legs syndrome (RLS) Anxiety with depression Chronic obstructive pulmonary disease History of peptic ulcer Tobacco use disorder COPD exacerbation Surgical History History of tubal ligation Family History Other Cancer Diabetes Social History Smoking Status: Former smoker tobacco type: cigarettes packs per day: 1 smoking status stop date: 07/13/23 alcohol intake: never substance use type: denies use current occupational status: unemployed, retired and disabled Travel in the last 8 weeks: None housing: house Other Medical History Have you received the Flu Vaccine for this season: No Have you received the Pneumonia Vaccine: No ROS Obtained: Yes All systems reviewed & no additional complaints except as documented Physical Exam General General appearance: cachectic (Severely malnourished and cachectic) Respiratory Respiratory exam: Present other (Hyperexpanded chest wall prolonged expiratory phase diffuse expiratory wheezing oxygen saturations around 90 on nasal cannula) Cardiovascular Cardiovascular exam: Present regular rate and normal rhythm Neurological Exam Neurological exam: Present alert and oriented X3 Medical Decision Making Medical Records Screening: Per USPSTF and CDC recommendations, given the prevalence of disease in our region, it is our hospital?s policy to screen for HIV and viral Hepatitis for all patients aged 18 and over and those with ongoing risk factors. Jose Alfredo Inquiry Pt receiving controlled substance: No Vital Signs: 03/30/24 09:22 03/30/24 10:00 03/30/24 10:30 Temperature 97.8 F Temperature Source Oral Pulse Rate 92 H 87 Pulse Rate [Right Radial] 93 H Respiratory Rate 20 26 H Blood Pressure 123/67 107/61 L Blood Pressure [Right Arm] 97/53 L Blood Pressure Mean 85 84 Blood Pressure Mean [Right Arm] 67 02 Sat by Pulse Oximetry 96 93 L 93 L Oxygen Delivery Method Nasal Cannula Nasal Cannula Nasal Cannula Oxygen Flow Rate (LPM) 4 4 4 03/30/24 11:00 03/30/24 11:30 03/30/24 12:00 Temperature Temperature Source Pulse Rate 88 90 90 Pulse Rate [Right Radial] Respiratory Rate 24 24 26 H Blood Pressure 120/61 113/60 110/60 Blood Pressure [Right Arm] Blood Pressure Mean 89 82 Blood Pressure Mean [Right Arm] 02 Sat by Pulse Oximetry 97 97 90 L Oxygen Delivery Method Nasal Cannula Nasal Cannula Nasal Cannula Oxygen Flow Rate (LPM) 4 4 4 Lab Data Lab results reviewed: Yes I reviewed the patient's lab results. Lab Results 03/30/24 09:32: VBG pH 7.33, VBG pCO2 97.9 H, VBG pO2 53.7 H, VBG HCO3 50.2 H, V BG Total CO2 53.2 H, VBG O2 Saturation 88.5 H, VBG Base Excess 24.3 H, VBG Lactic Acid 2.7 H 03/30/24 09:40: SARS-CoV-2 (PCR) Not detected, Influenza A Untype (PCR) Not detected, Influenza Type B (PCR) Not detected 03/30/24 09:43: WBC 18.4 H, RBC 4.01 L, Hgb 11.2 L, Hct 36.6 L, MCV 91.3, MCH 28.0, MCHC 30.7 L, RDW 16.3, Plt Count 243, MPV 8.0, Neut % (Auto) 89.9 H, Lymph % (Auto) 4.0 L, [place] % (Auto) 4.9, Eos % (Auto) 0.1, Baso % (Auto) 1.2, Neut # (Auto) 16.6 H, Lymph # (Auto) 0.7, [place] # (Auto) 0.9, Eos # (Auto) 0.0, Baso # (Auto) 0.2, Total Counted 100, Neutrophils % (Manual) 96 H, Lymphocytes % (Manual) 4 L, Platelet Estimate Normal, Hypochromasia 2+, Target Cells 1+, Stomatocytes 1+, Sodium 132 L, Potassium 4.0, Chloride 82 L, Carbon Dioxide 50 H*, Anion Gap 4.0 L, BUN 10, Creatinine 0.20 L, Estimated Creat Clear 34, Estimated GFR 361, Est GFR ( Amer) 437, Glucose 114 H, Calcium 8.6, Total Bilirubin 0.6, AST 32, ALT 23, Alkaline Phosphatase 115, Troponin I < 0.01, N T-Pro-B Natriuret Pep 1050 H, Total Protein 5.8 L, Albumin 2.8 L, Globulin 3.0, Albumin/Globulin Ratio 0.9 L 03/30/24 09:43 03/30/24 09:43 Orders (Tests/Meds): ED MEDICATIONS Generic Name Dose Route Start Last Admin Trade Name Freq PRN Reason Stop Dose Admin Ceftriaxone Sodium 1 gm/ 50 mls @ 100 mls/hr 03/30/24 12:45 03/30/24 12:48 Sodium Chloride IV 03/30/24 13:14 100 mls/hr ONCE ONE Administration Discontinued Medications Generic Name Dose Route Start Last Admin Trade Name Meaghan PRN Reason Stop Dose Admin Albuterol/Ipratropium 3 ml 03/30/24 09:31 03/30/24 09:54 Ipratropium/Albuterol 3 Ml Neb IH 03/30/24 09:32 3 ml ONCE ONE Administration Lactated Ringer's 500 mls @ 999 mls/hr 03/30/24 09:45 03/30/24 10:06 Lactated Ringer's 1000 Ml Bag IV 03/30/24 10:15 Not Given .Q31M ZAINA Magnesium Sulfate 2 gm in 50 mls @ 50 mls/hr 03/30/24 09:31 03/30/24 09:54 Magnesium Sulfate 2gm/50ml Premix IV 03/30/24 10:30 50 mls/hr ONCE ONE Administration Lactated Ringer's 500 mls @ 999 mls/hr 03/30/24 09:55 03/30/24 10:07 Lactated Ringer's 500ml IV 03/30/24 10:25 999 mls/hr .Q31M ONE Administration Ceftriaxone Sodium 1 gm/ 50 mls @ 100 mls/hr 03/30/24 12:18 03/30/24 12:47 Sodium Chloride IV 03/30/24 12:47 Not Given ONCE ONE Azithromycin 500 mg/ Sodium 250 mls @ 250 mls/hr 03/30/24 12:18 Chloride IV 03/30/24 12:19 ONCE ONE Methylprednisolone Sodium Succinate 125 mg 03/30/24 09:31 03/30/24 09:53 Methylprednisolone Sod Succ 125mg Vial IV 03/30/24 09:32 125 mg ONCE ONE Administration ORDERS Category Date Time Status CXR --portable [XR chest portable] Stat Exams 03/30/24 09:31 Completed BNP [NT Pro Brain Natriuretic Pep.] Stat Lab 03/30/24 09:43 Completed CBC w/Auto Diff [Complete Blood Count Auto Diff] Stat Lab 03/30/24 09:43 Completed CMP [Comprehensive Metabolic Panel] Stat Lab 03/30/24 09:43 Completed Lactate Venous Stat Lab 03/30/24 09:31 Received Rapid PCR Covid and Flu A/B Stat Lab 03/30/24 09:40 Completed Trop I [Troponin I] Stat Lab 03/30/24 09:43 Completed Troponin I Q3H Lab 03/30/24 12:45 Ordered Troponin I Q3H Lab 03/30/24 15:45 Ordered Blood Culture Stat Micro 03/30/24 11:05 Received Venous Blood Gas Stat RT 03/30/24 09:32 Completed Medical Decision Narrative: 63-year-old severely malnourished chronically cachectic who presents today with what appears to be end-stage COPD. She only weighs 36 kg has almost no muscle mass particular her pelvis and lower extremity region she has not been able to walk for over a month. States that her sister cares for her at home. Her primary reason for coming in today with shortness of breath secondary to her nasal cannula being off however she does appear to have symptoms of light several days of a COPD exacerbation. Will work her up from that standpoint administered nebs steroids magnesium and reassess shortly. Family's not here yet but will have a goals of care discussion with them once they show up. X-ray performed which I personally interpreted which shows no definitive dense consolidation however there is an area overlying one of the chronic scars which may be a superimposed pneumonia but there is nonspecific. Will have a low threshold for antibiotic administration. I had an extensive discussion with the patient's children at the bedside as well as [id number] about goals of care and ultimately we decided that this patient should be on comfort care/hospice. They would like to go home and would not like to have inpatient hospice. Patient is actually feeling much better and appears to be at her baseline. We have called hospice to discuss the case with him and will reassess. Reassessment 1256 patient is still somewhat encephalopathic and tachypneic and continues to be symptomatic. We did discuss with hospice and they are unable to come see her today and because of this I do not want to send the patient home without resources with end-of-life care as she is still acutely ill. Therefore we all agreed to admit her but that she would be comfort care and that hospice will see her tomorrow that represents [facility] around noon. The entire family and hospital medicine all are in agreement with this plan. Patient was admitted for further evaluation of her acute on chronic COPD and end-of-life care Critical Care Critical Care Time Critical Care Time: Yes Attestation: On 03/30/24, the high probability of a clinically significant, sudden or life threatening deterioration of the following system(s) required my full and direct attention, intervention and personal management. The time I documented below is in addition to time spent performing reported procedures but includes the following listed in this critical care notation. Total Time Total Critical Care Time: 35
[2024-03-30] MEDS: METHYLPREDNISOLONE SOD SUCC 125MG VIAL 125 MG IV (09:53)
[2024-03-30] MEDS: IPRATROPIUM/ALBUTEROL 3 ML NEB IH ×3 (09:54→23:17)
[2024-03-30] MEDS: MAGNESIUM SULFATE IN WATER 2 GM/50 ML PIGGYBACK IV (09:54)
[2024-03-30 09:56] LABS: VBG Base Excess 24.3 mmol/L (-2.4-2.3); VBG HCO3 50.2 mmol/L (23-30); VBG Oxygen Saturation 88.5 % (50-70); VBG PH 7.33 mmol/L (7.31-7.41); VBG PO2 53.7 mmol/L (28-40); VBG Total CO2 53.2 mmol/L (23-27)
[2024-03-30 09:59] LABS: Lactate Venous 2.7 mmol/L (0.4-2.0); VBG PCO2 97.9 mmol/L (35-51)
[2024-03-30 10:01] LABS: Basophils # 0.2 K/mm3 (0-0.2); Basophils % 1.2 % (0.1-2.0); Eosinophils % 0.1 % (0.1-12.0); Hematocrit 36.6 % (37.0-47.0); Hemoglobin 11.2 g/dL (12.2-16.2); Lymphocytes # 0.7 K/mm3 (0.7-4.5); Mean Corpuscular HGB Conc 30.7 g/dL (31.8-35.4); Mean Corpuscular Volume 91.3 fl (81-99); Monocytes # 0.9 K/mm3 (0.1-1.0); Monocytes % 4.9 % (1.7-9.3); Neutrophils # 16.6 K/mm3 (1.8-7.8); Neutrophils % 89.9 % (37.0-80.0); Platelet Count 243 K/mm3 (142-424); Red Blood Count 4.01 M/mm3 (4.20-5.40); Red Cell Distribution Width 16.3 % (11.5-17.5); White Blood Count 18.4 K/mm3 (4.8-10.8)
[2024-03-30] MEDS: RINGERS SOLUTION,LACTATED 500 ML 999 ML IV (10:07)
[2024-03-30 10:09] LABS: MANUAL DIFFERENTIAL MANUAL DIFFERENTIAL (MANUAL DIFF)
[2024-03-30 10:10] LABS: Albumin Level 2.8 g/dl (3.5-5.0); Chloride 82 mmol/L (98-107); Sodium 132 mmol/L (136-145)
[2024-03-30 10:12] LABS: Blood Urea Nitrogen 10 mg/dl (7-17); Creatinine Clearance Estimated 34 mL/min (50-200); Estimated Glomerular Filt Rate 361 ml/min (>60); GFR (African American) 437 ML/MIN (>60)
[2024-03-30 10:13] LABS: Alanine Aminotransferase 23 U/L (12-78); Albumin/Globulin Ratio 0.9 (1.1-1.8); Alkaline Phosphatase 115 U/L (38-126); Aspartate Amino Transferase 32 U/L (14-36); Bilirubin,Total 0.6 mg/dl (0.2-1.3); Calcium 8.6 mg/dl (8.4-10.2); Glucose 114 mg/dl (74-100); Total Protein,Serum 5.8 g/dl (6.3-8.2)
--- NOTE | 2024-03-30 10:16 | PC.NURSE ---
dr ambrosio at bedside speaking with pt and family
[2024-03-30 10:17] LABS: Lymphocytes % 4 % (10-50); Neutrophils % 96 % (42-76); Total Cells Counted 100
[2024-03-30 10:18] LABS: Hypochromasia 2+; Platelet Estimate Normal
[2024-03-30 10:19] LABS: Stomatocytes 1+; Target Cells 1+
[2024-03-30 10:23] LABS: NT Pro Brain Natriuretic Pep. 1050 pg/mL (0-125)
[2024-03-30 10:27] LABS: Troponin I < 0.01 ng/ml (0.00-0.034)
[2024-03-30 10:38] LABS: Carbon Dioxide 50 mmol/L (22.0-30.0)
--- NOTE | 2024-03-30 11:35 | PC.NURSE ---
[facility] notified for consult, waiting for call back from on-call nurse
--- NOTE | 2024-03-30 12:28 | PC.NURSE ---
dr ambrosio attempted to reach hospitalist for admission
--- NOTE | 2024-03-30 12:46 | PC.NURSE ---
on phone with hospitalist
[2024-03-30] MEDS: CEFTRIAXONE 1 GM 1 GM in 0.9 % SODIUM CHLORIDE 50 ML IV (12:48)
--- NOTE | 2024-03-30 12:51 | PC.NURSE ---
warehouse shipping clerk notified of admission
--- NOTE | 2024-03-30 13:08 | PC.NURSE ---
called report to Stephany rn on 2nd floor and answered all questions
[2024-03-30 13:58] LABS: Reflex Lactic Add Lactic Reflex
--- NOTE | 2024-03-30 14:44 | PC.NURSE ---
med rec. completed using external pharmacy.
[2024-03-30 14:47] LABS: Lactic Acid Follow Up (RFLX 1) 0.6 mmol/L (0.7-2.1)
--- NOTE | 2024-03-30 14:58 | HMH.PHAINT1 ---
Pharmacy Intervention Comments: MEDICATION RECONCILIATION COMPLETE USING LIST FROM RECENT MD OFFICE VISIT NOTE AND EXTERNAL PHARMACY FILL HISTORY.
[2024-03-30] MEDS: AZITHROMYCIN 500 MG in 0.9 % SODIUM CHLORIDE 250 ML 250 MG IV (15:42)
[2024-03-30] MEDS: ONDANSETRON 4MG/2ML VIAL 4 MG IV (16:44)
[2024-03-30 17:20] LABS: Troponin I < 0.01 ng/ml (0.00-0.034)
--- NOTE | 2024-03-30 17:25 | P.HP_ITS ---
History of Present Illness *History of present illness: Melissa Vásquez is a 63-year-old female with a medical history significant for end-stage COPD, recurrent pneumonia, GERD who presents with hypoxic respiratory failure and worsening shortness of breath. Patient lives at home by herself, and her sister found her pulse ox to be saturating in the 50s and called EMS. EMS replaced pulse oximetry and patient's symptoms and saturations improved. On arrival exam revealed severely malnourished chronically cachectic who presents today with what appears to be end-stage COPD. She only weighs 36 kg has almost no muscle mass particular her pelvis and lower extremity region she has not been able to walk for over a month. States that her sister cares for her at home. Her primary reason for coming in today with shortness of breath secondary to her nasal cannula being off however she does appear to have symptoms of several days of a mild COPD exacerbation. She was given breathing treatments which did not improve her increased work of breathing. ED provider consulted hospice who agreed to come evaluate the patient tomorrow in the hospital. Case was discussed with ED provider, and decision was made to admit patient for end-stage COPD and respiratory distress [facility] Disclaimer: The information contained in this section may have been updated after the patient was seen, as this information can be updated by other users. Medical History Hypercapnia Abnormal CXR Weight loss of more than 10% body weight Pneumonia due to Pseudomonas Oxygen dependent Acute on chronic hypoxic respiratory failure Nausea & vomiting Lumbar paraspinal muscle spasm Acute right-sided low back pain with right-sided sciatica Allergic rhinitis Anxiety COPD (chronic obstructive pulmonary disease) Chronic respiratory failure with hypoxia Encounter for screening for malignant neoplasm of lung History of smoking 30 or more pack years Pulmonary emphysema Dyspnea Hypomagnesemia COPD exacerbation Pulmonary nodule Pneumonia Acute exacerbation of chronic obstructive pulmonary disease Acute URI Contact dermatitis Thyroid nodule GERD (gastroesophageal reflux disease) Hyperlipidemia Gastroesophageal reflux disease Dependence on nocturnal oxygen therapy Insomnia Restless legs syndrome (RLS) Anxiety with depression Chronic obstructive pulmonary disease History of peptic ulcer Tobacco use disorder COPD exacerbation Surgical History History of tubal ligation Family History Other Cancer Diabetes Social History Smoking Status: Former smoker tobacco type: cigarettes packs per day: 1 smoking status stop date: 07/13/23 alcohol intake: never substance use type: denies use current occupational status: unemployed, retired and disabled Travel in the last 8 weeks: None housing: house Other Medical History Have you received the Flu Vaccine for this season: No Have you received the Pneumonia Vaccine: Yes Meds Home Medications and Allergies Home Medications ?Medication ?Instructions ?Recorded ?Confirmed ?Type albuterol sulfate 90 mcg/actuation 2 inh inhalation QIDP PRN 09/18/23 03/30/24 Rx aerosol inhaler (ProAir HFA) shortness of breath or wheezing #8.5 grams azelastine 137 mcg (0.1 %) nasal 2 spray intranasal HS 11/21/23 03/30/24 History spray fluticasone propionate 50 2 spray intranasal DAILY 11/21/23 03/30/24 History mcg/actuation nasal spray,suspension pantoprazole 40 mg tablet,delayed 40 mg PO HS 11/21/23 03/30/24 History release pramipexole 0.25 mg tablet 0.25 mg PO HS 11/21/23 03/30/24 History ipratropium 0.5 mg-albuterol 3 mg 3 ml inhalation QIDP PRN Shortness 11/29/23 03/30/24 Rx (2.5 mg base)/3 mL nebulization Of Breath #360 mL soln quetiapine 50 mg tablet 50 mg PO HSP PRN sleep #90 tabs 02/05/24 03/30/24 Rx ondansetron HCl 4 mg tablet 4 mg PO Q8HP PRN nausea and 03/14/24 03/30/24 Rx vomiting #30 tabs buspirone 10 mg tablet 10 mg PO BID 03/30/24 03/30/24 History cyclobenzaprine 10 mg tablet 10 mg PO TIDP PRN muscle spasm 03/30/24 03/30/24 History escitalopram oxalate 10 mg tablet 10 mg PO DAILY 03/30/24 03/30/24 History fluticasone fur. 100 mcg-umeclid 1 inh inhalation DAILY 03/30/24 03/30/24 History 62.5 mcg-vilant 25 mcg inhalat.powder (Trelegy Ellipta) hydroxyzine pamoate 25 mg capsule 50 mg PO TIDP PRN anxiety or sleep 03/30/24 03/30/24 History montelukast 10 mg tablet 10 mg PO PM 03/30/24 03/30/24 History New Prescriptions to Start Prescriptions: Allergies Allergy/AdvReac Type Severity Reaction Status Date / Time No Known Drug Allergies Allergy Unknown Verified 03/13/24 09:25 [NKDA] Exam Data for Last 24 hours Vital signs and Labs for Last 24 Hours: Temp Pulse Resp BP Pulse Ox O2 Del Method O2 Flow Rate 97.8 F 98 H 22 115/59 L 92 L Nasal Cannula 4 03/30/24 15:50 03/30/24 15:50 03/30/24 15:50 03/30/24 15:50 03/30/24 15:50 03/30/24 17:00 03/30/24 17:00 Laboratory Results - last 24 hr 03/30/24 09:32: VBG pH 7.33, VBG pCO2 97.9 H, VBG pO2 53.7 H, VBG HCO3 50.2 H, VBG Total CO2 53.2 H, VBG O2 Saturation 88.5 H, VBG Base Excess 24.3 H, VBG Lactic Acid 2.7 H 03/30/24 09:40: SARS-CoV-2 (PCR) Not detected, Influenza A Untype (PCR) Not detected, Influenza Type B (PCR) Not detected 03/30/24 09:43: WBC 18.4 H, RBC 4.01 L, Hgb 11.2 L, Hct 36.6 L, MCV 91.3, MCH 2 8.0, MCHC 30.7 L, RDW 16.3, Plt Count 243, MPV 8.0, Neut % (Auto) 89.9 H, Lymph % (Auto) 4.0 L, [place] % (Auto) 4.9, Eos % (Auto) 0.1, Baso % (Auto) 1.2, Neut # (Auto) 16.6 H, Lymph # (Auto) 0.7, [place] # (Auto) 0.9, Eos # (Auto) 0.0, Baso # (Auto) 0.2, Total Counted 100, Neutrophils % (Manual) 96 H, Lymphocytes % (Manual) 4 L, Platelet Estimate Normal, Hypochromasia 2+, Target Cells 1+, Stomatocytes 1+, Sodium 132 L, Potassium 4.0, Chloride 82 L, Carbon Dioxide 50 H*, Anion Gap 4.0 L, BUN 10, Creatinine 0.20 L, Estimated Creat Clear 34, Estimated GFR 361, Est GFR ( Amer) 437, Glucose 114 H, Calcium 8.6, Total Bilirubin 0.6, AST 32, ALT 23, Alkaline Phosphatase 115, Troponin I < 0.01, NT-Pro-B Natriuret Pep 1050 H, Total Protein 5.8 L, Albumin 2.8 L, Globulin 3.0, Albumin/Globulin Ratio 0.9 L 03/30/24 14:09: Lactate 0.6 L 03/30/24 16:10: Troponin I < 0.01 I & O for Last 24 hours: Intake & Output 03/27/24 03/28/24 03/29/24 03/30/24 23:59 23:59 23:59 23:59 Intake Total 120 / 120 Output Total 0 / 0 Balance 120 / 120 Weight 31.808 kg Constitutional Constitutional: no acute distress, thin and cachectic Comments: Severe cachexia. *Routine HEENT Exam Head: Present normocephalic Eye: Present EOMI and PERRL ENT: Present mucous membranes moist *Routine Neck Exam Neck: Present supple; Absent lymphadenopathy *Routine Respiratory Exam Respiratory: Present CTA bilaterally *Routine Cardiovascular Exam Cardiovascular: Present RRR *Routine Abdominal Exam Abdominal: Present soft and normoactive bowel sounds; Absent tenderness *Routine Rectal Exam Rectal:: deferred *Routine Genitalia Exam Genitalia:: deferred *Routine Extremities Exam Extremities: Absent cyanosis, clubbing or edema *Routine Skin Exam Skin: Present warm; Absent rash *Routine Neurological Exam Neurological: Present alert and oriented X3 Assessment and Plan *Assessment and plan (1) End stage COPD: Status: Acute Category: Medical Code(s): J44.9 - Chronic obstructive pulmonary disease, unspecified Plan Melissa Vásquez is a 63-year-old female with a medical history significant for end-stage COPD, recurrent pneumonia, GERD who presents with hypoxic respiratory failure and worsening shortness of breath. Patient lives at home by herself, and her sister found her pulse ox to be saturating in the 50s and called EMS. EMS replaced pulse oximetry and patient's symptoms and saturations improved. On arrival exam revealed severely malnourished chronically cachectic who presents today with what appears to be end-stage COPD. She only weighs 36 kg has almost no muscle mass particular her pelvis and lower extremity region she has not been able to walk for over a month. States that her sister cares for her at home. Her primary reason for coming in today with shortness of breath secondary to her nasal cannula being off however she does appear to have symptoms of several days of a mild COPD exacerbation. She was given breathing treatments which did not improve her increased work of breathing. ED provider consulted hospice who agreed to come evaluate the patient tomorrow in the hospital. Case was discussed with ED provider, and decision was made to admit patient for end-stage COPD and respiratory distress #End-stage COPD #Community-acquired pneumonia #Failure to thrive ? Patient has had several-year solis with end-stage COPD, with CT showing severe emphysema. She has had recurrent pseudomonal pneumonias, and countless COPD exacerbations. ? Patient also shows clear signs of failure to thrive with extreme cachexia (BMI 13), decreased appetite, decreased ability to take care of herself. She lives at home by herself but does have family support in the area. ? WBC 18.4, with CXR suggesting pneumonia in the left upper lobe. Previous sputum cultures growing Pseudomonas. ? Hospice care consulted, hospice nurse will come to the hospital tomorrow for evaluation. ? COPD does not seem to be in exacerbation. ? IV cefepime. Continue monitor WBCs. ? Resumed home Trelegy. DuoNebs as needed. ? At this time, patient is alert and oriented x 4 and wants to be full code at this time. ? Ordered nutritional supplements with meals. Full code Lovenox
[2024-03-30] MEDS: CEFEPIME HCL 1 GM in 0.9 % SODIUM CHLORIDE 50 ML IV (18:22)
[2024-03-30] MEDS: MONTELUKAST SODIUM 10MG TAB 10 MG PO (18:25)
[2024-03-30] MEDS: BUSPIRONE HCL 10 MG TABLET PO (21:20)
[2024-03-30] MEDS: PANTOPRAZOLE 40MG TABLET 40 MG PO (21:20)
[2024-03-30] MEDS: ACETAMINOPHEN 325MG TAB 650 MG PO (22:25)
[2024-03-31] MEDS: QUETIAPINE 25MG TABLET 50 MG PO (01:01)
[2024-03-31 04:00] VITALS: BP 118/62; PULSE 98; RESP 16; TEMP 37; O2SAT 94; BMI 13.1
[2024-03-31] MEDS: CEFEPIME HCL 1 GM in 0.9 % SODIUM CHLORIDE 50 ML IV (05:29)
--- NOTE | 2024-03-31 05:58 | PC.NURSE ---
63 yo female pt A/O X 2. She does become more confused at times and was found with her 02 off . Daughter at bedside and attempting to keep [address] Pt was medicated X 1 this shift for complaints of headache. She has also not rested well, Quetiapine given per order which allowed pt to sleep approx 2 hours. Antibiotics administered per order. Pt bedfast and needs assist with all aspects of care.
[2024-03-31 06:22] LABS: Chloride 84 mmol/L (98-107)
[2024-03-31 06:23] LABS: Potassium 4.2 mmoL/L (3.5-5.1); Sodium 132 mmol/L (136-145)
[2024-03-31 06:26] LABS: Basophils % 0.3 % (0.1-2.0); Lymphocytes # 1.4 K/mm3 (0.7-4.5); Lymphocytes % 15.9 % (10-50); Mean Corpuscular HGB Conc 31.3 g/dL (31.8-35.4); Mean Corpuscular Hemoglobin 28.1 pg (27.0-31.2); Mean Corpuscular Volume 89.9 fl (81-99); Mean Platelet Volume 8.2 fl (7.4-10.4); Monocytes # 0.6 K/mm3 (0.1-1.0); Monocytes % 6.6 % (1.7-9.3); Neutrophils # 6.7 K/mm3 (1.8-7.8); Neutrophils % 77.2 % (37.0-80.0); Platelet Count 287 K/mm3 (142-424); Red Blood Count 3.34 M/mm3 (4.20-5.40); Red Cell Distribution Width 16.2 % (11.5-17.5); White Blood Count 8.6 K/mm3 (4.8-10.8)
[2024-03-31] MEDS: IPRATROPIUM/ALBUTEROL 3 ML NEB IH ×2 (06:34→11:30)
[2024-03-31 06:38] VITALS: PULSE 102; PULSE 110; O2SAT 86
[2024-03-31 06:38] LABS: Hemoglobin 10.6 g/dL (12.2-16.2)
[2024-03-31 06:52] LABS: Blood Urea Nitrogen 12 mg/dl (7-17); Calcium 8.2 mg/dl (8.4-10.2); Creatinine Clearance Estimated 28 mL/min (50-200); Estimated Glomerular Filt Rate 162 ml/min (>60); GFR (African American) 196 ML/MIN (>60); Magnesium 1.7 mg/dl (1.6-2.3); Phosphorous 2.4 mg/dl (2.5-4.5)
[2024-03-31 07:03] LABS: Anion Gap 13.2 mEq/L (5-15); Carbon Dioxide 39 mmol/L (22.0-30.0)
[2024-03-31 07:05] LABS: Glucose 45 mg/dl (74-100)
[2024-03-31 07:31] LABS: POC Glucose,Bedside 56 (70-110)
[2024-03-31 07:57] VITALS: BP 108/69; PULSE 101; RESP 16; TEMP 36.8; O2SAT 100
[2024-03-31] MEDS: BUSPIRONE HCL 10 MG TABLET PO (09:16)
[2024-03-31] MEDS: ENOXAPARIN 30MG/0.3ML SYRINGE 30 MG SQ (09:16)
[2024-03-31] MEDS: CITALOPRAM 20MG TABLET 20 MG PO (09:16)
[2024-03-31] MEDS: hydrOXYzine pamoate 25MG CAPSULE 50 MG PO (09:16)
[2024-03-31] MEDS: FLUTICASONE/UMECLIDIN/VILANTER 100/62.5/25MCG INHALER 1 PUFF IH (10:30)
[2024-03-31 11:28] VITALS: BP 112/58; PULSE 103; RESP 18; TEMP 36.8; O2SAT 98
[2024-03-31 11:30] VITALS: PULSE 101; PULSE 103; O2SAT 99
[2024-03-31] MEDS: ACETAMINOPHEN 325MG TAB 650 MG PO (13:53)
--- NOTE | 2024-03-31 14:14 | EXP.DC.SUM ---
General Admission date:: 03/30/24 HPI HPI HPI: Melissa Vásquez is a 63-year-old female with a medical history significant for end-stage COPD, recurrent pneumonia, GERD who presents with hypoxic respiratory failure and worsening shortness of breath. Patient lives at home by herself, and her sister found her pulse ox to be saturating in the 50s and called EMS. EMS replaced pulse oximetry and patient's symptoms and saturations improved. On arrival exam revealed severely malnourished chronically cachectic who presents today with what appears to be end-stage COPD. She only weighs 36 kg has almost no muscle mass particular her pelvis and lower extremity region she has not been able to walk for over a month. States that her sister cares for her at home. Her primary reason for coming in today with shortness of breath secondary to her nasal cannula being off however she does appear to have symptoms of several days of a mild COPD exacerbation. She was given breathing treatments which did not improve her increased work of breathing. ED provider consulted hospice who agreed to come evaluate the patient tomorrow in the hospital. Case was discussed with ED provider, and decision was made to admit patient for end-stage COPD and respiratory distress Hospital Course Hospital Course Hospital Course: Melissa Vásquez is a 63-year-old female with a medical history significant for end-stage COPD, recurrent pneumonia, GERD who presents with hypoxic respiratory failure and worsening shortness of breath. Patient lives at home by herself, and her sister found her pulse ox to be saturating in the 50s and called EMS. EMS replaced pulse oximetry and patient's symptoms and saturations improved. On arrival exam revealed severely malnourished chronically cachectic who presents today with what appears to be end-stage COPD. She only weighs 36 kg has almost no muscle mass particular her pelvis and lower extremity region she has not been able to walk for over a month. States that her sister cares for her at home. Her primary reason for coming in today with shortness of breath secondary to her nasal cannula being off however she does appear to have symptoms of several days of a mild COPD exacerbation. She was given breathing treatments which did not improve her increased work of breathing. ED provider consulted hospice who agreed to come evaluate the patient tomorrow in the hospital. Case was discussed with ED provider, and decision was made to admit patient for end-stage COPD and respiratory distress #End-stage COPD #Community-acquired pneumonia #Failure to thrive ? Patient has had several-year solis with end-stage COPD, with CT showing severe emphysema. She has had recurrent pseudomonal pneumonias, and countless COPD exacerbations. ? Patient also shows clear signs of failure to thrive with extreme cachexia (BMI 13), decreased appetite, decreased ability to take care of herself. She lives at home by herself but does have family support in the area. ? WBC 18.4, with CXR suggesting pneumonia in the left upper lobe. Previous sputum cultures growing Pseudomonas. ? Hospice care consulted, evaluated pateint with family at beside. Agreed with hospice care for end stage COPD. ? COPD does not seem to be in exacerbation. ? IV cefepime given for 2 days. WBC normalized to 8.6. ? Resumed home Trelegy. DuoNebs as needed. ? At this time, patient is alert and oriented x 4 and wants to be full code at this time. ? Ordered nutritional supplements with meals. - Discharged home with home hospice care. Exam Data for Last 24 hours Vital signs and Labs for Last 24 Hours: Temp Pulse Resp BP Pulse Ox O2 Del Method O2 Flow Rate 98.3 F 103 H 18 112/58 L 99 Nasal Cannula 5 03/31/24 11:28 03/31/24 11:30 03/31/24 11:28 03/31/24 11:28 03/31/24 11:30 03/31/24 11:30 03/31/24 11:30 Laboratory Results - last 24 hr 03/30/24 14:09: Lactate 0.6 L 03/30/24 16:10: Troponin I < 0.01 03/31/24 06:08: WBC 8.6 D, RBC 3.34 L, Hgb 10.6 L, Hct 30.0 L, MCV 89.9, MCH 28.1, MCHC 31.3 L, RDW 16.2, Plt Count 287, MPV 8.2, Neut % (Auto) 77.2, Lymph % (Auto) 15.9, [place] % (Auto) 6.6, Eos % (Auto) 0.0 L, Baso % (Auto) 0.3, Neut # (Auto) 6.7, Lymph # (Auto) 1.4, [place] # (Auto) 0.6, Eos # (Auto) 0.0, Baso # (Auto) 0.0, Sodium 132 L, Potassium 4.2, Chloride 84 L, Carbon Dioxide 39 H, Anion Gap 13.2, BUN 12, Creatinine 0.40 L D, Estimated Creat Clear 28, Estimated GFR 162, Est GFR ( Amer) 196 D, Glucose 45 L* D, Calcium 8.2 L, Phosphorus 2.4 L, Magnesium 1.7 03/31/24 07:24: POC Glucose 56 L I & O for Last 24 hours: Intake & Output 03/28/24 03/29/24 03/30/24 03/31/24 23:59 23:59 23:59 23:59 Intake Total 120 / 120 260 / 260 Output Total 0 / 0 0 / 0 Balance 120 / 120 260 / 260 Weight 31.808 kg 30.436 kg Microbiology Reports for the Last 24 Hours: Microbiology 03/30/24 11:05 Blood Blood Culture - Preliminary NO GROWTH AFTER 24 HOURS 03/30/24 09:33 Blood Blood Culture - Preliminary NO GROWTH AFTER 24 HOURS Constitutional Constitutional: no acute distress and cachectic Comments: Very cachetic with severe diffuse muscle atrophy. *Routine HEENT Exam Head: Present normocephalic Eye: Present EOMI and PERRL ENT: Present mucous membranes moist *Routine Neck Exam Neck: Present supple; Absent lymphadenopathy *Routine Respiratory Exam Respiratory: Present CTA bilaterally *Routine Cardiovascular Exam Cardiovascular: Present RRR *Routine Abdominal Exam Abdominal: Present soft and normoactive bowel sounds; Absent tenderness *Routine Extremities Exam Extremities: Absent cyanosis, clubbing or edema *Routine Skin Exam Skin: Present warm; Absent rash *Routine Neurological Exam Neurological: Present alert and oriented X3 Results Data Completed and Pending Labs on day of discharge: Labs from last 24 hours 03/31/24 03/31/24 03/30/24 07:24 06:08 16:10 WBC 8.6 D RBC 3.34 L Hgb 10.6 L Hct 30.0 L MCV 89.9 MCH 28.1 MCHC 31.3 L RDW 16.2 Plt Count 287 MPV 8.2 Neut % (Auto) 77.2 Lymph % (Auto) 15.9 [place] % (Auto) 6.6 Eos % (Auto) 0.0 L Baso % (Auto) 0.3 Neut # (Auto) 6.7 Lymph # (Auto) 1.4 [place] # (Auto) 0.6 Eos # (Auto) 0.0 Baso # (Auto) 0.0 Sodium 132 L Potassium 4.2 Chloride 84 L Carbon Dioxide 39 H Anion Gap 13.2 BUN 12 Creatinine 0.40 L D Estimated Creat Clear 28 Estimated GFR 162 Est GFR ( Amer) 196 D Glucose 45 L* D POC Glucose 56 L Lactate Calcium 8.2 L Phosphorus 2.4 L Magnesium 1.7 Troponin I < 0.01 03/30/24 14:09 WBC RBC Hgb Hct MCV MCH MCHC RDW Plt Count MPV Neut % (Auto) Lymph % (Auto) [place] % (Auto) Eos % (Auto) Baso % (Auto) Neut # (Auto) Lymph # (Auto) [place] # (Auto) Eos # (Auto) Baso # (Auto) Sodium Potassium Chloride Carbon Dioxide Anion Gap BUN Creatinine Estimated Creat Clear Estimated GFR Est GFR ( Amer) Glucose POC Glucose Lactate 0.6 L Calcium Phosphorus Magnesium Troponin I Preliminary micro results at discharge 03/30/24 11:05 Blood Culture - Preliminary Blood NO GROWTH AFTER 24 HOURS 03/30/24 09:33 Blood Culture - Preliminary Blood NO GROWTH AFTER 24 HOURS DS: Diagnosis Discharge Diagnosis (1) End stage COPD: Status: Acute Code(s): J44.9 - Chronic obstructive pulmonary disease, unspecified Meds Home Medications and Allergies Home Medications ?Medication ?Instructions ?Recorded ?Confirmed ?Type albuterol sulfate 90 mcg/actuation 2 inh inhalation QIDP PRN 09/18/23 03/30/24 Rx aerosol inhaler (ProAir HFA) shortness of breath or wheezing #8.5 grams azelastine 137 mcg (0.1 %) nasal 2 spray intranasal HS 11/21/23 03/30/24 History spray fluticasone propionate 50 2 spray intranasal DAILY 11/21/23 03/30/24 History mcg/actuation nasal spray,suspension pantoprazole 40 mg tablet,delayed 40 mg PO HS 11/21/23 03/30/24 History release pramipexole 0.25 mg tablet 0.25 mg PO HS 11/21/23 03/30/24 History ipratropium 0.5 mg-albuterol 3 mg 3 ml inhalation QIDP PRN Shortness 11/29/23 03/30/24 Rx (2.5 mg base)/3 mL nebulization Of Breath #360 mL soln quetiapine 50 mg tablet 50 mg PO HSP PRN sleep #90 tabs 02/05/24 03/30/24 Rx ondansetron HCl 4 mg tablet 4 mg PO Q8HP PRN nausea and 03/14/24 03/30/24 Rx vomiting #30 tabs buspirone 10 mg tablet 10 mg PO BID 03/30/24 03/30/24 History cyclobenzaprine 10 mg tablet 10 mg PO TIDP PRN muscle spasm 03/30/24 03/30/24 History escitalopram oxalate 10 mg tablet 10 mg PO DAILY 03/30/24 03/30/24 History fluticasone fur. 100 mcg-umeclid 1 inh inhalation DAILY 03/30/24 03/30/24 History 62.5 mcg-vilant 25 mcg inhalat.powder (Trelegy Ellipta) hydroxyzine pamoate 25 mg capsule 50 mg PO TIDP PRN anxiety or sleep 03/30/24 03/30/24 History montelukast 10 mg tablet 10 mg PO PM 03/30/24 03/30/24 History cefdinir 300 mg capsule 300 mg PO BID 3 days #6 caps 03/31/24 Rx lorazepam 0.5 mg tablet (Ativan) 0.25 mg (1/2 x 0.5 mg) PO BID PRN 03/31/24 Rx anxiety #6 tabs New Prescriptions to Start Prescriptions: cefdinEdouard Villatoro lorazepam [Ativan] Edouard Arechiga Allergies Allergy/AdvReac Type Severity Reaction Status Date / Time No Known Drug Allergies Allergy Unknown Verified 03/13/24 09:25 [NKDA] Discharge Plan Disposition Patient Disposition: Hospice - Home Discharge Order Discharge Orders: Discharge Order (Routine); Ordered 03/31/24 Ordered By: Edouard Arechiga Follow up Plan Prescriptions/Medication Reconciliation: New cefdinir 300 mg capsule 300 mg PO BID 3 Days Qty: 6 0RF lorazepam [Ativan] 0.5 mg tablet 0.25 mg PO BID PRN (Reason: anxiety) Qty: 6 0RF Continued albuterol sulfate [ProAir HFA] 90 mcg/actuation HFA aerosol inhaler 2 inh inhalation QIDP PRN (Reason: shortness of breath or wheezing) Qty: 8.5 5RF ipratropium-albuterol 0.5 mg-3 mg(2.5 mg base)/3 mL solution for nebulization 3 ml INHALATION QIDP PRN (Reason: Shortness Of Breath) Qty: 360 11RF quetiapine 50 mg tablet 50 mg PO HSP PRN (Reason: sleep) Qty: 90 1RF ondansetron HCl 4 mg tablet 4 mg PO Q8HP PRN (Reason: nausea and vomiting) Qty: 30 0RF azelastine 137 mcg (0.1 %) aerosol,spray 2 spray INTRANASAL HS Patient Comments: USE 2 SPRAYS IN EACH NOSTRIL NIGHTLY AT BEDTIME. fluticasone propionate 50 mcg/actuation spray,suspension 2 spray INTRANASAL DAILY Patient Comments: USE 2 SPRAYS IN EACH NOSTRIL ONCE DAILY. pantoprazole 40 mg tablet,delayed release (DR/EC) 40 mg PO HS pramipexole 0.25 mg tablet 0.25 mg PO HS cyclobenzaprine 10 mg tablet 10 mg PO TIDP PRN (Reason: muscle spasm) buspirone 10 mg tablet 10 mg PO BID escitalopram oxalate 10 mg tablet 10 mg PO DAILY montelukast 10 mg tablet 10 mg PO PM Patient Comments: TAKE 1 TABLET BY MOUTH ONCE DAILY. Trelegy Ellipta 100-62.5-25 mcg blister with device 1 inh INHALATION DAILY Patient Comments: INHALE 1 PUFF INTO THE LUNGS ONCE DAILY FOR BREATHING PROBLEMS. hydroxyzine pamoate 25 mg capsule 50 mg PO TIDP PRN (Reason: anxiety or sleep) Problem Reconciliation Problems Reviewed?: Yes Patient Discharge Instructions ACTIVITY: Continue current activity DIET: continue same diet Patient Instructions: DI for Chronic Obstructive Pulmonary Disease Print Language: Slovenian Providers Primary Care Provider: Martine Bernal Admit Provider: Edouard Arechiga Attending Provider: Edouard Arechiga
--- NOTE | 2024-04-01 14:43 | CARE MANAGER ---
Confirmed with [facility] this morning, patient admitted hospice upon discharge.
== END 2024-03-31 14:50 | disposition hospice, home (50) ==
LOC: ER 12:57 → 2ND 12:57
PROVIDERS: Admitting Provider Student in an Organized Health Care Education/Training Program; Emergency Provider Student in an Organized Health Care Education/Training Program; PCP Nurse Practitioner; Visit Provider Student in an Organized Health Care Education/Training Program
DX: J44.1 Chronic obstructive pulmonary disease with (acute) exacerbation (principal); Z68.1 Body mass index [BMI] 19.9 or less, adult; Z99.81 Dependence on supplemental oxygen; J96.11 Chronic respiratory failure with hypoxia; J18.9 Pneumonia, unspecified organism; Z87.891 Personal history of nicotine dependence; R64 Cachexia; R62.7 Adult failure to thrive; R06.02 Shortness of breath
CPT/HCPCS: 36415; 71045; 80048; 80053; 82803; 82962; 83605; 83735; 83880; 84100; 84484; 85007; 85025; 85027; 87040; 87636; 93005; 94640; 94760; 99291; G0378; J0456; J0692; J0696; J1650; J2405; J2919; J3475; J7050; J7120; J7620